=== PATIENT | female | born 1955 | race Caucasian/White ===

== ENCOUNTER 2017-05-24 21:15 | Inpatient (IN) | payer OTHER ==
[~2017-05-24] VITALS: Ht 170.1 cm; Wt 79.6 kg
--- NOTE | ~2017-05-24 | PR ---
[place], [place] PROGRESS NOTE NAME: ALEIDA SUH UNIT #: [id number] ROOM: 507 DOCTOR: MO DUMONT MD,SHIRA BIRTHDATE: [birth year] DOS: 05/27/2017 SUBJECTIVE: The patient underwent bronchoscopy yesterday with endobronchial and transbronchial biopsies was noted in the right upper lobe. The patient has been noted without any symptoms of acute chest pain. Coughing has been noted decreased, but not resolved. Denies symptoms of chest pain or hemoptysis. OBJECTIVE: VITAL SIGNS: Normal temperature, respiratory rate 18, heart rate 87, blood pressure 146/84-166/100. HEENT: No acute change. NECK: Supple. CARDIOVASCULAR: S1, S2 is audible. LUNGS: The patient was noted without any wheezing or crackles at the present time. Breath sounds noted mildly decreased bilaterally. ABDOMEN: Soft, nontender. EXTREMITIES: No significant edema. LABORATORY DATA: Per the bronchial washing Gram stain, moderate white blood cells and moderate epithelial cells, rare gram-positive cocci in pairs and clusters. Urine culture from the 15th showed no bacterial growth. Blood culture from the 14 reported no bacterial growth. CBC this morning was noted as normal. The BMP of the patient was noted with normal BUN and creatinine. Potassium was noted normal. Sodium still remains low with 121 and chloride was also decreased to 85. IMPRESSION: 1. The patient with suspected malignancy at this time with hyponatremia, which is noted multifactorial including possibly to SIADH, paraneoplastic syndrome is a consideration. 2. The patient with acute exacerbation of chronic obstructive pulmonary disease. 3. History of chronic nicotine dependence. PLAN OF TREATMENT: No changes from the pulmonary standpoint. Continue to address the hypernatremia for this patient with the recommendations of the Nephrology services. Monitor results of the biopsy of the left upper lung mass lesion. The patient had an endobronchial biopsy. Usual care. Other supportive plan of treatment, monitor culture results. Continuation of the bronchodilators. Dose of Solu-Medrol will be decreased to 40 mg b.i.d. for this patient as reduction in wheezing and improvement in shortness of breath was noted. [place], [place] PROGRESS NOTE NAME: ALEIDA SUH UNIT #: [id number] ROOM: 507 DOCTOR: SHIRA TOUSSAINT MD BIRTHDATE: [birth year] SHIRA HASSAN MD CM:PNTRANS [id number] SHIRA DUMONT MD 05/27/17 1245 interface
--- NOTE | ~2017-05-24 | PR ---
[place], [place] PROGRESS NOTE NAME: ALEIDA SUH UNIT #: [id number] ROOM: 507 DOCTOR: GENOVEVA MAKI DO BIRTHDATE: [birth year] DOS: 05/26/2017 TIME: 11:54 p.m. At approximately 11:40, a code was called on the patient. Myself and 2 other residents along with security and nursing staff and inpatient assistance arrived to find the patient in the hallway, about 15 feet from her door. The patient was hunched over, hanging on to her IV pole, in respiratory distress, complaining that she wanted to leave the hospital immediately. She was upset with the care she was given. It was attempt at several times to try and get the patient to explain what specifically was causing her to be upset. The patient said she did not want to talk to us, that she did not like us and she hated it here in this hospital and that she was leaving to go [place] the [place]. We made several attempts to ask her for more details on how she plans to get there tonight and what her plans were and she said, "I'm just going to [place]" and she has no specific plans on transportation or who will be picking her up from the hospital. The patient was oriented to place; however, stated that the date was 1917. Additionally, she made several attempts to explain to us that a Dr. Montague and his ones who are meeting her in [place]. We explained to the patient that if she were to leave in her acute respiratory distress that she would likely not have a good outcome including things like passing out, syncopal or even respiratory and cardiac arrest. The patient stated multiple times she do not care if she , she just wanted to leave. It was determined by myself along with agreement of the nursing staff that the patient was not competent at this time to make this decision, this is an acute change in mental status for this patient who earlier in the day was compliant and friendly with staff and has not had any issues since she has been here. Due to the acute change in the patient's mental status and obvious intention to hurt herself and also an unclear plan on what she was wanting to do, we deemed it necessary to pink slip the patient and to bring her back to her room. The patient was irritated but was in a wheelchair, unable get back to her bed. A 5 mg of Haldol was given IM. The patient requested additional medication to help calm her nerves, 50 of Bentyl was ordered IM as well. At this time, the patient is medically stable and is in her bed and the nursing staff are with her and she is in no immediate danger of herself or other. GENOVEVA MAKI DO [place], [place] PROGRESS NOTE NAME: ALEIDA SUH UNIT #: [id number] ROOM: 507 DOCTOR: GENOVEVA MAKI DO BIRTHDATE: [birth year] VILMA JACKSON DO CM:REBECA [id number] GENOVEVA MAKI DO 05/27/172105 interface
--- NOTE | ~2017-05-24 | PR ---
[place], [place] PROGRESS NOTE NAME: ALEIDA SUH UNIT #: [id number] ROOM: 507 DOCTOR: GABBIE HAQUE MD BIRTHDATE: [birth year] DOS: 05/26/2017 REASON FOR FOLLOWUP: Hyponatremia. SUBJECTIVE: The patient was down getting a bronchoscopy today and could not be seen. Labs were reviewed. Continued hyponatremia persists. She is on oral fluid restriction. Lactate Ringer's was started at 30 mL an hour this morning. Based on her urine chloride and urine sodium being 32 and less than 10, I do not see that this is a big problem to start some low rate IV fluids on her. What I will do is also add sodium chloride tablets and continue to replace potassium and follow with a dose of magnesium as well. GABBIE HAQUE MD CM:REBECA [phone] GABBIE HAQUE MD 05/26/17 1736 interface
--- NOTE | ~2017-05-24 | CON ---
[place], [place] REPORT OF CONSULTATION NAME: ALEIDA SUH UNIT #: [id number] ROOM: 507 DOCTOR: SHIRA TOUSSAINT MD BIRTHDATE: [birth year] DOS: 05/25/2017 PULMONARY CONSULTATION REASON FOR CONSULTATION: Abnormal CT scan finding and the ongoing acute respiratory complaints. HISTORY OF PRESENT ILLNESS: This is a 62-year-old white female who has been admitted to the hospital. The patient was noted with severe generalized weakness and fatigue with lower extremity weakness and symptoms of cough and shortness of breath. The patient has been admitted to the hospital and noted severe hyponatremia. The patient has a chest x-ray done and then CT scan of the head and the chest was also done. She has been noted with symptoms of chest pain. Chest x-ray of the patient was reported with finding of left hilar enlargement suspicious with possibility of malignant tumor. The patient denies any symptoms of hemoptysis. Denies symptoms of abnormal weight loss. The patient does have a cough, which has been noted moderate to severe, nonproductive. She denies any symptoms of wheezing. REVIEW OF SYSTEMS: CONSTITUTIONAL: General weakness, fatigue, occurred for the past 10 days or greater. EYES: Denies any burning, redness, or tenderness. EARS, NOSE, THROAT SYMPTOMS: No sore throat, hoarseness, otalgia, postnasal drainage. CARDIOVASCULAR: Denies anginal pain, edema or pain of the lower extremities. GASTROINTESTINAL: Dysphagia, nausea, vomiting, diarrhea, abdominal pain, hematemesis, melena, hematochezia. SKIN: No lesions or rashes. CENTRAL NERVOUS SYSTEM: Generalized weakness and fatigue was noted, especially of the lower extremities. Denies any focal deficit or tingling sensations. Remaining systems were reviewed with the patient, they were noted all negative. PAST MEDICAL HISTORY: 1. History of centrilobular emphysema/COPD. 2. Anxiety disorder and depression. 3. Essential hypertension. 4. History of osteoarthritis. PAST SURGICAL HISTORY: 1. EGD. 2. D and C. 3. Corneal transplants. 4. Polypectomy with colonoscopy. SOCIAL HISTORY: Reported as the patient is , has 2 children. Lives at home. She has been known with history of tobacco use, a pack of cigarettes per day since teenager. Denies history of chronic alcohol or any illicit drug use. FAMILY HISTORY: The patient's father of complication related to acute [place], [place] REPORT OF CONSULTATION NAME: ALEIDA SUH UNIT #: [id number] ROOM: 507 DOCTOR: MO DUMONT MD,SHIRA BIRTHDATE: [birth year] myocardial infarction. Mother of natural causes. HOME MEDICATIONS: Reported use of vibramycin, albuterol sulfate, Advair, Lasix, Neurontin, DuoNeb, lisinopril, and Medrol Dosepak. The Medrol Dosepak and doxycycline was recently started by her primary care physician. DRUG ALLERGIES: No known drug allergies. PHYSICAL EXAMINATION: GENERAL: A 62-year-old female who has been noted currently awake and alert without any distress. Height of 5 feet 7 inches, weight of 175 pounds, BMI 27.5. VITAL SIGNS: Shows normal temperature, respiratory rate 20-22, heart rate 60-84, blood pressure 108/70-124/78. The pulse oxygen saturation noted on room air 95% saturation. HEENT: Examination shows head was atraumatic. Eyes: No icterus. NECK: Supple. CARDIOVASCULAR: S1, S2 is audible. LUNGS: The patient was noted with moderate reduction of breath sounds noted, which is generalized. Expiratory wheezing noted in the lungs. ABDOMEN: Soft, nontender, bowel sounds present. EXTREMITIES: Does not show any edema, clubbing, cyanosis. CENTRAL NERVOUS SYSTEM: No focal deficit origin or muscular weakness was noted. Cranial nerves 2-12 intact. SKIN: Showed no lesions or rashes. MUSCULOSKELETAL: No obvious deformities. LABORATORY DATA: CBC on 05/24/2017 on admission, WBC count 4.4, remaining CBC was normal. ABG of the patient on 05/24/2017, 6 liters, pH of 7.43, pCO2 of 41, pO2 113. CMP of the patient on 05/24/2017, BUN normal, creatinine was normal, sodium 120, potassium 3.2, chloride of 81. Alkaline phosphatase 138. Magnesium was 1.3. BMP of the patient that was done this morning shows BUN normal, creatinine was normal, sodium 121, potassium 3.2, chloride of 87. TSH was noted as normal today. CBC this morning, WBC count 3.5, hemoglobin 12.8, hematocrit of 35.8. The chest x-ray that was done for this patient on this admission was noted with evidence of suspected hilar enlargement and mass-like lesion. CT scan of the chest which was done essentially without contrast yesterday was reviewed, it limits the findings of mediastinum; however, the mass lesion was suspected in the left hilar area 3.8 x 2.6 cm extension to the left hilar area with a lymph node enlargement noted in the AP window as well as in the left hilar area. Subcarinal lymph nodes was also suspected. Area of atelectasis noted partially of the left upper lobe as well. The bronchus of the left main stem bronchus was noted to be narrowed with irregularity. IMPRESSION: 1. The patient with suspected malignancy with current abnormal CT scan of the chest with hyponatremia, possibility of SIADH paraneoplastic syndrome. The differential diagnosis would be considered as a small cell versus squamous cell [place], [place] REPORT OF CONSULTATION NAME: ALEIDA SUH UNIT #: [id number] ROOM: 507 DOCTOR: SHIRA TOUSSAINT MD BIRTHDATE: [birth year] cancer as a most likely cancer if it is proven. 2. The patient with COPD, chronic longstanding tobacco use, emphysematous changes noted centrilobular emphysema on the CT scan of the chest as well with current acute exacerbation. 3. History of chronic longstanding nicotine abuse. 4. Hypokalemia for the patient related to diuretic use of the Lasix as well. 5. Generalized weakness was noted for this patient as well. CT scan of the head for the patient was also done that does not show any acute intracranial abnormalities. RECOMMENDATIONS: Continue IV Solu-Medrol, bronchodilators and antibiotics. Medical management of hyponatremia with 3% saline would be considered and recommended. Supplementation of electrolytes of the hypomagnesemia and hypokalemia would be recommended. Continue current antibiotic administration with acute tracheobronchitis and possibility of postobstructive pneumonia for this patient as well in the left upper lobe in the impression of that and postobstructive pneumonia for this patient, possibly endobronchial partial obstruction in the left upper lobe bronchus. Continue medical management plan. DVT prophylaxis. Bronchoscopy if agreed upon would be done tomorrow morning on another day. Supportive therapy, plan of management care and usual therapy. Supportive treatment and other care, plan of management. Usual care. SHIRA HASSAN MD CM:CONSTR:REPORT OF CONSULTATION 1105 05/26/17 1325 interface
--- NOTE | ~2017-05-24 | CON ---
[place], [place] REPORT OF CONSULTATION NAME: ALEIDA SUH UNIT #: [id number] ROOM: 507 DOCTOR: HAJA BOYER ED.D (JA) BIRTHDATE: [birth year] DOS: 05/27/2017 HISTORY OF PRESENT ILLNESS: The patient is a 62-year-old female referred by the hospitalist for competency evaluation. At the present time, this patient is on the 5th floor at [facility]. She states she is and has 2 children, ages 36 and 40. She is not working and is presently on SSI for her COPD. She now follows with the resident clinic. Her medical history is pertinent for COPD, anxiety, hypertension, depression, osteoarthritis and lung neoplasm. Her medications include Lasix, gabapentin, lisinopril, albuterol, omeprazole, and trazodone. She denies any substance abuse issues, although she does smoke 1 pack of cigarettes per day. She states she has not had anything to smoke since she has been here and plans on quitting. This patient was awake, alert and oriented in all three spheres. She had no hallucinations or delusional thoughts and was very lucid in her conversation. Apparently, apparently her medical problems caused her to have short-term delirium. She did follow with Dr. Lyon in the past for her depression. She adamantly denies any suicidal ideation or plan and has no history of auditory or visual hallucinations or delusional thoughts. In my opinion, this patient is competent to make informed healthcare decisions. DIAGNOSES: 1. Persistent depressive disorder. 2. Delirium, not otherwise specified. RECOMMENDATIONS: In my opinion, this patient can make informed healthcare decisions. Thank you very much for this consult. HAJA BOYER ED.D CM:CONSTR:REPORT OF CONSULTATION 1442 05/28/17 0401 interface
--- NOTE | ~2017-05-24 | CON ---
[place], [place] REPORT OF CONSULTATION NAME: ALEIDA SUH UNIT #: [id number] ROOM: 507 DOCTOR: CHRISTOPHE SWEET MD BIRTHDATE: [birth year] DOS: 05/28/2017 HISTORY OF PRESENT ILLNESS: The patient is a pleasant 62-year-old woman who for the past 2 weeks has been complaining of productive cough, which has got worse subsequently. She also is a smoker, but started complaining of feeling weakness and try to get up and walk and subsequently decided to come to the Emergency Room. She was noted to be hyponatremic and was admitted. Further workup revealed that she has got a small cell lung cancer and consulted for further evaluation and management. MEDICATIONS: She is on albuterol, hydromorphone. She is on Dilaudid, albuterol, tazobactam sodium and Zofran. She is also on furosemide, ipratropium bromide, lisinopril, pantoprazole sodium and trazodone. PAST MEDICAL HISTORY: Anxiety, depression, COPD, essential hypertension, gait disorder, generalized weakness, hyponatremia, osteoarthritis, pneumonia, history of cervical cancer, resting tremors, seizures, history of delirium tremens, essential hypertension and generalized anxiety disorder. PAST SURGICAL HISTORY: Dilatation and curettage, EGD, corneal transplant, colonoscopy and polypectomy. SOCIAL HISTORY: The patient is a present smoker. Denies any alcohol or drug abuse. FAMILY HISTORY: Father of cardiac disease, myocardial infarction. Mother of natural causes. ALLERGIES: No known allergies. RADIOLOGY: CT scan of the chest showed focal irregular opacity in the left suprahilar region suspicious for neoplasm as well as enlarged metastatic nodes. CT of the head showed no acute intracranial pathology. LABORATORY DATA: Labs from 05/28/2017, white count of 5.3, hemoglobin 13.0, hematocrit 36.7, platelet count of 233. Chemistries: Glucose of 123, EGFR more than 60, sodium 124, potassium 4.3, chloride 92, bicarbonate 24, calcium 8.9, mag 1.7, albumin 3.7. Pathology was consistent with small cell lung cancer. ASSESSMENT: 1. Recently diagnosed small cell lung cancer. 2. Chronic obstructive pulmonary disease exacerbation. 3. Status post bronchoscopy. 4. Hyponatremia. PLAN: I had detailed discussion with the patient. We will go ahead and do staging workup including CT of the abdomen and pelvis, bone scan. We will also repeat CT of the chest and CT of the head as well as path reports. Depending upon that, further intervention. She has poor IV access. She will be also getting a MediPort. I had detailed discussion with the patient about it, she [place], [place] REPORT OF CONSULTATION NAME: ALEIDA SUH UNIT #: [id number] ROOM: 507 DOCTOR: CHRISTOPHE SWEET MD BIRTHDATE: [birth year] seemed to understand. Ample time was given to the patient to ask me questions. We will follow. Thanks for consulting and letting me participate in the care of this interesting patient. CHRISTOPHE SWEET MD CM:CONSTR:REPORT OF CONSULTATION 2102 05/29/17 0314 interface
--- NOTE | ~2017-05-24 | CON ---
[place], [place] REPORT OF CONSULTATION NAME: ALEIDA SUH UNIT #: [id number] ROOM: 507 DOCTOR: Evangelina CIFUENTES,ROGERS BIRTHDATE: [birth year] DOS: 05/27/2017 REASON FOR CONSULTATION: Increased agitation. HISTORY OF PRESENT ILLNESS: The patient is a 62-year-old white female who actually got admitted to the medical floor for shortness of breath and also blurry vision. While the patient was in the unit last night, the patient started acting very angry, upset. She was running up and down on the hallway and needed to be pink slipped to be in the unit for further care and stabilization. The patient was on her bed. She was sleeping. She got up when I asked her name, but she seems to be very irritable and angry. She said that she will only answer a few questions. She said that she recognized and recalled that she was upset yesterday. She said that she wanted to leave the hospital and wanted to go to [place] with her friends. When I asked her that if she is going with her boyfriend or not, she did not answer my question. She actually denied being depressed, sad, was very upset and irritable when I started asking her about her mood and further other symptoms of any psychosis, marycruz or hypomania. She said that she is not willing to talk with me anymore. PAST MEDICAL HISTORY: Significant for COPD, elevated liver enzymes, hypertension, history of cervical cancer, urinary tract infection, and seizure disorder. PAST PSYCHIATRIC HISTORY: The patient denied any prior psychiatric hospitalization. Denied prior suicide attempt. No suicide in the family. SUBSTANCE ABUSE HISTORY: The patient mentioned that she has a history of alcohol abuse, but claims to be sober for the last 3 years. SOCIAL HISTORY: She was born and raised in [place], 2 years of college. 3 times, . She has 2 kids. She lives with her boyfriend. MENTAL STATUS EXAMINATION: The patient was alert. She was irritable and angry. She described her mood as "I don't know." Affect was labile, irritable, and angry. Thought process goal directed. No flight of ideas or loosening of association. She did not answer my questions about auditory or visual hallucination. She did not answer my question about suicide or homicide also. Insight and judgment impaired. ASSESSMENT: 1. Alcohol abuse dependence by history. 2. Mood disorder, not otherwise specified. PLAN: 1. Continue current medication care in the medical floor. 2. May start her on Haldol 5 mg p.o./IM for increased agitation. 3. Once medically stable, the patient can be transferred to the psychiatric floor for further care and stabilization. [place], [place] REPORT OF CONSULTATION NAME: ALEIDA SUH UNIT #: [id number] ROOM: 507 DOCTOR: Evangelina CIFUENTES,ROGERS BIRTHDATE: [birth year] 4. Probably it will be a better idea to involve the family, bring the family in, and discuss the treatment options with the family along with the patient. It seems like at this moment, the patient lacks the capacity to make any informed medical decision based on her uncooperativeness, irritability, and anger. ROGERS CIFUENTES MD CM:CONSTR:REPORT OF CONSULTATION 9 05/27/17 0847 interface
--- NOTE | ~2017-05-24 | PR ---
[place], [place] PROGRESS NOTE NAME: ALEIDA SUH UNIT #: [id number] ROOM: 507 DOCTOR: GABBIE HAQUE MD BIRTHDATE: [birth year] DOS: 05/28/2017 Followup of hyponatremia. SUBJECTIVE: The patient was seen and evaluated without acute complaints. From physical standpoint, she is mentally down because she was told of her diagnosis as small cell carcinoma that was detected on bronchoscopy. Her sodium is slowly improving with salt tablets from 119 to 121 to 124 today. Other electrolytes and renal function appears stable. She is continued on a fluid restriction and she is awaiting evaluation by oncology. PHYSICAL EXAMINATION: VITAL SIGNS: 98.2, 70-120, 119-160/72-98, pulse ox 92-99% room air. GENERAL: Awake, alert, sitting upright in bed, anxious appearing, slightly tremulousness woman. HEAD AND NECK: Sclerae anicteric. Oropharynx clear. Mucous membranes are moist. No JVD or lymphadenopathy. LUNGS: Clear, decreased at the left base. CARDIOVASCULAR: Regular rate. No audible rub. ABDOMEN: Soft, nontender, nondistended. No rebound, no guarding. EXTREMITIES: Without cyanosis, clubbing or significant edema. LABORATORY DATA AND DIAGNOSTICS: White blood cell count 5.3, hemoglobin 13, platelets 233. Sodium 124, potassium 4.3, chloride 92, bicarbonate 24, BUN 12, creatinine 0.6, phosphorus 3.8, calcium 8.9, magnesium 1.7. ASSESSMENT AND PLAN: 1. Hyponatremia, is slowly improving. Continue salt tablets and fluid restriction and avoid thiazide diuretics. Renal function is otherwise stable. Other electrolytes are acceptable. 2. Hypertension is acceptably controlled in general with some exacerbations with anxiety. 3. Small cell lung cancer. Continue follow up with pulmonary and await evaluation by hematology and oncology. [place], [place] PROGRESS NOTE NAME: ALEIDA SUH UNIT #: [id number] ROOM: 507 DOCTOR: GABBIE HAQUE MD BIRTHDATE: [birth year] GABBIE HAQUE MD CM:PNTRANS [id number] GABBIE HAQUE MD 05/29/17 0603 interface
--- NOTE | ~2017-05-24 | PR ---
[place], [place] PROGRESS NOTE NAME: ALEIDA SUH UNIT #: [id number] ROOM: 507 DOCTOR: MO DUMONT MD,SHIRA BIRTHDATE: [birth year] DOS: 05/28/2017 SUBJECTIVE: The patient has been noted comfortable at this time without any distress. She has been denying any symptoms of chest pain or any abdominal pain. General weakness and fatigue for the patient has been gradually subsiding. OBJECTIVE: VITAL SIGNS: For the patient which were recorded showed the temperature noted as normal. Respiratory rate 20, heart rate 93, blood pressure 154/92. HEENT: Shows no new change. NECK: Supple. CARDIOVASCULAR: S1, S2 audible. LUNGS: Noted with moderate decreased breath sounds bilaterally. ABDOMEN: Soft, nontender. LABORATORY DATA: The patient's renal function ____ noted normal BUN and creatinine, sodium 124, chloride of 92. CBC this morning was noted as normal. CT scan of the head does not show any acute pathologies. Biopsy results for the patient was noted with evidence of small cell lung cancer. IMPRESSION: 1. 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 2. Improving generalized weakness and fatigue gradually. PLAN OF MANAGEMENT: Continuation of the patient's current therapy, plan of management. Obtain another chest x-ray to reassess the progression of the pulmonary disease. Usual care, other supportive therapy, plan of care. Other additional treatment changes will be done based on the progression of the illness. Medical Oncology consultation was recommended. SHIRA HASSAN MD CM:PNTRANS [id number] SHIRA DUMONT MD 05/28/17 1114 interface
--- NOTE | ~2017-05-24 | PROC NOTE ---
[place], [place] PROCEDURE NOTE NAME: ALEIDA SUH UNIT #: [id number] ROOM: 507 DOCTOR: MO DUMONT MD,SHIRA BIRTHDATE: [birth year] DOS: 05/26/2017 PREOPERATIVE DIAGNOSES: Left upper lung mass, suspected with narrowing of the left main stem bronchus. POSTOPERATIVE DIAGNOSES: Left upper lung mass, suspected with narrowing of the left main stem bronchus. PROCEDURE DESCRIPTION: Informed consent obtained for the patient. The patient brought to the OR and placed in supine position. Conscious sedation was administered by the Anesthesia Department. After achieving appropriate sedation, airway introduced into the mouth. Bronchoscope advanced into the airway into laryngeal area. Epiglottis and vocal cords were seen. Bronchoscope advanced through the vocal cords into the tracheal lumen. The tracheal lumen was identified. The patient noted small amount of secretion in the tracheal lumen, which was suctioned out to the leona level. Secretion was collected. Leona was noted sharp. The left and right mainstem bronchus were also assessed. Right upper, right middle and right lower lobe bronchi were all noted patent except mucus impaction which were cleared out. Left lower lobe and lingular opening were identified with mucus impaction, which was cleared up. ____ of the right upper lung bronchus, subsegmental bronchus was noted. Endobronchial and deeper transbronchial biopsies were obtained. Procedure was tolerated by the patient with minimal bleeding, less than couple of milliliters. The procedure was well tolerated without any complications. Postoperative findings will be discussed with the patient once the patient recovers the effects of acute sedation. SHIRA HASSAN MD CM:PROCNOTE:PROCEDURE NOTE [id number] SHIRA DUMONT MD
--- NOTE | ~2017-05-24 | PR ---
[place], [place] PROGRESS NOTE NAME: ALEIDA SUH UNIT #: [id number] ROOM: 507 DOCTOR: SHIRA TOUSSAINT MD BIRTHDATE: [birth year] DOS: 05/29/2017 PULMONARY FOLLOWUP NOTE SUBJECTIVE: She has been noted to be comfortable at this time without any distress. The patient does not have symptoms of hemoptysis. There were no symptoms of chest pain. She has been continued on her previous treatment as ordered. OBJECTIVE: VITAL SIGNS: Temperature normal, respiratory rate 18, heart rate of 101 and blood pressure 158/88. Pulse oxygen saturation recorded on room air is 95% saturation. HEENT: Shows no new change. NECK: Supple. CARDIOVASCULAR: S1, S2 audible. LUNGS: Noted with mild expiratory wheezing bilaterally. ABDOMEN: Soft, nontender. LABORATORY DATA: The CT scan of the abdomen and pelvis that was done yesterday, was not noted with any abnormalities in the abdomen or pelvis. CMP this morning: Sodium improved to 131, chloride normal. CBC was noted as normal. IMPRESSION: 1. 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 2. Small cell lung cancer. 3. Resolving acute exacerbation of chronic obstructive pulmonary disease. PLAN OF TREATMENT: Diagnoses of the patient has been discussed. The patient has been consulted to be seen by Dr. Knowles. In the meantime, continue the patient's current therapy and plan of management as in progress. No additional change in treatment at this time immediately will be needed. [place], [place] PROGRESS NOTE NAME: ALEIDA SUH UNIT #: [id number] ROOM: 507 DOCTOR: SHIRA TOUSSAINT MD BIRTHDATE: [birth year] SHIRA HASSAN MD CM:PNTRANS [id number] SHIRA DUMONT MD 05/29/17 1358 interface
--- NOTE | ~2017-05-24 | CON ---
[place], [place] REPORT OF CONSULTATION NAME: ALEIDA SUH UNIT #: [id number] ROOM: 507 DOCTOR: MAX YU DO BIRTHDATE: [birth year] DOS: 05/25/2017 RENAL CONSULTATION REASON FOR CONSULTATION: Hyponatremia. HISTORY OF PRESENT ILLNESS: This is a pleasant 62-year-old female with history of hypertension; alcohol abuse, but abstinent now for 3-4 years; anxiety disorder with depression. She has a history of cervical cancer. She has had a previous corneal transplant as well. Has a history of COPD, chronic tobacco abuse. She has had recurrent episodes of hyponatremia, has been evaluated by our service on several occasions while hospitalized as well as previously having been seen in the office. Previous evaluations have shown normal TSH levels, low serum osmolality levels. Her hyponatremia was thought to be related to alcohol use with poor solute intake/depletion in the setting of hydrochlorothiazide use. Hydrochlorothiazide has been discontinued as of her last hospital stay in 04/2015. The patient was exhibiting normal sodiums with correction of sodiums with solute repletion. Last known sodium was from 07/15/2016 was found to be 141. She presents to this institution yesterday due to approximately 1 week history of progressive dyspnea with cough productive of yellow sputum, subjective fevers and chills. It should be noted that the patient did not quantify her temperature at home. Progressive weakness with presyncope and anorexia. She did not have any additional GI complaints, specifically denying nausea, vomiting or diarrhea. She did not have any associated cardiac complaints. She did note edema, chronic in nature, which she states may have been worsened, but then stated it was no different. She denies any changes in her voiding habits leading up to admission. She did not attempt to use any xapy-gny-plktsoa remedies for her presenting symptoms. She continues all of her outpatient medications which included a stable dose of lisinopril 20 mg daily, Lasix 20 mg daily. She also uses fmhr-exk-vlztdzu Advil 2 pills daily on a routine basis for DJD and again, she continue to use this routinely. On presentation to the Emergency Room, she was noted to be afebrile, hemodynamically stable. She underwent a chest x-ray in the Emergency Room that suggested a left perihilar infiltrate with a question of a mass also raised. Subsequent CT scan of the chest did in fact confirm infiltrate, thought to be postobstructive related to a possible neoplasm in the left suprahilar region. The CT scan of the head showed no acute anomalies. She was found to be hyponatremic on admission with a sodium of 120, potassium of 3.2. Chemistries were otherwise unremarkable. Glucose and bicarbonate were satisfactory. She did receive IV fluids in the Emergency Room, 1 liter, with followup labs obtained this morning show her sodium improved to 121, potassium unchanged at 3.2. Chemistries, otherwise remaining unremarkable. She notes since being admitted, she is feeling better and that her appetite is improving. Her dyspnea is somewhat better as well, but she still feels quite weak. She has had urine electrolytes and osmolality ordered but these are yet to be sent. Thyroid functions have been rechecked this admission, again found to be satisfactory. PAST MEDICAL HISTORY: See above. ALLERGIES: No known drug allergies. [place], [place] REPORT OF CONSULTATION NAME: ALEIDA SUH UNIT #: [id number] ROOM: [facility] DOCTOR: MAX YU DO BIRTHDATE: [birth year] CURRENT MEDICATIONS: Nicoderm patch topically every day, Solu-Medrol 60 mg IV q. 6h., Lovenox 40 mg subcutaneously every day, DuoNebs q. 4 hours, Protonix 40 mg p.o. every day, Rocephin 1 gram IV every day, Zithromax 500 mg IV every day. SOCIAL HISTORY: She resides at home. FAMILY HISTORY: Noncontributory. REVIEW OF SYSTEMS: See HPI. Full 10 point review of systems performed obtained and were otherwise unremarkable except as noted in the HPI. PHYSICAL EXAMINATION: VITAL SIGNS: Blood pressure is 108/72, pulse 62, respiration 20, temperature is 98.3 degrees Fahrenheit. GENERAL APPEARANCE: Obese female, alert, awake and oriented x 3. Currently, in no apparent distress. HEENT: Head is normocephalic. Eyes, conjunctivae are pink. Oral mucosa pink and moist. NECK: No carotid bruits, thyromegaly, adenopathy or JVD appreciated. LUNGS: Exhibit bronchial breath sounds in the left upper lung field. There is also mild expiratory wheezing noted, otherwise, clear to auscultation and percussion. HEART: Regular without an S4, S3, gallop, or rub or heave noted. ABDOMEN: Soft, positive bowel sounds x 4, nontender, without CVA tenderness noted. No rebound, guarding or rigidity noted. No abdominal or flank bruits appreciated. NEUROLOGIC: Examination is grossly nonfocal. EXTREMITIES: No clubbing, cyanosis, no edema noted. Pulses are +2 bilateral radial as well as dorsalis pedis. SKIN: Warm and dry without rash, ulcers, lesions, or petechiae appreciated. LABORATORY DATA: From today, CBC is 3.5, hemoglobin 12.8, hematocrit of 35.3, platelets 185,000. Sodium is 121, potassium 3.2, chloride of 87, CO2 27, BUN 6, creatinine 0.48, glucose of 88. Hemoglobin A1c 6.0%. Calcium is 8.0. TSH is 1.85, free T4 is 1.39. ASSESSMENT AND PLAN: 1. Hyponatremia, presumably this is due to volume depletion with increased ADH release. The patient does drink approximately 7-8, 12 ounce glasses of water daily, which equates to less than a gallon. Her intake was not increased, but was not decreased either significantly from her recent illness and she was also using a Prostacyclin antagonist in the form of, Aleve. All of these factors together may have contributed to her hyponatremia. However, given the new finding of a lung neoplasm, SIADH is also a possibility to produce hypokalemia. This is presumably as a consequence of poor oral intake and ongoing use of diuretics in the form of Lasix, exacerbated by her hypomagnesemia history as noted above. Note that both magnesium and potassium have been replaced x 1. RECOMMENDATIONS: Favor gentle IV fluids in the form of normal saline with 20 [place], [place] REPORT OF CONSULTATION NAME: ALEIDA SUH UNIT #: [id number] ROOM: 507 DOCTOR: MAX YU DO BIRTHDATE: [birth year] mEq of KCl at 75 mL an hour with close attention to electrolytes to assure the rate of rise of her sodium is not too rapid and also to assure that it is not decreasing. Instructed urinalysis and urine osmolality and chemistries have been requested already. I have asked the nurses to collect these shortly so they will not be affected by the use of IV fluids. Also, follow magnesium levels closely and replace as needed. Thank you for allowing us to participate in the care of the patient. MAX YU DO CM:CONSTR:REPORT OF CONSULTATION 1102 05/26/17 0946 interface
--- NOTE | ~2017-05-24 | PR ---
[place], [place] PROGRESS NOTE NAME: ALEIDA SUH UNIT #: [id number] ROOM: 507 DOCTOR: MO DUMONT MD,SHIRA BIRTHDATE: [birth year] DOS: 05/26/2017 SUBJECTIVE: The patient has been noted n.p.o. past midnight for bronchoscopy planned for today. The patient continues to be treated for severe hyponatremia by Nephrology services. Denies symptoms of chest pain or any abdominal pain. OBJECTIVE: VITAL SIGNS: Normal temperature, respiratory rate of 19, heart rate 100, blood pressure 120/97. Pulse oxygen saturation on 3 liters nasal cannula was 95% saturation. HEENT: No acute change. CARDIOVASCULAR: S1, S2 audible. LUNGS: Jybk-wq-ghuvarnp decreased breath sounds noted in the lungs bilaterally. The patient was noted to have scattered wheezing. ABDOMEN: Soft and nontender. EXTREMITIES: Show no edema. LABORATORY DATA: The patient's renal function panel today noted normal BUN and creatinine. Sodium remains severely low at 119, chloride of 83. CBC of the patient this morning was noted as normal WBC count, hemoglobin and hematocrit. IMPRESSION: The patient with suspected left upper lung mass noted in the left upper lung bronchus. The patient prepared for bronchoscopy with acute exacerbation of chronic obstructive pulmonary disease, acute tracheobronchitis postobstructive pneumonia and persistent severe hyponatremia. PLAN OF TREATMENT: Proceed with bronchoscopy as planned. Any decision changes in treatment if necessary will be ordered after completion of bronchoscopy. In the meantime, continue other previous therapy, plan of management, usual care and supportive care. SHIRA HASSAN MD CM:PNTRANS 1157 [id number] SHIRA DUMONT MD 05/26/172216 interface
[~2017-05-24 21:15] MED LIST: ****K-Phos500 MG PO; ADVAIR 500/501 E1 INH; ALBUTEROL0.09 MG/A2 INH; ALBUTEROL2.5 MG/0.5; ANTIBIOTIC O500 U/GM TP; ATIVAN1 MG PO; ATROVENT I0.5 MG/2.1 INH; CLARITIN10 MG PO; DECADRON4 MG PO; DUONEB 3ML 3 MG/3 ML NEB; GABAPENTIN600 MG PO; HYDR12.5C PO; IPRATROPIUM BR2.5 ML IH; KEFLEX500 MG PO; LASIX20 MG PO; LIBRIUM25 MG PO; LISINOPRIL HCTZ1 TA1 PO; LISINOPRIL20 MG PO; MEDROL DOSEPAK4 MG PO; MIRTAZAPINE15 M2 PO; MUCINEX600 MG PO; MULTIPLE VITAMI1 CAP PO; NATURE'S BLEND F1 MG PO; NORCO 325 MG-51 TAB PO; ORASONE10 MG PO; PROAIR HFA0.09 MG/AC IH; PROTONIX40 MG PO; VENTOLIN H0.09 MG/AC INH; VIBRAMYCIN100 MG PO; ZESTRIL40 MG PO
[2017-05-24 21:30] VITALS: BP 133/80
[2017-05-24 22:14] LABS: ABG BASE EXCESS 3.6 mmol/L (-2.0-2.0); ABG CO2 CONTENT 28.9 mmol/L (23-27); ABG HCO3 27.6 mmol/l (22-26); ABG TEMPERATURE 98.6 F (98.0-99.0); ARTERIAL BLOOD GAS PH 7.438 (7.35-7.45)
[2017-05-24 22:26] VITALS: BP 112/88
[2017-05-24 22:29] LABS: BASO % 0.7 % (0.0-1.0); EOS # 0.1 10*3/uL (0.0-0.4); EOS % 1.6 % (1.0-4.0); HEMATOCRIT 37.9 % (37.0-47.0); HEMOGLOBIN 13.7 g/dl (12.0-16.0); LYMPH # 1.6 10*3/uL (1.3-4.4); LYMPH % 36.1 % (27.0-41.0); MEAN CELL VOLUME 83.1 fl (81.0-99.0); MEAN CORPUSCULAR HGB CONC 36.1 g/dl (33.0-37.0); MEAN PLATELET VOLUME 9.2 fl (9.6-12.3); MONO # 0.3 10*3/uL (0.1-1.0); MONO % 7.8 % (3.0-9.0); NEUT # 2.3 10*3/uL (2.3-7.9); NEUT % 53.8 % (47.0-73.0); PLATELET COUNT AUTOMATED 189 10*3/uL (130-400); RED BLOOD COUNT 4.56 10*6/uL (4.10-5.10); RED CELL DISTRI WIDTH 11.6 % (0-14.5); WHITE BLOOD COUNT 4.4 10*3/uL (4.8-10.8)
[2017-05-24 22:45] LABS: ALKALINE PHOSPHATASE 138 U/L (45-117); BILIRUBIN, TOTAL 0.3 mg/dl (0.2-1.0); BUN 8 mg/dl (7-24); C-REACTIVE PROTEIN 1.25 MG/DL (0-0.3); CARBON DIOXIDE 27 mmol/L (21-32); CHLORIDE 81 mmol/L (98-107); EST GLOM FILT AFRICAN AMERICAN > 60 ml/min; GLUCOSE 107 mg/dL (65-99); MAGNESIUM 1.3 mg/dL (1.5-2.1); POTASSIUM 3.2 mmol/L (3.5-5.1); SGOT/AST 16 IU/L (3-35); SGPT/ALT 25 U/L (12-78); SODIUM 120 mmol/L (136-145); TOTAL PROTEIN 6.6 gm/dL (6.4-8.2)
[2017-05-24 22:47] LABS: TROPONIN I < 0.015 ng/ml (<0.045)
[2017-05-25 01:00] VITALS: BP 124/78
[2017-05-25 07:12] LABS: BUN 6 mg/dl (7-24); CARBON DIOXIDE 27 mmol/L (21-32); CHLORIDE 87 mmol/L (98-107); CHOLESTEROL 121 mg/dL (<200); EST GLOM FILT AFRICAN AMERICAN > 60 ml/min; FREE T4 1.39 ng/dl (0.76-1.46); GLUCOSE 88 mg/dL (65-99); HDL CHOLESTEROL 40 mg/dl (40-60); LDL CHOLESTEROL 66 mg/dL (9-159); POTASSIUM 3.2 mmol/L (3.5-5.1); SODIUM 121 mmol/L (136-145); TRIGLYCERIDES 73 mg/dl (<150); VLDL CHOLESTEROL 15 mg/dL (6-40)
[2017-05-25 07:25] LABS: BASO % 0.8 % (0.0-1.0); EOS % 1.1 % (1.0-4.0); HEMATOCRIT 35.3 % (37.0-47.0); HEMOGLOBIN 12.8 g/dl (12.0-16.0); LYMPH # 1.2 10*3/uL (1.3-4.4); LYMPH % 32.8 % (27.0-41.0); MEAN CELL VOLUME 85.1 fl (81.0-99.0); MEAN CORPUSCULAR HGB 30.8 pg (27.0-31.0); MEAN CORPUSCULAR HGB CONC 36.3 g/dl (33.0-37.0); MEAN PLATELET VOLUME 9.9 fl (9.6-12.3); MONO # 0.3 10*3/uL (0.1-1.0); MONO % 9.3 % (3.0-9.0); PLATELET COUNT AUTOMATED 185 10*3/uL (130-400); RED BLOOD COUNT 4.15 10*6/uL (4.10-5.10); RED CELL DISTRI WIDTH 11.9 % (0-14.5); WHITE BLOOD COUNT 3.5 10*3/uL (4.8-10.8)
[2017-05-25 08:00] VITALS: BP 108/72
[2017-05-25] MEDS ORDERED: TRAZODONE50 MG PO (10:24)
[2017-05-25] MEDS ORDERED: NEURONTIN400 MG PO (10:25)
[2017-05-25] MEDS ORDERED: PANTOPRAZOLE SO40 MG PO (10:25)
[2017-05-25 11:48] LABS: BILIRUBIN NEGATIVE (NEGATIVE); BLOOD NEGATIVE (NEGATIVE); CLARITY SL CLOUDY (CLEAR); COLOR YELLOW (YELLOW); GLUCOSE NEGATIVE (NEGATIVE); KETONE NEGATIVE (NEGATIVE); LEUKO ESTERASE 2+ (NEGATIVE); NITRITE POSITIVE (NEGATIVE); PH 6.5 (5.0-9.0); PROTEIN NEGATIVE (NEGATIVE)
[2017-05-25 11:54] LABS: BACTERIA 1+; WBC 31-40 wbc/hpf (0-5)
[2017-05-25 12:00] VITALS: BP 154/90
[2017-05-25 12:02] LABS: URINE OSMOLALITY 377 mOsm/kg (500-850)
[2017-05-25 16:00] VITALS: BP 164/64
[2017-05-25 16:19] LABS: BUN 7 mg/dl (7-24); CARBON DIOXIDE 21 mmol/L (21-32); CHLORIDE 85 mmol/L (98-107); EST GLOM FILT AFRICAN AMERICAN > 60 ml/min; GLUCOSE 191 mg/dL (65-99); MAGNESIUM 1.9 mg/dL (1.5-2.1); POTASSIUM 3.7 mmol/L (3.5-5.1)
[2017-05-25 16:23] LABS: SODIUM 119 mmol/L (136-145)
[2017-05-25 17:23] LABS: FOLIC ACID 10.35 ng/mL (>5.38); VITAMIN D, 25-HYDROXY 17.8 ng/mL (30-100)
[2017-05-25 20:00] VITALS: BP 172/100
[2017-05-25 20:13] LABS: BILIRUBIN NEGATIVE (NEGATIVE); BLOOD NEGATIVE (NEGATIVE); CLARITY CLEAR (CLEAR); COLOR YELLOW (YELLOW); GLUCOSE 1+ (NEGATIVE); KETONE NEGATIVE (NEGATIVE); LEUKO ESTERASE TRACE (NEGATIVE); NITRITE NEGATIVE (NEGATIVE); PROTEIN NEGATIVE (NEGATIVE); SPECIFIC GRAVITY <= 1.005 (1.005-1.030); UROBILINOGEN 0.2 E.U./dl (0.2-1.0)
[2017-05-25 20:14] VITALS: BP 172/100
[2017-05-25 20:33] LABS: BACTERIA TRACE; URINE REFLEX COMMENT YES (NO)
[2017-05-26] VITALS (8 sets, daily range): BP systolic 128–166; BP diastolic 76–102
[2017-05-26 07:21] LABS: BUN 5 mg/dl (7-24); CARBON DIOXIDE 25 mmol/L (21-32); CHLORIDE 83 mmol/L (98-107); EST GLOM FILT AFRICAN AMERICAN > 60 ml/min; GLUCOSE 123 mg/dL (65-99); HEMATOCRIT 37.8 % (37.0-47.0); HEMOGLOBIN 13.8 g/dl (12.0-16.0); LYMPH # 0.6 10*3/uL (1.3-4.4); LYMPH % 9.6 % (27.0-41.0); MAGNESIUM 1.7 mg/dL (1.5-2.1); MEAN CELL VOLUME 84.2 fl (81.0-99.0); MEAN CORPUSCULAR HGB 30.7 pg (27.0-31.0); MEAN CORPUSCULAR HGB CONC 36.5 g/dl (33.0-37.0); MEAN PLATELET VOLUME 10.7 fl (9.6-12.3); MONO # 0.1 10*3/uL (0.1-1.0); MONO % 2.3 % (3.0-9.0); NEUT # 5.4 10*3/uL (2.3-7.9); NEUT % 87.6 % (47.0-73.0); PHOSPHOROUS 2.8 mg/dL (2.5-4.9); PLATELET COUNT AUTOMATED 206 10*3/uL (130-400); POTASSIUM 3.6 mmol/L (3.5-5.1); RED BLOOD COUNT 4.49 10*6/uL (4.10-5.10); RED CELL DISTRI WIDTH 11.9 % (0-14.5); WHITE BLOOD COUNT 6.2 10*3/uL (4.8-10.8)
[2017-05-26 07:23] LABS: SODIUM 119 mmol/L (136-145)
[2017-05-27] VITALS: BP 128/50
[2017-05-27 08:00] VITALS: BP 146/84
[2017-05-27 10:06] LABS: BASO % 0.1 % (0.0-1.0); HEMATOCRIT 38.8 % (37.0-47.0); HEMOGLOBIN 13.7 g/dl (12.0-16.0); LYMPH # 0.9 10*3/uL (1.3-4.4); LYMPH % 12.4 % (27.0-41.0); MEAN CELL VOLUME 85.1 fl (81.0-99.0); MEAN CORPUSCULAR HGB CONC 35.3 g/dl (33.0-37.0); MEAN PLATELET VOLUME 9.7 fl (9.6-12.3); MONO # 0.5 10*3/uL (0.1-1.0); MONO % 6.6 % (3.0-9.0); NEUT # 5.8 10*3/uL (2.3-7.9); NEUT % 80.3 % (47.0-73.0); PLATELET COUNT AUTOMATED 230 10*3/uL (130-400); RED BLOOD COUNT 4.56 10*6/uL (4.10-5.10); WHITE BLOOD COUNT 7.3 10*3/uL (4.8-10.8)
[2017-05-27 10:16] LABS: BUN 8 mg/dl (7-24); CARBON DIOXIDE 24 mmol/L (21-32); CHLORIDE 85 mmol/L (98-107); EST GLOM FILT AFRICAN AMERICAN > 60 ml/min; GLUCOSE 94 mg/dL (65-99); MAGNESIUM 1.9 mg/dL (1.5-2.1); PHOSPHOROUS 3.1 mg/dL (2.5-4.9); POTASSIUM 4.1 mmol/L (3.5-5.1); SODIUM 121 mmol/L (136-145)
[2017-05-27 12:00] VITALS: BP 158/85
[2017-05-27 16:00] VITALS: BP 120/72
[2017-05-27 20:00] VITALS: BP 129/80
[2017-05-28] VITALS: BP 119/81; BP 161/89
[2017-05-28 01:55] LABS: BILIRUBIN NEGATIVE (NEGATIVE); BLOOD TRACE-INTACT (NEGATIVE); CLARITY CLEAR (CLEAR); COLOR YELLOW (YELLOW); GLUCOSE NEGATIVE (NEGATIVE); KETONE NEGATIVE (NEGATIVE); LEUKO ESTERASE TRACE (NEGATIVE); NITRITE NEGATIVE (NEGATIVE); PROTEIN NEGATIVE (NEGATIVE); SPECIFIC GRAVITY <= 1.005 (1.005-1.030)
[2017-05-28 02:00] LABS: URINE REFLEX COMMENT YES (NO)
[2017-05-28 06:15] LABS: ALBUMIN 3.7 gm/dl (3.1-4.5); BUN 12 mg/dl (7-24); CARBON DIOXIDE 24 mmol/L (21-32); CHLORIDE 92 mmol/L (98-107); EST GLOM FILT AFRICAN AMERICAN > 60 ml/min; GLUCOSE 123 mg/dL (65-99); MAGNESIUM 1.7 mg/dL (1.5-2.1); PHOSPHOROUS 3.8 mg/dL (2.5-4.9); POTASSIUM 4.3 mmol/L (3.5-5.1); SODIUM 124 mmol/L (136-145)
[2017-05-28 06:23] LABS: HEMATOCRIT 36.7 % (37.0-47.0); LYMPH # 0.6 10*3/uL (1.3-4.4); LYMPH % 11.1 % (27.0-41.0); MEAN CELL VOLUME 84.6 fl (81.0-99.0); MEAN CORPUSCULAR HGB CONC 35.4 g/dl (33.0-37.0); MEAN PLATELET VOLUME 9.6 fl (9.6-12.3); MONO # 0.2 10*3/uL (0.1-1.0); NEUT # 4.5 10*3/uL (2.3-7.9); NEUT % 84.5 % (47.0-73.0); PLATELET COUNT AUTOMATED 233 10*3/uL (130-400); RED BLOOD COUNT 4.34 10*6/uL (4.10-5.10); WHITE BLOOD COUNT 5.3 10*3/uL (4.8-10.8)
[2017-05-28 08:00] VITALS: BP 154/92
[2017-05-28 11:05] LABS: ACID FAST SPEC PROCESSING Concentration (.)
[2017-05-28 12:00] VITALS: BP 150/98
[2017-05-28 15:08] LABS: ORGANISM ID Not indicated. (.); SPECIMEN SOURCE Urine (.); STREPTOCOCCUS PNEUMONIAE AG Negative (Negative)
[2017-05-28 16:00] VITALS: BP 174/95
[2017-05-28 20:00] VITALS: BP 159/80
[2017-05-29] VITALS: BP 168/88; BP 172/94
[2017-05-29 04:00] VITALS: BP 163/93
[2017-05-29 07:00] LABS: ALBUMIN 3.7 gm/dl (3.1-4.5); BUN 11 mg/dl (7-24); CARBON DIOXIDE 24 mmol/L (21-32); CHLORIDE 97 mmol/L (98-107); EST GLOM FILT AFRICAN AMERICAN > 60 ml/min; GLUCOSE 120 mg/dL (65-99); MAGNESIUM 1.8 mg/dL (1.5-2.1); PHOSPHOROUS 4.5 mg/dL (2.5-4.9); POTASSIUM 4.1 mmol/L (3.5-5.1); SODIUM 131 mmol/L (136-145)
[2017-05-29 07:09] LABS: HEMATOCRIT 38.3 % (37.0-47.0); HEMOGLOBIN 13.3 g/dl (12.0-16.0); LYMPH # 0.6 10*3/uL (1.3-4.4); LYMPH % 7.9 % (27.0-41.0); MEAN CELL VOLUME 86.1 fl (81.0-99.0); MEAN CORPUSCULAR HGB 29.9 pg (27.0-31.0); MEAN CORPUSCULAR HGB CONC 34.7 g/dl (33.0-37.0); MONO # 0.4 10*3/uL (0.1-1.0); MONO % 4.5 % (3.0-9.0); NEUT # 6.7 10*3/uL (2.3-7.9); NEUT % 87.1 % (47.0-73.0); PLATELET COUNT AUTOMATED 274 10*3/uL (130-400); RED BLOOD COUNT 4.45 10*6/uL (4.10-5.10); RED CELL DISTRI WIDTH 12.3 % (0-14.5); WHITE BLOOD COUNT 7.7 10*3/uL (4.8-10.8)
[2017-05-29 08:01] VITALS: BP 160/96
[2017-05-29 12:03] VITALS: BP 158/88
[2017-05-29] MEDS ORDERED: DOXYCYCLINE100 M3 PO (12:10)
[2017-05-29] MEDS ORDERED: ATARAX,VISTARIL50 MG PO (12:10)
[2017-05-29] MEDS ORDERED: PREDNISONE10 MG PO (12:10)
[2017-05-29] MEDS ORDERED: ZESTRIL30 M3 PO (12:12)
[2017-05-29] MEDS ORDERED: SODIUM CHLORIDE1 GM PO (14:53)
[2017-05-31] MEDS ORDERED: FUROSEMIDE20 M1 PO (09:50)
[2017-05-31] MEDS ORDERED: NORCO 5-325 TA1 EACH PO (12:05)
== END 2017-05-29 12:58 | disposition home or self-care (01) | DRG 853 ==
LOC: ED 21:15 → EDHOLD 23:50 → 5E 23:50
PROVIDERS: Emergency Medicine Emergency Medical Services; Family Medicine; Internal Medicine; Internal Medicine Critical Care Medicine; Internal Medicine Nephrology; Student in an Organized Health Care Education/Training Program
PROC: 0BBG8ZX Excision of Left Upper Lung Lobe, Via Natural or Artificial Opening Endoscopic, Diagnostic (ICD-10-PCS; principal; 2017-05-26)
PROC: 0BCB8ZZ Extirpation of Matter from Left Lower Lobe Bronchus, Via Natural or Artificial Opening Endoscopic (ICD-10-PCS; 2017-05-26)
PROC: 0BC18ZZ Extirpation of Matter from Trachea, Via Natural or Artificial Opening Endoscopic (ICD-10-PCS; 2017-05-26)
PROC: 0BC48ZZ Extirpation of Matter from Right Upper Lobe Bronchus, Via Natural or Artificial Opening Endoscopic (ICD-10-PCS; 2017-05-26)
PROC: 0BC58ZZ Extirpation of Matter from Right Middle Lobe Bronchus, Via Natural or Artificial Opening Endoscopic (ICD-10-PCS; 2017-05-26)
PROC: 0BC38ZZ Extirpation of Matter from Right Main Bronchus, Via Natural or Artificial Opening Endoscopic (ICD-10-PCS; 2017-05-26)
PROC: 0BC68ZZ Extirpation of Matter from Right Lower Lobe Bronchus, Via Natural or Artificial Opening Endoscopic (ICD-10-PCS; 2017-05-26)
PROC: 0BC88ZZ Extirpation of Matter from Left Upper Lobe Bronchus, Via Natural or Artificial Opening Endoscopic (ICD-10-PCS; 2017-05-26)
PROC: 0BC78ZZ Extirpation of Matter from Left Main Bronchus, Via Natural or Artificial Opening Endoscopic (ICD-10-PCS; 2017-05-26)
DX: A41.9 Sepsis, unspecified organism (principal); G93.41 Metabolic encephalopathy; E22.2 Syndrome of inappropriate secretion of antidiuretic hormone; J18.1 Lobar pneumonia, unspecified organism; C34.92 Malignant neoplasm of unspecified part of left bronchus or lung; J44.0 Chronic obstructive pulmonary disease with (acute) lower respiratory infection; J44.1 Chronic obstructive pulmonary disease with (acute) exacerbation; E87.1 Hypo-osmolality and hyponatremia; E87.6 Hypokalemia; R26.9 Unspecified abnormalities of gait and mobility; F32.9 Major depressive disorder, single episode, unspecified; M19.90 Unspecified osteoarthritis, unspecified site; G40.909 Epilepsy, unspecified, not intractable, without status epilepticus; F10.21 Alcohol dependence, in remission; I10 Essential (primary) hypertension; F41.1 Generalized anxiety disorder; Z72.0 Tobacco use; Z71.6 Tobacco abuse counseling; Z85.41 Personal history of malignant neoplasm of cervix uteri; Z94.7 Corneal transplant status; Z82.49 Family history of ischemic heart disease and other diseases of the circulatory system; Z79.899 Other long term (current) drug therapy

== ENCOUNTER 2017-06-01 17:21 | Inpatient (IN) | payer OTHER ==
[~2017-06-01] VITALS: Ht 170.1 cm; Wt 81.3 kg
--- NOTE | ~2017-06-01 | CON ---
[place], [place] REPORT OF CONSULTATION NAME: ALEIDA SUH UNIT #: [id number] ROOM: 524 DOCTOR: MAX YU DO BIRTHDATE: [birth year] DOS: 06/03/2017 REASON FOR CONSULTATION: Hyponatremia. HISTORY OF PRESENT ILLNESS: A 62-year-old female with prior history of hypertension, anxiety disorder with depression, corneal transplant, COPD, tobacco abuse. She has history of cervical cancer, had recent suspicion just last week when she was diagnosed with small cell lung carcinoma. She had a post-obstructive pneumonia at that time as well. She has a history of alcohol abuse, has told myself and other she has been abstinent for 3-4 years but now states that she has been drinking at least 4 cans of Budweiser nightly for the past few years. She has had recurrent bouts of hyponatremia, has been evaluated by our service on several occasions, hospitalized in the past. Her workups have been unremarkable and her hyponatremia was related to poor solute intake/depletion in the setting of hydrochlorothiazide use and alcohol consumption. She has been off of hydrochlorothiazide since her early hospital stay in April 2015 with past sodiums correcting with the use of normal saline and has exhibited normal sodiums in the outpatient setting as well. When seen last week, she was noted to be hyponatremic again with a sodium of 120, potassium was 3.2. Electrolytes were otherwise unremarkable. She was volume resuscitated. Her sodium did improve very minimally. There was concern that she may have SIADH. Urine osmolality was obtained and found to be elevated, she was felt to be consistent with SIADH. She was placed on fluid restrictions. Her sodium did slowly improve to 131 by discharge on the . She also was placed on sodium chloride tablets 1 p.o. b.i.d. Her outpatient dose of Lasix was discontinued. It should be pointed out that the patient had stated that she does tend to drink approximately seven to eight 12-ounce glasses of water daily as well. She was advised to continue fluid restrictions upon returning home. It appears after returning home, she resumed drinking alcohol 3-4 cans of Budweiser a day, did not limit her fluid intake. It does appear that she did pickle sorter sodium chloride tablets and she implied that she was using this, but also did resume her outpatient dose of Lasix. She was then readmitted to this institution on the evening of the due to altered mentation. Apparently, she has been pouring Coca-Cola on her legs, though she stated it burned and this cooled them off. She was exhibiting other unusual behavior including putting cleaning products in her mouth and also stuck her mountaineer card in her mouth because she states she want to "go jalloh." Apparently, she placed other objects in her mouth as well. Unclear if she was taking all of her medications. Evaluation in the emergency room including CT scan of the head showed no acute anomalies. Chest x-ray did show the previously described post-obstructive infiltrate in her left upper lobe. Labs were notable for recurrent hyponatremia with a sodium of 125, potassium was 3.2. Chemistries were otherwise unremarkable. She had a normal white count of 8.3, hemoglobin 12.6, 81 segs noted on differential. Urine opiate screen was noted to be positive as well as a urine benzodiazepine screen as well as screen for cannabinoids. Admitted to the hospital due to her altered mentation, current hyponatremia, placed on fluid restriction of 1.2 liters per day. Outpatient treatment for pneumonia was continued. Potassium was supplemented as well. Lasix was discontinued. Since being admitted, she has been afebrile, hemodynamically stable. Mentation has improved. Currently, she is still somewhat confused yesterday. Today, she notes that she is still [place], [place] REPORT OF CONSULTATION NAME: ALEIDA SUH UNIT #: [id number] ROOM: 524 DOCTOR: MAX YU DO BIRTHDATE: [birth year] hallucinating, states she is seeing little cartoon figures, but otherwise is oriented to person, place and time. Describes good appetite. No nausea, vomiting. Does report recurrent diarrhea daily in the morning, states it has been longstanding. Denies fevers, chills, rigors, diaphoresis, orthopnea, PND, dyspnea, cough, weakness. Since being admitted, white counts remain satisfactory. The previously described left shift has resolved. Urinalysis from admission showed epithelial cells. Sodium has improved to 129 yesterday and again at 129 today. Despite having been supplemented, potassium currently dropped yesterday 2.8. She was supplemented again yesterday and the potassium is improved to 3.3 today. She is scheduled for an additional 40 mEq of potassium. Magnesium has been satisfactory. She does have a low calcium of 8.4 today, but an albumin of 2.9 for a normal corrected calcium. She again has been ordered 1.2 liters of fluid restrictions, but it does not appear she is following these. While hospitalized, she does have access to water pitcher and claims she has been feeling that something is wrong. PAST MEDICAL HISTORY: As above. ALLERGIES: No known drug allergies. CURRENT MEDICATIONS: Remeron 50 mg p.o. at bedtime, DuoNeb q. 4 hours, zinc sulfate 220 mg p.o. daily, prednisone 40 mg p.o. daily, Protonix 40 mg p.o. daily, lisinopril 30 mg p.o. daily, Lovenox 40 mg subcutaneously daily, doxycycline 100 mg p.o. b.i.d. SOCIAL HISTORY: She resides at home. Drinks 4 beers nightly, smokes cigarettes daily. FAMILY HISTORY: Noncontributory. REVIEW OF SYSTEMS: Per HPI. A full 10-point review of system was performed, and ____ was unremarkable except as noted above. PHYSICAL EXAMINATION: VITAL SIGNS: Blood pressure is 159/95, pulse 86, respirations 20, temperature is 98.2 degrees Fahrenheit. GENERAL APPEARANCE: Obese female, awake, alert, and oriented x 3, no apparent distress. HEENT: Conjunctivae are pink and moist. Oral mucosa is pink and moist. There is no carotid bruit, thyromegaly, adenopathy. NECK: There is no JVD appreciated. HEART: Regular without S4, S3 rub, murmur or heave noted. LUNGS: Exhibit bronchial breath sounds in the left mid to upper lung field as well as mild expiratory wheeze noted. ABDOMEN: Soft, positive bowel sounds x 4, nontender, without CVA tenderness. No rebound, guarding or rigidity noted. No abdominal or flank bruits appreciated. NEUROLOGIC: Examination is grossly nonfocal. EXTREMITIES: No clubbing, cyanosis. There is no edema noted. She has +2 bilateral radial as well as dorsalis pedis pulses. [place], [place] REPORT OF CONSULTATION NAME: ALEIDA SUH UNIT #: [id number] ROOM: 524 DOCTOR: MAX YU DO BIRTHDATE: [birth year] SKIN: Warm, dry without rash, ulcers, lesions, or petechiae appreciated. LABORATORY DATA: From today WBC 7.3, hemoglobin 11.3, hematocrit 32.2, platelets are 276,000. Sodium is 129, potassium 3.3, chloride 91, CO2 of 28, BUN 11, creatinine 0.46, glucose of 78, phosphorus 3.2. Calcium 8.4, albumin of 2.9, corrected calcium is approximately 9.2. ASSESSMENT AND PLAN: 1. Hyponatremia, which appeared to be due to SIADH, most likely from underlying malignancy. Her previous urine osmolality did not suggest that this was related to decreased solute intake despite her use of alcohol and she is eating well. Her sodium levels have improved, but remained suboptimal. She is not following fluid restrictions and it is unclear that she would do so at home. 2. Hypokalemia presumably as a consequence of diuretics and perhaps diarrhea, this is being supplemented. Magnesium levels were noted to be satisfactory on admission. 3. Hypertension. Blood pressure under fair control. Benazepril dose was increased last admission. RECOMMENDATIONS: Advised the nursing staff to remove her water pitcher and I have personally reinforced with the patient the need to maintain fluid restrictions. We will also start her on sodium chloride tabs 1 p.o. b.i.d.. We will follow ____ levels closely along with the remainder of her electrolytes. Lasix as noted has been discontinued on admission, would continue to avoid use of this medication. Follow blood pressure. Thank you for allowing us to participate in the care of the patient. MAX YU DO CM:CONSTR:REPORT OF CONSULTATION 1202 06/04/17 1010 interface
--- NOTE | ~2017-06-01 | PR ---
[place], [place] PROGRESS NOTE NAME: ALEIDA SUH UNIT #: [id number] ROOM: 524 DOCTOR: CHRISTOPHE SWEET MD BIRTHDATE: [birth year] DOS: 06/03/2017 SUBJECTIVE: The patient is doing better, though she is still confused at times. REVIEW OF SYSTEMS HEENT: No trouble swallowing. No double vision. No loss of vision. No pain. ENT AND RESPIRATORY: No wheeze. No change in voice. No cough. No shortness of breath. No coughing up blood. No epistaxis. CARDIOLOGIC: No chest pain. No dizziness. No irregular heartbeat. No leg edema. No palpitations. No shortness of breath. HEMATOLOGIC AND LYMPH: No past transfusion. No fatigue. No loss of appetite. No easy bruising. GASTROENTEROLOGIC: No change in bowel habits. No vomiting blood. No abdominal cramping. No nausea. No vomiting. No diarrhea. No constipation. No blood in stool. FEMALE REPRODUCTIVE: No dyspareunia. No pelvic pain. MUSCULOSKELETAL: No back pain. No muscle pain or weakness. No tingling/numbness. UROLOGIC: No pain with urination. No difficulty urinating. No frequent urination. NEUROLOGIC: No burning pain in feet. No trouble with coordination. No loss of consciousness. No headache. No tingling/numbness. No memory loss. PHYSICAL EXAMINATION: GENERAL: Pleasant woman in no apparent distress. VITAL SIGNS: Blood pressure is stable, pulse 78, respiration 20, temperature 98.2. HEENT: Normocephalic, atraumatic NECK AND THYROID: Supple. No JVD, thyromegaly, or lymphadenopathy. HEART: Normal S1, S2. Regular rate and rhythm. LUNGS: Clear to auscultation and percussion. ABDOMEN: Soft. Nontender, nondistended. Bowel sounds present. EXTREMITIES: Normal ROM. No clubbing. No edema. LABORATORY DATA: Sodium 129, potassium 3.3, chloride 91, carbon dioxide 28, BUN 11, EGFR more than 60. White count 7.3, hemoglobin 11.3, hematocrit 32.2, platelet count of 276. ASSESSMENT: 1. Hyponatremia, probably secondary to syndrome of inappropriate antidiuretic hormone. 2. Small cell lung cancer. 3. Mild anemia. PLAN: I will discuss whether hyponatremia is part of SIADH and probably demeclocycline might help. She still continues to be little bit confused and hyponatremic. She will be getting a PET scan as an outpatient. Discussed this. We will follow. I have also discussed the case with the patient's daughter. [place], [place] PROGRESS NOTE NAME: ALEIDA SUH UNIT #: [id number] ROOM: 524 DOCTOR: CHRISTOPHE SWEET MD BIRTHDATE: [birth year] CHRISTOPHE SWEET MD CM:PNTRANS [id number] 1 CHRISTOPHE SWEET MD 06/04/17811 interface
--- NOTE | ~2017-06-01 | CON ---
[place], [place] REPORT OF CONSULTATION NAME: ALEIDA SUH UNIT #: [id number] ROOM: 524 DOCTOR: JACKIE SERRANO MD BIRTHDATE: [birth year] DOS: 06/02/2017 CHIEF COMPLAINT: "I'm here because I have cancer." HISTORY OF PRESENT ILLNESS: This is a 62-year-old white female who was brought in to the Emergency Room at [facility] by her son due to altered mental status. The patient reports that she was pouring soda on her legs to stop the burning and was talking out of her mind. She was putting cleaning products in her mouth. She was diagnosed with hyponatremia while in the Emergency Room and admitted to the medical floor for further evaluation and treatment. From a psychiatric standpoint, the patient endorses ongoing depressive symptomatology. Some of this is related to her recent diagnosis of cancer and her impending start of chemotherapy next week. She, however, notes that she has had significant sleep disturbance with difficulty falling asleep, sleep continuity disturbance and pitch filler awakening. She also endorses anergia, anhedonia, hopeless, helpless feelings and crying spells. Likewise, she reports significant alteration in her appetite and has been eating very little, just barely enough to sustain herself. She also admits to crying spells and feels hopeless and helpless. She, however, stopped short of saying that there are any suicidal, homicidal or self-injurious thoughts. She does report having been on psychiatric medications in the past, but she is a very poor historian and was not able to remember any of the names of the medicines she had been previously. She is willing to allow me to start her on medications at this point in time. PAST MEDICAL HISTORY: Significant for COPD, hypertension, gait disorder, seizure disorder, small cell lung cancer and metabolic encephalopathy. Questionable history of bipolar versus major depression, recurrent. MENTAL STATUS: She is alert and oriented to person, place, but not necessarily to time. Mood does seem to be depressed and at one point, she was on the verge of tears. There was no symptom suggestive of hypomania or marycruz. There are no auditory or visual hallucinations, delusions or paranoia. Short-term memory has gaps and she does have significant processing difficulties. DIAGNOSIS: Major depression, recurrent. PLAN: I will simplify her regimen and discontinue the Restoril p.r.n. I will instead prescribe Remeron 15 mg at bedtime. This will aid sleep and improve appetite. I will also start her on zinc 220 mg in the morning. She does state that food does not necessarily taste good to her and this should improve her sense of taste. I would suggest follow up post-discharge at [facility] or [facility]. [place], [place] REPORT OF CONSULTATION NAME: ALEIDA SUH UNIT #: [id number] ROOM: 524 DOCTOR: JACKIE SERRANO MD BIRTHDATE: [birth year] JACKIE SERRANO MD CM:CONSTR:REPORT OF CONSULTATION 0939 06/02/17 1030 interface
--- NOTE | ~2017-06-01 | CON ---
[place], [place] REPORT OF CONSULTATION NAME: ALEIDA SUH UNIT #: [id number] ROOM: 524 DOCTOR: CHRISTOPHE SWEET MD BIRTHDATE: [birth year] DOS: 06/02/2017 HISTORY OF PRESENT ILLNESS: The patient is a pleasant 62-year-old Euro-[place] woman recently diagnosed of small cell lung cancer, who was seen in my office yesterday and was feeling very confused. She advised to go to the ER, discontinues, subsequently came to the Emergency Room because of altered mental status. She was recently diagnosed with small cell lung cancer and hyponatremia and subsequently was admitted for further evaluation and consulted. PAST MEDICAL HISTORY: 1. As discussed above, history of limited small cell lung cancer for now and metabolic encephalopathy, history of COPD, hypertension, gait disorder, history of bipolar, major depression, history of bradykinesia, COPD, delirium tremens, essential hypertension, history of cervical cancer, hyponatremia, resting tremor, seizure disorder. PAST SURGICAL HISTORY: Dilatation and curettage, history of EGD, surgical corneal transplant, history of colonoscopy and polypectomy. SOCIAL HISTORY: No drinking or drug abuse. He is a smoker, social. FAMILY HISTORY: Father had cardiac disease, myocardial infarction. Mother of natural causes. ALLERGIES: No allergies. MEDICATIONS: Albuterol, doxycycline, furosemide, hydrocodone, lisinopril, pantoprazole sodium and prednisone. REVIEW OF SYSTEMS: CONSTITUTIONAL: No chills. No fatigue. No fever. No loss of appetite. No night sweats. No weakness. No weight loss. HEENT: No trouble swallowing. No loss of smell. No loss of hearing. No double vision. No pain. No discharge. ENT AND RESPIRATORY: No wheeze. No sore throat. No change in voice. No hearing loss. No nose bleed. No cough. No trouble breathing through nose. No shortness of breath. No coughing up blood. No epistaxis. CARDIOVASCULAR: No chest pain. No dizziness. No irregular heartbeat. No leg edema. No pain in legs while walking. No palpitations. No shortness of breath. DERMATOLOGIC: No acne. No hives. No laceration. No mole. No rash. ENDOCRINE: No cold intolerance. No diabetes. No fatigue. No hot flashes. No polydipsia. No polyuria. No urinating frequently. No weight loss. HEMATOLOGIC AND LYMPH: No fatigue. No easy bruising. GASTROENTEROLOGIC: No change in bowel habits. No indigestion. No frequent bloating. No vomiting blood. No abdominal cramping. No nausea. No heartburn. No vomiting. No abdominal pain. No dysphagia. No diarrhea. No constipation. No blood in stool. FEMALE REPRODUCTIVE: No vaginal itching. No difficulty urinating. No heavy periods. No dyspareunia. No sexually active. No dysmenorrhea. No pelvic pain. [place], [place] REPORT OF CONSULTATION NAME: ALEIDA SUH UNIT #: [id number] ROOM: 524 DOCTOR: CHRISTOPHE SWEET MD BIRTHDATE: [birth year] No breast pain. No nipple discharge. No abnormal vaginal discharge. No hot flashes. MUSCULOSKELETAL: No back pain. No muscle pain or weakness. No neck pain. No tingling/numbness. No swelling/bruising. No osteoporosis treatment. OPTHALMOLOGIC: No double vision. No diminished vision. No loss of vision. UROLOGIC: No dysuria. No frequent nighttime urination. No irregular periods. No pain with urination. No difficulty urinating. No blood in urine. No frequent urination. No urinary incontinence. NEUROLOGIC: No loss of sensation in specific body area. No vertigo. No burning pain in feet. No trouble with balance. No trouble with coordination. No loss of consciousness. No loss of feeling/power. No confusion. No headache. No tingling/numbness. PSYCHOLOGIC: No tinnitus. No headaches. No shortness of breath. No weight decrease. No nausea. No vomiting. No abdominal discomfort. No constipation. No diarrhea. No depression. No anxiety. PHYSICAL EXAMINATION: GENERAL: Pleasant woman in apparent distress. VITAL SIGNS: Stable. She is afebrile. HEENT: Oral mucosa appears intact. The external ears are normal in appearance. Nares are patent without lesions, exudates, erythema, or inflammation. Tongue is symmetrical. Uvula is midline. NECK AND THYROID: Neck supple without palpable masses. Trachea is midline. No thyromegaly. No carotid bruit or JVD. BREASTS: Normal. Nipples unremarkable. No drainage. No lumps felt on either side. HEART: Normal S1, S2, without significant murmur, rub, or gallop. LUNGS: Clear to auscultation and percussion with good air entry bilaterally. The patient is breathing easily without the use of accessory muscles. Diaphragmatic excursions are intact. ABDOMEN: No costovertebral angle tenderness. Soft. No organomegaly or masses. Nontender. No hernias present. Liver and spleen are not palpable. LYMPHATIC: No adenopathy noted in the cervical, supraclavicular, axillary, or inguinal regions. NEUROLGIC: Nonfocal. Oriented to person, place, and time. MENTAL STATUS: Appropriate for mood and affect. PERIPHERAL PULSES: No varicosities. Femoral and pedal pulses are palpable. EXTREMITIES: Without cyanosis, clubbing, or edema. No gross anomalies. LABORATORY DATA: Sodium 125, potassium 3.2, ____ 189, bicarbonate 25, EGFR is more than 60. White count of 8.3, hemoglobin 12.6, hematocrit 34.9, platelet count of 292,000. ASSESSMENT: 1. Limited recently diagnosed small cell lung cancer. 2. Hyponatremia, probably SIADH. 3. Metabolic encephalopathy. 4. Essential hypertension. PLAN: We will wait for her overall mental status to improve. We will be also [place], [place] REPORT OF CONSULTATION NAME: ALEIDA SUH UNIT #: [id number] ROOM: 524 DOCTOR: CHRISTOPHE SWEET MD BIRTHDATE: [birth year] getting an MRI of the brain. She had a CT of the brain done last time, which was negative. I will be getting an MRI for further evaluation since small cells usually go to the brain. In the meantime, she is supposed to get a PET scan, which we will hold until her overall condition improves. I had detailed discussion with the daughter and all the questions were answered, and she was happy with the response. We will follow. Thanks for consulting and letting me participate in the care of this interesting patient. CHRISTOPHE SWEET MD CM:CONSTR:REPORT OF CONSULTATION 1234 06/02/17 3689 interface
[~2017-06-01 17:21] MED LIST changes: +ATARAX,VISTARIL50 MG PO; +DOXYCYCLINE100 M3 PO; +FUROSEMIDE20 M1 PO; +NEURONTIN400 MG PO; +NORCO 5-325 TA1 EACH PO; +PANTOPRAZOLE SO40 MG PO; +PREDNISONE10 MG PO; +SODIUM CHLORIDE1 GM PO; +TRAZODONE50 MG PO; +ZESTRIL30 M3 PO
[2017-06-01 17:28] VITALS: BP 147/74
[2017-06-01 17:48] VITALS: BP 158/82
[2017-06-01 18:29] LABS: BASO % 0.1 % (0.0-1.0); HEMATOCRIT 34.9 % (37.0-47.0); HEMOGLOBIN 12.6 g/dl (12.0-16.0); LYMPH # 0.9 10*3/uL (1.3-4.4); LYMPH % 10.5 % (27.0-41.0); MEAN CELL VOLUME 83.7 fl (81.0-99.0); MEAN CORPUSCULAR HGB 30.2 pg (27.0-31.0); MEAN CORPUSCULAR HGB CONC 36.1 g/dl (33.0-37.0); MEAN PLATELET VOLUME 8.9 fl (9.6-12.3); MONO # 0.7 10*3/uL (0.1-1.0); MONO % 8.1 % (3.0-9.0); NEUT # 6.7 10*3/uL (2.3-7.9); NEUT % 80.9 % (47.0-73.0); PLATELET COUNT AUTOMATED 292 10*3/uL (130-400); RED BLOOD COUNT 4.17 10*6/uL (4.10-5.10); RED CELL DISTRI WIDTH 12.1 % (0-14.5); WHITE BLOOD COUNT 8.3 10*3/uL (4.8-10.8)
[2017-06-01 18:35] LABS: BILIRUBIN NEGATIVE (NEGATIVE); BLOOD NEGATIVE (NEGATIVE); CLARITY CLEAR (CLEAR); COLOR YELLOW (YELLOW); GLUCOSE NEGATIVE (NEGATIVE); KETONE NEGATIVE (NEGATIVE); LEUKO ESTERASE NEGATIVE (NEGATIVE); NITRITE NEGATIVE (NEGATIVE); SPECIFIC GRAVITY 1.015 (1.005-1.030); UROBILINOGEN 0.2 E.U./dl (0.2-1.0)
[2017-06-01 18:53] LABS: ALBUMIN 3.6 gm/dl (3.1-4.5); ALKALINE PHOSPHATASE 105 U/L (45-117); BUN 11 mg/dl (7-24); CHLORIDE 89 mmol/L (98-107); CREATININE 0.71 mg/dL (0.55-1.02); POTASSIUM 3.2 mmol/L (3.5-5.1); SGOT/AST 12 IU/L (3-35); SGPT/ALT 27 U/L (12-78); SODIUM 125 mmol/L (136-145); TOTAL PROTEIN 6.5 gm/dL (6.4-8.2)
[2017-06-01 18:56] LABS: BACTERIA TRACE
[2017-06-01 19:46] VITALS: BP 167/80
[2017-06-01 19:46] LABS: URINE AMPHETAMINES < 1000 (1000ng/ml); URINE BARBITURATES < 200 (200ng/ml); URINE BENZODIAZEPINES > 200 (200ng/ml); URINE CANNABINOIDS (THC) > 50 (50ng/ml); URINE COCAINE < 300 (300ng/ml); URINE METHADONE < 300 (300ng/ml); URINE OPIATES > 300 (300ng/ml)
[2017-06-01 19:48] LABS: URINE PHENCYCLIDINE < 25 (25ng/ml)
[2017-06-01 20:28] VITALS: BP 149/89
[2017-06-01 22:00] VITALS: BP 178/92
[2017-06-02] VITALS: BP 186/110
[2017-06-02 04:00] VITALS: BP 140/110
[2017-06-02 04:03] LABS: EOS # 0.1 10*3/uL (0.0-0.4); EOS % 0.8 % (1.0-4.0); HEMATOCRIT 35.8 % (37.0-47.0); HEMOGLOBIN 12.9 g/dl (12.0-16.0); LYMPH % 25.4 % (27.0-41.0); MEAN CELL VOLUME 84.6 fl (81.0-99.0); MEAN CORPUSCULAR HGB 30.5 pg (27.0-31.0); MEAN PLATELET VOLUME 8.7 fl (9.6-12.3); MONO # 0.9 10*3/uL (0.1-1.0); MONO % 11.1 % (3.0-9.0); NEUT # 4.8 10*3/uL (2.3-7.9); NEUT % 62.2 % (47.0-73.0); PLATELET COUNT AUTOMATED 286 10*3/uL (130-400); RED BLOOD COUNT 4.23 10*6/uL (4.10-5.10); RED CELL DISTRI WIDTH 12.2 % (0-14.5); WHITE BLOOD COUNT 7.7 10*3/uL (4.8-10.8)
[2017-06-02 04:16] LABS: BUN 10 mg/dl (7-24); CREATININE 0.63 mg/dL (0.55-1.02); MAGNESIUM 1.6 mg/dL (1.5-2.1)
[2017-06-02 04:18] LABS: ACT PARTIAL THROMBO TIME 23.1 SECONDS (20.8-31.5); INTERNATIONAL NORM RATIO 1.1 (2.0-3.5)
[2017-06-02 04:21] LABS: PHOSPHOROUS 2.7 mg/dL (2.5-4.9)
[2017-06-02 04:26] LABS: CHLORIDE 89 mmol/L (98-107); POTASSIUM 2.8 mmol/L (3.5-5.1); SODIUM 129 mmol/L (136-145)
[2017-06-02 08:00] VITALS: BP 142/100
[2017-06-02 16:00] VITALS: BP 152/83
[2017-06-02 20:00] VITALS: BP 160/86
[2017-06-03] VITALS: BP 159/95
[2017-06-03 06:20] LABS: EOS # 0.1 10*3/uL (0.0-0.4); EOS % 0.8 % (1.0-4.0); HEMATOCRIT 32.2 % (37.0-47.0); HEMOGLOBIN 11.3 g/dl (12.0-16.0); LYMPH # 1.9 10*3/uL (1.3-4.4); LYMPH % 26.5 % (27.0-41.0); MEAN CELL VOLUME 86.6 fl (81.0-99.0); MEAN CORPUSCULAR HGB 30.4 pg (27.0-31.0); MEAN CORPUSCULAR HGB CONC 35.1 g/dl (33.0-37.0); MEAN PLATELET VOLUME 9.4 fl (9.6-12.3); MONO # 0.8 10*3/uL (0.1-1.0); MONO % 10.6 % (3.0-9.0); NEUT # 4.5 10*3/uL (2.3-7.9); NEUT % 61.5 % (47.0-73.0); PLATELET COUNT AUTOMATED 276 10*3/uL (130-400); RED BLOOD COUNT 3.72 10*6/uL (4.10-5.10); RED CELL DISTRI WIDTH 12.2 % (0-14.5); WHITE BLOOD COUNT 7.3 10*3/uL (4.8-10.8)
[2017-06-03 06:50] LABS: ALBUMIN 2.9 gm/dl (3.1-4.5); BUN 11 mg/dl (7-24); CHLORIDE 91 mmol/L (98-107); CREATININE 0.46 mg/dL (0.55-1.02); PHOSPHOROUS 3.2 mg/dL (2.5-4.9); POTASSIUM 3.3 mmol/L (3.5-5.1); SODIUM 129 mmol/L (136-145)
[2017-06-03] MEDS ORDERED: TRAZODONE50 MG PO (11:54)
[2017-06-03] MEDS ORDERED: SPIRIVA18 MCG PO (11:55)
[2017-06-03 12:00] VITALS: BP 154/94
[2017-06-03] MEDS ORDERED: NEURONTIN600 MG PO (12:02)
[2017-06-03 16:00] VITALS: BP 150/90
[2017-06-03] MEDS ORDERED: DOXYCYCLINE100 M3 PO (17:51)
[2017-06-03] MEDS ORDERED: MIRTAZAPINE15 M2 PO (17:51)
[2017-06-03] MEDS ORDERED: ZINC SULFATE220 MG PO (17:51)
[2017-06-03] MEDS ORDERED: AKWA TEARS 15 M15 ML OPH (17:51)
[2017-06-03] MEDS ORDERED: SODIUM CHLORIDE1 GM PO (17:51)
== END 2017-06-03 19:00 | disposition home health service (06) | DRG 871 ==
LOC: ED 17:21 → EDHOLD 19:39 → 5E 19:39
PROVIDERS: Emergency Medicine; Internal Medicine; Internal Medicine Hospice and Palliative Medicine; ADMIT Emergency Medicine
DX: A41.9 Sepsis, unspecified organism (principal); G93.41 Metabolic encephalopathy; J18.9 Pneumonia, unspecified organism; C34.92 Malignant neoplasm of unspecified part of left bronchus or lung; E87.1 Hypo-osmolality and hyponatremia; F33.9 Major depressive disorder, recurrent, unspecified; J44.9 Chronic obstructive pulmonary disease, unspecified; I10 Essential (primary) hypertension; D64.9 Anemia, unspecified; F23 Brief psychotic disorder; E87.6 Hypokalemia; G40.909 Epilepsy, unspecified, not intractable, without status epilepticus; F41.1 Generalized anxiety disorder; F17.210 Nicotine dependence, cigarettes, uncomplicated; F41.8 Other specified anxiety disorders; E66.9 Obesity, unspecified; Z68.28 Body mass index [BMI] 28.0-28.9, adult; Z85.41 Personal history of malignant neoplasm of cervix uteri; Z87.01 Personal history of pneumonia (recurrent); Z94.7 Corneal transplant status; Z82.49 Family history of ischemic heart disease and other diseases of the circulatory system; Z92.21 Personal history of antineoplastic chemotherapy

== ENCOUNTER 2017-06-03 18:06 | Inpatient (IN) | payer OTHER ==
[~2017-06-03] VITALS: Ht 170.1 cm; Wt 81.3 kg
--- NOTE | ~2017-06-03 | PR ---
[place], [place] PROGRESS NOTE NAME: ALEIDA SUH UNIT #: [id number] ROOM: 309 DOCTOR: ROSALIND OROSCO,HAJA (JA) BIRTHDATE: [birth year] DOS: 06/08/2017 ADDENDUM. At the present time, this patient is alert, oriented in all three spheres. She appears to be competent to make informed healthcare decisions. She readily discussed her situation medically and states that she needs some help because of her low sodium levels. She was quite lucid throughout the interview, and in my opinion, is competent to make informed healthcare decisions. HAJA BOYER ED.D CM:REBECA [id number] HAJA BOYER (BOB) ED.D 06/09/17 0756 interface
--- NOTE | ~2017-06-03 | PR ---
[place], [place] PROGRESS NOTE NAME: ALEIDA SUH UNIT #: [id number] ROOM: 309 DOCTOR: GABBIE HAQUE MD BIRTHDATE: [birth year] DOS: SUBJECTIVE: The patient is comfortably seen in her room in the Behavioral Health Unit. She is without any acute psychosis at this time. She recognized me. Sodium remains on the low side and after a couple of days of not being checked over the weekend, it was 126 on, Wednesday and is down to 124. According to nursing, they are being very cautious about her fluid restriction. She is reportedly taking her salt tablets and other medications as prescribed. There have been questions about her mental status and why she is acting inappropriately at times and at other times appropriately. A gabapentin level is pending, the dose was reduced to 400 t.i.d. from 600. OBJECTIVE: VITAL SIGNS: Temperature 98.2, 97, 18, 159/86, 95%. GENERAL: Awake, alert, is oriented and lying comfortably in bed in no acute distress. LUNGS: Fairly clear, mild scattered rhonchi. No JVD or lymphadenopathy. CARDIOVASCULAR: Rate regular. No audible rub. EXTREMITIES: Periphery without significant cyanosis, clubbing or edema. ABDOMEN: Soft, nontender. No rebound or guarding. LABORATORIES AND DIAGNOSTICS: Sodium 124, potassium 4, chloride 88, bicarbonate 25, BUN 6, creatinine 0.44, glucose 86, calcium 8.4, RPR nonreactive. ASSESSMENT AND PLAN: Hyponatremia, slightly worse, not as bad as it was a week and a half ago when she was in the acute care part of the hospital. I would like to see how she does with a slightly bit of loop diuretic added as well as increase in her sodium chloride to 1 gram t.i.d. and I will also give Lasix 10 mg orally t.i.d. as well. Repeat urine chemistries will also be ordered and we will continue to follow. GABBIE HAQUE MD CM:PNTRANS [phone] [id number] GABBIE HAQUE MD 06/07/171801 interface
--- NOTE | ~2017-06-03 | PR ---
[place], [place] PROGRESS NOTE NAME: ALEIDA SUH UNIT #: [id number] ROOM: 317 DOCTOR: KEE BRO,CHRISTOPHE BIRTHDATE: [birth year] DOS: 06/04/2017 The patient was seen because of small cell lung cancer. She was on the regular floor when she was transferred because of psychotic disorder. I will review the records as well as MRIs. Depending on that, further intervention. PLAN: The patient will be getting a PET scan after she gets discharged. We will wait for overall condition to improve, then chemotherapy and review the plan. Full consult to follow. CHRISTOPHE SWEET MD CM:PNTRANS [phone] CHRISTOPHE SWEET MD 06/05/17 0507 interface
--- NOTE | ~2017-06-03 | WRIGHTHP ---
[place], [place] PATIENT HISTORY AND PHYSICAL EXAM NAME: ALEIDA SUH UNIT #: [id number] ROOM: 317 DOCTOR: JACKIE SERRANO MD BIRTHDATE: [birth year] DOS: 06/04/2017 INITIAL PSYCHIATRIC EVALUATION CHIEF COMPLAINT: "I don't know, I guess they did not like me there, so they sent me here." HISTORY OF PRESENT ILLNESS: This is a 62-year-old white female who was initially admitted to the medical floor due to ongoing medical problems including electrolyte disturbance and recent diagnosis of cancer. The patient while on the medical unit was found to be increasingly confused, especially in the p.m. hours that oftentimes culminated in her becoming increasingly agitated and both verbally and physically aggressive. She lacks safety awareness at times and attempted to elope the facility multiple times, and when redirected she escalated to the point of both verbal and physical aggressiveness. The hospitalists involved fear that she has limited insight and because of her cognitive status is not competent to make decisions for herself. She is admitted now to rule out organic factors, to stabilize on medication and then to determine the appropriate placement option. PAST MEDICAL HISTORY: Remarkable for bradykinesia, COPD, hypertension, gait disturbance, cervical cancer, tremor, seizure disorder, small cell lung cancer and nicotine abuse. MENTAL STATUS EXAMINATION: This morning, she is alert and oriented to person, place and very approximate to time. Mood does seem to be somewhat depressed with anxious overtones. She was rather avoidant of questions. There was no hypomania or marycruz. There were no voiced auditory or visual hallucinations, although she was guarded. She did process slowly and did exhibit some short-term memory issues. DIAGNOSIS: Brief psychotic disorder, rule out major depression, recurrent, with psychotic features. PLAN: I have already started her on Risperdal M-Tab. She did comply with that last evening and did sleep well per nursing report. Nurses report significant sundowning, which we will need to monitor and document. I will consult Dr. Galo Messina, a psychologist, to determine competency, to determine if a guardianship application needs to be obtained. We will attempt to engage her in individual and yap milieu activity with the ultimate plan then to return to least restrictive environment when psychiatrically stable. [place], [place] PATIENT HISTORY AND PHYSICAL EXAM NAME: ALEIDA SUH UNIT #: [id number] ROOM: [facility] DOCTOR: JACKIE SERRANO MD BIRTHDATE: [birth year] JACKIE SERRANO MD CM:HISPHYS:PATIENT HISTORY AND PHYSICAL EXAMINATION 0813 [id number] JACKIE SERRANO MD 06/04/17 1355 interface
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
--- NOTE | ~2017-06-03 | PR ---
[place], [place] PROGRESS NOTE NAME: ALEIDA SUH UNIT #: [id number] ROOM: 309 DOCTOR: CHRISTOPHE SWEET MD BIRTHDATE: [birth year] DOS: 06/07/2017 SUBJECTIVE: The patient is doing better. She is alert, responsive, and awake. REVIEW OF SYSTEMS HEENT: No trouble swallowing. No double vision. No loss of vision. No pain. ENT AND RESPIRATORY: No wheeze. No change in voice. No cough. No shortness of breath. No coughing up blood. No epistaxis. CARDIOLOGIC: No chest pain. No dizziness. No irregular heartbeat. No leg edema. No palpitations. No shortness of breath. HEMATOLOGIC AND LYMPH: No past transfusion. No fatigue. No loss of appetite. No easy bruising. GASTROENEROLOGIC: No change in bowel habits. No vomiting blood. No abdominal cramping. No nausea. No vomiting. No diarrhea. No constipation. No blood in stool. FEMALE REPRODUCTIVE: No dyspareunia. No pelvic pain. MUSCULOSKELETAL: No back pain. No muscle pain or weakness. No tingling/numbness. UROLOGIC: No pain with urination. No difficulty urinating. No frequent urination. NEUROLOGIC: No burning pain in feet. No trouble with coordination. No loss of consciousness. No headache. No tingling/numbness. No memory loss. PHYSICAL EXAMINATION GENERAL: Pleasant woman in no apparent distress. VITAL SIGNS: Blood pressure 159/86, respirations 18, pulse 97, temperature 98.2. HEENT: Normocephalic, atraumatic NECK AND THYROID: Supple. No JVD, thyromegaly, or lymphadenopathy. HEART: Normal S1, S2. Regular rate and rhythm. LUNGS: Clear to auscultation and percussion. ABDOMEN: Soft. Nontender, nondistended. Bowel sounds present. EXTREMITIES: Normal ROM. No clubbing. No edema. LABORATORY DATA: Sodium 124, potassium 4.0, chloride 88, bicarbonate 25, BUN 6. EGFR more than 60. White count of 8.5, hemoglobin 12.6, hematocrit 35.3, platelet count of ____. ASSESSMENT: 1. Recently diagnosed small cell lung cancer. 2. Psychiatric disorder. 3. 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 4. Chronic obstructive pulmonary disease. 5. Anemia of neoplastic disorder. PLAN: Reviewed the records. MRI of the brain was negative. She will be getting a PET scan as an outpatient before chemo started once her overall condition improves. I will keep a close watch at this time. I had a detailed discussion with the patient about it, seemed to understand. Ample time was given to the patient to ask questions. We will follow. [place], [place] PROGRESS NOTE NAME: ALEIDA SUH UNIT #: [id number] ROOM: 309 DOCTOR: CHRISTOPHE SWEET MD BIRTHDATE: [birth year] CHRISTOPHE SWEET MD CM:PNTRANS 1343 0237 CHRISTOPHE SWEET MD 06/08/17 0236 interface
--- NOTE | ~2017-06-03 | PR ---
[place], [place] PROGRESS NOTE NAME: ALEIDA SUH UNIT #: [id number] ROOM: 317 DOCTOR: JACKIE SERRANO MD BIRTHDATE: [birth year] DOS: 06/05/2017 CHIEF COMPLAINT: "I didn't sleep last night, that has been a problem." SUMMARY OF THE VISIT: The patient was interviewed in her room. She reports that she once again had a difficult time sleeping with both difficulty falling asleep and sleep continuity disorder. She does report that the hallucinations and psychotic symptoms that she had experienced earlier seem to be dissipating. She is tolerating the current medication regimen well without any apparent side effects. MENTAL STATUS: She is alert and oriented with some mild time gaps. Mood does seem to be trending towards euthymia and affect is much more appropriate. There are no symptoms of hypomania or marycruz. There are no auditory or visual hallucinations voiced. No paranoia, no delusions. Short-term memory has mild gaps. PLAN: I will go ahead and check a Neurontin level in the morning to make certain it is therapeutic and not overly high. I will increase Risperdal from 1 to 2 mg at bedtime to further dissipate the psychotic symptoms as well as aiding sleep. We will engage her in individual and yap milieu activity with the plan to discharge to the least restrictive environment when psychiatrically stable. JACKIE SERRANO MD CM:PNTRANS [id number] JACKIE SERRANO MD 06/05/17 1308 interface
--- NOTE | ~2017-06-03 | CON ---
[place], [place] REPORT OF CONSULTATION NAME: ALEIDA SUH UNIT #: [id number] ROOM: 309 DOCTOR: HAJA BOYER ED.D (JA) BIRTHDATE: [birth year] DOS: 06/07/2017 HISTORY OF PRESENT ILLNESS: The patient is a 62-year-old female referred by Dr. Landers for competency evaluation. At the present time, she is seen at Behavioral Health Unit here at [facility]. She states that she is , but presently resides with her boyfriend. She has 1 brother and 1 sister. She also has 2 children, ages 36 and 40. 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 Her medical history is pertinent for electrolyte imbalance, COPD, hypertension, cancer of the cervix, seizure disorder, small cell cancer of the lung and brief psychotic disorder. Her medications include Remeron, gabapentin, Risperdal, albuterol, lisinopril, omeprazole, Spiriva,. Geodon and Versed. This patient was awake, alert and oriented in all three spheres. She indicated that she is in [facility] in the Psychiatric Unit and she also was able to say what day and date it is along with the year. She had no trouble whatsoever with her memory. Apparently, she became quite agitated and delusional and she attributes this to the factor that sodium had dropped. She states that at one time she also became very angry at one of the other patient because she was watching a football game and the patient was making too much noise and she got angry at her and yelled at her. At the present time, she is quite lucid; however, apparently she has varying times when she is not lucid and she is quite delusional. I will reevaluate this patient on June 08 and determine at that point in time whether or not she is competent DIAGNOSIS: Brief psychotic disorder. RECOMMENDATIONS: I will reevaluate this patient tomorrow to see if she has any more delusional. Thank you very much for this consult. HAJA BOYER ED.D CM:CONSTR:REPORT OF CONSULTATION 1539 06/07/17 2144 interface JACKIE LANDERS MD
[~2017-06-03 18:06] MED LIST changes: +AKWA TEARS 15 M15 ML OPH; +NEURONTIN600 MG PO; +SPIRIVA18 MCG PO; +ZINC SULFATE220 MG PO
[2017-06-03 19:17] VITALS: BP 158/88
--- NOTE | 2017-06-03 19:20 | NUR ---
SUHALEIDA Oconnell a 62 year old F admitted via wheel chair from the OTHER as a emergency 72 hr. hold admission. Arrived on unit at 1920. ALLERGIES: NKA. Vital signs are: 97.8-68-16 158/88. The client DID NOT sign the following forms with stated understanding: Authorization For The Release of Medical Information, Clothing List, Consent to Voluntary Admission and Hospitalization, Consent and Release Forms/Receipt of Rights, Acknowledgement of Advance Directive Information, Behavioral Health Consent Form, and Informed Consent of Medications. Admitted under the services of Dr. MAGGIE BRO,[facility]. A search was conducted and hazardous articles were removed. Client was oriented to the unit. RASHAUN MCKINNEY
[2017-06-03 19:56] VITALS: BP 158/88
--- NOTE | 2017-06-03 20:10 | NUR ---
DR. MAKI MADE AWARE OF CONSULT FOR MED MANAGMENT MED REQ COMPLETE.
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
--- NOTE | 2017-06-03 22:30 | NUR ---
PT RESTING QUIETLY IN BED AT THIS TIME. CONSUMED HS SNACK. AGITATED BUT COOPERATIVE WITH FLUID RESTRICTION. PRN VISTARIL EFFECTIVE.
--- NOTE | 2017-06-03 22:41 | NUR ---
CALL PLACED TO [facility] FOR FOR CONSULT. RETURNED CALL RECIEVED MADE AWARE OF TRANSFER FROM 5E
--- NOTE | 2017-06-03 22:48 | NUR ---
CALL PLACED TO [facility] FOR CONSULT
--- NOTE | 2017-06-04 05:45 | NUR ---
PT SLEPT THROUGHOUT NIGHT WITH OUT INTURRUPTION 7 HOURS. MED COMPLIANT WITH COAXING. SEE FLOWSHEET FOR SPECIFIC MONITORING.
[2017-06-04 07:15] LABS: BASO % 0.1 % (0.0-1.0); EOS # 0.1 10*3/uL (0.0-0.4); EOS % 0.8 % (1.0-4.0); HEMATOCRIT 35.3 % (37.0-47.0); HEMOGLOBIN 12.6 g/dl (12.0-16.0); LYMPH # 2.3 10*3/uL (1.3-4.4); LYMPH % 26.8 % (27.0-41.0); MEAN CELL VOLUME 86.5 fl (81.0-99.0); MEAN CORPUSCULAR HGB 30.9 pg (27.0-31.0); MEAN CORPUSCULAR HGB CONC 35.7 g/dl (33.0-37.0); MONO # 0.7 10*3/uL (0.1-1.0); MONO % 8.3 % (3.0-9.0); NEUT # 5.4 10*3/uL (2.3-7.9); NEUT % 63.3 % (47.0-73.0); PLATELET COUNT AUTOMATED 301 10*3/uL (130-400); RED BLOOD COUNT 4.08 10*6/uL (4.10-5.10); RED CELL DISTRI WIDTH 12.2 % (0-14.5); WHITE BLOOD COUNT 8.5 10*3/uL (4.8-10.8)
[2017-06-04 07:47] LABS: ALBUMIN 3.3 gm/dl (3.1-4.5); BUN 8 mg/dl (7-24); CHLORIDE 89 mmol/L (98-107); CHOLESTEROL 147 mg/dL (<200); CREATININE 0.46 mg/dL (0.55-1.02); POTASSIUM 3.9 mmol/L (3.5-5.1); SGOT/AST 15 IU/L (3-35); SGPT/ALT 22 U/L (12-78); SODIUM 126 mmol/L (136-145); TOTAL PROTEIN 6.1 gm/dL (6.4-8.2); TRIGLYCERIDES 83 mg/dl (<150); VLDL CHOLESTEROL 17 mg/dL (6-40)
[2017-06-04 07:56] LABS: ALKALINE PHOSPHATASE 88 U/L (45-117); HDL CHOLESTEROL 73 mg/dl (40-60); LDL CHOLESTEROL 57 mg/dL (9-159)
[2017-06-04 08:20] LABS: VITAMIN D, 25-HYDROXY 23.1 ng/mL (30-100)
--- NOTE | 2017-06-04 09:49 | NUR ---
EDITHAMENT TEAM WAS HELD TO DISCUSS CARE WITH THE FOLLOWING: DR. SERRANO, NURSE PRATIONER, MEDICAL STUDENT, RN, SW, AND AT. DR. SERRANO ORDERING CONSULT FOR DR. BOYER FOR EXPERT EVAL FOR GUARDIANSHIP.
--- NOTE | 2017-06-04 10:04 | NUR ---
CALLED PLACE TO [facility] REGUARDING CONSULT FOR , SPOKE TO TAVO WHO STATES IS ON VACATION, TRANSFERRED TO TAVO WHO STATES IS COVERING. PATIENT INFO FOR CONSULT GIVEN TO JEFF. AWAITING RETURN CALL FROM AT THIS TIME.
--- NOTE | 2017-06-04 10:09 | NUR ---
NOTIFIED OF ABNORMAL LABS AND NEED FOR MEDI PORT ORDERS. STATES OK TO ACCESS [facility] PORT AND WILL ENTER ORDERS. MADE AWARE COVERING FOR , AND AWAITING RETURN CALL FROM .
--- NOTE | 2017-06-04 10:19 | NUR ---
MADE AWARE OF CONSULT FOR WEDNESDAY.
--- NOTE | 2017-06-04 10:37 | NUR ---
CALLED IN TO STATE SHE WAS AWARE OF PATIENT CONSULT. STATES WILL BE IN LATER TODAY TO SEE PATIENT. MADE AWARE OF ABNORMAL LABS.
[2017-06-04 10:38] VITALS: BP 157/98
--- NOTE | 2017-06-04 11:16 | NUR ---
PATIENT REQUESTING PRN NEB, PT MILDLY ANXIOUS AND AUDIBLE WHEEZING NOTED WHEN TALKING, SOB WITH MINIMAL EXERTION. MADE AWARE THAT PT REQUESTING PRN NEB AND Q6HRS IS TOO FAR APART PER PT. STATES WILL ENTER NEW ORDERS AND MAKE THEM Q4HRS PRN. REPIRATORY NOTIFIED AND REQUESTED PRN BREATHING TX.
--- NOTE | 2017-06-04 13:31 | NUR ---
PHYSICAL THERAPY PAtient evaluated on 3, full evaluation to follow. Continue with PT as per plan of care with fall, min (A) and acute debility precautions. Significantly decreased activity tolerance noted. Continue with recommend SNF for impaired mobility. PAtient is high complexity via chart review, tests and evaluation: 31754. Thank you for this referral. Carolin Wong,PT
--- NOTE | 2017-06-04 14:01 | NUR ---
IP ADM EMMANUEL 5 DAYS. NEXT REVIEW 06/07.
--- NOTE | 2017-06-04 14:45 | NUR ---
, , AND ALL ON UNIT AT BEDSIDE TO ASSESS PATIENT AT THIS TIME.
--- NOTE | 2017-06-04 15:10 | NUR ---
PT did attend RT Group/Games this afternoon. PT is very friendly and encouraging with other PTs. PT often helping other PTs with adding up or choosing their roll. PT was very social with other PTs as well as appropriate
--- NOTE | 2017-06-04 15:26 | NUR ---
PT refussed to answer any questions on assessment. PT stated i was interupting her time and she wasnt answering anybodys questions
--- NOTE | 2017-06-04 17:31 | NUR ---
MOOD IS STABLE THIS SHIFT. ALERT AND ORIENTED. NO HALLUCINATIONS, DELUSIONS, OR BEHAVIORS NOTED. APPETITE GOOD THIS SHIFT. FLUID RESTRICTION MAINTAINED PER ORDERS. DENIES ANY SI/HI. POSITIVE INTERACTIONS WITH PEERS. APPROPRIATE IN COVERSATIONS WITH STAFF. MEDICATION COMPLIANT WITHOUT DIFFICULTY. NO ELOPEMENT ATTEMPTS MADE THIS SHIFT. LOW ANXIETY LEVELS THIS SHIFT. MEDIPORT DRESSING CLEAN, DRY, INTACT WITH NO S/S INFECTIONS. EDUCATED ON NEW MEDICATION ORDERS WITH GOOD EFFECT. Q15 MIN SAFETY CHECKS MAINTAINED PER ORDERS. WILL CONTINUE WITH Q15 MIN CHECKS, MED EDUCATION NEEDED, FLUID RESTRICTION. NO ACUTE DISTRESS NOTED.
--- NOTE | 2017-06-04 18:08 | NUR ---
VM from [facility] reporting that Pt LCD is June 07.
[2017-06-04 20:25] VITALS: BP 140/92
--- NOTE | 2017-06-04 21:28 | NUR ---
PT VOICING C/O HEADACHE LEVEL 6 ON A SCALE OF 1-10. PRN TYLENOL ADMINISTERD.
--- NOTE | 2017-06-05 04:14 | NUR ---
24 HR chart check completed.
--- NOTE | 2017-06-05 06:07 | NUR ---
PT SLEPT GREATER THAN 8 HOURS THIS SHIFT. NO S/S OF DISTRESS NOTED. NO C/O PAIN. MEDICATION COMPLIANT. SEE [facility] FLOWSHEET FOR SPECIFIC MONITORING. Q15 MINUTE SAFETY CHECKS MAINTAINED. DRESSING AND NEEDLE TO PORT TO RIGHT SIDE OF CHEST INTACT. Q2 HOUR TURNS MAINTAINED. PT ENCOURAGED TO TURN AND CHANGE POSITIONS.
--- NOTE | 2017-06-05 06:10 | NUR ---
PT HAD FLUID INTAKE OF 360ML THIS SHIFT.
[2017-06-05 08:06] VITALS: BP 140/92
--- NOTE | 2017-06-05 09:00 | NUR ---
PT REQUESTED BREATHING TX, CALL PLACED TO RESPIRATORY, SPOKE TO TAVO, STATES THEY WILL BE HERE SHORTLY.
--- NOTE | 2017-06-05 09:05 | NUR ---
RESPIRATORY THERAPISTS WITH PT AT THIS TIME FOR DAYDAY ZARAGOZA.
--- NOTE | 2017-06-05 10:45 | NUR ---
DR. SERRANO HERE TO SEE PT AT THIS TIME.
--- NOTE | 2017-06-05 13:44 | NUR ---
THIS NURSE ENTERED PT'S ROOM TO ADMINISTER 1PM MEDICATIONS, CONFUSION NOTED AT THIS TIME, PT STATES "WELL [place] IS COMING, I'M GOING TO GET YOU A NEW STETHESCOPE FOR [place]." REALITY ORIENTATION PROVIDED, PT STATES "NO. [place] IS COMING, EVERYONE IS IN A GOOD MOOD FOR [place]!" PT THEN TURNED TO ROOMMATE AND STATED "I KNOW WHAT I'M GOING TO GET YOU, YOU LOVE YOUR HAIR SO MUCH, I'M GETTING YOU SOME CLIPS FOR YOUR HAIR." REALITY ORIENTATION INEFFECTIVE AT THIS TIME. NO DISTRESS NOTED. POX 93% ROOM AIR, RESPS EASY ON ROOM AIR, Q15 MIN SAFETY CHECKS MAINTAINED.
--- NOTE | 2017-06-05 18:31 | NUR ---
PT IS ALERT AND ORIENTED TO PERSON AND PLACE WITH PERIODS OF CONFUSION. ST MEMORY DEFICITS NOTED AT TIMES. REALITY ORIENTATION PROVIDED NEEDED THROUGHOUT THE DAY. RESPIRATIONS EASY ON ROOM AIR. MOOD IS DEPRESSED WITH FLAT AFFECT. SPEECH IS WNL AND COHERENT, ABLE TO MAKE NEEDS KNOWN. PT DENIES SI/HI. PT DENIES HALLUCINATIONS, NO RESPONSE TO INTERNAL STIMULI NOTED BY STAFF HOWEVER THIS NURSE RECIEVED PHONE CALL FROM PT'S DAUGHTER ELSI WHO STATES WHEN SHE SPOKE TO HER MOTHER ON THE PHONE HER MOTHER REPORTED THAT SHE HAD VISITED WITH HER EX- TWICE TODAY. PT HAS HAD NO VISITORS AND NO OTHER PHONE CALLS. PT HAS BEEN ISOLATIVE TO ROOM, IRRITABLE AT TIMES WHEN ROOMMATE ENTERS AND EXITS ROOM. ABLE TO CALM SELF. MEDIPORT TO RIGHT CHEST ACCESSED AND INTACT, DRESSING CHANGED DUE TO DISLODGING. PT HAS BEEN MEDICATION COMPLIANT WITHOUT DIFFICULTY. NO DISTRESS NOTED. STRICT 1200ML FLUID RESTRICTION MAINTAINED, PT HAD 600ML FLUID INTAKE THIS 7A-7P SHIFT. Q15 MIN SAFETY CHECKS MAINTAINED, REFER TO [facility] FLOWSHEET FOR SPECIFIC MONITORING.
--- NOTE | 2017-06-05 18:42 | NUR ---
SW COMPLETED PT'S PSYCHOSOCIAL ASSESSMENT. PT WANTS TO RETURN HOME. RECOMMENDING REHAB STAY.
--- NOTE | 2017-06-05 18:51 | NUR ---
SHIFT CHART CHECK COMPLETED.
[2017-06-05 20:26] VITALS: BP 129/77
--- NOTE | 2017-06-05 21:20 | NUR ---
24 HR chart check completed.
--- NOTE | 2017-06-06 05:50 | NUR ---
PT HAS BEEN OBSERVED ON Q 15 MIN CHECKS & HAS SLEPT QUIETLY THROUGHOUT THE SHIFT PAST 2229 WITH 1 BRIEF AWAKENING & REQUESTED A BREATING TREATMENT.
--- NOTE | 2017-06-06 06:46 | NUR ---
PT REFUSING LAB DRAW. ATTEMPTED TO EDUCATE REGARDING THE IMPORTANCE OF PROCEDURE. VERBALIZED NO UNDERSTANDING, STILL REFUSING.
--- NOTE | 2017-06-06 07:09 | NUR ---
PT STATED THAT SHE DOES NOT WANT ANY BLOOD DRAWS FROM HER MEDIPORT & ONLY DR HASSAN CAN DO IT. REFUSED TO HAVE LAB DRAW IN ARM.
[2017-06-06 08:21] VITALS: BP 132/75
--- NOTE | 2017-06-06 11:12 | NUR ---
CALL PLACED TO DR. KEE CUTLER NURSING VOCAL ARTIST TO CLARIFY ORDER REGARDING ACCESS OF MEDIPORT, DR. SWEET STATES OK TO USE MEDIPORT FOR BLOOD DRAWS BY NURSE FOLLOWING PROPER PROCEDURE. WITNESSED BY 2ND RN. BLANC.
--- NOTE | 2017-06-06 13:10 | NUR ---
DR. JACKSON, DR. WILLIAMSON AND DR. WOODS HERE AT THIS TIME, SPOKE WITH FAMILY AT THIS TIME.
--- NOTE | 2017-06-06 14:00 | NUR ---
PT IS ALERT AND ORIENTED TO PERSON AND PLACE WITH PERIODS OF CONFUSION NOTED. ST/LT MEMORY DEFICITS NOTED AT TIMES. RESPIRATIONS EASY ON ROOM AIR. MOOD IS LABILE WITH FLAT AFFECT. SPEECH IS WNL AND COHERENT, ABLE TO MAKE NEEDS KNOWN. PT DENIES HALLUCINATIONS, HOWEVER EVIDENCE OF POSSIBLE AUDITORY AND VISUAL HALLUCINATIONS NOTED BY STAFF PT FREQUENTLY COMES TO STAFF STATING "I JUST TALKED TO MY FAMILY ON THE PHONE" OR "I JUST VISITED WITH MY " HOWEVER PT HAS NOT HAD ANY PHONE CALLS OR VISITORS. REAILTY ORIENTATION PROVIDED AND PT STATES "YEAH, I'M MIXED UP. I'M HAVING HALLUCINATIONS." PT DENIES SI/HI. MEDICATION COMPLIANT WITHOUT DIFFICULTY. SHOWERED THIS AM. CONTINENT OF BOWEL AND BLADDER. RIGHT CHEST MEDIPORT C/D/I. NO DISTRESS NOTED. Q15 MIN SAFETY CHECKS MAINTAINED, REFER TO [facility] FLOWSHEET FOR SPECIFIC MONITORING.
--- NOTE | 2017-06-06 17:05 | NUR ---
PT GIVEN PRN TYLENOL 650MG PO AT THIS TIME FOR C/O HEADACHE AND PRN VISTARIL 50MG PO GIVEN FOR ANXIETY, PT TEARFUL, UPSET STATING "MY JUST CALLED 2 MINUTES AGO AND HE SAID HE'LL BE HERE. HE UPSETS ME SO MUCH." REDIRECTION AND REALITY ORIENTATION PROVIDED WITH LITTLE EFFECT. PT CONTINUES WITH ANXIETY. WILL MONITOR FOR MEDICATION EFFECTIVENESS.
--- NOTE | 2017-06-06 17:37 | NUR ---
173 THIS NURSE ANSWERING PHONE AT DESK, HEARD YELLING FROM DINING ROOM, THIS NURSE IMMEDIATELY RESPONDED TO DINING ROOM, OBSERVED THIS PT LEANING DOWN ON LEFT KNEE WITH ARM ON DINING ROOM TABLE. PT [id number] YELLING "SHE CAME AFTER ME!" PT [id number] IMMEDIATELY EXITED THE DINING ROOM TO HER BEDROOM AT THIS TIME. ALL OTHER PATIENTS IN DINING ROOM STATE THIS PATIENT "WENT AFTER HER." THIS PT STATES "I COULDN'T TAKE HER MOUTH ANYMORE. SHE'S ALWAYS TALKING LIKE SHE KNOWS MORE THAN EVERYONE ELSE." PT ASSISTED TO CHAIR, ASSESSMENT COMPLETED BY THIS NURSE AND 2ND RN, PINPOINT 0.1X0.1 SKIN TEAR NOTED TO RIGHT ELBOW, NO OTHER OBVIOUS INJURIES NOTED. ROM TO BUE AND BLE WNL. PT DENIES PAIN. PRIVATE ROOM PROVIDED FOR THIS PT AT THIS TIME. PT ASSISTED AND ORIENTED TO NEW ROOM, DEBRIEFING OF THE EVENT HELD WITH PT AND STAFF, PT STATES "I KNOW I NEED TO REMOVE MYSELF. I JUST COULDN'T TAKE IT ANYMORE." PT ANXIOUS, PT SITTING ON BED LOOKING OUT WINDOW AT THIS TIME FOR FURTHER CALMING AND DEESCALATION WITH POSITIVE EFFECT. 1744 - HARINDER, TIMBER SELECTOR NOTIFIED OF THE ABOVE. 1745 - JERRI RICHARDS, COVERING FOR DR. SERRANO NOTIFIED OF THE ABOVE. 1746 - DR. WILLIAMSON NOTIFIED OF THE ABOVE. 1747 - WU NURSING EDUCATION REVIEWER NOTIFIED OF THE ABOVE. 1749 - PT SIGNED PHOTOGRAPH CONSENT FOR WOUND PHOTOGRAPH. 1751 - WOUND PHOTOGRAPH TAKEN 1754 - WU NURSING EDUCATION REVIEWER MADE AWARE WOUND PHOTOGRAPH TAKEN. 1800 - PT'S DAUGHTER ELSI MADE AWARE OF THE ABOVE.
--- NOTE | 2017-06-06 18:22 | NUR ---
PT CAME OUT TO [facility], CONFUSION NOTED AT THIS TIME, PT STATES "I'M PULLING MY MONEY OUT OF HERE TOMORROW AND I'M LEAVING. I PAID GOOD MONEY TO COME HERE. I'M TAKING IT ALL BACK, EXCEPT RANDY'S. HE GETS DOUBLE. HE WANTS TO GO TO [place]. I THINK I'M GOING TO GO DOWN TO [facility] FOR A WHILE." CLOSE MONITORING BY STAFF AT THIS TIME.
--- NOTE | 2017-06-06 19:23 | NUR ---
SHIFT CHART CHECK COMPLETED.
[2017-06-06 20:00] VITALS: BP 142/96
--- NOTE | 2017-06-06 22:00 | NUR ---
24 HR chart check completed.
--- NOTE | 2017-06-06 23:55 | NUR ---
PT HAS RESTED IN BED & CONFUSION IS PRESENT. STATED SHE HAD TO GO MAKE COFFEE. C/O ANXIETY & STATED SHE HAD ALOT ON HER MIND. MEDICATED WITH ATIVAN 1 MG PO @ 2350.
--- NOTE | 2017-06-07 00:30 | NUR ---
ATIVAN EFFECTIVE. PT NOTED TO BE SLEEPING QUIETLY AT THIS TIME.
--- NOTE | 2017-06-07 05:43 | NUR ---
PT HAS CONTINUED TO SLEEP QUIETLY PAST 0030.
[2017-06-07 06:52] VITALS: BP 159/86
[2017-06-07 06:59] LABS: BUN 6 mg/dl (7-24); CHLORIDE 88 mmol/L (98-107); CREATININE 0.44 mg/dL (0.55-1.02); SODIUM 124 mmol/L (136-145)
--- NOTE | 2017-06-07 08:30 | NUR ---
DR. BOYER ON UNIT TO SEE PATIENT.
--- NOTE | 2017-06-07 09:26 | NUR ---
CORNELL RASMUSSEN CNP ON UNIT TO SEE PATIENT.
--- NOTE | 2017-06-07 09:44 | NUR ---
CORNELL RASMUSSEN STEREOTYPE MOLDER HERE TO SEE PT AT THIS TIME. UPDATE GIVEN, LABS REVIEWED.
--- NOTE | 2017-06-07 09:48 | NUR ---
DR. BOYER HERE TO SEE PT AT THIS TIME.
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
--- NOTE | 2017-06-07 11:16 | NUR ---
PT did not attend RT Group/Reminiscing today. PT stated she could not attend if the PT that "causes me brain damage is going to be there." AT asked PT to explain and PT stated there were problems with another PT. Nursing is aware of this issue.
--- NOTE | 2017-06-07 13:23 | NUR ---
PHYSICAL THERAPY Laura was seen this AM 1:1 for her therapy session. All transfers were MIN A X 1. Gait total 50' X 2, with one sitting rest. Then working in gait balance with gait backwards, right and left side stepping and 360 turn with MIN to MOD SUPERVISOR SHOW OPERATIONS X 1, X 2. Followed by act Ex to bilateral LE of marching, LAQ's, ankle pumps X 25 reps each with cueing for each Ex, treatment time 26 min. HENRY TURCIOS DOUGHNUT ICER MACHINE.
--- NOTE | 2017-06-07 14:40 | NUR ---
DR. HAQUE ON UNIT TO SEE PATIENT.
--- NOTE | 2017-06-07 15:10 | NUR ---
DR. SWEET ON UNIT TO SEE PATIENT.
--- NOTE | 2017-06-07 15:33 | NUR ---
PT did not attend RT Group/Card game this afternoon. PT was in bed
[2017-06-07 16:58] LABS: BILIRUBIN NEGATIVE (NEGATIVE); BLOOD NEGATIVE (NEGATIVE); CLARITY CLEAR (CLEAR); COLOR YELLOW (YELLOW); GLUCOSE NEGATIVE (NEGATIVE); KETONE NEGATIVE (NEGATIVE); LEUKO ESTERASE NEGATIVE (NEGATIVE); NITRITE NEGATIVE (NEGATIVE); UROBILINOGEN 0.2 E.U./dl (0.2-1.0)
[2017-06-07 17:07] LABS: BACTERIA 4+; RBC 0-2 rbc/hpf (0-2)
--- NOTE | 2017-06-07 17:24 | NUR ---
ALEIDA IS ALERT AND ORIENTED TO PERSON, PLACE AND TIME WITH CONFUSION. MOOD IS STABLE, INTERACTIVE WITH STAFF AND PARTICIPATES IN GROUP. AMBULATORY WITH STEAADY GAIT, CONTINENT OF BOWEL AND BLADDER, MEAL INTAKES ARE GOOD. MONITORING MEDIPORT, NO SIGN OR SYMPTOMS OF INFECTION. DENIES ANY HALLUCINATIONS, DELUSIONS, HI/SI OR PAIN/DISCOMFORT. Q 15 MINUTE CHECKS MAINTAINED, MEDICATION COMPLIANT.
[2017-06-07 20:05] VITALS: BP 180/110
--- NOTE | 2017-06-07 20:09 | NUR ---
Called resident hydro electric station operator and updated dr gonzalez on pt manual bp of 180/110. Updated dr on new medication solumedrol from 1400. pt has no s/s of distress. denies chest pain, nausea, dizziness, and blurred vision out of the ordinary. updated dr gonzalez on lisinopril 30mg at 1000. dr gonzalez stated to recheck bp in 2 hours and call back if it is still 180 or above.
--- NOTE | 2017-06-07 20:58 | NUR ---
PT C/O HEADACHE 02/17 AND REQUESTED TYLENOL 650 MG. TYLENOL GIVEN AT THIS TIME.
--- NOTE | 2017-06-07 21:39 | NUR ---
SW COMPLETED SIGNIFICANT CHANGE TO PASRR AND FAXED TO [facility].
--- NOTE | 2017-06-07 22:00 | NUR ---
TYLENOL EFFECTIVE. PT RESTING QUIETLY IN BED. NO S/S OF DISTRESS NOTED. NO C/O PAIN.
--- NOTE | 2017-06-07 22:49 | NUR ---
RECHECK PT BLOOD PRESSURE WITH RESULTS OF 186/106 HEART RATE 88. NO S/S OF DISTRESS NOTED. PT ALERT AND STATED SHE IS AWAKE WAITING ON HER BREATHING TREATMENT. DR MAKI UPDATED ON BP AND PT DENIED ANY NAUSEA, DIZZINESS, BLURRED VISION, AND CHEST PAIN. VERBAL ORDER RECEIVED FOR METOPROLOL 50 MG NOW AND RECHECK BP IN 2 HOURS.
--- NOTE | 2017-06-08 00:59 | NUR ---
DR MAKI UPDATED ON PT MANUAL BP OF 180/110 AND HEART RATE 86. PT C/O HEADACHE. NEW ORDER FOR APRESOLINE 50 MG PO NOW.
--- NOTE | 2017-06-08 02:42 | NUR ---
B. MOOD LABILITY, FOI. PT AT THIS TIME CALM AND PURPOSEFULL I: REDIRECT, PRESENT REALITY, DISCUSS EFFECTIVE COPING SKILLS R: PT ABLE TO IDENTIFY COPING STRATEGIES, INTERACTING APPROPRIATELY WITH PEERS P: CONTINUE TO MONITOR PATIENT BEHAVIOR, ADMINISTER AND EDUCATE ON MEDICATIONS, PROVIDE 1-1 AND GROUP THERAPY.
--- NOTE | 2017-06-08 04:27 | NUR ---
24 HR chart check completed.
--- NOTE | 2017-06-08 05:40 | NUR ---
BP 158/98 IN RIGHT ARM THIS AM. PT REFUSED BP CHECKS THROUGH THE NIGHT. PT GETTING ANXIOUS ABOUT NOT GETTING ENOUGH SLEEP. PT CONFUSED THIS AM. PT WANTED A SHOWER AND WHEN IT WAS SET UP PT STARTED SAYING "SHES GOING" "SHES DOING IT" AND CONTINUES TO SIT ON HER BED. PT REFUSED TO GET UP AND SHOWER AFTER THIS.
[2017-06-08 05:44] VITALS: BP 158/98
[2017-06-08 06:37] LABS: HEMATOCRIT 33.8 % (37.0-47.0); HEMOGLOBIN 12.1 g/dl (12.0-16.0); LYMPH # 0.7 10*3/uL (1.3-4.4); LYMPH % 9.5 % (27.0-41.0); MEAN CELL VOLUME 83.9 fl (81.0-99.0); MEAN CORPUSCULAR HGB CONC 35.8 g/dl (33.0-37.0); MEAN PLATELET VOLUME 9.4 fl (9.6-12.3); MONO # 0.3 10*3/uL (0.1-1.0); MONO % 3.6 % (3.0-9.0); NEUT # 6.7 10*3/uL (2.3-7.9); PLATELET COUNT AUTOMATED 236 10*3/uL (130-400); RED BLOOD COUNT 4.03 10*6/uL (4.10-5.10); RED CELL DISTRI WIDTH 11.9 % (0-14.5); WHITE BLOOD COUNT 7.8 10*3/uL (4.8-10.8)
--- NOTE | 2017-06-08 06:39 | NUR ---
PT SLEPT APPROXIMATELY 6 HOURS INTERRUPTED. NO S/S OF DISTRESS NOTED. NO C/O PAIN. Q15 MINUTE SAFETY CHECKS MAINTAINED. DRESSING TO MEDIPORT INTACT. SEE U FLOWSHEET FOR SPECIFIC MONITORING.
[2017-06-08 07:01] LABS: ALBUMIN 3.4 gm/dl (3.1-4.5); ALKALINE PHOSPHATASE 110 U/L (45-117); BUN 6 mg/dl (7-24); CHLORIDE 86 mmol/L (98-107); CREATININE 0.46 mg/dL (0.55-1.02); POTASSIUM 4.2 mmol/L (3.5-5.1); SGOT/AST 14 IU/L (3-35); SGPT/ALT 23 U/L (12-78); TOTAL PROTEIN 6.8 gm/dL (6.4-8.2)
[2017-06-08 07:05] LABS: SODIUM 119 mmol/L (136-145)
--- NOTE | 2017-06-08 07:05 | NUR ---
LAB CALLED WITH A SODIUM LEVEL OF 119. WILL PASS ONTO DAY SHIFT TO BE REPORTED TO THE
--- NOTE | 2017-06-08 07:41 | NUR ---
LAB CALL WITH SODIUM 119, VITALS:150/92, 84, 97.1,22, O2 SAT 98% RA LUNGS WHEEZING WITH RHONCHI NOTED. RESPIRATORY IN FOR BREATHING TREATMENT. CORNELL RASMUSSEN CNP NOTIFIED OF THE ABOVE.
[2017-06-08 07:52] VITALS: BP 150/92
--- NOTE | 2017-06-08 07:52 | NUR ---
PHYSICAL THERAPY Laura was seen this AM 1:1 for her therapy session. Pt just finished her breathing treatment. All transfers were supervision X 1. Gait into Pt's bathroom 15' X 1, CG X 1, then back sitting at bedside due to being SOB. After sitting rest gait balance with gait backwards, right and left side stepping MIN A X 1, sit to rest. Then gait 105' X 1, CG X 1, no LOB Pt into the day room for her breakfast and a little SOB with this. HENRY TURCIOS HYDRODYNAMICS TEACHER.
--- NOTE | 2017-06-08 08:58 | NUR ---
CORNELL RASMUSSEN CNP ON UNIT TO SEE PATIENT.
--- NOTE | 2017-06-08 09:31 | NUR ---
PATIENT COMPLAINED OF HAVING A HEAD ACHE, PRN TYLENOL 650MG PO GIVEN AT THIS TIME.
--- NOTE | 2017-06-08 10:07 | NUR ---
DR. GAMA NOTIFIED OF PATIENT BEING DISCHARGE TO [facility] WITH HYPONATREMIA, HYPERTENSION AND SMALL CELL CA.
[2017-06-08] MEDS ORDERED: LISINOPRIL10 M1 PO (10:12)
[2017-06-08] MEDS ORDERED: GABAPENTIN400 MG PO (10:12)
[2017-06-08] MEDS ORDERED: SODIUM CHLORIDE1 GM PO (10:12)
--- NOTE | 2017-06-08 10:30 | NUR ---
PRN TYLENOL EFFECTIVE, PATIENT STATED HEADACHE IS GETTING BETTER.
--- NOTE | 2017-06-08 10:45 | NUR ---
PATIENT READY FOR DISCHARGE. REVEIWED ALL DISCHARGE INSTRUCTION AND ANSWERED ALL QUESTIONS AND PAPERS SIGNED.
--- NOTE | 2017-06-08 11:14 | NUR ---
NURSE TO NURSE PROVIDED TO [address] [place] [address] PATIENT WITH DIAGNOSIS OF HPYONATREMIA, HYPERTENSION AND SMALL CELL CA.
--- NOTE | 2017-06-08 11:15 | NUR ---
PHYSICAL THERAPY CO-SIGN I approve of the Phyical Therapy notes written above. RIGO STRONG PT
--- NOTE | 2017-06-08 11:17 | NUR ---
PATIENT ASSISTED TO WHEELCHAIR WITH ALL BELONGING AND DISCHARGE INSTRUCTION, OFF THE UNIT AT THIS TIME WITH NURSE TO JOHN.
--- NOTE | 2017-06-08 18:42 | NUR ---
sw completed discharge papers and RN was having Pt sign them. Pt was dicharge to medical floor.
== END 2017-06-08 11:17 | disposition short-term general hospital (02) | DRG 885 ==
LOC: 3N 18:06
PROVIDERS: Internal Medicine Nephrology; Registered Nurse; ADMIT Psychiatry & Neurology Psychiatry
DX: F23 Brief psychotic disorder (principal); G93.41 Metabolic encephalopathy; E87.8 Other disorders of electrolyte and fluid balance, not elsewhere classified; E22.2 Syndrome of inappropriate secretion of antidiuretic hormone; C34.90 Malignant neoplasm of unspecified part of unspecified bronchus or lung; I10 Essential (primary) hypertension; J44.9 Chronic obstructive pulmonary disease, unspecified; D63.0 Anemia in neoplastic disease; G40.909 Epilepsy, unspecified, not intractable, without status epilepticus; E87.6 Hypokalemia; F41.1 Generalized anxiety disorder; R41.3 Other amnesia; R73.03 Prediabetes; R00.0 Tachycardia, unspecified; E83.51 Hypocalcemia; F17.210 Nicotine dependence, cigarettes, uncomplicated; Z94.7 Corneal transplant status; Z85.41 Personal history of malignant neoplasm of cervix uteri; Z82.49 Family history of ischemic heart disease and other diseases of the circulatory system

== ENCOUNTER 2017-06-08 11:42 | Inpatient (IN) | payer OTHER ==
[~2017-06-08] VITALS: Ht 170.2 cm; Wt 80.3 kg
--- NOTE | ~2017-06-08 | PR ---
[place], [place] PROGRESS NOTE NAME: ALEIDA SUH UNIT #: [id number] ROOM: 521 DOCTOR: GABBIE HAQUE MD BIRTHDATE: [birth year] DOS: The patient was moved [facility] to the fifth floor. She had worsening hyponatremia. Despite this, she had no other acute symptoms from a neurologic standpoint. She reports being compliant with her sodium chloride tablets as well as fluid restriction. She is concerned and mother is at the bedside and she wants to get started for her treatment for small cell lung cancer. She does not report any chest pains, headaches, nausea or vomiting. She is eating and drinking well and continues to stay potentially even below her fluid restriction per her report. I discussed with her at length as well as her mother the possibilities of obtaining a transfer to a higher level of care institution, perhaps one in which the ability to treat her hyponatremia with Samsca may be possible as well. She does not have any acute neurologic symptoms and I do not think that acute treatment with hypotonic saline is indicated at this point. We certainly can increase her loop diuretic and increase her sodium chloride tablets, but her urine sodium was high as should be expected, but her urine osmolality continues to run high. I discussed the case with the primary team and relayed to them that the patient would consider a transfer. Apparently after I finished talking to them, the patient did decide to discuss this further and then finally decided she wanted to be discharged against medical advice. She did not report where she was going to be going for treatment after that and from my standpoint, I would not recommend we try to treat this as an inpatient here and transfer to her hospital where she would be getting treatment for her lung cancer, as I believe that SIADH is likely a result of this, most likely. GABBIE HAQUE MD CM:REBECA [id number] GABBIE HAQUE MD 06/11/17 1808 interface
[~2017-06-08 11:42] MED LIST changes: +GABAPENTIN400 MG PO; +LISINOPRIL10 M1 PO
[2017-06-08 12:01] VITALS: BP 152/88
--- NOTE | 2017-06-08 12:26 | NUR ---
Time: 1225 A 62 year old female admitted to under services of LALO MCLAIN DO Pt. arrived via wheel chair from [facility]. Chief complaint: hypertension and hyponatremia. DEVON RODRIGUEZ
--- NOTE | 2017-06-08 12:37 | NUR ---
DR. HAQUE AND DR. SWEET NOTIFIED OF CONSULT.
--- NOTE | 2017-06-08 13:17 | NUR ---
Met with Mrs. Liu-she was alert and oriented; pleasant. Discussed recommendation for skilled care placement-she is not agreeable. She stated that she will be returning home. She is agreeable to home health services-list of home health agencies given. She stated that transportation to her chemotherapy appointments at Dr. Knowles's office will be provided by [facility]'s transportation dept. Will continue to follow.
--- NOTE | 2017-06-08 13:28 | NUR ---
PHYSICAL THERAPY PAtient eating lunch at this time. Thank you for this referral. Carolin Wong,PT
--- NOTE | 2017-06-08 13:44 | NUR ---
Faxed referral to [facility] as a second choice for patient.
--- NOTE | 2017-06-08 14:00 | NUR ---
DR. HAQUE AND CORNELL RASMUSSEN IN TO TALK WITH PATIENT ABOUT BEING TRANFERRED TO [facility].
--- NOTE | 2017-06-08 14:15 | NUR ---
PATIENT STATES THAT SHE DOES NOT WISH TO BE TRANSFERRED TO [facility] SHE IS REQUESTING TO BE DISCHARGED. CORNELL RASMUSSEN NOTIFIED.
--- NOTE | 2017-06-08 14:27 | NUR ---
PHYSICAL THERAPY PAtient evaluated on 5, full evaluation to follow. continue with PT as per plan of care with fall, poor activity tolerance and acute debility preacutions. May require SNF if willing for impaired mobility. PAtient is moderate complexity via chart review, tests and evaluation: 26179. Thank you for this referral. Carolin Ley.,PT
--- NOTE | 2017-06-08 15:30 | NUR ---
PATIENT WILL NOT BE DISCHARGED WILL HAVE TO SIGN OUT AMA. CORNELL UP TO TALK WITH PATIENT ABOUT RISKS INCLUDING IF SHE SIGNS OUT AMA. PATIENT VERBALIZED THAT SHE UNDERSTOOD THE RISKS OF SIGNING OUT AMA.
[2017-06-08 16:00] VITALS: BP 160/88
--- NOTE | 2017-06-08 16:13 | NUR ---
MEDIPORT FLUSHED AND UNACCESSED.
--- NOTE | 2017-06-08 16:45 | NUR ---
Patient signed out AMA. Patient encouraged to stay and advised of possible consequences of premature discharge. CORNELL RASMUSSEN and supervisor engraving YASSINE IQBAL notified. Patient instructed what to do regarding care post-departure from the hospital; emergency phone numbers provided. Patent was accompanied by MOTHER. DEVON RODRIGUEZ
== END 2017-06-08 16:45 | disposition left against medical advice (07) | DRG 305 ==
LOC: 5E 11:42
PROVIDERS: ADMIT Internal Medicine
DX: I16.1 Hypertensive emergency (principal); E22.2 Syndrome of inappropriate secretion of antidiuretic hormone; C34.90 Malignant neoplasm of unspecified part of unspecified bronchus or lung; E87.8 Other disorders of electrolyte and fluid balance, not elsewhere classified; J44.9 Chronic obstructive pulmonary disease, unspecified; R41.3 Other amnesia; G40.909 Epilepsy, unspecified, not intractable, without status epilepticus; F41.1 Generalized anxiety disorder; E55.9 Vitamin D deficiency, unspecified; Z94.7 Corneal transplant status; Z85.41 Personal history of malignant neoplasm of cervix uteri; Z82.49 Family history of ischemic heart disease and other diseases of the circulatory system

== ENCOUNTER 2017-06-16 15:45 | Inpatient (IN) | payer OTHER ==
[~2017-06-16] VITALS: Ht 170.1 cm; Wt 88.5 kg
--- NOTE | ~2017-06-16 | PR ---
[place], [place] PROGRESS NOTE NAME: ALEIDA SUH UNIT #: [id number] ROOM: 410 DOCTOR: CIERRA ESCOBAR DO BIRTHDATE: [birth year] DOS: 06/25/2017 SUBJECTIVE: The patient was seen and examined today this morning with Dr. Hassan. The patient is alert, awake and responsive. The patient denies of any nausea, lightheadedness, dizziness or chest pain. The patient states that she has been coughing and bringing phlegm up. The patient denies any other concerns at this time. OBJECTIVE: VITAL SIGNS: Temperature 97.8, pulse 108, respiratory rate 20, blood pressure 162/100. HEENT: Shows no change. NECK: Supple. CARDIOVASCULAR: S1, S2 audible. LUNGS: Mild expiratory wheezes noted. No rales, rhonchi or stridor. ABDOMEN: Soft, nontender, nondistended. LABORATORY DATA: White cell count 5.5, hemoglobin 10.6, platelet 238. Sodium 131, carbon dioxide 30, chloride 94, BUN 12, creatinine 0.43. ASSESSMENT: 1. Resolving acute exacerbation of chronic obstructive pulmonary disease and acute obstructive pneumonia. 2. Hyphemia with SIADH. 3. History of small cell lung cancer, finished 3/[address] Knowles yesterday. PLAN OF THERAPY: 1. The patient can be discharged home with prednisone taper. 2. No antibiotic needed. 3. Decrease Solu-Medrol from 40 b.i.d. to 40 daily for now. 4. Continue fluid restriction per Nephrology. Improvement in sodium noted. 5. Supportive care. CIERRA ESCOBAR DO [place], [place] PROGRESS NOTE NAME: ALEIDA SUH UNIT #: [id number] ROOM: 410 DOCTOR: CIERRA ESCOBAR DO BIRTHDATE: [birth year] SHIRA HASSAN MD CM:PNTRANS [id number] CIERRA ESCOBAR DO 06/25/17 0905 interface
--- NOTE | ~2017-06-16 | CON ---
[place], [place] REPORT OF CONSULTATION NAME: ALEIDA SUH UNIT #: [id number] ROOM: 410 DOCTOR: SHIRA TOUSSAINT MD BIRTHDATE: [birth year] DOS: 06/17/2017 CONSULTATION REQUESTED BY: Dr. Dasha Candelaria. REASON FOR CONSULTATION: To assess the patient for the history of small cell lung cancer, possibly pneumonia and others. The recommendation assessment of the patient was personally done for this patient during today's visit. The note which were done by the medical malpractice paralegal, was approved. HISTORY OF PRESENT ILLNESS: A 62-year-old white female who has been admitted to the hospital ordered month ago and was noted with a large mass lesion in the left lung. The underwent bronchoscopy noted with significant narrowing of the endobronchial tree on the left side, the endobronchial and transbronchial biopsies were done, which were noted consistent with a diagnosis of small cell lung cancer. The patient presented to the hospital Emergency Room and being admitted again for this patient on 06/16/2017. She was complaining of significant pain described in the right lower back in the flank area with some radiation to the thigh. It was described to be severe. The patient denies symptoms of hematuria. Denies symptoms of hemoptysis. The patient denies symptoms of wheezing. She does complain of symptoms of shortness breath, which occurs mainly with exertion. Coughing has been noted with small amount of sputum expectoration at times. He denies any symptoms of acute chest pain at this time. REVIEW OF SYSTEMS: Already completed by the medical malpractice paralegal. PAST MEDICAL HISTORY: The patient was known with history of: 1. COPD/centrilobular emphysema. 2. Small cell lung cancer with a large lung mass. The patient in the left upper lung with area of atelectasis and lingula diagnosed for this patient on 05/26/2017 with the endobronchial biopsy and transbronchial biopsies. 3. Perineoplastic syndrome with SIADH as well. 4. History of chronic nicotine abuse. 5. Anxiety disorder and neurotic depression. 6. Essential hypertension. 7. History of osteoarthritis. PAST SURGICAL HISTORY: Noted D and C, EGD, cornea transplant, polypectomy with colonoscopy and fiberoptic bronchoscopy in 05/2017. SOCIAL HISTORY: The patient is , has 2 children, a noted history of tobacco use since teenager, pack of cigarettes per day. Currently, she stated smoking 2.5 to 3 cigarettes a day. There was no history of chronic alcohol use, illicit drug use. FAMILY HISTORY: The patient's father passed with complication of myocardial infarction. Mother of natural causes. [place], [place] REPORT OF CONSULTATION NAME: ALEIDA SUH UNIT #: [id number] ROOM: 410 DOCTOR: SHIRA TOUSSAINT MD BIRTHDATE: [birth year] CURRENT MEDICATIONS: Administered were noted use of lisinopril, Lovenox for DVT prophylaxis, Neurontin, IV Solu-Medrol, DuoNeb, IV vancomycin, Zosyn, Levaquin, IV morphine and other p.r.n. medications. DRUG ALLERGIES: No known drug allergies. PHYSICAL EXAMINATION: GENERAL: This is a 62-year-old female, currently sitting comfortably on the chair at this time. Height was noted as 5 feet 7 inches, weight of 195 pounds, BMI 30.6 recorded by the nursing staff upon current admission. Noted without any acute distress. VITAL SIGNS: Temperature remains normal since admission, respiratory rate recorded 18-20, heart rate 87-85, blood pressure 147/88-149/89, pulse oxygen saturation of the patient on room air was 94% saturation. NECK: Supple. CARDIOVASCULAR: S1, S2 is audible. LUNGS: The patient was noted with [id number] decreased breath sounds bilaterally. There was no wheezing. ABDOMEN: Soft, nontender. EXTREMITIES: Shows no edema. CENTRAL NERVOUS SYSTEM: Nonfocal. Cranial nerves II-XII intact. SKIN: Showed no lesions or rashes. MUSCULOSKELETAL: No deformities. LABORATORY DATA: CBC of 06/16/2017, WBC count 4.2, hemoglobin 11.5, hematocrit 31.7, platelet count was normal. CBC of patient this morning was noted; WBC count 1.9, hemoglobin 11.3, hematocrit 31.3, platelet count was normal. CMP of the patient that was done yesterday shows BUN and creatinine were normal. Sodium 113, potassium 3.1, chloride of 78. CMP of the patient that was done this morning shows BUN and creatinine were normal. Sodium was still decreased 114 and chloride of 80. The chest x-ray of the patient that was done on 06/16/2017 shows mass lesion noted in the left perihilar area the patient appeared to be unchanged with pulmonary nodules suspected in the right lower lung. CT of the chest for the patient was also done shows marked narrowing of the left main stem and the bronchus with further worsening occurred for this patient at this time only ____ noted with possibly 89% narrowing of the left main stem bronchus. The mass for the patient was noted as 5.4 x 3.9 cm in size. Additional lymphadenopathy was noted, which was severe in the mediastinum as well as the hilar area as well. The patient was also noted with additional multiple masses for this patient as well as lymphadenopathy in different areas with overall worsening of the malignant process was noted Small pleural fluid for the patient was also noted on the left side. Postobstructive pneumonia for this patient would be considered because of the worsening of the area of atelectasis and infiltration in the left lung. IMPRESSION: 1. The patient who has been currently admitted to the hospital with pain, which is described in the right flank area, the etiology is unclear, but noted with finding of worsening of the small cell lung cancer with recurrent severe hyponatremia for this patient with paraneoplastic syndrome. [place], [place] REPORT OF CONSULTATION NAME: ALEIDA SUH UNIT #: [id number] ROOM: 410 DOCTOR: MO DUMONT MD,[facility] BIRTHDATE: [birth year] 2. Postobstructive pneumonia for the patient should be considered. 3. Severe leukopenia for this patient was noted with mild anemia related to underlying malignancy. The patient on marrow suppression and/or because of the acute infection would be considered as a possibility 4. History of chronic nicotine dependence as well. 5. Acute chronic obstructive pulmonary disease for this patient was also noted with possible acute exacerbation. PLAN OF MANAGEMENT: The patient has been getting very broad-spectrum intravenous antibiotic that would be continued with reduction of the spectrum to be done with de-escalation upon availability of the cultures of sputum and blood. Continuation of the DVT prophylaxis. Solu-Medrol dose will be continued at this time at 40 mg q. 8 hours, but will be decreased to 40 mg b.i.d. from tomorrow. Continuation of the bronchodilators. Supportive therapy, plan of management and care, nicotine replacement patches for the patient will be ordered as well. Other supportive therapy, plan and management and care. Usual care. Additional treatment changes for the patient will be done based on the progression of the illness. Management of the hyponatremia with the medication such as Samsca should be considered and for the medical management of severe hyponatremia. The patient does not have any blood cultures were ordered for this patient, which will be ordered. The sputum culture has been already taken and sent to the laboratory. Monitoring the leukopenia for this patient as well. The patient will benefit from possibility to combination of radiation and chemotherapy because of the current obstruction, which has been progressing in the left main stem bronchus. Thank you for allowing me to participate in the care of this patient. SHIRA HASSAN MD CM:CONSTR:REPORT OF CONSULTATION 1215 06/18/17 0709 interface
--- NOTE | ~2017-06-16 | PR ---
[place], [place] PROGRESS NOTE NAME: ALEIDA SUH UNIT #: [id number] ROOM: 410 DOCTOR: CIERRA ESCOBAR DO BIRTHDATE: [birth year] DOS: 06/18/2017 SUBJECTIVE: The patient was seen and evaluated today with Dr. Hassan. The patient denies any fever, chills, nausea, vomiting. Her shortness of breath has improved. The patient denies any current complaints. PHYSICAL EXAMINATION: GENERAL: The patient remains afebrile with stable vital signs. VITAL SIGNS: Temperature 98.5, pulse 100, respiratory rate 20, blood pressure 140/90, pulse ox 97% on 2 liters. NECK: Supple. No changes. CARDIOVASCULAR: S1, S2 is audible. LUNGS: Mild to moderate decrease in breath sounds bilaterally. There was no wheezing appreciated. ABDOMEN: Soft, nontender. EXTREMITIES: Did not show any edema. SKIN: Did not show any lesions. MUSCULOSKELETAL: No deformity. LABORATORY DATA: Hematology: White cell count of 1.9, hemoglobin 11.3, platelet count of 202. Chemistry: Sodium of 116, BUN of 6, creatinine of 0.57, glucose of 136. ASSESSMENT: 1. Right flank pain. 2. Worsening small lung cancer. 3. Severe hyponatremia, likely syndrome of inappropriate antidiuretic hormone secretion. 4. Paraneoplastic syndrome. 5. Possible postobstructive pneumonia. 6. Severe leukopenia secondary to underlying malignancy. 7. Chronic nicotine dependence. 8. Chronic obstructive pulmonary disease. 9. Leukopenia. PLAN: 1. Deescalate broad spectrum antibiotics once the sputum culture and sensitivities are available. 2. Solu-Medrol 40 b.i.d. 3. Continue usage of bronchodilators. 4. Nephro managing hyponatremia with fluid restriction. 5. Monitor leukopenia. 6. Consider chemotherapy and radiation due to obstruction, progressing to left main stem bronchus. 7. Supportive care. CIERRA ESCOBAR DO [place], [place] PROGRESS NOTE NAME: ALEIDA SUH UNIT #: [id number] ROOM: 410 DOCTOR: CIERRA ESCOBAR DO BIRTHDATE: [birth year] SHIRA HASSAN MD CM:REBECA [id number] CIERRA ESCOBAR DO 06/18/17 1635 interface
--- NOTE | ~2017-06-16 | PR ---
[place], [place] PROGRESS NOTE NAME: ALEIDA SUH UNIT #: [id number] ROOM: 410 DOCTOR: MO DUMONT MD,SHIRA BIRTHDATE: [birth year] DOS: 06/20/2017 SUBJECTIVE: She has been noted with intermittent wheezing and cough at this time. Partial reduction in respiratory symptom are noted. She wanted to be discharged tomorrow to getting chemotherapy. Denies symptoms of chest or any abdominal pain. OBJECTIVE: VITAL SIGNS: Normal temperature, respiratory rate 20, heart rate 97, blood pressure 135/91. The pulse oxygen saturation on Venturi mask the patient on high flow nasal cannula was 99% saturation. HEENT: Examination shows no new change. CARDIOVASCULAR: S1, S2 audible. LUNGS: Noted without any crackles. Mild to moderate expiratory wheezing bilaterally. ABDOMEN: Soft, nontender. LABORATORY DATA: CBC: WBC count normal, hemoglobin 11.7, hematocrit 31.7, platelet count was normal. BMP of the patient noted as normal. Sodium has been decreased again to 118, chloride of 80. IMPRESSION: The patient with persistent acute hypoxic respiratory failure. The patient postobstructive pneumonia, small cell lung cancer, paraneoplastic syndrome for the patient with SIADH as well. PLAN OF TREATMENT: No changes from the pulmonary standpoint. Continue current therapy plan and management, antibiotics, bronchodilators as previously in progress. Usual care. Supportive therapy plan and management and treatment. Continue current dose of corticosteroids as well. SHIRA HASSAN MD CM:PNTRANS [phone] SHIRA DUMONT MD 06/21/17 0756 interface
--- NOTE | ~2017-06-16 | PR ---
[place], [place] PROGRESS NOTE NAME: ALEIDA SUH UNIT #: [id number] ROOM: 410 DOCTOR: MO DUMONT MD,SHIRA BIRTHDATE: [birth year] DOS: 06/18/2017 SUBJECTIVE: The patient was seen and examined independently with [id number] encounter. Physical examination was performed, history was confirmed. Any changes in medical management which were done reflects my personal decision made. Patient management note done by the program medical director was approved. The patient reported significant reduction of pain in the back. Denies symptoms of chest pain or any hemoptysis. PHYSICAL EXAMINATION: VITAL SIGNS: Shows a normal temperature, respiratory rate 20, heart rate of 100, blood pressure 190/90. Pulse oxygen saturation of the patient noted on room air 96% saturation. LUNGS: Decreased breath sounds on the left lung. ABDOMEN: Soft, nontender. Bowel sounds present. EXTREMITIES: Show no edema. LABORATORY DATA: Culture of the urine showed no bacterial growth. The culture of the sputum noted normal che at the present time. The Gram stain was noted with moderate white blood cells, few epithelial cells, moderate gram-positive cocci in pairs and clusters, few gram-negative bacilli. The renal function panel was noted as sodium 116, chloride of 81. IMPRESSION: SIADH with small cell lung cancer for this patient, which has been noted at the present time with suspicion of postobstructive pneumonia. The patient treated with antibiotics. The culture of the sputum was pending at this time. Sodium level has been gradually improving. PLAN OF TREATMENT: To continue current antibiotics, reduce the antibiotic spectrum based on the final culture results. Other supportive therapy, plan of management and care. SHIRA HASSAN MD CM:PNTRANS [phone] SHIRA DUMONT MD 06/19/17708 interface
--- NOTE | ~2017-06-16 | CON ---
[place], [place] REPORT OF CONSULTATION NAME: ALEIDA SUH UNIT #: [id number] ROOM: 410 DOCTOR: CIERRA ESCOBAR DO BIRTHDATE: [birth year] DOS: 06/17/2017 CHIEF COMPLAINT: Shortness of breath. HISTORY OF PRESENT ILLNESS: This is a 62-year-old female who presents to [facility] from home with chief complaint of right-sided mid back pain which began on and has been worsening since yesterday. The patient was recently discharged from the hospital for hyponatremia secondary to small cell cancer and pneumonia. She had a bronchoscopy done on 05/26/2017, which showed suspected narrowing of the bronchus and multiple mucous plugs. CT scan shows 80% blockage noted on the left main bronchus due to lung mass. The patient was also recently discharged on salt tabs per Nephro. She has been complaining of worsening of shortness of breath and increased coughing, wheezing, with mild yellowish phlegm. The patient denies any fever, chills, nausea, vomiting, diarrhea, chest pain or urinary complaints. The patient had sodium of 113 in the ED upon admission and questionable pneumonia of the left upper lobe and was admitted to the hospitalist service for further evaluation. Pulmonary Service was consulted for small cell lung cancer, left upper lobe pneumonia and question about degree of narrowing involved with the bronchus. PAST MEDICAL HISTORY: Brief psychotic disorder, COPD, essential hypertension, generalized anxiety, history of cervical cancer, chronic hyponatremia, metabolic encephalopathy, seizure disorder, SIADH, small cell lung cancer, tobacco abuse, vitamin D deficiency. PAST SURGICAL PROBLEMS: History of D and C, history of EGD, history of corneal transplant, history of colonoscopy with polypectomy. SOCIAL HISTORY: Does not drink alcohol, does not use any illicit drugs. The patient smokes 2-1/2 to 3 cigarettes per day. FAMILY HISTORY: Father has history of cardiac disease. Mother of natural cause. ALLERGIES: No known drug allergies. HOME MEDICATIONS: 1. Ventolin 2 puffs inhaled p.r.n. 2. Ellipta mcg 1 puff inhaled daily. 3. Furosemide 20 mg p.o. daily. 4. Gabapentin 600 mg p.o. t.i.d. 5. DuoNebs 3 mL inhaled q.i.d. 6. Lisinopril 30 mg p.o. daily. 7. Protonix 40 mg p.o. daily. 8. Sodium chloride 1 gram p.o. t.i.d. 9. Trazodone 50 mg p.o. at bedtime. REVIEW OF SYSTEMS: GENERAL: Denies fever or chills. No weight loss or weight gain. HEENT: She denies vision changes, blurry vision or nose congestion. [place], [place] REPORT OF CONSULTATION NAME: ALEIDA SUH UNIT #: [id number] ROOM: [facility] DOCTOR: CIERRA ESOCBAR DO BIRTHDATE: [birth year] CARDIOVASCULAR: Denies chest pain, palpitations, lower extremity edema. RESPIRATORY: Reports shortness of breath. Reports cough. Reports dyspnea on exertion. Denies wheezing. Denies nocturnal dyspnea. Reports sputum production. ABDOMINAL: Denies abdominal pain, nausea, diarrhea or constipation. GENITOURINARY: Denies dysuria, hematuria, increase or decrease in frequency. NEUROLOGIC: Denies lightheadedness, dizziness, confusion. PSYCHIATRIC: Denies depression, anxiety, substance abuse. ENDOCRINE: Denies polydipsia hot or cold intolerance. SKIN: Denies new rashes, lesions, or ulcers. PHYSICAL EXAMINATION: VITAL SIGNS: Temperature of 97.5, pulse of 93, respiration of 18, blood pressure of 138/73, pulse ox of 95% on room air. GENERAL: The patient is alert, awake, and oriented, in mild distress. SKIN: No lesion, no ulcers, no scars. HEENT: Normocephalic, atraumatic head. Oral mucosa moist. Thyroid nontender. NECK: Supple. HEART: Regular rate and rhythm. No gallop or murmur. Carotids free of bruit. No lower extremity edema. RESPIRATORY: No respiratory distress. No rhonchi, stridor or pleural rub. There are decreased breath sounds at the bases. Mild expiratory wheeze. ABDOMEN: Soft, positive bowel sounds, nontender, nondistended. No guarding or rigidity. EXTREMITIES: No clubbing, cyanosis, erythema or edema. NEUROLOGIC: Grossly intact. No focal neurological deficit. PSYCHOLOGICAL: Good historian. Good recent memory. LABORATORY: Upon admission on 06/16/2017, white cell count was noted to be 4.2, hemoglobin was 11.5, platelet count was 206. Chemistry on 06/16/2017, sodium of 113 on admission, potassium of 3.1, BUN of 3, creatinine of 0.48. Urinalysis showed 3+ urine bacteria, otherwise normal. CBC on 06/17/2017 showed white cell count of 1.9, hemoglobin of 11.3, platelet count of 202. Chemistry on 06/17/2017 showed improvement in sodium to 114, BUN 4, creatinine 0.45, glucose of 132. Hemoglobin A1c of 5.9. Sputum culture ordered on 06/17/2017 is pending. Blood cultures ordered today are pending. Imaging done on 06/16/2017, chest x-ray showed stable left perihilar mass-like opacity, nodules are suspected in the right lung base. No evidence of acute disease. CTA chest done on 06/16/2017 showed multiple enlarged masses in the mediastinum and maryan bilaterally, worsened since previous exam; narrowing of the left pulmonary artery as well as bronchi; consolidation in the left upper lobe; small patchy areas of ground glass density throughout the right lung; 6 mm right middle pulmonary nodule; trace left pleural effusion. IMPRESSION: 1. Sepsis. 2. Hypokalemia. 3. Lymphopenia. 4. Dyspnea. [place], [place] REPORT OF CONSULTATION NAME: ALEIDA SUH UNIT #: [id number] ROOM: 410 DOCTOR: CIERRA ESCOBAR DO BIRTHDATE: [birth year] 5. Hypochloremia. 6. Healthcare associated pneumonia. 7. Essential hypertension. 8. Small cell cancer. MANAGEMENT: Please see Dr. Hassan dictation note for further management. CIERRA ESCOBAR DO SHIRA HASSAN MD CM:CONSTR:REPORT OF CONSULTATION 1332 06/17/17 1428 interface
--- NOTE | ~2017-06-16 | PR ---
[place], [place] PROGRESS NOTE NAME: ALEIDA SUH UNIT #: [id number] ROOM: 410 DOCTOR: CHRISTOPHE SWEET MD BIRTHDATE: [birth year] DOS: 06/25/2017 SUBJECTIVE: The patient is doing much better. She is eating very good. She finished her day #3, cycle #1 of chemotherapy with MILL RECORDER-16 and cisplatin and has done extremely well. She is alert and oriented. Her sodium intermittently has gone up after starting chemotherapy and the patient getting demeclocycline. PHYSICAL EXAMINATION: GENERAL: she is a pleasant woman, in no apparent distress. VITAL SIGNS: Stable. She is afebrile. HEENT: Normocephalic, atraumatic NECK AND THYROID: Supple. No JVD, thyromegaly, or lymphadenopathy. HEART: Normal S1, S2. Regular rate and rhythm. LUNGS: Clear to auscultation and percussion. ABDOMEN: Soft. Nontender, nondistended. Bowel sounds present. EXTREMITIES: Normal ROM. No clubbing. No edema. LABORATORY DATA: Sodium 131, potassium 3.5, chloride 94, bicarbonate 30, calcium 8.5, creatinine range from 1 to 16. White count of 5.5, hemoglobin 10.6, hematocrit 31.1, platelet count 238. ASSESSMENT: 1. Small cell lung cancer. 2. Hyponatremia, which has got better after the patient started chemotherapy and the patient started on demeclocycline which was secondary to syndrome of inappropriate antidiuretic hormone secretion. 3. Anemia of neoplastic disorder. PLAN: The patient will discuss with Nephrology. The patient does not need any fluid restriction since she is on chemotherapy and need a lot of fluid hydration. She will continue demeclocycline as an outpatient and we will follow her once she is discharged. I had detailed discussion with the patient about it, seemed to understand. Ample time was given to the patient to ask me questions. [place], [place] PROGRESS NOTE NAME: ALEIDA SUH UNIT #: [id number] ROOM: 410 DOCTOR: CHRISTOPHE SWEET MD BIRTHDATE: [birth year] CHRISTOPHE SWEET MD CM:PNTRANS [id number] CHRISTOPHE SWEET MD 06/25/17 1507 interface
--- NOTE | ~2017-06-16 | PR ---
[place], [place] PROGRESS NOTE NAME: ALEIDA SUH UNIT #: [id number] ROOM: 410 DOCTOR: SHIRA TOUSSAINT MD BIRTHDATE: [birth year] DOS: 06/24/2017 SUBJECTIVE: The patient was seen independently today with [id number] encounter. The history was confirmed and physical examination performed. All the labs were reviewed. Any changes in treatment, the patient personally made for today's visit. The note done by the medical esthetician, was approved. The patient has been noted with increased wheezing for the patient with chest congestion. She will be getting another round of chemotherapy today. She denies any symptoms of her chest pain. The pain was described in the back. She has been getting pain medication for that. OBJECTIVE: VITAL SIGNS: Showed normal temperature, respiratory rate 22, heart rate 104, blood pressure 131/92. Pulse oxygen saturation on 4 liters nasal cannula 98% saturation. HEENT: Examination shows no acute change. NECK: Supple. CARDIOVASCULAR. LUNGS: Noted diffuse expiratory wheezing noted worsening from previous examination. ABDOMEN: Soft, nontender. LABORATORY DATA: CBC today 06/24/2017, hemoglobin 10.7, hematocrit 30.8, WBC count normal, platelet count were normal. BMP: BUN 10, creatinine 0.43. Glucose 102, sodium 127, chloride of 88. IMPRESSION: 1. The patient with resolving hyponatremia. 2. Acute exacerbation of chronic obstructive pulmonary disease, worsening respiratory status with reduction of corticosteroids for the last 24 hours. Small cell lung cancer as well. 3. Resolution of the leukopenia. 4. 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 PLAN OF MANAGEMENT: The dose of steroids will be increased, Solu-Medrol b.i.d. at this time. Continue in the meantime other supportive plan and management with bronchodilators, oxygen supplementation. Continue with the chemotherapy. Continue supportive plan of management care and treatment. Usual care. [place], [place] PROGRESS NOTE NAME: ALEIDA SUH UNIT #: [id number] ROOM: 410 DOCTOR: SHIRA TOUSSAINT MD BIRTHDATE: [birth year] SHIRA HASSAN MD CM:PNCARON [phone] [id number] SHIRA DUMONT MD 06/24/171835 interface
--- NOTE | ~2017-06-16 | PR ---
[place], [place] PROGRESS NOTE NAME: ALEIDA SUH UNIT #: [id number] ROOM: 410 DOCTOR: CHRISTOPHE SWEET MD BIRTHDATE: [birth year] DOS: 06/24/2017 SUBJECTIVE: The patient is doing much better. She is getting her chemotherapy. REVIEW OF SYSTEMS HEENT: No trouble swallowing. No double vision. No loss of vision. No pain. ENT AND RESPIRATORY: No wheeze. No change in voice. No cough. No shortness of breath. No coughing up blood. No epistaxis. CARDIOLOGIC: No chest pain. No dizziness. No irregular heartbeat. No leg edema. No palpitations. No shortness of breath. HEMATOLOGIC AND LYMPH: No past transfusion. No fatigue. No loss of appetite. No easy bruising. GASTROENEROLOGIC: No change in bowel habits. No vomiting blood. No abdominal cramping. No nausea. No vomiting. No diarrhea. No constipation. No blood in stool. FEMALE REPRODUCTIVE: No dyspareunia. No pelvic pain. MUSCULOSKELETAL: No back pain. No muscle pain or weakness. No tingling/numbness. UROLOGIC: No pain with urination. No difficulty urinating. No frequent urination. NEUROLOGIC: No burning pain in feet. No trouble with coordination. No loss of consciousness. No headache. No tingling/numbness. No memory loss. PHYSICAL EXAMINATION: GENERAL: She is a pleasant woman in no apparent distress. She is alert and oriented. VITAL SIGNS: Blood pressure 131/92, respirations 22, pulse 104, temperature 98.2. HEENT: Normocephalic, atraumatic NECK AND THYROID: Supple. No JVD, thyromegaly, or lymphadenopathy. HEART: Normal S1, S2. Regular rate and rhythm. LUNGS: Clear to auscultation and percussion. ABDOMEN: Soft. Nontender, nondistended. Bowel sounds present. EXTREMITIES: Normal ROM. No clubbing. No edema. LABORATORY DATA: Sodium 127, potassium 3.7, chloride 88, bicarbonate 32, EGFR is more than 60. White count of 7.1, hemoglobin 10.7, hematocrit 30.8, platelet count 250. ASSESSMENT: 1. Small cell lung cancer. 2. Syndrome of inappropriate antidiuretic hormone secondary to lung cancer. 3. Hypernatremia, which is getting better after starting chemotherapy and patient started on demeclocycline 4. Anemia of neoplastic disorder. PLAN: She will continue IV fluids at 0.9 normal saline. In addition, potassium as added and Lasix was also given every day. She is finishing her day #3, cycle 1 of chemotherapy with SECRETARY [employer]-16 and cisplatin. Side effects were discussed with the patient again and also had also had a discussion with family. We will be [place], [place] PROGRESS NOTE NAME: ALEIDA SUH UNIT #: [id number] ROOM: [facility] DOCTOR: KEE BRO,CHRISTOPHE BIRTHDATE: [birth year] keeping a close watch on her counts and she will be followed with me as an outpatient. Overall, she is doing much better now after starting the chemotherapy. Ample time was given to the patient to ask me questions. CHRISTOPHE SWEET MD CM:PNTRANS [phone] 2 CHRISTOPHE SWEET MD 06/25/17222 interface
--- NOTE | ~2017-06-16 | PR ---
[place], [place] PROGRESS NOTE NAME: ALEIDA SUH UNIT #: [id number] ROOM: 410 DOCTOR: GABBIE HAQUE MD BIRTHDATE: [birth year] DOS: 06/21/2017 REASON FOR FOLLOWUP: Hyponatremia. SUBJECTIVE: The patient is yelling out, asking when she is going to be discharged. She states that she needs to get chemotherapy and was told by Dr. Fowler the chemotherapy needs to start. Nursing is unaware of any specific plans for discharge, though does state that Dr. Fowler did see her and mentioned to them that he would like to start chemotherapy. The patient is not reporting any other acute symptoms or chest pains, shortness of breath at this time. VITAL SIGNS: 97.6, 101, 18, 146/86, 94%. GENERAL: Awake and alert, restless at times. HEENT: Sclerae are anicteric. Oropharynx is clear. Mucous membranes are moist. No JVD or lymphadenopathy. LUNGS: Clear with mild to moderate rhonchi scattered throughout, mostly her right. No appreciable stridor or wheeze. ABDOMEN: Soft, nontender. No rebound, no guarding. EXTREMITIES: Without cyanosis, clubbing or significant edema. NEUROLOGIC: Grossly without focal deficits from a motor or sensation. SKIN: Warm and dry without diffuse rash. ASSESSMENT AND PLAN: 1. Hyponatremia. This is stable, sodium is up slightly, likely due to syndrome of inappropriate antidiuretic hormone from lung cancer. Continue salt tablets and strict fluid restriction. No thiazide should be given. 2. Hypertension . The patient is improved . Again, avoid thiazides and monitor on current medications. GABBIE HAQUE MD CM:PNTRANS [phone] GABBIE HAQUE MD 06/21/172325 interface
--- NOTE | ~2017-06-16 | PR ---
[place], [place] PROGRESS NOTE NAME: ALEIDA SUH UNIT #: [id number] ROOM: 410 DOCTOR: CHRISTOPHE SWEET MD BIRTHDATE: [birth year] DOS: 06/22/2017 SUBJECTIVE: The patient is doing better. She is alert, oriented. I had talked to the daughter as well as the patient and they want the chemotherapy to be started ____. A PET scan was due on Wednesday, but she will not be able to be discharged. Subsequently, it was decided to start the chemotherapy because of overall condition. REVIEW OF SYSTEMS: HEENT: No trouble swallowing. No double vision. No loss of vision. No pain. ENT AND RESPIRATORY: No wheeze. No change in voice. No cough. No shortness of breath. No coughing up blood. No epistaxis. CARDIOLOGIC: No chest pain. No dizziness. No irregular heartbeat. No leg edema. No palpitations. No shortness of breath. HEMATOLOGIC AND LYMPH: No past transfusion. No fatigue. No loss of appetite. No easy bruising. GASTROENTEROLOGIC: No change in bowel habits. No vomiting blood. No abdominal cramping. No nausea. No vomiting. No diarrhea. No constipation. No blood in stool. FEMALE REPRODUCTIVE: No dyspareunia. No pelvic pain. MUSCULOSKELETAL: No back pain. No muscle pain or weakness. No tingling/numbness. UROLOGIC: No pain with urination. No difficulty urinating. No frequent urination. NEUROLOGIC: No burning pain in feet. No trouble with coordination. No loss of consciousness. No headache. No tingling/numbness. No memory loss. PHYSICAL EXAMINATION: GENERAL: Pleasant woman in no apparent distress. VITAL SIGNS: Stable. She is afebrile. HEENT: Normocephalic, atraumatic NECK AND THYROID: Supple. No JVD, thyromegaly, or lymphadenopathy. HEART: Normal S1, S2. Regular rate and rhythm. LUNGS: Clear to auscultation and percussion. ABDOMEN: Soft. Nontender, nondistended. Bowel sounds present. EXTREMITIES: Normal ROM. No clubbing. No edema. LABORATORY DATA: Sodium 120, potassium 3.7, chloride 83, bicarbonate 30, EGFR more than 60. CBC is pending. ASSESSMENT: 1. Hyponatremia due to syndrome of inappropriate antidiuretic hormone from lung cancer, which is not getting better since almost more than a month. 2. Small cell lung cancer with 80% obstruction as per the CAT scan. 3. Chronic obstructive pulmonary disease. PLAN: The patient will be started on chemotherapy today. Side effects including but not limited to nausea, vomiting, pancytopenia, sepsis, ____ insufficiency, were discussed with the patient's daughter who agreed to start the treatment. She will be started on fluids as well as chemotherapy. [place], [place] PROGRESS NOTE NAME: ALEIDA SUH UNIT #: [id number] ROOM: 410 DOCTOR: CHRISTOPHE SWEET MD BIRTHDATE: [birth year] Consent will be taken by the hospitalist. I talked to the patient this morning and she wants the treatment to be started. CHRISTOPHE SWEET MD CM:PNTRANS [id number] CHRISTOPHE SWEET MD 06/22/17 2316 interface
--- NOTE | ~2017-06-16 | PR ---
[place], [place] PROGRESS NOTE NAME: ALEIDA SUH UNIT #: [id number] ROOM: 410 DOCTOR: MO DUMONT MD,SHIRA BIRTHDATE: [birth year] DOS: 06/21/2017 SUBJECTIVE: She has been noted reduction of respiratory symptom, Coughing and shortness of breath. Denies symptoms of chest pain. Denies any abdominal pain. OBJECTIVE: VITAL SIGNS: For the patient, which was recorded showed the temperature noted as normal. The respiratory rate was recorded as 18, heart rate 96, blood pressure 131/98. The pulse oxygen saturation on 2 L nasal cannula 96% saturation recorded. HEENT: Examination shows no acute change. NECK: Supple. CARDIOVASCULAR: S1, S2 audible. LUNGS: Noted without expiratory wheezing, which was noted decreased, but from previous examination not completely resolved. ABDOMEN: Soft, nontender. LABORATORY DATA: BMP noted as sodium 120 today, chloride of 83. IMPRESSION: 1. Resolving acute exacerbation of chronic obstructive pulmonary disease, acute tracheobronchitis, and acute postobstructive pneumonia. 2. Hyponatremia with syndrome of inappropriate antidiuretic hormone secretion. 3. History of small cell lung cancer, untreated. PLAN OF TREATMENT: Continuation of the current therapy as previously in progress. Continuation of antibiotics, bronchodilators, corticosteroids and other treatments. Usual care. SHIRA HASSAN MD CM:PNTRANS 1122 SHIRA DUMONT MD 06/22/17 0304 interface
--- NOTE | ~2017-06-16 | PR ---
[place], [place] PROGRESS NOTE NAME: ALEIDA SUH UNIT #: [id number] ROOM: 410 DOCTOR: CIERRA ESCOBAR DO BIRTHDATE: [birth year] DOS: 06/24/2017 SUBJECTIVE: The patient was seen and examined this morning with Dr. Hassan. The patient is alert, awake and responsive. The patient has mild nausea. No vomiting, lightheadedness, dizziness, or chest pain. The patient complains of some fatigue. The patient states her shortness of breath is improving. OBJECTIVE: VITAL SIGNS: Temperature 98.2, pulse 104, respiratory rate 22, blood pressure 131/92, pulse ox 98% on room air. HEENT: Shows no changes. NECK: Supple. CARDIOVASCULAR: S1, S2 audible. LUNGS: Expiratory wheezes noted. No rales, rhonchi or stridor. ABDOMEN: Soft, nontender, nondistended. LABORATORY DATA: White cell count of 7.1, hemoglobin of 10.7, platelets 250. Chemistry: Sodium 127, BUN 10, creatinine 0.43. ASSESSMENT: 1. Resolving acute exacerbation of chronic obstructive pulmonary disease and acute obstructive pneumonia. 2. Hyponatremia with syndrome of inappropriate antidiuretic hormone. 3. History of small cell lung cancer, undergoing chemotherapy. PLAN OF THERAPY: 1. Continue antibiotic. 2. Increase Solu-Medrol from 40 every day to Solu-Medrol 40 b.i.d. Continue bronchodilators. 3. Today is day 3 out of [address] Knowles. 4. Continue fluid restriction per Nephrology. Improvement in sodium noted. 5. Supportive care. CIERRA ESCOBAR DO [place], [place] PROGRESS NOTE NAME: ALEIDA SUH UNIT #: [id number] ROOM: 410 DOCTOR: CIERRA ESCOBAR DO BIRTHDATE: [birth year] SHIRA HASSAN MD CM:PNTRANS 1023 [id number] CIRERA ESCOBAR DO 06/24/17 1102 interface
--- NOTE | ~2017-06-16 | PR ---
[place], [place] PROGRESS NOTE NAME: ALEIDA SUH UNIT #: [id number] ROOM: 410 DOCTOR: CHRISTOPHE SWEET MD BIRTHDATE: [birth year] DOS: 06/23/2017 SUBJECTIVE: The patient is feeling much better. She is getting day #2 of chemotherapy. She has got day #1 yesterday. She states she is feeling much better than before. Her daughter is at the bedside. REVIEW OF SYSTEMS HEENT: No trouble swallowing. No double vision. No loss of vision. No pain. ENT AND RESPIRATORY: No wheeze. No change in voice. No cough. No shortness of breath. No coughing up blood. No epistaxis. CARDIOLOGIC: No chest pain. No dizziness. No irregular heartbeat. No leg edema. No palpitations. No shortness of breath. HEMATOLOGIC AND LYMPH: No past transfusion. No fatigue. No loss of appetite. No easy bruising. GASTROENEROLOGIC: No change in bowel habits. No vomiting blood. No abdominal cramping. No nausea. No vomiting. No diarrhea. No constipation. No blood in stool. FEMALE REPRODUCTIVE: No dyspareunia. No pelvic pain. MUSCULOSKELETAL: No back pain. No muscle pain or weakness. No tingling/numbness. UROLOGIC: No pain with urination. No difficulty urinating. No frequent urination. NEUROLOGIC: No burning pain in feet. No trouble with coordination. No loss of consciousness. No headache. No tingling/numbness. No memory loss. PHYSICAL EXAMINATION GENERAL: This is a pleasant woman in no apparent distress. VITAL SIGNS: Blood pressure is 130/110, respirations 18, pulse 99, temperature 97.5. HEENT: Normocephalic, atraumatic NECK AND THYROID: Supple. No JVD, thyromegaly, or lymphadenopathy. HEART: Normal S1, S2. Regular rate and rhythm. LUNGS: Show bilateral crackles. ABDOMEN: Soft. Nontender, nondistended. Bowel sounds present. EXTREMITIES: Normal ROM. No clubbing. No edema. LABORATORY DATA: Sodium 123, potassium 3.9, chloride 86, bicarbonate 29, EGFR more than 60. White count of 4.7, hemoglobin 11.1, hematocrit 31.9, platelet count of 264,000. ASSESSMENT: 1. Small cell lung cancer. 2. Hyponatremia. 3. Moderate anemia. 4. Shortness of breath ____ which has got better. 5. Syndrome of inappropriate antidiuretic hormone. PLAN: The patient will get day #2 cycle #1 of chemotherapy with cisplatin and INSTRUCTOR [employer]-16. She is also getting antibiotics as well as hydration and Lasix, had detailed discussion with the family about it and discussed in detail about her [place], [place] PROGRESS NOTE NAME: ALEIDA SUH UNIT #: [id number] ROOM: 410 DOCTOR: CHRISTOPHE SWEET MD BIRTHDATE: [birth year] overall condition. We could not get a PET scan because of her overall condition. Once she gets better, we will be getting a PET scan. Follow her counts closely and we also ____. Ample time was given to the patient and the family to ask me questions. I also discussed the case with her nurses. CHRISTOPHE SWEET MD CM:PNTRANS [id number] CHRISTOPHE SWEET MD 06/24/17 0443 interface
--- NOTE | ~2017-06-16 | PR ---
[place], [place] PROGRESS NOTE NAME: ALEIDA SUH UNIT #: [id number] ROOM: 410 DOCTOR: MO DUMONT MD,SHIRA BIRTHDATE: [birth year] DOS: 06/22/2017 SUBJECTIVE: The patient rather was independently seen and examined today with [id number] encounter. History for this patient was confirmed. Physical examination for the patient personally done. Changes in the medical management personally made for today's visit as well. The note done by the medical office representative, was approved, but the patient has been noted with gradual reduction in symptoms of coughing, wheezing, and chest pain. There was no rather chest pain. The coughing has been improving. The shortness of breath was resolving. She was seen by Dr. Knowles today and was planned for starting the chemotherapy. The sodium level has been noted variable in the labs. OBJECTIVE: VITAL SIGNS: For the patient was essentially noted mild sinus tachycardia otherwise normal. Pulse oxygen saturation was noted as 95% on room air. CHEST: auscultation of the chest was noted with minimal wheezing. Decreased breath sounds are noted in the lungs on the left side. EXTREMITIES: Noted without any edema. LABORATORY DATA: BMP today was noted with sodium of 122, chloride of 86. IMPRESSION: Perineoplastic syndrome with acute exacerbation of chronic obstructive pulmonary disease, acute tracheobronchitis, and postobstructive pneumonia with history of non-small cell lung cancer. PLAN OF TREATMENT: Agree with the plan of chemotherapy, which will be administered by Dr. Knowles today. Other previous treatment, the patient will be continued previously. Usual care, other supportive plan of therapy as well. SHIRA HASSAN MD CM:PNTRANS 1057 2 SHIRA DUMONT MD 06/23/173 interface
--- NOTE | ~2017-06-16 | PR ---
[place], [place] PROGRESS NOTE NAME: ALEIDA SUH UNIT #: [id number] ROOM: 410 DOCTOR: SHIRA TOUSSAINT MD BIRTHDATE: [birth year] DOS: 06/25/2017 The patient was seen today with [id number] encounter. The history was confirmed from the patient. The physical examination for this patient was also personally performed. The labs were reviewed. Any changes in the medical management for the patient and recommendations were personally made for today's visit. The note done by the medical csr was approved. SUBJECTIVE: The patient has received the third and the last inpatient chemotherapy. The patient during the hospitalization noted with a cough with some sputum expectoration to moderate amount at times. The patient's shortness of breath and wheezing has been decreased with the sputum expectoration. OBJECTIVE: VITAL SIGNS: Essentially noted with mild elevation of systolic blood pressure otherwise noted normal. The pulse oxygen saturation of the patient was noted as 95% saturation this morning on 2 L nasal cannula. LUNGS: Noted with marked improvement in the wheezing for patient in the last 24 hours with increase of the steroids. LABORATORY DATA: The labs and the patient's CBC was essentially noted with mild anemia, normal WBC count. BMP of the patient was noted with normal BUN and creatinine. The patient has shown significant progressive resolution of acute exacerbation of chronic obstructive pulmonary disease with reduction of respiratory symptoms, which has been improving progressively; patient with history of known small cell lung cancer. The patient with the improvement in the sodium level. The patient has SIADH with current medical management as well. Sodium level noted today as 131. PLAN OF TREATMENT: The patient could be planned rather for discharge home today if necessary and tapering dose of prednisone and home physical therapy and occupation therapy and home health nursing. Outpatient followup to be established by the patient post-discharge. [place], [place] PROGRESS NOTE NAME: ALEIDA SUH UNIT #: [id number] ROOM: 410 DOCTOR: SHIRA TOUSSAINT MD BIRTHDATE: [birth year] SHIRA HASSAN MD CM:PNTRANS 1020 1606 SHIRA DUMONT MD 06/25/17 1606 interface
--- NOTE | ~2017-06-16 | PR ---
[place], [place] PROGRESS NOTE NAME: ALEIDA SUH UNIT #: [id number] ROOM: 410 DOCTOR: MO DUMONT MD,SHIRA BIRTHDATE: [birth year] DOS: 06/23/2017 SUBJECTIVE: The patient was independently seen and examined with [id number] encounter today. The physical examination was performed. The labs were reviewed. The assessment, management, recommendation, and changes of the treatment was personally made for today's visit with the note done by the medical manager, was approved. She has received the first dose of chemotherapy successfully. The patient was noted with short-term shortness of breath, which later on resolved. She has been noted much more clear minded today. Denies any symptoms of chest pain. The coughing has been improving. Shortness of breath has been improving as well. OBJECTIVE: VITAL SIGNS: Show normal temperature, respiratory rate 20, heart rate 94, blood pressure 154/86 this morning. LUNGS: Auscultation of chest was noted with questionable wheezing, no crackles. ABDOMEN: Soft, nontender. LABORATORY DATA: CBC today, hemoglobin 11.1, hematocrit 31.9, WBC count 4.7, platelet count was normal. BMP this morning was noted as sodium improved to 123 and chloride is noted as 86. IMPRESSION: 1. The patient with small cell lung cancer, perineoplastic syndrome, hyponatremia, acute exacerbation of chronic obstructive pulmonary disease and other problems, all responding to treatment. 2. Mild leukopenia secondary to underlying malignancy. PLAN OF TREATMENT: The patient would be recommended about continuation of the current treatment except Solu-Medrol need to be changed to 40 mg daily at this time. Addition changes in treatment will be done based on progression of the illness. Continuation of bronchodilators and other treatments. SHIRA HASSAN MD CM:PNCARON 0825 9 SHIRA DUMONT MD 06/24/17239 interface
--- NOTE | ~2017-06-16 | PR ---
[place], [place] PROGRESS NOTE NAME: ALEIDA SUH UNIT #: [id number] ROOM: 410 DOCTOR: CIERRA ESCOBAR DO BIRTHDATE: [birth year] DOS: 06/22/2017 SUBJECTIVE: The patient was seen and evaluated today with Dr. Hassan. The patient is alert, awake and responsive. No nausea, vomiting, diarrhea, dizziness, lightheadedness or chest pain. The patient complains of slight fullness in the neck and has some cough. The patient states her shortness of breath has improved since yesterday. OBJECTIVE: VITAL SIGNS: Temperature 98.4, pulse 116, respiratory rate 20, blood pressure 106/98, bedside pulse ox of 95% on 2 liters of nasal cannula. HEENT: Shows no change. NECK: Supple. CARDIOVASCULAR: S1, S2 audible. LUNGS: No expiratory wheezing. No respiratory distress. Diminished at the bases. No rales, rhonchi or stridor noted. ABDOMEN: Soft, nontender, nondistended. LABORATORY DATA: BMP; sodium of 122 today, chloride of 86. ASSESSMENT: 1. Resolving acute exacerbation of chronic obstructive pulmonary disease, acute bronchitis and acute postobstructive pneumonia. 2. Hyponatremia with SIADH. 3. History of small cell lung cancer. PLAN OF TREATMENT: 1. Continuation of current therapy. 2. Continuation of antibiotic, bronchodilator, corticosteroid and other treatments. 3. Chemotherapy has been started by Dr. Knowles. 4. Supportive care. CIERRA ESCOBAR DO [place], [place] PROGRESS NOTE NAME: ALEIDA SUH UNIT #: [id number] ROOM: 410 DOCTOR: CIERRA ESCOBAR DO BIRTHDATE: [birth year] SHIRA HASSAN MD CM:PNTRANS [id number] CIERRA ESCOBAR DO 06/22/17 1111 interface
--- NOTE | ~2017-06-16 | CON ---
[place], [place] REPORT OF CONSULTATION NAME: ALEIDA SUH UNIT #: [id number] ROOM: 410 DOCTOR: CHRISTOPHE SWEET MD BIRTHDATE: [birth year] DOS: 06/21/2017 HISTORY OF PRESENT ILLNESS: The patient is a pleasant 62-year-old Euro-Citizen Of [place] woman with a recently diagnosed small-cell lung cancer and history of hyponatremia. She started complaining of right back pain. She also had a bronchoscopy and multiple mucus plugs were done and was noted to have 80% blockage. Since her admission, her sodium is very low and the Nephrology is working only to increase her sodium, continues to have hyponatremia. She has a history of worsening shortness of breath and cough. I was consulted for further evaluation and management. PAST MEDICAL HISTORY: Recently diagnosed small cell lung cancer, probably limited, though she was supposed to get a PET scan for further staging, but has not been able to do it. Since last 3 weeks, she has been to hospital, either in the psych floor or on the regular floors. Recent history of bradykinesia, brief psychotic disorder, COPD, essential hypertension, history of cervical cancer, hypocalcemia, hyponatremia, history of metabolic encephalopathy, prediabetic, history of seizure disorder, short-term memory loss, history of SIADH. PAST SURGICAL HISTORY: Dilatation and curettage, EGD, status post corneal transplant, history of colonoscopy and polypectomy. SOCIAL HISTORY: No smoking or drinking. He used to consume alcohol in the past. FAMILY HISTORY: Father had cardiac disease, myocardial infarction. Mother of natural causes. ALLERGIES: No known allergies. MEDICATIONS: Ventolin, furosemide, gabapentin, DuoNeb, lisinopril, pantoprazole sodium, sodium chloride, and trazodone. REVIEW OF SYSTEMS: CONSTITUTIONAL: No chills. No fatigue. No fever. No loss of appetite. No night sweats. No weakness. No weight loss. HEENT: No trouble swallowing. No loss of smell. No loss of hearing. No double vision. No pain. No discharge. ENT AND RESPIRATORY: No wheeze. No sore throat. No change in voice. No hearing loss. No nose bleed. No cough. No trouble breathing through nose. No shortness of breath. No coughing up blood. No epistaxis. CARDIOVASCULAR: No chest pain. No dizziness. No irregular heartbeat. No leg edema. No pain in legs while walking. No palpitations. No shortness of breath. DERMATOLOGIC: No acne. No hives. No laceration. No mole. No rash. ENDOCRINE: No cold intolerance. No diabetes. No fatigue. No hot flashes. No polydipsia. No polyuria. No urinating frequently. No weight loss. HEMATOLOGIC AND LYMPH: No fatigue. No easy bruising. GASTROENTEROLOGIC: No change in bowel habits. No indigestion. No frequent bloating. No vomiting blood. No abdominal cramping. No nausea. No heartburn. [place], [place] REPORT OF CONSULTATION NAME: ALEIDA SUH UNIT #: [id number] ROOM: [facility] DOCTOR: CHRISTOPHE SWEET MD BIRTHDATE: [birth year] No vomiting. No abdominal pain. No dysphagia. No diarrhea. No constipation. No blood in stool. FEMALE REPRODUCTIVE: No vaginal itching. No difficulty urinating. No heavy periods. No dyspareunia. No sexually active. No dysmenorrhea. No pelvic pain. No breast pain. No nipple discharge. No abnormal vaginal discharge. No hot flashes. MUSCULOSKELETAL: No back pain. No muscle pain or weakness. No neck pain. No tingling/numbness. No swelling/bruising. No osteoporosis treatment. OPTHALMOLOGIC: No double vision. No diminished vision. No loss of vision. UROLOGIC: No dysuria. No frequent nighttime urination. No irregular periods. No pain with urination. No difficulty urinating. No blood in urine. No frequent urination. No urinary incontinence. NEUROLOGIC: No loss of sensation in specific body area. No vertigo. No burning pain in feet. No trouble with balance. No trouble with coordination. No loss of consciousness. No loss of feeling/power. No confusion. No headache. No tingling/numbness. PSYCHOLOGIC: No tinnitus. No headaches. No shortness of breath. No weight decrease. No nausea. No vomiting. No abdominal discomfort. No constipation. No diarrhea. No depression. No anxiety. PHYSICAL EXAMINATION: GENERAL: She is a pleasant woman in no apparent distress. VITAL SIGNS: Stable. She is afebrile. HEENT: Oral mucosa appears intact. The external ears are normal in appearance. Nares are patent without lesions, exudates, erythema, or inflammation. Tongue is symmetrical. Uvula is midline. NECK AND THYROID: Neck supple without palpable masses. Trachea is midline. No thyromegaly. No carotid bruit or JVD. BREASTS: Normal. Nipples unremarkable. No drainage. No lumps felt on either side. HEART: Normal S1, S2, without significant murmur, rub, or gallop. LUNGS: Clear to auscultation and percussion with good air entry bilaterally. The patient is breathing easily without the use of accessory muscles. Diaphragmatic excursions are intact. ABDOMEN: No costovertebral angle tenderness. Soft. No organomegaly or masses. Nontender. No hernias present. Liver and spleen are not palpable. LYMPHATIC: No adenopathy noted in the cervical, supraclavicular, axillary, or inguinal regions. NEUROLGIC: Nonfocal. Oriented to person, place, and time. MENTAL STATUS: Appropriate for mood and affect. PERIPHERAL PULSES: No varicosities. Femoral and pedal pulses are palpable. EXTREMITIES: Without cyanosis, clubbing, or edema. No gross anomalies. RADIOLOGY: CTA chest done on 06/16/2017 showed multiple large mass in the midsternum and maryan bilaterally. There is a slight worsening since the previous exam, narrowing of the left pulmonary artery as well as the bronchi, consolidation in the left upper lobe, postobstructive pneumonia or atelectasis as well as a 6 mm indeterminate right ____ lobe pulmonary nodule. LABORATORY DATA: White count of 8.2, hemoglobin 11.2, hematocrit 31.7, platelet [place], [place] REPORT OF CONSULTATION NAME: ALEIDA SUH UNIT #: [id number] ROOM: 410 DOCTOR: CHRISTOPHE SWEET MD BIRTHDATE: [birth year] count 283. Chemistries: EGFR is more than 60, sodium 120, potassium 3.7, chloride 183, albumin 3.4. ASSESSMENT: 1. Recently diagnosed small-cell lung cancer with 80% obstruction in the bronchus. 2. Hyponatremia due to syndrome of inappropriate antidiuretic hormone from lung cancer, which has been worsening and has been like that for almost 1 month, since the diagnosis. 3. Hypokalemia. PLAN: I had detailed discussion with the family including the daughter as well as the ____ about the importance of getting chemotherapy because of SIADH and now progressively getting worsening of the patient's condition. Side effects including nausea, vomiting, pancytopenia, sepsis and were also discussed. The patient's daughter wants the treatment to be started as well as the patient. I talked to the RN as well as the pharmacist ____. She will be starting the chemotherapy on 06/22/2017. Ample time was given to the family to ask me questions. Thanks for the consult. CHRISTOPHE SWEET MD CM:CONSTR:REPORT OF CONSULTATION [id number] 06/23/17 0050 interface
--- NOTE | ~2017-06-16 | PR ---
[place], [place] PROGRESS NOTE NAME: ALEIDA SUH UNIT #: [id number] ROOM: 410 DOCTOR: CIERRA ESCOBAR DO BIRTHDATE: [birth year] DOS: 06/23/2017 SUBJECTIVE: The patient was seen and evaluated today with Dr. Hassan. The patient is alert, awake and responsive. No nausea, vomiting, lightheadedness, dizziness, or chest pain. The patient continues to have complaints of fatigue and mild shortness of breath. OBJECTIVE: VITAL SIGNS: Temperature of 97.5, pulse of 99, respiratory rate 18, blood pressure 130/110, pulse ox is 95% on 3 liters of nasal cannula. HEENT: Shows no change. NECK: Supple. CARDIOVASCULAR: S1, S2 audible. LUNGS: No respiratory distress, diminished at the bases. No rales, rhonchi or stridor noted. ABDOMEN: Soft, nontender, nondistended. LABORATORY DATA: White cell count of 4.7, hemoglobin of 11.1, platelet count of 264. Chemistry: Sodium 123, chloride of 86, BUN of 7, creatinine of 0.38 and glucose of 116. ASSESSMENT: 1. Resolving acute exacerbation of chronic obstructive pulmonary disease with acute bronchitis and acute obstructive pneumonia. 2. Hyponatremia with syndrome of inappropriate antidiuretic hormone secretion. 3. History of small cell lung cancer. PLAN OF TREATMENT: 1. Continue antibiotic, bronchodilators and corticosteroids and other treatment. 2. Today is day 2 out of [address] Knowles. 3. Continue fluid restriction, improvement of sodium noted. 4. Supportive care. CIERRA ESCOBAR DO [place], [place] PROGRESS NOTE NAME: ALEIDA SUH UNIT #: [id number] ROOM: 410 DOCTOR: CIERRA ESCOBAR DO BIRTHDATE: [birth year] SHIRA HASSAN MD CM:PNTRANS [id number] CIERRA ESCOBAR DO 06/23/17 1356 interface
--- NOTE | ~2017-06-16 | PR ---
[place], [place] PROGRESS NOTE NAME: ALEIDA SUH UNIT #: [id number] ROOM: 410 DOCTOR: SHIRA TOUSSAINT MD BIRTHDATE: [birth year] DOS: 06/19/2017 SUBJECTIVE: She was complaining of confusional status. The patient was also noted with increased wheezing, which was noted this morning with increased shortness of breath and cough. Denies symptoms of chest pain or any abdominal pain. OBJECTIVE: VITAL SIGNS: For the patient which were recorded showed the temperature noted normal, respiratory rate 20, heart rate 84, blood pressure 138/92. The pulse oxygen saturation on 2 liters nasal cannula 92% saturation. HEENT: Showed no new change. NECK: Supple. CARDIOVASCULAR: S1, S2 audible. LUNGS: Noted with moderate expiratory wheezing which noted significantly decreased from previous examinations. ABDOMEN: Soft, nontender. LABORATORY DATA: BMP today shows sodium has been improving, currently noted 122, chloride of 86. Culture of the sputum for the patient was noted as normal che. CBC this morning, hemoglobin 10.3, hematocrit 29.2, platelet count 222,000. IMPRESSION: 1. The patient with acute exacerbation of chronic obstructive pulmonary disease, acute tracheobronchitis. 2. 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 3. Postobstructive pneumonia. PLAN OF TREATMENT: Based on the current results of the cultures of the blood, sputum and all, antibiotics. The patient at this time will be changed to a single antibiotic ____ postobstructive pneumonia. Discontinuation of the vancomycin as well. Other supportive therapy, plan of management and care. Usual treatment. Addition of treatment changes continue to be made for the patient based on progression of the illness. The patient is getting Solu-Medrol 40 mg b.i.d., which will be kept. [place], [place] PROGRESS NOTE NAME: ALEIDA SUH UNIT #: [id number] ROOM: 410 DOCTOR: SHIRA TOUSSAINT MD BIRTHDATE: [birth year] SHIRA HASSAN MD CM:PNTRANS [phone] SHIRA DUMONT MD 06/20/17 2240 interface
[2017-06-16 15:54] VITALS: BP 140/98
[2017-06-16 16:29] LABS: BASO % 0.7 % (0.0-1.0); EOS # 0.1 10*3/uL (0.0-0.4); EOS % 1.7 % (1.0-4.0); HEMATOCRIT 31.7 % (37.0-47.0); HEMOGLOBIN 11.5 g/dl (12.0-16.0); LYMPH # 0.8 10*3/uL (1.3-4.4); LYMPH % 19.8 % (27.0-41.0); MEAN CELL VOLUME 81.5 fl (81.0-99.0); MEAN CORPUSCULAR HGB 29.6 pg (27.0-31.0); MEAN CORPUSCULAR HGB CONC 36.3 g/dl (33.0-37.0); MEAN PLATELET VOLUME 8.4 fl (9.6-12.3); MONO # 0.5 10*3/uL (0.1-1.0); MONO % 10.6 % (3.0-9.0); NEUT # 2.8 10*3/uL (2.3-7.9); PLATELET COUNT AUTOMATED 206 10*3/uL (130-400); RED BLOOD COUNT 3.89 10*6/uL (4.10-5.10); RED CELL DISTRI WIDTH 11.8 % (0-14.5); WHITE BLOOD COUNT 4.2 10*3/uL (4.8-10.8)
[2017-06-16 16:46] LABS: ALBUMIN 3.5 gm/dl (3.1-4.5); ALKALINE PHOSPHATASE 114 U/L (45-117); BUN 3 mg/dl (7-24); CHLORIDE 78 mmol/L (98-107); CREATININE 0.48 mg/dL (0.55-1.02); LIPASE 157 U/L (73-393); POTASSIUM 3.1 mmol/L (3.5-5.1); SGOT/AST 21 IU/L (3-35); SGPT/ALT 19 U/L (12-78); TOTAL PROTEIN 6.6 gm/dL (6.4-8.2)
[2017-06-16 16:51] LABS: SODIUM 113 mmol/L (136-145); TROPONIN I < 0.015 ng/ml (<0.045)
--- NOTE | 2017-06-16 16:52 | NUR ---
MADE NORA CONDE AWARE OF THE PATIENT'S SODIUM OF 113. MARY ANNE BROWN
--- NOTE | 2017-06-16 17:25 | NUR ---
PT ASSISTED BACK FROM BATHROOM. PT IS AUDIBLY WHEEZING. RESPS ARE LABORED. POX 88% ON ROOM AIR. PLACED ON 2L NC. Hunter MELENDEZ HAS BEEN MADE AWARE OF THIS. AEROSOL TX ORDERED. ROSALBA RAMIREZ RN
[2017-06-16 17:30] LABS: BILIRUBIN NEGATIVE (NEGATIVE); BLOOD NEGATIVE (NEGATIVE); CLARITY SL CLOUDY (CLEAR); COLOR YELLOW (YELLOW); GLUCOSE NEGATIVE (NEGATIVE); KETONE NEGATIVE (NEGATIVE); LEUKO ESTERASE NEGATIVE (NEGATIVE); NITRITE NEGATIVE (NEGATIVE); UROBILINOGEN 0.2 E.U./dl (0.2-1.0)
[2017-06-16 17:40] LABS: BACTERIA 3+; RBC 0-2 rbc/hpf (0-2)
[2017-06-16 18:38] VITALS: BP 113/81
--- NOTE | 2017-06-16 18:40 | NUR ---
Time: 1839 A 62 year old FEMALE admitted to under services of LALO MCLAIN DO, Pt. arrived via ambulatory from ER. Chief complaint: RIGHT BACK PAIN. MOSHE PASTOR
[2017-06-16] MEDS ORDERED: DUONEB 3 MG/3 ML3 M1 INH (18:41)
[2017-06-16] MEDS ORDERED: TRAZODONE50 MG PO (18:42)
[2017-06-16] MEDS ORDERED: NEURONTIN600 MG PO (18:42)
[2017-06-16] MEDS ORDERED: BREO ELLIPTA 21 EACH INH (18:43)
[2017-06-16] MEDS ORDERED: FUROSEMIDE20 M1 PO (18:43)
[2017-06-16 18:44] VITALS: BP 153/99
--- NOTE | 2017-06-16 18:52 | NUR ---
MED REC UPDATED BY CALLING [facility]. DR COVARRUBIAS NOTIFIED THAT THE MED LIST THAT THEY HAVE MAY NOT BE ACCURATE BECAUSE OF HER RECENT ADMISSIONS AND AMAs. HE STATED HE WILL TAKE A LOOK AT IT.
--- NOTE | 2017-06-16 19:57 | NUR ---
DR HAQUE ANSWERING SERVICE AWARE OF CONSULT. STATES DR FRIAS IS [facility] AND THEY WILL SEND THE MESSAGE OVER TO HIM
[2017-06-16 20:00] VITALS: BP 153/86
--- NOTE | 2017-06-16 20:16 | NUR ---
ATTEMPTED TO CALL RESIDENT. NO ANSWER
--- NOTE | 2017-06-16 21:52 | NUR ---
ORDERS FROM DR HAQUE AT THIS TIME
[2017-06-17] VITALS: BP 149/89
--- NOTE | 2017-06-17 01:47 | NUR ---
PATIENT AMBULATED TO RESTROOM AND BACK TO BED AT THIS TIME. SHORTNESS OF BREATH NOTED. PATIENT ENCOURAGED TO BREATH THROUGH HER NOSE. NASAL CANNULA INTACT. BED IN LOWEST POSITOIN, CALL LIGHT IN REACH
--- NOTE | 2017-06-17 04:58 | NUR ---
PATIENT MEDICATED WITH PRN MORPHINE FOR C/O BACK PAIN RATED 9/10 ON A 0/10 PAIN SCALE
[2017-06-17 06:13] LABS: HEMATOCRIT 31.2 % (37.0-47.0); HEMOGLOBIN 11.3 g/dl (12.0-16.0); MEAN CELL VOLUME 82.3 fl (81.0-99.0); MEAN CORPUSCULAR HGB 29.8 pg (27.0-31.0); MEAN CORPUSCULAR HGB CONC 36.2 g/dl (33.0-37.0); MEAN PLATELET VOLUME 8.7 fl (9.6-12.3); PLATELET COUNT AUTOMATED 202 10*3/uL (130-400); RED BLOOD COUNT 3.79 10*6/uL (4.10-5.10); RED CELL DISTRI WIDTH 11.8 % (0-14.5)
--- NOTE | 2017-06-17 06:24 | NUR ---
MEDICATION EFFECTIVE PER PATIENT
[2017-06-17 06:43] LABS: PLATELET SUFFICIENCY NORMAL (NORMAL); TOTAL CELLS COUNTED 100 #CELLS
[2017-06-17 06:45] LABS: ALBUMIN 3.3 gm/dl (3.1-4.5); BUN 4 mg/dl (7-24); CHLORIDE 80 mmol/L (98-107); MAGNESIUM 1.9 mg/dL (1.5-2.1); WHITE BLOOD COUNT 1.9 10*3/uL (4.8-10.8)
--- NOTE | 2017-06-17 06:47 | NUR ---
DR MAKI AWARE OF CRITICAL WBC COUNT OF 1.9. NO ORDERS
[2017-06-17 06:52] LABS: ALKALINE PHOSPHATASE 111 U/L (45-117); CHOLESTEROL 173 mg/dL (<200); CREATININE 0.45 mg/dL (0.55-1.02); HDL CHOLESTEROL 69 mg/dl (40-60); LDL CHOLESTEROL 95 mg/dL (9-159); PHOSPHOROUS 2.7 mg/dL (2.5-4.9); SGOT/AST 15 IU/L (3-35); SGPT/ALT 20 U/L (12-78); THYROID STIM HORMONE (HS) 0.614 uIU/ml (0.358-4.75); TOTAL PROTEIN 6.5 gm/dL (6.4-8.2); TRIGLYCERIDES 46 mg/dl (<150); VLDL CHOLESTEROL 9 mg/dL (6-40)
[2017-06-17 07:01] LABS: POTASSIUM 4.3 mmol/L (3.5-5.1)
[2017-06-17 07:02] LABS: SODIUM 114 mmol/L (136-145)
--- NOTE | 2017-06-17 07:05 | NUR ---
DR COVARRUBIAS AWARE OF CRITICAL SODIUM OF 114
[2017-06-17 08:00] VITALS: BP 147/88
--- NOTE | 2017-06-17 08:00 | NUR ---
SITTING UP IN BED EATING BREAKFAST, NO DISTRESS NOTED. SOB WITH MINIMAL EXERTION. WILL CONTINUE TO MONITOR. SEE SHIFT ASSESSMENT.
--- NOTE | 2017-06-17 09:30 | NUR ---
DR HASSAN HERE AND NOTIFIED OF CONSULT.
--- NOTE | 2017-06-17 10:03 | NUR ---
MEDICATED PO NORCO FOR C/O HEADACHE AND BACK PAIN.
--- NOTE | 2017-06-17 10:22 | NUR ---
DR TOUSSAINT OFFICE NOTIFIED OF CONSULT.
--- NOTE | 2017-06-17 11:10 | NUR ---
NO FURTHER C/O AT THIS TIME.
--- NOTE | 2017-06-17 11:12 | NUR ---
Called patients daughter, maryjane, asked her which home health company her mother had coming into the home. She stated she wasn't sure and she was at work, but she would let me know prior to her mother being discharged.
--- NOTE | 2017-06-17 11:51 | NUR ---
Patient has [facility] home health services out of the [facility]. Contact is Arline @ [phone]. Will need order to resume prior to discharge.
[2017-06-17 12:00] VITALS: BP 138/73
--- NOTE | 2017-06-17 12:25 | NUR ---
insurance demos submitted on line, emailed corporate fax number to fax clinicals, reference number is [id number]
--- NOTE | 2017-06-17 13:14 | NUR ---
Medicated for c/o headache 07/20.
--- NOTE | 2017-06-17 15:00 | NUR ---
VISITING WITH MOTHER. NO C/O AT THIS TIME.
--- NOTE | 2017-06-17 15:42 | NUR ---
MEDICATED PO NORCO FOR C/O HEADACHE. RATES 07/20.
[2017-06-17 16:00] VITALS: BP 148/95
[2017-06-17 20:00] VITALS: BP 151/85
--- NOTE | 2017-06-17 20:00 | NUR ---
SITTING UP IN ROOM TALKING ON THE PHONE. VOICES NO C/O AT THIS TIME. CALL LIGHT WITHIN REACH.
--- NOTE | 2017-06-17 21:07 | NUR ---
MEDICATED WITH NORCO FOR C/O BACK PAIN RATED AN 8/10.
--- NOTE | 2017-06-17 23:30 | NUR ---
PT. STATED TOM HELPED HER SOMEWHAT.
[2017-06-18] VITALS: BP 135/93
--- NOTE | 2017-06-18 00:09 | NUR ---
MEDICATED WITH MS FOR C/O BACK PAIN RATED A 10/10.
--- NOTE | 2017-06-18 05:30 | NUR ---
PT. STATES PAIN MEDICATION GIVEN EARLIER IN SHIFT HELPED HER BACK PAIN.
[2017-06-18 06:28] LABS: ALBUMIN 3.5 gm/dl (3.1-4.5); BUN 6 mg/dl (7-24); CHLORIDE 81 mmol/L (98-107); CREATININE 0.57 mg/dL (0.55-1.02); MAGNESIUM 1.9 mg/dL (1.5-2.1); PHOSPHOROUS 2.5 mg/dL (2.5-4.9); POTASSIUM 4.1 mmol/L (3.5-5.1)
[2017-06-18 06:29] LABS: SODIUM 116 mmol/L (136-145)
--- NOTE | 2017-06-18 06:32 | NUR ---
DR. RAMIRES NOTIFIED OF SODUM LEVEL 116 UP FROM 114
[2017-06-18 08:00] VITALS: BP 140/90
--- NOTE | 2017-06-18 09:00 | NUR ---
case management visits with patient, patient states she will be going back home when able and wants to continue her home health, marketing planner will notify [facility] when patient is discharge
[2017-06-18 12:00] VITALS: BP 155/98
[2017-06-18 16:00] VITALS: BP 150/88
[2017-06-18 20:00] VITALS: BP 146/82
[2017-06-19] VITALS: BP 152/98
--- NOTE | 2017-06-19 00:45 | NUR ---
PT C/O OF LOWER BACK PAIN RATING 5/10, DULL ACHES AND DIFFICULTY FALLING ALSEEP. PRN NORCO AND RESTORIL GIVEN PER ORDER
[2017-06-19 06:17] LABS: HEMATOCRIT 29.2 % (37.0-47.0); HEMOGLOBIN 10.3 g/dl (12.0-16.0); LYMPH # 0.8 10*3/uL (1.3-4.4); LYMPH % 12.6 % (27.0-41.0); MEAN CELL VOLUME 84.6 fl (81.0-99.0); MEAN CORPUSCULAR HGB 29.9 pg (27.0-31.0); MEAN CORPUSCULAR HGB CONC 35.3 g/dl (33.0-37.0); MEAN PLATELET VOLUME 9.2 fl (9.6-12.3); MONO # 0.3 10*3/uL (0.1-1.0); NEUT # 5.1 10*3/uL (2.3-7.9); NEUT % 82.1 % (47.0-73.0); PLATELET COUNT AUTOMATED 222 10*3/uL (130-400); RED BLOOD COUNT 3.45 10*6/uL (4.10-5.10); RED CELL DISTRI WIDTH 12.2 % (0-14.5); WHITE BLOOD COUNT 6.2 10*3/uL (4.8-10.8)
[2017-06-19 06:29] LABS: ALBUMIN 3.1 gm/dl (3.1-4.5); BUN 7 mg/dl (7-24); CHLORIDE 86 mmol/L (98-107); CREATININE 0.49 mg/dL (0.55-1.02); MAGNESIUM 1.8 mg/dL (1.5-2.1); POTASSIUM 4.3 mmol/L (3.5-5.1); SODIUM 122 mmol/L (136-145)
[2017-06-19 06:30] LABS: PHOSPHOROUS 2.9 mg/dL (2.5-4.9)
[2017-06-19 08:00] VITALS: BP 106/65
[2017-06-19 12:00] VITALS: BP 138/92
--- NOTE | 2017-06-19 12:00 | NUR ---
EARLIER PAIN MEDICATION HELPED.
--- NOTE | 2017-06-19 15:24 | NUR ---
MEDICATED WITH MORPHINE IV FOR PAIN OF 10/10 IN BACK.
--- NOTE | 2017-06-19 15:56 | NUR ---
STATES THAT PAIN MEDICATION HAS HELPED, BUT IS SEEING THINGS. SAYS THAT PEOPLE ARE ALL AROUND HER.
[2017-06-19 16:00] VITALS: BP 162/93
[2017-06-19 20:00] VITALS: BP 180/100
[2017-06-20] VITALS: BP 164/98
--- NOTE | 2017-06-20 05:24 | NUR ---
24 HR chart check completed.
[2017-06-20 06:16] LABS: BASO % 0.1 % (0.0-1.0); HEMATOCRIT 31.7 % (37.0-47.0); HEMOGLOBIN 11.2 g/dl (12.0-16.0); LYMPH # 1.4 10*3/uL (1.3-4.4); LYMPH % 16.8 % (27.0-41.0); MEAN CELL VOLUME 84.5 fl (81.0-99.0); MEAN CORPUSCULAR HGB 29.9 pg (27.0-31.0); MEAN CORPUSCULAR HGB CONC 35.3 g/dl (33.0-37.0); MEAN PLATELET VOLUME 9.2 fl (9.6-12.3); MONO # 0.7 10*3/uL (0.1-1.0); MONO % 9.1 % (3.0-9.0); NEUT % 73.6 % (47.0-73.0); PLATELET COUNT AUTOMATED 283 10*3/uL (130-400); RED BLOOD COUNT 3.75 10*6/uL (4.10-5.10); RED CELL DISTRI WIDTH 12.4 % (0-14.5); WHITE BLOOD COUNT 8.2 10*3/uL (4.8-10.8)
[2017-06-20 06:32] LABS: ALBUMIN 3.5 gm/dl (3.1-4.5); BUN 8 mg/dl (7-24); CHLORIDE 80 mmol/L (98-107); CREATININE 0.47 mg/dL (0.55-1.02); MAGNESIUM 1.9 mg/dL (1.5-2.1); POTASSIUM 3.9 mmol/L (3.5-5.1)
[2017-06-20 06:33] LABS: PHOSPHOROUS 3.5 mg/dL (2.5-4.9)
[2017-06-20 06:36] LABS: SODIUM 118 mmol/L (136-145)
--- NOTE | 2017-06-20 06:38 | NUR ---
NOTIFIED OF SODIUM LEVEL
[2017-06-20 08:00] VITALS: BP 146/98
--- NOTE | 2017-06-20 08:57 | NUR ---
MEDICATED FOR PAIN OF 10 OUT OF 10. FOR BACK PAIN.
--- NOTE | 2017-06-20 09:27 | NUR ---
MEDICATED FOR NAUSEA WITH ZOFRAN AND STATES THAT EARLIER PAIN MEDICATION HAS HELPED.
--- NOTE | 2017-06-20 10:07 | NUR ---
STATES THAT NAUSEA MED HELPED A LITTLE.
[2017-06-20 12:00] VITALS: BP 135/91
--- NOTE | 2017-06-20 13:18 | NUR ---
MEDICATED WITH PO PAIN PILL FOR C/O BACK PAIN OF 10 OUT OF TEN.
--- NOTE | 2017-06-20 13:40 | NUR ---
EARLIER MEDICATION HELPED HER NAUSEA.
--- NOTE | 2017-06-20 14:06 | NUR ---
STATES THAT EARLIER PAIN MEDICATION WAS EFFECTIVE.
[2017-06-20 16:00] VITALS: BP 156/91
--- NOTE | 2017-06-20 18:16 | NUR ---
MEDICATED FOR PAIN IN HER BACK OF 10 OUT OF TEN ON THE PAIN SCALE.
--- NOTE | 2017-06-20 18:52 | NUR ---
STATES THAT EARLIER PAIN MEDICATION HAS HELPED.
[2017-06-20 20:00] VITALS: BP 137/90
--- NOTE | 2017-06-20 21:10 | NUR ---
Medicated with MS contin per prn order for complaints of back pain and c/o liver pain. States pain is an 11, states she surpassed level 10.
--- NOTE | 2017-06-20 22:00 | NUR ---
Pt states that ms contin helped somewhat to relieve pain.
--- NOTE | 2017-06-20 23:14 | NUR ---
ASSUMED CARE OF PT AT THIS TIME, CALL LIGHT WITH IN REACH
[2017-06-21] VITALS: BP 148/87
--- NOTE | 2017-06-21 04:31 | NUR ---
PT HAS BEEN UP THROUGH OUT NIGHT.
--- NOTE | 2017-06-21 05:44 | NUR ---
PT C/O GENERALIZED PAIN, REQUESTED AND ADMINSITED PRN PAIN MEDICATION, WILL MONITOR EFFECTS
[2017-06-21 06:44] LABS: ALBUMIN 3.4 gm/dl (3.1-4.5); BUN 13 mg/dl (7-24); CHLORIDE 83 mmol/L (98-107); CREATININE 0.49 mg/dL (0.55-1.02); MAGNESIUM 1.9 mg/dL (1.5-2.1); POTASSIUM 3.7 mmol/L (3.5-5.1); SODIUM 120 mmol/L (136-145)
[2017-06-21 06:45] LABS: PHOSPHOROUS 3.5 mg/dL (2.5-4.9)
[2017-06-21 08:00] VITALS: BP 135/98
--- NOTE | 2017-06-21 09:39 | NUR ---
case management visits with patient, patient states she is hoping to go home today, funeral planner will notify patient's current home health when she is stable for discharge
--- NOTE | 2017-06-21 10:00 | NUR ---
PRN PAIN MED GIVEN FOR REPORTED 10/10 GENERALIZED PAIN.
--- NOTE | 2017-06-21 11:00 | NUR ---
PRN PAIN MED MINIMALLY EFFECTIVE PT REPORTS 7/10 BACK PAIN. WILL CONTINUE TO MONITOR, CONTINUE COMFORT MEASURES IE ICE AND REMEDICATE APPROPRIATE.
[2017-06-21 12:00] VITALS: BP 146/86
[2017-06-21 16:00] VITALS: BP 174/80
--- NOTE | 2017-06-21 16:00 | NUR ---
DR RO FAXED AN ORDER TO ME TO ENTER CHEMOTHERAPY MEDICATIONS. AFTER CALLING PHARMACY TO VERIFY IF WE HAD THESE MEDS, MARTIN TOOK OVER. MARTIN FROM PHARMACY WANTED TO CALL DR RO HIMSELF TO DISCUSS WHAT MEDS HE WOULD NEED TO HAVE ORDERED. FAXED ORDER PLACED IN CHART.
--- NOTE | 2017-06-21 17:40 | NUR ---
PRN ANIETY MED GIVEN PER PATIENT REQUEST.
--- NOTE | 2017-06-21 18:40 | NUR ---
PRN ANXIETY MED APPEARS EFFECTIVE, PT IS RESTING COMFORTABLY.
--- NOTE | 2017-06-21 19:03 | NUR ---
PHONE CALL FROM MARTIN IN PHARMACY, HE IS STILL WORKING ON HAVING THE ORDERED MEDS HER. PT IS TO START IV FLUIDS TONIGHT AND HAVE CHEMO TOMARROW.
[2017-06-21 20:00] VITALS: BP 132/86
--- NOTE | 2017-06-21 21:45 | NUR ---
PT REQUESTED PRN MEDICATION TO ASSIST WITH SLEEPING, STATES THAT SHE HASNT BEEN SLEEPING, RESTORIL GIVEN WILL MONITOR EFFECTS
--- NOTE | 2017-06-21 23:21 | NUR ---
RESTORIL NOT EFFECTIVE PT AWAKE, AND YELLING OUT FOR STAFF, PT SITTING UP IN CHAIR WATCHING TV
[2017-06-22] VITALS (7 sets, daily range): BP systolic 106–196; BP diastolic 61–112
--- NOTE | 2017-06-22 00:50 | NUR ---
PT HAVING INCREASED ANXIETY AT THIS TIME, PT IS YELLING OUT, PT STATES THAT SHE IS ANXIOUS REGARDING STARTING CHEMOTHERAPY ON 06/22/17 ADMINSISTERED PRN ATIVAN PO PER ORDERS
--- NOTE | 2017-06-22 01:43 | NUR ---
PT IN ROOM, SITTING IN BED PT DOZING OFF AT TIMES, BUT HAS BEEN AWAKE MOST OF THE NIGHT
[2017-06-22 06:03] LABS: ALBUMIN 3.4 gm/dl (3.1-4.5); BUN 10 mg/dl (7-24); CHLORIDE 86 mmol/L (98-107); CREATININE 0.46 mg/dL (0.55-1.02); MAGNESIUM 1.8 mg/dL (1.5-2.1); PHOSPHOROUS 3.6 mg/dL (2.5-4.9); SODIUM 122 mmol/L (136-145)
--- NOTE | 2017-06-22 10:22 | NUR ---
ATIVAN GIVEN FOR C/O ANXIETY, MS CONTIN GIVEN FOR C/O BACK PAIN. WILL MONITOR.
--- NOTE | 2017-06-22 19:30 | NUR ---
ASSUMED CARE OF PT AT THIS TIME, RESPS EASY AND NONLABORED WITH NO S/S OF DISTRESS CALL LIGHT WITH IN REACH
--- NOTE | 2017-06-22 21:27 | NUR ---
PT C/O IONCREASED ANXIETY STATES THAT SHE NEEDS SOMETHING FOR HER NERVES R/T WORRYING ABOUT CHEMO TREATMENTS, ADMINSISTERED ATIVAN PO PRN PER ORDERS, WILL MONITOR EFFECTS. PT ALSO RESQUESTING SLEEPING PILL AT THIS TIME, ADMINSITERED PRN RESTORIL PER ORDERS WILL MONITOR EFFECTS
--- NOTE | 2017-06-22 22:27 | NUR ---
PRN MEDICATIONS EFFECTIVE PT RESTING IN BED WITH EYES CLOSED RESPS EASY AND NONLABORED
--- NOTE | 2017-06-23 00:50 | NUR ---
PT RESTING IN BED WITH EYES CLOSED RESPS EASY AND NONLABORED WITH NO S/S OF DISERESS CALL LIGHT WITH IN REACH
--- NOTE | 2017-06-23 02:32 | NUR ---
Patient sleeping. Respirations relaxed and easy. GABY WISEMAN
[2017-06-23 04:00] VITALS: BP 164/86
--- NOTE | 2017-06-23 05:27 | NUR ---
PT C/O H/A, REQUESTED AND ADMINSITERED TYLENOL 625MG PO PRN PER ORDERS WILL MONITOR EFFECTS
[2017-06-23 06:06] LABS: HEMATOCRIT 31.9 % (37.0-47.0); HEMOGLOBIN 11.1 g/dl (12.0-16.0); LYMPH # 0.3 10*3/uL (1.3-4.4); LYMPH % 6.4 % (27.0-41.0); MEAN CELL VOLUME 86.2 fl (81.0-99.0); MEAN CORPUSCULAR HGB CONC 34.8 g/dl (33.0-37.0); MONO # 0.3 10*3/uL (0.1-1.0); MONO % 7.1 % (3.0-9.0); NEUT % 85.9 % (47.0-73.0); PLATELET COUNT AUTOMATED 264 10*3/uL (130-400); RED CELL DISTRI WIDTH 12.3 % (0-14.5); WHITE BLOOD COUNT 4.7 10*3/uL (4.8-10.8)
--- NOTE | 2017-06-23 06:14 | NUR ---
TYLENOL EFFECTIVE AT THIS TIME NO FURTHER C/O H/A
[2017-06-23 06:39] LABS: ALBUMIN 3.5 gm/dl (3.1-4.5); BUN 7 mg/dl (7-24); CHLORIDE 86 mmol/L (98-107); CREATININE 0.38 mg/dL (0.55-1.02); PHOSPHOROUS 3.4 mg/dL (2.5-4.9); POTASSIUM 3.9 mmol/L (3.5-5.1); SODIUM 123 mmol/L (136-145)
[2017-06-23 08:00] VITALS: BP 130/110
--- NOTE | 2017-06-23 09:31 | NUR ---
Awake and alert. 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 Medicated for c/o pain to lower abdomen and left flank. 02/17. Breakfast taken well re-- check of BP 160/100. AM meds given early. Awaiting OP for chemo.
--- NOTE | 2017-06-23 09:42 | NUR ---
case management visits with patient, patient will be going home when medically stable, service planner will notify patient's home health company when medically stable
--- NOTE | 2017-06-23 10:09 | NUR ---
Pt. has ocean nasal spray at bedside and uses when needed.
[2017-06-23 10:12] VITALS: BP 155/96
--- NOTE | 2017-06-23 13:03 | NUR ---
Remains in OP for chemo
[2017-06-23 13:09] VITALS: BP 136/93
--- NOTE | 2017-06-23 15:42 | NUR ---
[facility] called and asked for clinicals to be faxed so they can review them. They had accepted this patient, but were not able to perform intial assessment prior to her coming in to hospital. Will need [facility] order for nurse and PT prior to discharge. [facility] faxed for review. [phone]
--- NOTE | 2017-06-23 15:58 | NUR ---
Suppository given for constipation.
[2017-06-23 16:00] VITALS: BP 153/95
--- NOTE | 2017-06-23 19:54 | NUR ---
1944 PT UPSET. 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 ON FURTHER QUESTIONING PT STATES THAT HER [place] TOLD HER TO TAKE HER BREATHING RX OFTEN SHE NEEDS. UPSET THAT SHE IS NOT RECEIVING HER BREATHING RX Q1H. EXPLAINED THAT THIS COULD BE HARMFFUL, RATHER THAN HELPFUL.
[2017-06-23 20:00] VITALS: BP 152/91
--- NOTE | 2017-06-23 20:14 | NUR ---
IV FLUIDS CONT. RESTING IN BED WATCHING TV.
--- NOTE | 2017-06-23 21:28 | NUR ---
2110 MS CONTIN PO PER REQUEST FOR BACK PAIN AND ATIVAN PO FOR SLEEP. WILL MONITOR.
--- NOTE | 2017-06-23 22:01 | NUR ---
EARLIER MEDS EFFECTIVE. RESTING IN BED WATCHING TV. IV FLUIDS CONT. 02 INTACT. GABRIEL.
--- NOTE | 2017-06-24 00:41 | NUR ---
24 HR chart check completed.
--- NOTE | 2017-06-24 05:10 | NUR ---
C/O 02/17 HEADACHE. MEDICATED WITH PRN TYLENOL ORDERED AND PER PATIENT REQUEST.
--- NOTE | 2017-06-24 06:10 | NUR ---
DENIES PAIN. TYLENOL EFFECTIVE.
[2017-06-24 06:50] LABS: HEMATOCRIT 30.8 % (37.0-47.0); HEMOGLOBIN 10.7 g/dl (12.0-16.0); LYMPH # 0.4 10*3/uL (1.3-4.4); LYMPH % 6.1 % (27.0-41.0); MEAN CELL VOLUME 86.8 fl (81.0-99.0); MEAN CORPUSCULAR HGB 30.1 pg (27.0-31.0); MEAN CORPUSCULAR HGB CONC 34.7 g/dl (33.0-37.0); MEAN PLATELET VOLUME 9.1 fl (9.6-12.3); MONO # 0.5 10*3/uL (0.1-1.0); MONO % 6.5 % (3.0-9.0); NEUT # 6.1 10*3/uL (2.3-7.9); PLATELET COUNT AUTOMATED 250 10*3/uL (130-400); RED BLOOD COUNT 3.55 10*6/uL (4.10-5.10); RED CELL DISTRI WIDTH 12.2 % (0-14.5); WHITE BLOOD COUNT 7.1 10*3/uL (4.8-10.8)
[2017-06-24 07:26] LABS: BUN 10 mg/dl (7-24); CHLORIDE 88 mmol/L (98-107); CREATININE 0.43 mg/dL (0.55-1.02); POTASSIUM 3.7 mmol/L (3.5-5.1); SODIUM 127 mmol/L (136-145)
[2017-06-24 08:00] VITALS: BP 155/90
--- NOTE | 2017-06-24 09:00 | NUR ---
case management visits with patient, patient will be going home when able, shutdown planner will notify patient's home health company
[2017-06-24 09:15] VITALS: BP 131/92
--- NOTE | 2017-06-24 11:00 | NUR ---
pt off floor at this time for tx..RN states she will be off floor for about 2 hrs
[2017-06-24 11:10] VITALS: BP 155/92
[2017-06-24 12:09] VITALS: BP 153/91
[2017-06-24 16:00] VITALS: BP 151/78
--- NOTE | 2017-06-24 17:20 | NUR ---
PT GIVEN PO ATIVAN AND MORPHINE PER PRN ORDER FOR C/O ANXIETY AND PAIN. WILL MONITOR EFFECTIVENESS.
--- NOTE | 2017-06-24 18:53 | NUR ---
EARLIER MEDICATIONS EFFECTIVE PER PT.
[2017-06-24 20:00] VITALS: BP 164/86
--- NOTE | 2017-06-24 23:40 | NUR ---
DR. RAMIRES CALLED AT THIS TIME PERTAINING TO PATIENT COMPLAINING OF HEARTBURN AND PATIENT REQUESTING TUMS. DR. RAMIRES STATED HE WOULD PUT THIS IN
[2017-06-25] VITALS: BP 162/100
--- NOTE | 2017-06-25 04:55 | NUR ---
PATIENT MEDICATED WITH TUMS AT 2353 FOR COMPLAINTS OF HEARTBURN WITH EFFECTIVE RESULTS NOTED. BLOOD PRESSURE AT 12A WAS 162/100. ONE TIME ORDER OF HYDRALAZINE 10 MG IV GIVEN. BLOOD PRESSURE DOWN TO 142/68. RESTIING QUIETLY AT THIS TIME WITH EYES CLOSED. NO SIGNS OR SYMPTOMS OF DISTRESS NOTED. WILL CONTINUE TO MONITOR. CALL LIGHT IN REACH.
[2017-06-25 06:02] LABS: EOS % 0.2 % (1.0-4.0); HEMATOCRIT 31.1 % (37.0-47.0); HEMOGLOBIN 10.6 g/dl (12.0-16.0); LYMPH # 0.5 10*3/uL (1.3-4.4); MEAN CELL VOLUME 87.1 fl (81.0-99.0); MEAN CORPUSCULAR HGB 29.7 pg (27.0-31.0); MEAN CORPUSCULAR HGB CONC 34.1 g/dl (33.0-37.0); MEAN PLATELET VOLUME 8.8 fl (9.6-12.3); MONO # 0.1 10*3/uL (0.1-1.0); MONO % 2.2 % (3.0-9.0); NEUT # 4.8 10*3/uL (2.3-7.9); NEUT % 88.4 % (47.0-73.0); PLATELET COUNT AUTOMATED 238 10*3/uL (130-400); RED BLOOD COUNT 3.57 10*6/uL (4.10-5.10); RED CELL DISTRI WIDTH 12.6 % (0-14.5); WHITE BLOOD COUNT 5.5 10*3/uL (4.8-10.8)
[2017-06-25 06:15] LABS: BUN 12 mg/dl (7-24); CHLORIDE 94 mmol/L (98-107); CREATININE 0.43 mg/dL (0.55-1.02); POTASSIUM 3.5 mmol/L (3.5-5.1); SODIUM 131 mmol/L (136-145)
[2017-06-25 08:00] VITALS: BP 150/80; BP 151/89
--- NOTE | 2017-06-25 10:15 | NUR ---
PATIENT DISCHARGED TO HOME PER MD ORDERS. NO S/S OF DISTRESS. PATIENT RECEIVED WALLET FROM LOCK BOX, SIGNED. MONITOR AND IV HEPLOCK REMOVED. MEDICATION ORDERS GIVEN,AND EXPLAINED. PATIENT WITH OWN CAR IN PARKING LOT. DISCHARGED TO SELF AT 1000.
[2017-06-25] MEDS ORDERED: DEMECLOCYCLINE150 MG PO (10:49)
[2017-06-25] MEDS ORDERED: PREDNISONE10 MG PO (10:49)
--- NOTE | 2017-06-25 11:25 | NUR ---
Patient discharged to home with home health via [facility]. Contacted [facility] and faxed updated [facility]. also notified patient would like to have a nurse wednesday morning.
--- NOTE | 2017-06-25 11:50 | NUR ---
PT. ASSESSED FOR HOME OXYGEN. PULSE OX AT REST WAS 89%, HR 116, RR 24, BP 130/82. WITH AMBULATION OF 25 FT PUSLE OX DROPPED TO 84% WITH INCREASED WOB. O2 APPLIED AT 2L PULSE OX 87%, O2 INCREASED TO 3L PULSE OX 94%. AT REST WITH 3L NC SPO2 94%, HR 126, RR 24, BP 145/92. INFORMATION FAXED TO [facility].
[2017-06-25 12:00] VITALS: BP 150/82
[2017-06-25 16:00] VITALS: BP 131/64
--- NOTE | 2017-06-25 19:28 | NUR ---
PATIENT LEFT FLOOR VIA WHEELCHAIR FOR DISCHARGE. PAPER WORK SIGNED AND ACKNOWLEDGED.
== END 2017-06-25 19:28 | disposition home or self-care (01) | DRG 871 ==
LOC: ED 15:45 → 4E 18:09 → EDHOLD 18:09 → 4E 18:35
PROVIDERS: Family Medicine; Internal Medicine; Internal Medicine Nephrology; Physician Assistant; Student in an Organized Health Care Education/Training Program; ADMIT Internal Medicine
DX: A41.9 Sepsis, unspecified organism (principal); J18.9 Pneumonia, unspecified organism; J96.01 Acute respiratory failure with hypoxia; G93.40 Encephalopathy, unspecified; G13.0 Paraneoplastic neuromyopathy and neuropathy; E22.2 Syndrome of inappropriate secretion of antidiuretic hormone; D70.9 Neutropenia, unspecified; E87.8 Other disorders of electrolyte and fluid balance, not elsewhere classified; C34.92 Malignant neoplasm of unspecified part of left bronchus or lung; J44.1 Chronic obstructive pulmonary disease with (acute) exacerbation; J44.0 Chronic obstructive pulmonary disease with (acute) lower respiratory infection; E87.6 Hypokalemia; R44.1 Visual hallucinations; F17.210 Nicotine dependence, cigarettes, uncomplicated; F41.1 Generalized anxiety disorder; G40.909 Epilepsy, unspecified, not intractable, without status epilepticus; I10 Essential (primary) hypertension; D63.0 Anemia in neoplastic disease; J20.9 Acute bronchitis, unspecified; Y95 Nosocomial condition; M19.90 Unspecified osteoarthritis, unspecified site; Z79.51 Long term (current) use of inhaled steroids; Z85.41 Personal history of malignant neoplasm of cervix uteri; Z79.899 Other long term (current) drug therapy; Z94.7 Corneal transplant status; Z82.49 Family history of ischemic heart disease and other diseases of the circulatory system

== ENCOUNTER → 2017-07-06 | Outpatient (CLI) | payer OTHER ==
[~2017-07-06] MED LIST changes: +BREO ELLIPTA 21 EACH INH; +DEMECLOCYCLINE150 MG PO; +DUONEB 3 MG/3 ML3 M1 INH
== END | disposition home or self-care (01) ==
LOC: RAD 12:47
DX: M43.8X4 Other specified deforming dorsopathies, thoracic region (principal); Z85.118 Personal history of other malignant neoplasm of bronchus and lung; Z85.830 Personal history of malignant neoplasm of bone

== ENCOUNTER → 2017-07-18 | Outpatient (CLI) | payer OTHER ==
[2017-07-18 12:58] LABS: BASO % 0.3 % (0.0-1.0); HEMATOCRIT 26.8 % (37.0-47.0); HEMOGLOBIN 9.6 g/dl (12.0-16.0); LYMPH # 1.3 10*3/uL (1.3-4.4); LYMPH % 21.6 % (27.0-41.0); MEAN CELL VOLUME 83.5 fl (81.0-99.0); MEAN CORPUSCULAR HGB 29.9 pg (27.0-31.0); MEAN CORPUSCULAR HGB CONC 35.8 g/dl (33.0-37.0); MEAN PLATELET VOLUME 8.4 fl (9.6-12.3); MONO # 0.5 10*3/uL (0.1-1.0); MONO % 8.1 % (3.0-9.0); NEUT % 69.3 % (47.0-73.0); PLATELET COUNT AUTOMATED 361 10*3/uL (130-400); RED BLOOD COUNT 3.21 10*6/uL (4.10-5.10); RED CELL DISTRI WIDTH 12.8 % (0-14.5); WHITE BLOOD COUNT 5.8 10*3/uL (4.8-10.8)
[2017-07-18 13:16] LABS: ALBUMIN 2.6 gm/dl (3.1-4.5); BUN 3 mg/dl (7-24); CHLORIDE 81 mmol/L (98-107); CREATININE 0.65 mg/dL (0.55-1.02); POTASSIUM 3.9 mmol/L (3.5-5.1); SGOT/AST 16 IU/L (3-35); SGPT/ALT 12 U/L (12-78)
[2017-07-18 13:18] LABS: ALKALINE PHOSPHATASE 218 U/L (45-117); TOTAL PROTEIN 6.3 gm/dL (6.4-8.2)
[2017-07-18 13:21] LABS: SODIUM 115 mmol/L (136-145)
== END | disposition home or self-care (01) ==
LOC: LAB 12:30
PROVIDERS: Internal Medicine Hematology & Oncology
DX: C34.92 Malignant neoplasm of unspecified part of left bronchus or lung (principal)

== ENCOUNTER 2017-08-03 12:11 | Emergency (ER) | payer OTHER ==
[~2017-08-03] VITALS: Wt 76.7 kg
--- NOTE | ~2017-08-03 | EKG ---
[place], [place] ELECTROCARDIOGRAM REPORT NAME: ALEIDA SUH UNIT #: [id number] ROOM: DOCTOR: MO DUMONT MD,SHIRA BIRTHDATE: [birth year] DOS: Study was done on 08/03/2017. Normal sinus rhythm was noted. Heart rate of 94 beats per minute. Left atrial enlargement was noted, otherwise normal electrocardiogram. SHIRA HASSAN MD CM:EKGRPT:ELECTROCARDIOGRAM REPORT [id number] SHIRA DUMONT MD
[2017-08-03 13:20] LABS: HEMATOCRIT 29.2 % (37.0-47.0); HEMOGLOBIN 10.1 g/dl (12.0-16.0); MEAN CELL VOLUME 85.6 fl (81.0-99.0); MEAN CORPUSCULAR HGB 29.6 pg (27.0-31.0); MEAN CORPUSCULAR HGB CONC 34.6 g/dl (33.0-37.0); MEAN PLATELET VOLUME 11.3 fl (9.6-12.3); NUCLEATED RED BLOOD CELL 0.1 10*3/uL (0.0-0.0); NUCLEATED RED BLOOD CELL 1.3 % (0.0-0.0); PLATELET COUNT AUTOMATED 67 10*3/uL (130-400); RED BLOOD COUNT 3.41 10*6/uL (4.10-5.10); RED CELL DISTRI WIDTH 14.8 % (0-14.5); WHITE BLOOD COUNT 5.6 10*3/uL (4.8-10.8)
[2017-08-03 13:36] LABS: ALBUMIN 2.9 gm/dl (3.1-4.5); ALKALINE PHOSPHATASE 188 U/L (45-117); BUN 13 mg/dl (7-24); CHLORIDE 99 mmol/L (98-107); CREATININE 0.57 mg/dL (0.55-1.02); MAGNESIUM 1.2 mg/dL (1.5-2.1); POTASSIUM 3.6 mmol/L (3.5-5.1); SGOT/AST 13 IU/L (3-35); SGPT/ALT 23 U/L (12-78); SODIUM 134 mmol/L (136-145); TOTAL PROTEIN 5.9 gm/dL (6.4-8.2); TROPONIN I < 0.015 ng/ml (<0.045)
[2017-08-03 13:54] LABS: TOTAL CELLS COUNTED 100 #CELLS
[2017-08-03 13:55] LABS: PLATELET SUFFICIENCY LOW (NORMAL)
== END 2017-08-03 15:33 | disposition home or self-care (01) ==
LOC: ED 12:11
PROVIDERS: Nurse Practitioner Family
DX: Z00.8 Encounter for other general examination (principal); R05 Cough; R07.81 Pleurodynia; F17.200 Nicotine dependence, unspecified, uncomplicated; Z98.890 Other specified postprocedural states; Z79.899 Other long term (current) drug therapy; Z85.118 Personal history of other malignant neoplasm of bronchus and lung

== ENCOUNTER → 2017-08-15 | Outpatient (CLI) | payer OTHER ==
[2017-08-15 11:07] LABS: BASO # 0.1 10*3/uL (0.0-0.1); BASO % 1.2 % (0.0-1.0); HEMATOCRIT 30.5 % (37.0-47.0); HEMOGLOBIN 10.1 g/dl (12.0-16.0); LYMPH # 1.8 10*3/uL (1.3-4.4); LYMPH % 36.6 % (27.0-41.0); MEAN CORPUSCULAR HGB 29.8 pg (27.0-31.0); MEAN CORPUSCULAR HGB CONC 33.1 g/dl (33.0-37.0); MEAN PLATELET VOLUME 9.4 fl (9.6-12.3); MONO # 0.7 10*3/uL (0.1-1.0); MONO % 14.7 % (3.0-9.0); NEUT # 2.3 10*3/uL (2.3-7.9); NEUT % 47.1 % (47.0-73.0); PLATELET COUNT AUTOMATED 298 10*3/uL (130-400); RED BLOOD COUNT 3.39 10*6/uL (4.10-5.10); RED CELL DISTRI WIDTH 17.9 % (0-14.5); WHITE BLOOD COUNT 4.8 10*3/uL (4.8-10.8)
[2017-08-15 11:35] LABS: ALBUMIN 3.1 gm/dl (3.1-4.5); ALKALINE PHOSPHATASE 202 U/L (45-117); BUN 9 mg/dl (7-24); CHLORIDE 99 mmol/L (98-107); CREATININE 0.63 mg/dL (0.55-1.02); POTASSIUM 3.7 mmol/L (3.5-5.1); SGOT/AST 8 IU/L (3-35); SGPT/ALT 16 U/L (12-78); SODIUM 136 mmol/L (136-145); TOTAL PROTEIN 6.4 gm/dL (6.4-8.2)
== END ==
LOC: LAB 10:37
PROVIDERS: Internal Medicine Hematology & Oncology
DX: C34.92 Malignant neoplasm of unspecified part of left bronchus or lung (principal)

== ENCOUNTER → 2017-08-19 | Outpatient (CLI) | payer OTHER ==
[~2017-08-19] MED LIST changes: +PERCOCET 5-3251 EACH PO; +PROAIR HFA8.5 GM INH; +SODIUM CHLORI1000 MG PO
--- NOTE | 2017-08-19 14:40 | NUR ---
PT SENT FROM DR SWEET OFFICE FOR CATHFLO OF MEDIPORT. ACCESSED WITH NONCORING NEEDLE PER POLICY. UNABLE TO GET BLOOD RETURN BUT FLUSHES EASILY. CATHFLO INSTILLED IN MEDIPORT WITHOUT DIFFUCULTY. PT TOLERATED WELL. CARMEN VERMA RN
--- NOTE | 2017-08-19 15:42 | NUR ---
RECIEVED FROM OR. PT HERE FOR MEDIPORT NOT WORKING. CATH FLOW GIVEN X 1 IN OR, STILL NO BLOOD RETURN. CATH FLOW TO BE REPEATED AT 1740. CONDITION STABLE.
--- NOTE | 2017-08-19 16:57 | NUR ---
SECOND DOSE OF CATH AIDE GIVEN VIA MEDIPORT. WILL RECHECK BLOOD RETURN IN 30 MINUTES.
--- NOTE | 2017-08-19 17:48 | NUR ---
SERAPORT PATENT AND GOOD BLOOD RETURN AFTER 2ND DOSE OF CATH AIDE. LABS DRAWN. LAB NOTIFIED AND WILL COME UP WITH LABELS.
[2017-08-19 19:00] LABS: HEMATOCRIT 31.4 % (37.0-47.0); HEMOGLOBIN 10.2 g/dl (12.0-16.0); MEAN CELL VOLUME 90.5 fl (81.0-99.0); MEAN CORPUSCULAR HGB 29.4 pg (27.0-31.0); MEAN CORPUSCULAR HGB CONC 32.5 g/dl (33.0-37.0); MEAN PLATELET VOLUME 10.4 fl (9.6-12.3); PLATELET COUNT AUTOMATED 223 10*3/uL (130-400); RED BLOOD COUNT 3.47 10*6/uL (4.10-5.10); RED CELL DISTRI WIDTH 17.5 % (0-14.5)
[2017-08-19 19:12] LABS: BUN 12 mg/dl (7-24); CREATININE 0.72 mg/dL (0.55-1.02); SODIUM 131 mmol/L (136-145)
[2017-08-19 19:26] LABS: TOTAL CELLS COUNTED 100 #CELLS
[2017-08-19 19:27] LABS: PLATELET SUFFICIENCY NORMAL (NORMAL)
== END | disposition home or self-care (01) ==
LOC: MEDIPORT 14:00
PROVIDERS: Internal Medicine Hematology & Oncology
DX: C34.92 Malignant neoplasm of unspecified part of left bronchus or lung (principal)

== ENCOUNTER 2017-08-23 10:37 | Inpatient (IN) | payer OTHER ==
[~2017-08-23] VITALS: Ht 170.1 cm; Wt 69.1 kg
--- NOTE | ~2017-08-23 | PR ---
[place], [place] PROGRESS NOTE NAME: ALEIDA SUH UNIT #: [id number] ROOM: 525 DOCTOR: CHRISTOPHE SWEET MD BIRTHDATE: [birth year] DOS: 08/25/2017 SUBJECTIVE: The patient is doing better. Her breathing has gotten much better, though she continues to have diarrhea. She was given Imodium. PHYSICAL EXAMINATION: GENERAL: Pleasant woman in no apparent distress. VITAL SIGNS: Stable. She is afebrile. HEENT: Normocephalic, atraumatic NECK AND THYROID: Supple. No JVD, thyromegaly, or lymphadenopathy. HEART: Normal S1, S2. Regular rate and rhythm. LUNGS: Clear to auscultation and percussion. ABDOMEN: Soft. Nontender, nondistended. Bowel sounds present. EXTREMITIES: Normal ROM. No clubbing. No edema. LABORATORY DATA: White count of 2.9, hemoglobin of 7.3, hematocrit 21.6, [place] [address] with ANC of 2100. ASSESSMENT: 1. Pancytopenia secondary to chemotherapy. 2. Neutropenia, which is resolving. 3. Bilateral pulmonary embolism 4. History of lung cancer. PLAN: She will continue the Lovenox. I will be keeping a close watch on her platelet count and I expect the counts will improve once her effect of chemo goes away. In the meantime, if it starts dropping, we may have to cut down the Lovenox. I had detailed discussion with the patient about it and she seemed to understand it. Ample time was given for the patient to ask me questions. We will followup. CHRISTOPHE SWEET MD CM:PNTRANS [id number] CHRISTOPHE SWEET MD 09/01/17 0733 interface
--- NOTE | ~2017-08-23 | CON ---
[place], [place] REPORT OF CONSULTATION NAME: ALEIDA SUH UNIT #: [id number] ROOM: 525 DOCTOR: CHRISTOPHE SWEET MD BIRTHDATE: [birth year] DOS: 08/23/2017 HISTORY OF PRESENT ILLNESS: The patient is a pleasant 62-year-old woman with a history of small cell lung cancer, severe COPD, finished her chemotherapy about a week ago. Started having increasing shortness of breath. She had been feeling sick and not been drinking enough fluids. She was supposed to come to the office for fluids. She was advised to go to the ER and subsequently admitted with possibility of pneumonia. She was also noted to have pancytopenia and consulted for further evaluation and management. PAST MEDICAL HISTORY: Small cell lung cancer, undergoing chemotherapy with recent CT scan showing response to treatment and she saw radiation oncologist and was told she is not a candidate for radiation in view of her severe COPD. History of hyponatremia in the past, hyperchloremia, leukopenia, sepsis, SIADH, history of brief psychotic disorder, history of severe COPD, delirium tremens, seizure disorder, history of cervical cancer, and history of metabolic encephalopathy. PAST SURGICAL HISTORY: Dilatation and curettage, history of upper EGD, status post corneal transplant, history of colonoscopy and polypectomy. SOCIAL HISTORY: No smoking. No drinking or drug abuse. She was a previous smoker. She started smoking at age 15, one cigarette per day. FAMILY HISTORY: Father had cardiac disease, myocardial infarction. Mother of natural causes. ALLERGIES: No known allergies. MEDICATIONS: Albuterol, demeclocycline, furosemide, gabapentin, DuoNeb, lisinopril, pantoprazole sodium, sodium chloride and trazodone. REVIEW OF SYSTEMS: CONSTITUTIONAL: No chills. No fatigue. No fever. No loss of appetite. No night sweats. No weakness. No weight loss. HEENT: No trouble swallowing. No loss of smell. No loss of hearing. No double vision. No pain. No discharge. ENT AND RESPIRATORY: No wheeze. No sore throat. No change in voice. No hearing loss. No nose bleed. No cough. No epistaxis. Lungs show decreased shortness of breath and no hemoptysis. CARDIOVASCULAR: No chest pain. No dizziness. No irregular heartbeat. No leg edema. No pain in legs while walking. No palpitations. No shortness of breath. DERMATOLOGIC: No acne. No hives. No laceration. No mole. No rash. ENDOCRINE: No cold intolerance. No diabetes. No fatigue. No hot flashes. No polydipsia. No polyuria. No urinating frequently. No weight loss. HEMATOLOGIC AND LYMPH: No fatigue. No easy bruising. GASTROENTEROLOGIC: No change in bowel habits. No indigestion. No frequent bloating. No vomiting blood. No abdominal cramping. No nausea. No heartburn. No vomiting. No abdominal pain. No dysphagia. No diarrhea. No constipation. [place], [place] REPORT OF CONSULTATION NAME: ALEIDA SUH UNIT #: [id number] ROOM: [facility] DOCTOR: CHRISTOPHE SWEET MD BIRTHDATE: [birth year] No blood in stool. FEMALE REPRODUCTIVE: No vaginal itching. No difficulty urinating. No heavy periods. No dyspareunia. No sexually active. No dysmenorrhea. No pelvic pain. No breast pain. No nipple discharge. No abnormal vaginal discharge. No hot flashes. MUSCULOSKELETAL: No back pain. No muscle pain or weakness. No neck pain. No tingling/numbness. No swelling/bruising. No osteoporosis treatment. OPTHALMOLOGIC: No double vision. No diminished vision. No loss of vision. UROLOGIC: No dysuria. No frequent nighttime urination. No irregular periods. No pain with urination. No difficulty urinating. No blood in urine. No frequent urination. No urinary incontinence. NEUROLOGIC: No loss of sensation in specific body area. No vertigo. No burning pain in feet. No trouble with balance. No trouble with coordination. No loss of consciousness. No loss of feeling/power. No confusion. No headache. No tingling/numbness. PSYCHOLOGIC: No tinnitus. No headaches. No shortness of breath. No weight decrease. No nausea. No vomiting. No abdominal discomfort. No constipation. No diarrhea. No depression. No anxiety. PHYSICAL EXAMINATION: GENERAL: She is a pleasant woman in no apparent distress. VITAL SIGNS: Stable. She is afebrile. Blood pressure is 117/79, respirations 20, pulse 107, temperature 97.7. HEENT: Oral mucosa appears intact. The external ears are normal in appearance. Nares are patent without lesions, exudates, erythema, or inflammation. Tongue is symmetrical. Uvula is midline. NECK AND THYROID: Neck supple without palpable masses. Trachea is midline. No thyromegaly. No carotid bruit or JVD. BREASTS: Normal. Nipples unremarkable. No drainage. No lumps felt on either side. HEART: Normal S1, S2, without significant murmur, rub, or gallop. LUNGS: Clear to auscultation and percussion with good air entry bilaterally. The patient is breathing easily without the use of accessory muscles. Diaphragmatic excursions are intact. ABDOMEN: No costovertebral angle tenderness. Soft. No organomegaly or masses. Nontender. No hernias present. Liver and spleen are not palpable. LYMPHATIC: No adenopathy noted in the cervical, supraclavicular, axillary, or inguinal regions. NEUROLGIC: Nonfocal. Oriented to person, place, and time. MENTAL STATUS: Appropriate for mood and affect. PERIPHERAL PULSES: No varicosities. Femoral and pedal pulses are palpable. EXTREMITIES: Without cyanosis, clubbing, or edema. No gross anomalies. LABORATORY DATA: Sodium 132, potassium 3.0, chloride 94, bicarbonate 28, EGFR more than 60. White count of 2.7, hemoglobin 10.3, hematocrit 29.1, platelet count 126 with ANC of 1500. ASSESSMENT: 1. Pancytopenia secondary to chemotherapy. 2. Possible pneumonia. [place], [place] REPORT OF CONSULTATION NAME: ALEIDA SUH UNIT #: [id number] ROOM: [facility] DOCTOR: CHRISTOPHE SWEET MD BIRTHDATE: [birth year] 3. Small cell lung cancer, undergoing chemotherapy. 4. Hyponatremia, which is resolved. PLAN: We will keep a close watch on the white count, if it start dropping, then starting growth factors. In the meantime, continue broad spectrum antibiotics and get records from Dr. Segura office where patient was seen as a consult for radiation. I had a detailed discussion with the patient about it and she seemed to understand it. Ample time was given to the patient to ask me questions. We will keep a close watch on her counts. We will follow. Thanks for consulting and letting me participate in the care of this patient. CHRISTOPHE SWEET MD CM:CONSTR:REPORT OF CONSULTATION 1436 09/01/17 0732 interface
--- NOTE | ~2017-08-23 | PR ---
[place], [place] PROGRESS NOTE NAME: ALEIDA SUH UNIT #: [id number] ROOM: 525 DOCTOR: CHRISTOPHE SWEET MD BIRTHDATE: [birth year] DOS: 08/24/2017 SUBJECTIVE: The patient is doing better. She is feeling better. She had had a CTA done, which showed bilateral pulmonary emboli and was started on Lovenox. REVIEW OF SYSTEMS HEENT: No trouble swallowing. No double vision. No loss of vision. No pain. ENT AND RESPIRATORY: No wheeze. No change in voice. No cough. No shortness of breath. No coughing up blood. No epistaxis. CARDIOLOGIC: No chest pain. No dizziness. No irregular heartbeat. No leg edema. No palpitations. No shortness of breath. HEMATOLOGIC AND LYMPH: No past transfusion. No fatigue. No loss of appetite. No easy bruising. GASTROENEROLOGIC: No change in bowel habits. No vomiting blood. No abdominal cramping. No nausea. No vomiting. No diarrhea. No constipation. No blood in stool. FEMALE REPRODUCTIVE: No dyspareunia. No pelvic pain. MUSCULOSKELETAL: No back pain. No muscle pain or weakness. No tingling/numbness. UROLOGIC: No pain with urination. No difficulty urinating. No frequent urination. NEUROLOGIC: No burning pain in feet. No trouble with coordination. No loss of consciousness. No headache. No tingling/numbness. No memory loss. PHYSICAL EXAMINATION: GENERAL: She is a pleasant woman in no apparent distress. VITAL SIGNS: Stable. She is febrile. HEENT: Normocephalic, atraumatic NECK AND THYROID: Supple. No JVD, thyromegaly, or lymphadenopathy. HEART: Normal S1, S2. Regular rate and rhythm. LUNGS: Clear to auscultation and percussion. ABDOMEN: Soft. Nontender, nondistended. Bowel sounds present. EXTREMITIES: Normal ROM. No clubbing. No edema. RADIOLOGY: CT of the chest done on 08/2013 showed bilateral lower lobe pulmonary emboli and findings consistent with metastatic disease at T9 and T10. LABORATORY DATA: White count of 1.7, hemoglobin of 8.9, hematocrit 25.9, platelet count of 88,000 and ANC of 900. ASSESSMENT: 1. Small cell lung cancer, undergoing chemotherapy. 2. Bilateral pulmonary emboli which is a new finding. 3. Pancytopenia secondary to chemotherapy. 4. History of hyponatremia. 5. Possible right middle lobe pneumonia. PLAN: The plan will be starting on growth factors, neutropenic precautions, isolation, blood cultures if not done as well as Lovenox for her bilateral pulmonary embolism. We will keep a close watch at this time. At this time, if [place], [place] PROGRESS NOTE NAME: ALEIDA SUH UNIT #: [id number] ROOM: [facility] DOCTOR: KEE BRO,CHRISTOPHE BIRTHDATE: [birth year] her platelet starts dropping less than 25 then, her Lovenox has to be decreased to half. She was sent to radiation and was told that she is not a candidate for radiation too, I do not have the records this is as per the patient. Had had detailed discussion with the patient about it, seemed to understand it. Ample time was given to the patient to ask me questions. CHRISTOPHE SWEET MD CM:PNTRANS 1347 CHRISTOPHE SWEET MD 08/25/17 0203 interface
--- NOTE | ~2017-08-23 | PROC NOTE ---
[place], [place] PROCEDURE NOTE NAME: ALEIDA SUH UNIT #: [id number] ROOM: 525 DOCTOR: CRISTIAN JONES BIRTHDATE: [birth year] DOS: 08/25/2017 MODIFIED BARIUM SWALLOW LOCATION: [facility], room 525, bed 1. ORDERING PHYSICIAN: Dr. Candelaria. RADIOLOGIST: Dr. Monzon. BACKGROUND INFORMATION: The patient is a 62-year-old female, was seen for modified barium swallow. This test was ordered to rule out aspiration. The patient presents with pneumonia. She has been undergoing chemotherapy since April due to lung cancer. She has been experiencing weakness, abdominal pain and poor intake. History is also significant for COPD and anxiety. The patient currently receives a regular diet and thin liquids. For today's assessment, she was alert and able to follow commands. Congested respirations were displayed. The patient denied any difficulty breathing at current time. Oral peripheral examination revealed edentulous status. Lingual and labial skills were within normal limits in terms of strength, range of motion, and coordination. The patient was able to volitionally cough and swallow. METHODS AND MATERIALS USED FOR THE EXAM: The patient was positioned in the lateral plane and examination was viewed under fluoroscopy. The patient was presented with a variety of consistencies to assess swallowing skills including applesauce mixed with barium presented in half teaspoon amounts. Barium coated banana and cookie presented in bite size pieces and thin liquid barium taken by cup. ORAL PHASE: Unremarkable. PHARYNGEAL PHASE: Unremarkable. ESOPHAGEAL PHASE: This phase of the swallow was not formally assessed during this examination. IMPRESSIONS AND RECOMMENDATIONS: Based upon assessment results, this 62-year-old patient presents with swallowing skills that are within normal limits. Recommend she remain on present diet. No followup treatment is warranted at this time. Results and recommendations were shared with the patient and nurse and they verbalized understanding. Thank you very much for this referral. Should you have any questions regarding this patient, please contact the speech pathologist at [phone]. [place], [place] PROCEDURE NOTE NAME: ALEIDA SUH UNIT #: [id number] ROOM: 525 DOCTOR: CRISTIAN JONES BIRTHDATE: [birth year] CRISTIAN JONES CM:PROCNOTE:PROCEDURE NOTE [id number] LALO CHRISTIAN
--- NOTE | ~2017-08-23 | PR ---
[place], [place] PROGRESS NOTE NAME: ALEIDA SUH UNIT #: [id number] ROOM: 525 DOCTOR: CHRISTOPHE SWEET MD BIRTHDATE: [birth year] DOS: 08/26/2017 SUBJECTIVE: The patient is awake, alert, and responsive and breathing is much better. REVIEW OF SYSTEMS: HEENT: No trouble swallowing. No double vision. No loss of vision. No pain. ENT AND RESPIRATORY: No wheeze. No change in voice. No cough. No shortness of breath. No coughing up blood. No epistaxis. CARDIOLOGIC: No chest pain. No dizziness. No irregular heartbeat. No leg edema. No palpitations. No shortness of breath. HEMATOLOGIC AND LYMPH: No past transfusion. No fatigue. No loss of appetite. No easy bruising. GASTROENEROLOGIC: No change in bowel habits. No vomiting blood. No abdominal cramping. No nausea. No vomiting. No diarrhea. No constipation. No blood in stool. FEMALE REPRODUCTIVE: No dyspareunia. No pelvic pain. MUSCULOSKELETAL: No back pain. No muscle pain or weakness. No tingling/numbness. UROLOGIC: No pain with urination. No difficulty urinating. No frequent urination. NEUROLOGIC: No burning pain in feet. No trouble with coordination. No loss of consciousness. No headache. No tingling/numbness. No memory loss. PHYSICAL EXAMINATION: GENERAL: Pleasant woman in no apparent distress. VITAL SIGNS: Stable. She is afebrile. HEENT: Normocephalic, atraumatic. NECK AND THYROID: Supple. No JVD, thyromegaly, or lymphadenopathy. HEART: Normal S1, S2. Regular rate and rhythm. LUNGS: Clear to auscultation and percussion. ABDOMEN: Soft. Nontender, nondistended. Bowel sounds present. EXTREMITIES: Normal ROM. No clubbing. No edema. ASSESSMENT: 1. Pancytopenia secondary to chemotherapy with decreasing platelet count as well as hemoglobin. 2. Small cell lung cancer. 3. Right middle lobe pneumonia. 4. History of SIADH. PLAN: The patient was started on Eliquis. I talked to the nurse to talk to Dr. Candelaria to probably start her on Lovenox half dose, and stop the Lovenox since patient probably will be going to [facility] for further evaluation. In the meantime, she should be getting a couple of units of packed RBC. We will follow her once she comes out of [facility]. I also discussed the case with physician. RADIOLOGY: CT of the chest showed bilateral lower lobe pulmonary emboli as well as finding consistent with metastatic disease at T9 and T10. [place], [place] PROGRESS NOTE NAME: ALEIDA SUH UNIT #: [id number] ROOM: [facility] DOCTOR: CHRISTOPHE SWEET MD BIRTHDATE: [birth year] LABORATORY DATA: Chemistries: Glucose of 91, BUN of 2, EGFR more than 60, sodium 138, chloride 105, bicarb 24, calcium 7.5, SGOT 8, SGPT 14, alkaline phosphatase 120. White count of 1.4, hemoglobin of 6.8, hematocrit 20.3, platelet count of 35,000. CHRISTOPHE SWEET MD CM:PNTRANS [id number] CHRISTOPHE SWEET MD 09/01/17 0734 interface
--- NOTE | ~2017-08-23 | EKG ---
[place], [place] ELECTROCARDIOGRAM REPORT NAME: ALEIDA SUH UNIT #: [id number] ROOM: 525 DOCTOR: MO DUMONT MD,SHIRA BIRTHDATE: [birth year] DOS: 08/23/2017 Electrocardiogram done for patient on 08/23/2017 at 11:05 a.m. Normal sinus rhythms were noted. Heart rate 96 beats per minute. There were no changes or acute ischemia. Left atrial enlargement was noted. SHIRA HASSAN MD CM:EKGRPT:ELECTROCARDIOGRAM REPORT [id number] SHIRA DUMONT MD
[~2017-08-23 10:37] MED LIST changes: -PERCOCET 5-3251 EACH PO; -PROAIR HFA8.5 GM INH; -SODIUM CHLORI1000 MG PO
[2017-08-23 10:45] VITALS: BP 117/79
[2017-08-23 11:35] LABS: HEMATOCRIT 29.1 % (37.0-47.0); HEMOGLOBIN 10.3 g/dl (12.0-16.0); MEAN CELL VOLUME 87.1 fl (81.0-99.0); MEAN CORPUSCULAR HGB 30.8 pg (27.0-31.0); MEAN CORPUSCULAR HGB CONC 35.4 g/dl (33.0-37.0); PLATELET COUNT AUTOMATED 126 10*3/uL (130-400); RED BLOOD COUNT 3.34 10*6/uL (4.10-5.10); RED CELL DISTRI WIDTH 15.8 % (0-14.5); WHITE BLOOD COUNT 2.7 10*3/uL (4.8-10.8)
[2017-08-23 11:38] LABS: ACT PARTIAL THROMBO TIME 19.1 SECONDS (20.8-31.5); INTERNATIONAL NORM RATIO 0.9 (2.0-3.5)
[2017-08-23 11:43] LABS: ALBUMIN 3.5 gm/dl (3.1-4.5); ALKALINE PHOSPHATASE 175 U/L (45-117); BUN 15 mg/dl (7-24); CHLORIDE 94 mmol/L (98-107); CREATININE 0.67 mg/dL (0.55-1.02); LIPASE 92 U/L (73-393); SGOT/AST 19 IU/L (3-35); SGPT/ALT 23 U/L (12-78); SODIUM 132 mmol/L (136-145); TROPONIN I 0.015 ng/ml (<0.045)
[2017-08-23 12:17] LABS: BASOPHILS 1 % (0-1); TOTAL CELLS COUNTED 100 #CELLS
[2017-08-23 12:19] LABS: OVALOCYTES FEW
[2017-08-23 12:21] LABS: PLATELET SUFFICIENCY LOW (NORMAL)
[2017-08-23] MEDS ORDERED: PROAIR HFA8.5 GM INH (13:45)
[2017-08-23] MEDS ORDERED: SODIUM CHLORI1000 MG PO (13:46)
--- NOTE | 2017-08-23 13:48 | NUR ---
HOME MEDS VERIFIED WITH CHRISTINE AT [facility]
[2017-08-23 14:00] VITALS: BP 112/86
--- NOTE | 2017-08-23 14:10 | NUR ---
A 62, admitted to 5E, under the services of VILMA Flores DO with a diagnosis of RML PNEUMONIA. Chief complaint is WEAKNESS. Patient arrived via stretcher from ER. Monitor applied. Initial assessment completed. Vital signs taken and recorded. VILMA FLORES DO notified of admission to the unit. Orders received. See assessment for past medical history, medications and allergies. Patient and/or family oriented to unit. [address] visitation policy reviewed. Clothing/patient valuable form completed. MOSHE TIDWELL
--- NOTE | 2017-08-23 14:40 | NUR ---
DR SWEET ON FLOOR AND MADE AWARE OF CONSULT. HE SEEN PT.
[2017-08-23 16:00] VITALS: BP 133/95
[2017-08-23] MEDS ORDERED: PERCOCET 5-3251 EACH PO (18:14)
--- NOTE | 2017-08-23 18:24 | NUR ---
PT MEDICATED WITH IV DILAUDID FOR C/O GENERALIZED "ALL OVER" PAIN PT RATES PAIN /10. WILL MONITOR . CALL LIGHT WITHIN REACH
--- NOTE | 2017-08-23 19:53 | NUR ---
CTA SHOWED BILATERAL PE. CALLED AND QUESTIONED IF PT SHOULD BE PUT ON A HEPARIN GTT. DR KEATING STATES PT DOSE OF LOVENOX IS THERAPEUTIC. NO NEW ORDERS RECEIVED
[2017-08-23 20:00] VITALS: BP 122/87
--- NOTE | 2017-08-23 20:00 | NUR ---
ASSUMED CARE OF PATIENT. ASSESSMENT COMPLETE. RESTING IN BED. NO VOICED COMPLAINTS. CALL LIGHT IN REACH. WILL CONTINUE TO MONITOR.
--- NOTE | 2017-08-23 23:57 | NUR ---
MEDICATED WITH PRN RESTORIL FOR HELP TO SLEEP.
[2017-08-24] VITALS: BP 111/85
--- NOTE | 2017-08-24 02:00 | NUR ---
EARLIER RESTORIL EFFECTIVE, PT SLEEPING. RESP NONLABORED ON 2L NC. NO DISTRESS NOTED. CALL LIGHT IN REACH. WILL CONTINUE TO MONITOR.
--- NOTE | 2017-08-24 04:05 | NUR ---
MEDICATED WITH PRN ZOFRAN FOR C/O NAUSEA. WILL MONITOR FOR EFFECTIVENESS
--- NOTE | 2017-08-24 06:22 | NUR ---
PT RECEIVED PERCOCET FOR PAIN RATED 7/10.
[2017-08-24 06:29] LABS: HEMATOCRIT 25.9 % (37.0-47.0); HEMOGLOBIN 8.9 g/dl (12.0-16.0); MEAN CELL VOLUME 87.2 fl (81.0-99.0); MEAN CORPUSCULAR HGB CONC 34.4 g/dl (33.0-37.0); MEAN PLATELET VOLUME 10.9 fl (9.6-12.3); RED BLOOD COUNT 2.97 10*6/uL (4.10-5.10); RED CELL DISTRI WIDTH 15.8 % (0-14.5)
[2017-08-24 06:30] LABS: ALBUMIN 3.1 gm/dl (3.1-4.5); ALKALINE PHOSPHATASE 157 U/L (45-117); BUN 11 mg/dl (7-24); CHLORIDE 96 mmol/L (98-107); CREATININE 0.73 mg/dL (0.55-1.02); PHOSPHOROUS 3.2 mg/dL (2.5-4.9); POTASSIUM 2.8 mmol/L (3.5-5.1); SGOT/AST 21 IU/L (3-35); SGPT/ALT 20 U/L (12-78); SODIUM 131 mmol/L (136-145); TOTAL PROTEIN 6.4 gm/dL (6.4-8.2)
[2017-08-24 06:36] LABS: PLATELET COUNT AUTOMATED 88 10*3/uL (130-400)
[2017-08-24 06:52] LABS: WHITE BLOOD COUNT 1.7 10*3/uL (4.8-10.8)
[2017-08-24 06:54] LABS: TOTAL CELLS COUNTED 100 #CELLS
[2017-08-24 06:55] LABS: PLATELET SUFFICIENCY LOW (NORMAL); POLYCHROMASIA SLIGHT
--- NOTE | 2017-08-24 06:58 | NUR ---
LAB CALLED CRITICAL WBC 1.[address] SWEET AWARE. ORDER RECEIVED FOR NEUPGEN 480 MCG DAILT SQ, HOLD IF WBC >[id number] ASKED IF HE WANTED PT PLACED IN REVERSE ISOLATION AND HE STATED NO AT THIS TIME
[2017-08-24 08:00] VITALS: BP 129/88
--- NOTE | 2017-08-24 08:30 | NUR ---
Patient resting quietly with no c/o discomfort. Respirations easy and regular. Vital signs stable. No overt distress. MOSHE TIDWELL R
--- NOTE | 2017-08-24 09:00 | NUR ---
[facility] in to talk to patient. Patient states lives at home with boyfriend. There are few steps in the home. Physician: shree [facility]acy[facility] Patient's level of ADLs: MINIMAL ASSIST Patient has working utilities: all working DME: [employer] Follow-up physician's appointment after d/c: will be made by hospitalist nurse director upon discharge Does patient want to access PORTAL?: no Discharge plan discussed with patient, patient states she will be going back home and wants to continue home health, case management will follow. OSWALD MICHEL
--- NOTE | 2017-08-24 09:49 | NUR ---
pt states she is having diarrhea this morning. she requested medication for it. Dr Wood notified.
--- NOTE | 2017-08-24 11:16 | NUR ---
DR DELACRUZ ASKED THIS NURSE TO CALL DR SWEET ABOUT PLT COUNT AND LOVENOX. DR NANCE CALLED RE: LOW PLT COUNT OF 88 AND USE OF LOVENOX FOR CTA RESULTS OF PULMONARY EMBOLI. DR CHRISTIANSON STATES LOVENOX USE IS OK UNTIL PLT COUNT OF 30 THEN DOSE WOULD NEED ADJUSTED.
[2017-08-24 12:00] VITALS: BP 118/61
--- NOTE | 2017-08-24 14:33 | NUR ---
[facility] stated they are unable to accept this patient under their services at this time due to staffing. Will discuss with patient regarding other agencies.
[2017-08-24 16:00] VITALS: BP 132/88
--- NOTE | 2017-08-24 19:07 | NUR ---
STOOL FOR CDIFF SENT. PT VOIDED IN URINE COLLECTION HAT WITH STOOL NOTED. NO URINE SENT AT THIS TIME. WILL MONITOR.
[2017-08-24 20:00] VITALS: BP 96/70
--- NOTE | 2017-08-24 21:29 | NUR ---
PRN TRAZADONE GIVEN TO PT. AT THIS TIME FOR C/O INSOMINA. WILL MONITOR EFFECT.
--- NOTE | 2017-08-24 21:45 | NUR ---
PRN DILAUDID GIVEN PER PT. REQUEST FOR C/O GENERALIZED PAIN RATING A 05/20. WILL MONITOR EFFECT.
--- NOTE | 2017-08-24 23:12 | NUR ---
ASSUMED CARE OF PATIENT. PERFORMED PATIENT ASSESSMENT.
--- NOTE | 2017-08-24 23:44 | NUR ---
PT RECEIVED ZOFRAN FOR UPSET STOMACH, INDIGESTION/NAUSEA.
[2017-08-25] VITALS: BP 121/91
--- NOTE | 2017-08-25 00:30 | NUR ---
PT STATES STILL NAUSEATED, BUT NOT MUCH.
--- NOTE | 2017-08-25 02:35 | NUR ---
STOOL COLLECTED AND SENT TO LAB. LAB STATES IT WILL NOT BE RAN UNTIL AM.
--- NOTE | 2017-08-25 02:37 | NUR ---
PT REQUESTING IMMODIUM FOR C/O DIARRHEA. CALLED AND SPOKE TO DR RUIZ, SHE STATES SHE CAN ORDER THE IMMODIUM SOON WE GET A STOOL SAMPLE FOR CDIFF.
[2017-08-25 04:00] VITALS: BP 125/105
--- NOTE | 2017-08-25 04:12 | NUR ---
SPUTUM SPECIMEN NOT COLLECTED D/T PATIENT CONTINUES TO SPIT SPUTUM INTO TISSUE INSTEAD OF SPUTUM SPECIMEN CONTAINER AFTER MULTIPLE COACHINGS.
--- NOTE | 2017-08-25 06:00 | NUR ---
ORDER RECEIVED FROM DR RUIZ TO USE MEDIPORT FOR LAB DRAWS
--- NOTE | 2017-08-25 06:07 | NUR ---
PT RECEIVED TUMS FOR INDIGESTION.
[2017-08-25 06:19] LABS: HEMATOCRIT 21.6 % (37.0-47.0); HEMOGLOBIN 7.3 g/dl (12.0-16.0); MEAN CELL VOLUME 89.6 fl (81.0-99.0); MEAN CORPUSCULAR HGB 30.3 pg (27.0-31.0); MEAN CORPUSCULAR HGB CONC 33.8 g/dl (33.0-37.0); MEAN PLATELET VOLUME 11.2 fl (9.6-12.3); RED BLOOD COUNT 2.41 10*6/uL (4.10-5.10); RED CELL DISTRI WIDTH 15.9 % (0-14.5); WHITE BLOOD COUNT 2.9 10*3/uL (4.8-10.8)
[2017-08-25 06:20] LABS: PLATELET COUNT AUTOMATED 55 10*3/uL (130-400)
[2017-08-25 06:50] LABS: ALBUMIN 2.7 gm/dl (3.1-4.5); ALKALINE PHOSPHATASE 127 U/L (45-117); BUN 4 mg/dl (7-24); CHLORIDE 102 mmol/L (98-107); PHOSPHOROUS 2.4 mg/dL (2.5-4.9); POTASSIUM 2.7 mmol/L (3.5-5.1); SGOT/AST 13 IU/L (3-35); SGPT/ALT 17 U/L (12-78); SODIUM 135 mmol/L (136-145); TOTAL PROTEIN 5.5 gm/dL (6.4-8.2); VANCOMYCIN TROUGH 12.1 ug/mL (10-20)
[2017-08-25 06:55] LABS: TOTAL CELLS COUNTED 100 #CELLS
[2017-08-25 06:56] LABS: OVALOCYTES FEW; PLATELET SUFFICIENCY LOW (NORMAL); POLYCHROMASIA SLIGHT
[2017-08-25 08:00] VITALS: BP 136/98
[2017-08-25 12:00] VITALS: BP 154/87
--- NOTE | 2017-08-25 12:32 | NUR ---
SPEECH PATHOLOGY MBS completed as per orders. Patient was administered puree, solid (pieces of banana and bread) and thin liquid. Oral and pharyngeal swallowing skills were WNL with all consistencies. Recommend patient remain on present diet. No follow up treatment is warranted at this time. Results and alvino. were shared with patient and nurse and they verbalized understanding. Dictated report to follow. Thank you for this referral. CRISTIAN JONES MSCCC-PAN OPERATOR
[2017-08-25 16:00] VITALS: BP 120/79
[2017-08-25 20:00] VITALS: BP 136/85
--- NOTE | 2017-08-25 23:15 | NUR ---
Medicated with Trazodone po prn for help with sleep. Will monitor effectiveness. Call light within reach.
[2017-08-26] VITALS (15 sets, daily range): BP systolic 106–140; BP diastolic 65–105
--- NOTE | 2017-08-26 00:20 | NUR ---
Patient resting quietly in bed with eyes closed. Trazodone effective. Will continue to monitor. Call light within reach.
--- NOTE | 2017-08-26 01:12 | NUR ---
24 HR chart check completed.
[2017-08-26 07:03] LABS: HEMATOCRIT 20.3 % (37.0-47.0); HEMOGLOBIN 6.8 g/dl (12.0-16.0); MEAN CORPUSCULAR HGB 29.8 pg (27.0-31.0); MEAN CORPUSCULAR HGB CONC 33.5 g/dl (33.0-37.0); MEAN PLATELET VOLUME 11.9 fl (9.6-12.3); RED BLOOD COUNT 2.28 10*6/uL (4.10-5.10); RED CELL DISTRI WIDTH 15.9 % (0-14.5)
[2017-08-26 07:05] LABS: PLATELET COUNT AUTOMATED 35 10*3/uL (130-400)
[2017-08-26 07:30] LABS: BASOPHILS 4 % (0-1); PLATELET SUFFICIENCY LOW (NORMAL); SPHEROCYTES FEW; TOTAL CELLS COUNTED 100 #CELLS
[2017-08-26 07:32] LABS: WHITE BLOOD COUNT 1.4 10*3/uL (4.8-10.8)
[2017-08-26 07:35] LABS: ALBUMIN 2.6 gm/dl (3.1-4.5); BUN 2 mg/dl (7-24); CHLORIDE 105 mmol/L (98-107); CREATININE 0.47 mg/dL (0.55-1.02); PHOSPHOROUS 3.1 mg/dL (2.5-4.9); POTASSIUM 2.5 mmol/L (3.5-5.1); SGOT/AST 8 IU/L (3-35); SGPT/ALT 14 U/L (12-78); SODIUM 138 mmol/L (136-145)
[2017-08-26 07:37] LABS: ALKALINE PHOSPHATASE 120 U/L (45-117); TOTAL PROTEIN 5.3 gm/dL (6.4-8.2)
--- NOTE | 2017-08-26 09:02 | NUR ---
case management received a message that patient would need xeralto upon discharge, called [facility], spoke to pharmacist, medication is covered at 100%, will inform hospitalist nurse director
--- NOTE | 2017-08-26 11:32 | NUR ---
DR SWEET NOTIFIED OF HGB 6.8, WBC 1.4, PLATELETS 35. [address]LOOD [address]. [address] GAMA IN TO SEE PATIENT. DR. GAMA STATES PATIENT WILL BE TRANSFERRED TO HIGHER LEVEL OF CARE.
--- NOTE | 2017-08-26 12:21 | NUR ---
PT IN BED, EYES CLOSED. RESTING.
--- NOTE | 2017-08-26 13:50 | NUR ---
Informed consent obtained from patient for Blood transfussion by Dr. SWEET. Patient identified by arm band. Vital signs recorded. Blood unit number verified by 2 R.N.'s. I.V. site satisfactory. Unit 1 started at a KVO rate with Normal Saline. MAYURI COOLEY
--- NOTE | 2017-08-26 13:58 | NUR ---
PT REQUESTED MEDICATION FOR NAUSEA AND PAIN. PAIN RATED AT 8 OUT OF 10. LOCATED IN THE ABDOMINAL/PELVIS AREA AND LOWER BACK. PAIN IS CONSTANT AND ACHING. DILAUDID AND ZOFRAN GIVEN.
--- NOTE | 2017-08-26 15:31 | NUR ---
PT REQUESTED MEDICATION FOR INDIGESTION. TUMS GIVEN.
--- NOTE | 2017-08-26 15:35 | NUR ---
PT REQUESTED PAIN MEDICATION FOR HIP, BACK, ABD PAIN RATED AT 7 OUT OF 10. PAIN IS CONSTANT AND ACHING, DULL. PERCOCET GIVEN.
[2017-08-26] MEDS ORDERED: NEUPOGEN480 MCG/1. SC (15:45)
[2017-08-26] MEDS ORDERED: ELIQUIS5 M1 PO (15:45)
--- NOTE | 2017-08-26 17:43 | NUR ---
PT REQUESTED PAIN MEDICATION FOR ABDOMINAL PAIN. RATES PAIN AT 7 OUT OF 10 AND DESCRIBES IT CONSTANT AND ACHING. TYLENOL GIVEN.
--- NOTE | 2017-08-26 17:50 | NUR ---
Informed consent obtained from patient for Blood transfussion by Dr. SWEET. Patient identified by arm band. Vital signs recorded. Blood unit number verified by 2 R.N.'s. I.V. site satisfactory. Unit 2 started at a KVO rate with Normal Saline. MAYURI COOLEY
--- NOTE | 2017-08-26 18:04 | NUR ---
DR. SILVERIO NOTIFIED OF CRITICAL HIGH VANC.
--- NOTE | 2017-08-26 19:44 | NUR ---
Discharge instructions reviewed with patient/family. Patient receptive and verbalizes understanding. Follow-up care arranged. Written instructions given to patient/family. LUIS JENKINS
--- NOTE | 2017-08-26 19:49 | NUR ---
TRANSFER REPORT GIVEN TO ULISES AT [facility].
[2017-08-27 19:08] LABS: HLA CLASS 1 ANTIBODY Negative (Negative); IIb/IIIa ANTIBODY Negative (Negative); Ia/IIa ANTIBODY Negative (Negative); Ib/IX ANTIBODY Negative (Negative)
[2017-08-28 19:06] LABS: PLT ASSOCIATED ANTI-la/lla Negative (Negative); PLT ASSOCIATED ANTI-llb/llla Negative (Negative)
== END 2017-08-26 19:30 | disposition short-term general hospital (02) | DRG 871 ==
LOC: ED 10:37 → 5E 12:58 → EDHOLD 12:58 → 5E 13:29
PROVIDERS: Internal Medicine; Nurse Practitioner Family; ADMIT Internal Medicine
PROC: 3E0234Z Introduction of Serum, Toxoid and Vaccine into Muscle, Percutaneous Approach (ICD-10-PCS; 2017-08-23)
PROC: BD11YZZ Fluoroscopy of Esophagus using Other Contrast (ICD-10-PCS; principal; 2017-08-25)
PROC: BD1BYZZ Fluoroscopy of Mouth/Oropharynx using Other Contrast (ICD-10-PCS; 2017-08-25)
PROC: 30233N1 Transfusion of Nonautologous Red Blood Cells into Peripheral Vein, Percutaneous Approach (ICD-10-PCS; 2017-08-26)
DX: A41.9 Sepsis, unspecified organism (principal); I26.99 Other pulmonary embolism without acute cor pulmonale; J69.0 Pneumonitis due to inhalation of food and vomit; G93.40 Encephalopathy, unspecified; D61.810 Antineoplastic chemotherapy induced pancytopenia; C34.90 Malignant neoplasm of unspecified part of unspecified bronchus or lung; E87.8 Other disorders of electrolyte and fluid balance, not elsewhere classified; J44.9 Chronic obstructive pulmonary disease, unspecified; E44.1 Mild protein-calorie malnutrition; E87.1 Hypo-osmolality and hyponatremia; R41.3 Other amnesia; E87.6 Hypokalemia; I10 Essential (primary) hypertension; G40.909 Epilepsy, unspecified, not intractable, without status epilepticus; R44.1 Visual hallucinations; F17.210 Nicotine dependence, cigarettes, uncomplicated; Z71.6 Tobacco abuse counseling; Z79.899 Other long term (current) drug therapy; Z85.41 Personal history of malignant neoplasm of cervix uteri; Z94.7 Corneal transplant status; Z72.89 Other problems related to lifestyle; Z82.49 Family history of ischemic heart disease and other diseases of the circulatory system; Z23 Encounter for immunization; Z68.23 Body mass index [BMI] 23.0-23.9, adult

== ENCOUNTER 2017-09-06 17:32 | Emergency (ER) | payer OTHER ==
[~2017-09-06] VITALS: Ht 170.1 cm; Wt 72.6 kg
[~2017-09-06 17:32] MED LIST changes: +ELIQUIS5 M1 PO; +NEUPOGEN480 MCG/1. SC; +PERCOCET 5-3251 EACH PO; +PROAIR HFA8.5 GM INH; +SODIUM CHLORI1000 MG PO
[2017-09-06 18:46] LABS: BASO % 0.5 % (0.0-1.0); EOS % 0.2 % (1.0-4.0); HEMATOCRIT 23.2 % (37.0-47.0); HEMOGLOBIN 7.9 g/dl (12.0-16.0); LYMPH # 1.4 10*3/uL (1.3-4.4); LYMPH % 34.7 % (27.0-41.0); MEAN CELL VOLUME 87.5 fl (81.0-99.0); MEAN CORPUSCULAR HGB 29.8 pg (27.0-31.0); MEAN CORPUSCULAR HGB CONC 34.1 g/dl (33.0-37.0); MEAN PLATELET VOLUME 9.7 fl (9.6-12.3); MONO # 0.5 10*3/uL (0.1-1.0); MONO % 12.2 % (3.0-9.0); NEUT # 2.1 10*3/uL (2.3-7.9); NEUT % 51.4 % (47.0-73.0); PLATELET COUNT AUTOMATED 171 10*3/uL (130-400); RED BLOOD COUNT 2.65 10*6/uL (4.10-5.10); RED CELL DISTRI WIDTH 16.8 % (0-14.5)
[2017-09-06 19:01] LABS: ALBUMIN 2.7 gm/dl (3.1-4.5)
[2017-09-06 19:02] LABS: TOTAL PROTEIN 6.1 gm/dL (6.4-8.2)
[2017-09-06 19:12] LABS: CREATININE 1.29 mg/dL (0.55-1.02)
[2017-09-06 19:20] LABS: POTASSIUM 2.4 mmol/L (3.5-5.1)
[2017-09-07] MEDS ORDERED: CLINDAMYCIN HC300 MG PO (01:53)
== END 2017-09-07 02:06 | disposition home or self-care (01) ==
LOC: ED 17:32
PROVIDERS: Physician Assistant
DX: L03.116 Cellulitis of left lower limb (principal); E87.6 Hypokalemia; F17.210 Nicotine dependence, cigarettes, uncomplicated; Z79.899 Other long term (current) drug therapy

== ENCOUNTER 2017-09-12 10:00 | Emergency (ER) | payer OTHER ==
[2017-09-12] VITALS (13 sets, daily range): BP systolic 123–179; BP diastolic 73–115
[~2017-09-12] VITALS: Ht 170.1 cm; Wt 72.6 kg
[~2017-09-12 10:00] MED LIST changes: +CLINDAMYCIN HC300 MG PO
[2017-09-12 10:30] LABS: BASO % 0.5 % (0.0-1.0); EOS % 0.2 % (1.0-4.0); HEMATOCRIT 27.2 % (37.0-47.0); HEMOGLOBIN 9.3 g/dl (12.0-16.0); LYMPH # 1.7 10*3/uL (1.3-4.4); LYMPH % 42.7 % (27.0-41.0); MEAN CELL VOLUME 87.7 fl (81.0-99.0); MEAN CORPUSCULAR HGB CONC 34.2 g/dl (33.0-37.0); MEAN PLATELET VOLUME 9.2 fl (9.6-12.3); MONO # 0.5 10*3/uL (0.1-1.0); MONO % 12.4 % (3.0-9.0); NEUT # 1.8 10*3/uL (2.3-7.9); NEUT % 43.7 % (47.0-73.0); PLATELET COUNT AUTOMATED 231 10*3/uL (130-400); RED CELL DISTRI WIDTH 17.1 % (0-14.5)
[2017-09-12 10:38] LABS: ACT PARTIAL THROMBO TIME 25.9 SECONDS (20.8-31.5)
[2017-09-12 10:48] LABS: ALBUMIN 3.4 gm/dl (3.1-4.5); ALKALINE PHOSPHATASE 155 U/L (45-117); BUN 4 mg/dl (7-24); CHLORIDE 99 mmol/L (98-107); CREATININE 0.73 mg/dL (0.55-1.02); POTASSIUM 2.7 mmol/L (3.5-5.1); SGOT/AST 12 IU/L (3-35); SGPT/ALT 11 U/L (12-78); SODIUM 138 mmol/L (136-145); TOTAL PROTEIN 6.9 gm/dL (6.4-8.2); TROPONIN I < 0.015 ng/ml (<0.045)
[2017-09-12 10:55] LABS: ABG BASE EXCESS 4.9 mmol/L (-2.0-2.0); ABG HCO3 26.2 mmol/l (22-26); ARTERIAL BLOOD GAS PCO2 26.6 mmHg (35-45); ARTERIAL BLOOD GAS PH 7.598 (7.35-7.45)
[2017-09-12 10:56] LABS: ABG O2 SATURATION 99.9 % (95-97)
== END 2017-09-12 17:02 | disposition short-term general hospital (02) ==
LOC: ED 10:00 → EDHOLD 13:48 → ED 13:48 → ICCU 14:03 → EDHOLD 14:03 → ICCU 14:03 → ED 17:02
PROVIDERS: Student in an Organized Health Care Education/Training Program
DX: E87.6 Hypokalemia (principal); F17.210 Nicotine dependence, cigarettes, uncomplicated; J44.9 Chronic obstructive pulmonary disease, unspecified; G40.909 Epilepsy, unspecified, not intractable, without status epilepticus; I10 Essential (primary) hypertension; E78.00 Pure hypercholesterolemia, unspecified; Z87.01 Personal history of pneumonia (recurrent); Z98.890 Other specified postprocedural states; Z94.7 Corneal transplant status; Z79.899 Other long term (current) drug therapy; Z85.118 Personal history of other malignant neoplasm of bronchus and lung; Z99.81 Dependence on supplemental oxygen

== ENCOUNTER → 2017-09-19 | Outpatient (CLI) | payer OTHER ==
[2017-09-19 11:09] LABS: HEMATOCRIT 27.6 % (37.0-47.0); HEMOGLOBIN 9.4 g/dl (12.0-16.0); MEAN CELL VOLUME 92.6 fl (81.0-99.0); MEAN CORPUSCULAR HGB 31.5 pg (27.0-31.0); MEAN CORPUSCULAR HGB CONC 34.1 g/dl (33.0-37.0); MEAN PLATELET VOLUME 10.3 fl (9.6-12.3); PLATELET COUNT AUTOMATED 180 10*3/uL (130-400); RED BLOOD COUNT 2.98 10*6/uL (4.10-5.10); RED CELL DISTRI WIDTH 17.7 % (0-14.5); WHITE BLOOD COUNT 5.7 10*3/uL (4.8-10.8)
[2017-09-19 11:21] LABS: BASOPHILS 2 % (0-1); PLATELET SUFFICIENCY NORMAL (NORMAL); POLYCHROMASIA SLIGHT; TOTAL CELLS COUNTED 100 #CELLS
[2017-09-19 11:28] LABS: ALBUMIN 3.8 gm/dl (3.1-4.5); ALKALINE PHOSPHATASE 152 U/L (45-117); BUN 14 mg/dl (7-24); CHLORIDE 100 mmol/L (98-107); CREATININE 0.88 mg/dL (0.55-1.02); POTASSIUM 3.6 mmol/L (3.5-5.1); SGOT/AST 12 IU/L (3-35); SGPT/ALT 15 U/L (12-78); SODIUM 134 mmol/L (136-145)
== END | disposition home or self-care (01) ==
LOC: LAB 10:06
PROVIDERS: Internal Medicine Hematology & Oncology
DX: L03.116 Cellulitis of left lower limb (principal); C34.92 Malignant neoplasm of unspecified part of left bronchus or lung; D69.6 Thrombocytopenia, unspecified

== ENCOUNTER → 2017-09-26 | Outpatient (CLI) | payer OTHER ==
[2017-09-26 12:42] LABS: BASO % 0.3 % (0.0-1.0); EOS % 1.3 % (1.0-4.0); HEMATOCRIT 24.7 % (37.0-47.0); HEMOGLOBIN 8.4 g/dl (12.0-16.0); LYMPH # 0.9 10*3/uL (1.3-4.4); LYMPH % 29.4 % (27.0-41.0); MEAN CELL VOLUME 92.5 fl (81.0-99.0); MEAN CORPUSCULAR HGB 31.5 pg (27.0-31.0); MEAN PLATELET VOLUME 8.8 fl (9.6-12.3); MONO # 0.1 10*3/uL (0.1-1.0); MONO % 1.6 % (3.0-9.0); NEUT # 2.1 10*3/uL (2.3-7.9); NEUT % 67.1 % (47.0-73.0); PLATELET COUNT AUTOMATED 145 10*3/uL (130-400); RED BLOOD COUNT 2.67 10*6/uL (4.10-5.10); RED CELL DISTRI WIDTH 16.4 % (0-14.5); WHITE BLOOD COUNT 3.1 10*3/uL (4.8-10.8)
[2017-09-26 13:09] LABS: ALBUMIN 3.5 gm/dl (3.1-4.5); ALKALINE PHOSPHATASE 101 U/L (45-117); BUN 10 mg/dl (7-24); CHLORIDE 97 mmol/L (98-107); CHOLESTEROL 167 mg/dL (<200); CREATININE 0.74 mg/dL (0.55-1.02); FREE T4 1.08 ng/dl (0.76-1.46); HDL CHOLESTEROL 79 mg/dl (40-60); LDL CHOLESTEROL 56 mg/dL (9-159); POTASSIUM 3.2 mmol/L (3.5-5.1); SGOT/AST 13 IU/L (3-35); SGPT/ALT 18 U/L (12-78); SODIUM 135 mmol/L (136-145); TOTAL PROTEIN 6.5 gm/dL (6.4-8.2); TRIGLYCERIDES 160 mg/dl (<150); VLDL CHOLESTEROL 32 mg/dL (6-40)
== END | disposition home or self-care (01) ==
LOC: LAB 12:15
PROVIDERS: Internal Medicine
DX: C80.1 Malignant (primary) neoplasm, unspecified (principal); I10 Essential (primary) hypertension

== ENCOUNTER 2017-10-10 23:05 | Inpatient (IN) | payer OTHER ==
[~2017-10-10] VITALS: Ht 170.1 cm; Wt 69.5 kg
--- NOTE | ~2017-10-10 | CON ---
[place], [place] REPORT OF CONSULTATION NAME: ALEIDA SUH UNIT #: [id number] ROOM: 419 DOCTOR: CHRISTOPHE SWEET MD BIRTHDATE: [birth year] DOS: 10/14/2017 HISTORY OF PRESENT ILLNESS: The patient is doing better, though she still continues to be short of breath. She had a PET scan done, which showed response to chemotherapy as well as decrease in the metastatic disease in the bones. REVIEW OF SYSTEMS: LUNGS: Show bilateral expiratory wheeze. HEENT: No trouble swallowing. No double vision. No loss of vision. No pain. ENT AND RESPIRATORY: No change in voice. No cough. No shortness of breath. No coughing up blood. No epistaxis. CARDIOLOGIC: No chest pain. No dizziness. No irregular heartbeat. No leg edema. No palpitations. No shortness of breath. HEMATOLOGIC AND LYMPH: No past transfusion. No fatigue. No loss of appetite. No easy bruising. GASTROENEROLOGIC: No change in bowel habits. No vomiting blood. No abdominal cramping. No nausea. No vomiting. No diarrhea. No constipation. No blood in stool. FEMALE REPRODUCTIVE: No dyspareunia. No pelvic pain. MUSCULOSKELETAL: No back pain. No muscle pain or weakness. No tingling/numbness. UROLOGIC: No pain with urination. No difficulty urinating. No frequent urination. NEUROLOGIC: No burning pain in feet. No trouble with coordination. No loss of consciousness. No headache. No tingling/numbness. No memory loss. PHYSICAL EXAMINATION: GENERAL: She is a pleasant woman in no apparent distress. VITAL SIGNS: Stable. She is afebrile. LUNGS: Show bilateral expiratory wheeze. HEENT: Normocephalic, atraumatic NECK AND THYROID: Supple. No JVD, thyromegaly, or lymphadenopathy. HEART: Normal S1, S2. Regular rate and rhythm. ABDOMEN: Soft. Nontender, nondistended. Bowel sounds present. EXTREMITIES: Normal ROM. No clubbing. No edema. LABORATORY DATA: White count of 17.7, hemoglobin of 11.4, hematocrit 34.0, and platelet count 137,000. Chemistries: Glucose 103, BUN 5, EGFR more than 60, sodium 136, potassium 3.9, chloride 99, bicarbonate 30. SGOT is 15 and SGPT 13. ASSESSMENT: 1. Extensive small cell lung cancer with response to chemotherapy as evidenced by PET scan done recently with improvement in metastatic disease in the bones in the spine. 2. Exacerbation of chronic obstructive pulmonary disease. 3. Anemia of neoplastic disorder, status post 2 units of packed RBC. 4. Leukocytosis reactive/____ growth factor. 5. Leukopenia, which has resolved. PLAN: Neutropenic precautions have been stopped as well as the growth factors [place], [place] REPORT OF CONSULTATION NAME: ALEIDA SUH UNIT #: [id number] ROOM: 419 DOCTOR: CHRISTOPHE SWEET MD BIRTHDATE: [birth year] have been stopped. She got 2 units of packed RBC with improvement in hemoglobin. She will continue broad spectrum antibiotics. We will keep a close watch on her counts. From hematologic point of view, she is okay to go. I had a detailed discussion with the patient about it, seemed to understand it. Ample time was given to the patient to ask me questions. We will follow. CHRISTOPHE SWEET MD CM:CONSTR:REPORT OF CONSULTATION 0941 10/14/17 1357 interface
--- NOTE | ~2017-10-10 | PR ---
[place], [place] PROGRESS NOTE NAME: ALEIDA SUH UNIT #: [id number] ROOM: 419 DOCTOR: SHIRA TOUSSAINT MD BIRTHDATE: [birth year] DOS: 10/16/2017 SUBJECTIVE: The patient has been noted comfortable at this time without any distress. The coughing and other symptoms have been improving. The sputum culture was still noted pending with a normal che preliminary. Final culture results were pending. She was planned for home discharge by the primary care attending. OBJECTIVE: VITAL SIGNS: Normal temperature, respiratory rate 20, heart rate 84, blood pressure 158/90. Pulse oxygen saturation recorded on 2 liters nasal cannula was 93% saturation. HEENT: Showed no acute change. NECK: Supple. CARDIOVASCULAR: S1, S2 audible. LUNGS: The patient was noted without any crackles, rhonchi, or wheezing. ABDOMEN: Soft, nontender. EXTREMITIES: Without any edema. LABORATORY DATA: WBC count normal, platelet count of 120,000. Mild reduction of the hemoglobin and hematocrit. The culture of sputum has a normal che. Final results pending. BMP: BUN and creatinine was normal. The blood culture, which has been done on the 10/11/2017 was reported abnormal bacterial growth isolation. IMPRESSION: 1. The patient who has been currently noted with gradual reduction and improvement of respiratory symptom has been continued with acute bronchitis. 2. History of small cell lung cancer, which has been treated with chemotherapy with improving pancytopenia progressively. 3. Acute exacerbation of chronic obstructive pulmonary disease, improving progressively. PLAN OF TREATMENT: Discharge planning as per primary care attending for this patient. The patient will be receiving tapering dose ____ antibiotics. Other supportive therapy, plan of management. The assessment for the home occupation as well. [place], [place] PROGRESS NOTE NAME: ALEIDA SUH UNIT #: [id number] ROOM: 419 DOCTOR: SHIRA TOUSSAINT MD BIRTHDATE: [birth year] SHIRA HASSAN MD CM:PNTRANS [id number] SHIRA DUMONT MD 10/17/17 0309 interface
--- NOTE | ~2017-10-10 | CON ---
[place], [place] REPORT OF CONSULTATION NAME: ALEIDA SUH UNIT #: [id number] ROOM: 419 DOCTOR: MO DUMONT MDSHIRA BIRTHDATE: [birth year] DOS: 10/14/2017 PULMONARY CONSULTATION, EVALUATION, MANAGEMENT NOTE REASON FOR CONSULTATION: To assess the patient for current ongoing respiratory symptoms of coughing, chest congestion, shortness of breath, and exacerbation of COPD. HISTORY OF PRESENT ILLNESS: This is a 62-year-old white female, known to me with past history of small cell lung cancer, which was diagnosed in June 2017. The patient's diagnosis was established as a small cell cancer with paraneoplastic syndrome as a small cell lung cancer. The patient has been getting chemotherapy under the care of Dr. Knowles since 2016. She has been admitted to the hospital under the care of the hospitalist service, as she developed increased symptoms of body ache and pain in different parts of the body, also getting increased symptoms of shortness of breath noted with some chest congestion with intermittent cough. The patient denies any symptoms of hemoptysis. The patient denies symptoms of wheezing. She has been currently treated with different pain medications for the management of the chronic pain. The patient denies any symptoms of chest pain. At this time, she has been using oxygen supplementation with nasal cannula. This morning of assessment reported no improvement in the respiratory symptom which has been reported on admission. REVIEW OF SYSTEMS: CONSTITUTIONAL: She does complain of fatigue and tiredness without any symptoms of fever or chills. EYES: Denies any burning, redness or tenderness. EARS, NOSE, THROAT: No sore throat, hoarseness, otalgia, postnasal drainage or epistaxis. CARDIOVASCULAR: Denies any pain at the lower extremity. Intermittent edema of the lower extremities was reported. GASTROINTESTINAL: Denies dysphagia, nausea, vomiting, diarrhea, abdominal pain or history of weight loss as well. MUSCULOSKELETAL: The patient has been reported pain in different parts of the body related to the metastatic lung cancer. CENTRAL NERVOUS SYSTEM: The patient is complaining of generalized weakness and fatigue reported, but there were no focal neurologic deficits reported. There were no symptoms of tingling sensation or diplopia. Remaining systems were reviewed with the patient, they were noted all negative. PAST MEDICAL HISTORY: The patient is known with history of: 1. Small cell lung cancer diagnosed in May 2017 as extensive stage. 2. Paraneoplastic syndrome with SIADH. 3. Chronic nicotine dependence. 4. Chronic obstructive pulmonary disease/centrilobular emphysema. 5. Chronic hypoxic respiratory failure. 6. Essential hypertension. 7. Generalized anxiety disorder and depression. 8. History of osteoarthritis. [place], [place] REPORT OF CONSULTATION NAME: ALEIDA SUH UNIT #: [id number] ROOM: 419 DOCTOR: MO DUMONT MD,SHIRA BIRTHDATE: [birth year] PAST SURGICAL HISTORY: 1. Dilatation and curettage. 2. EGD. 3. Corneal transplant. 4. Polypectomy. 5. Fiberoptic bronchoscopy done on 05/26/2017, which was diagnostic to establish diagnosis of small cell cancer. SOCIAL HISTORY: The patient is , has 2 children. Denies history of alcohol use or illicit drug use. Tobacco use for the patient noted from teenager, 2-1/2 to 3 packs of cigarettes per day, intermittent tobacco use still reported. There is no history of alcohol use or illicit drug use. There is no occupation-related pulmonary exposure history. FAMILY HISTORY: The patient's father of complication related to myocardial infarction. Mother of natural cause. MEDICATIONS: Current administered medications were recorded as use of: 1. Norvasc. 2. DuoNeb q.4h.. 3. Nicotine replacement patches. 4. Vitamin D. 5. Mucinex p.r.n. for cough. 6. Citalopram. 7. Lovenox therapeutic dose mg b.i.d. 8. Protonix. 9. Mucinex 1200 mg p.o. b.i.d. 10. Dulera 2 puffs b.i.d. 11. Neurontin 400 mg p.o. b.i.d. p.r.n. for pain. 12. Trazodone 50 mg at bedtime p.r.n. for insomnia. 13. Solu-Medrol 60 mg every 8 hours. 14. Different pain medications including OxyContin, use of morphine sulfate. 15. Zithromax 500 mg IV daily. 16. Ativan p.r.n. use for anxiety. DRUG ALLERGIES: NOTED NO KNOWN DRUG ALLERGIES. PHYSICAL EXAMINATION: GENERAL: This is a 62-year-old female, who has been noted currently awake, complaining of pain, generalized, at the present time with the assessment using oxygen supplementation nasal cannula. Height of 5 feet 7 inches, weight of 69 kg, BMI of 24. VITAL SIGNS: The patient shows a normal temperature, respiratory rate of 18-20, heart rate of 104-98 with mild sinus tachycardia, blood pressure of 152/88-144/88. Intake 2250 mL/1250 mL. Pulse oxygen saturation on 2 liters nasal cannula was 98% saturation. HEENT: Head was atraumatic. Eyes nonicterus. Oral mucosa mildly dry. Alopecia related to chemotherapy was also noted. NECK: Supple. [place], [place] REPORT OF CONSULTATION NAME: ALEIDA SUH UNIT #: [id number] ROOM: [facility] DOCTOR: MO DUMONT MD,[facility] BIRTHDATE: [birth year] CARDIOVASCULAR: S1, S2 is audible. LUNGS: The patient was noted with general reduction in the breath sounds. Diffuse expiratory wheezing. No crackles. The breaths are noted decreased in the lower portion of the lungs bilaterally. ABDOMEN: Soft, nontender. EXTREMITIES: Minimal edema. LABORATORY DATA: Influenza A and B, nasal washing antigens, first was noted negative on admission. The admission CBC of the patient on 10/11/2017, WBC count 0.8, hemoglobin 6.7, hematocrit 20.3, platelets 64,000. PT/PTT for the patient on 10/11/2017 was negative. The CMP of patient, BUN 4, creatinine 0.43, glucose 124, magnesium 1.1, sodium 135, potassium 3.4 on admission. The albumin was noted at 2.9, total protein of 5.7. CBC of the patient on 10/14/2017, WBC count 17.7, hemoglobin 11.4, hematocrit 34.0, platelet count 137,000. BMP of the patient this morning, BUN normal, creatinine was normal, potassium 3.2. Review of the radiology data for the patient that was personally done, chest x-ray that was done on 10/11/2017 for the patient was reviewed, does not show any acute pulmonary infiltration. The patient had a previous CTA of the chest done on 09/12/2017 on previous admission, the patient was noted with bilateral pulmonary embolism at that time. IMPRESSION: 1. The patient has been currently admitted to the hospital, noted with history diagnosis of small cell lung cancer, treated with chemotherapy, admitted to the hospital with symptoms and findings consistent with acute exacerbation of chronic obstructive pulmonary disease and also noted pancytopenia secondary to chemotherapy. 2. Pulmonary embolism, recently diagnosed in September 2017, currently treated with therapeutic Lovenox as outpatient injection twice a day. The patient remains on the current dose. 3. Metastatic malignancy with pain in different parts of the body, requires aggressive multiple pain medical management. 4. History of chronic continued nicotine dependence as well. PLAN OF MANAGEMENT: Continue dose of Solu-Medrol, bronchodilators and the antibiotics for this patient. Acute bronchitis noted, there was no evidence of pneumonia. Pancytopenia seems to be resolving. Current supplementation of the medication to improve the leukopenia. The patient has also given blood transfusion to improve the severe anemia noted on admission. There was no evidence of acute GI bleeding reported. Monitor the respiratory symptoms closely, optimizing pain management. There has not been any finding of SIADH noted, which was previous noted on admission presentation in May 2017, seems to be resolved at this time. Supportive plan of management with palliative care for the patient to be continued. Additional treatment changes need to be made based on progression of the illness. Continue the Lovenox, the patient's drug of choice, for medical management of pulmonary embolism related to the active malignancy. Thanks for allowing me to participate in the care of this patient. [place], [place] REPORT OF CONSULTATION NAME: ALEIDA SUH UNIT #: [id number] ROOM: 419 DOCTOR: SHIRA TOUSSAINT MD BIRTHDATE: [birth year] SHIRA HASSAN MD CM:CONSTR:REPORT OF CONSULTATION 1618 10/15/17 0050 interface
--- NOTE | ~2017-10-10 | CON ---
[place], [place] REPORT OF CONSULTATION NAME: ALEIDA SUH UNIT #: [id number] ROOM: 419 DOCTOR: MO DUMONT MD,SHIRA BIRTHDATE: [birth year] DOS: 10/14/2017 ADDENDUM: PHYSICAL EXAMINATION: SKIN: The visible skin was not noted with any area of bruising, rashes or lesions. CENTRAL NERVOUS SYSTEM: Decreased mental status. The patient noted with somewhat drowsiness. However, there were no gross focal neurologic deficit. The patient is moving upper and lower extremities. MUSCULOSKELETAL: Does not show any acute deformities. SHIRA HASSAN MD CM:CONSTR:REPORT OF CONSULTATION 1551 10/15/17 1605 interface
--- NOTE | ~2017-10-10 | PR ---
[place], [place] PROGRESS NOTE NAME: ALEIDA SUH UNIT #: [id number] ROOM: 419 DOCTOR: CHRISTOPHE SWEET MD BIRTHDATE: [birth year] DOS: 10/15/2017 SUBJECTIVE: The patient is doing better. Her pain is much better. Her breathing is much better. REVIEW OF SYSTEMS HEENT: No trouble swallowing. No double vision. No loss of vision. No pain. ENT AND RESPIRATORY: No wheeze. No change in voice. No cough. No shortness of breath. No coughing up blood. No epistaxis. CARDIOLOGIC: No chest pain. No dizziness. No irregular heartbeat. No leg edema. No palpitations. No shortness of breath. HEMATOLOGIC AND LYMPH: No past transfusion. No fatigue. No loss of appetite. No easy bruising. GASTROENEROLOGIC: No change in bowel habits. No vomiting blood. No abdominal cramping. No nausea. No vomiting. No diarrhea. No constipation. No blood in stool. FEMALE REPRODUCTIVE: No dyspareunia. No pelvic pain. MUSCULOSKELETAL: No back pain. No muscle pain or weakness. No tingling/numbness. UROLOGIC: No pain with urination. No difficulty urinating. No frequent urination. NEUROLOGIC: No burning pain in feet. No trouble with coordination. No loss of consciousness. No headache. No tingling/numbness. No memory loss. PHYSICAL EXAMINATION GENERAL: She is a pleasant woman in no apparent distress. VITAL SIGNS: Stable. She is afebrile. HEENT: Normocephalic, atraumatic NECK AND THYROID: Supple. No JVD, thyromegaly, or lymphadenopathy. HEART: Normal S1, S2. Regular rate and rhythm. LUNGS: Clear to auscultation and percussion. ABDOMEN: Soft. Nontender, nondistended. Bowel sounds present. EXTREMITIES: Normal ROM. No clubbing. No edema. LABORATORY DATA: White count of 13.2, hemoglobin 12.8, hematocrit 38.8, platelet count 143,000. ASSESSMENT: 1. Extensive small cell lung cancer. 2. Sepsis. 3. Leukopenia, which is resolved. 4. Chronic obstructive pulmonary disease exacerbation. 5. Back pain. PLAN: Overall, she is doing much better. We will just keep a close watch at this time, although her pain has got better. She will be going to the pain clinic when she goes home. Depending on the further intervention discussed. [place], [place] PROGRESS NOTE NAME: ALEIDA SUH UNIT #: [id number] ROOM: 419 DOCTOR: CHRISTOPHE SWEET MD BIRTHDATE: [birth year] CHRISTOPHE SWEET MD CM:PNTRANS [id number] CHRISTOPHE SWEET MD 10/16/17 0136 interface
--- NOTE | ~2017-10-10 | PR ---
[place], [place] PROGRESS NOTE NAME: ALEIDA SUH UNIT #: [id number] ROOM: 419 DOCTOR: CHRISTOPHE SWEET MD BIRTHDATE: [birth year] DOS: 10/13/2017 SUBJECTIVE: The patient is feeling much better today. She got 2 units of packed RBC. She is alert, awake and oriented. REVIEW OF SYSTEMS HEENT: No trouble swallowing. No double vision. No loss of vision. No pain. ENT AND RESPIRATORY: No wheeze. No change in voice. No cough. No shortness of breath. No coughing up blood. No epistaxis. CARDIOLOGIC: No chest pain. No dizziness. No irregular heartbeat. No leg edema. No palpitations. No shortness of breath. HEMATOLOGIC AND LYMPH: No past transfusion. No fatigue. No loss of appetite. No easy bruising. GASTROENEROLOGIC: No change in bowel habits. No vomiting blood. No abdominal cramping. No nausea. No vomiting. No diarrhea. No constipation. No blood in stool. FEMALE REPRODUCTIVE: No dyspareunia. No pelvic pain. MUSCULOSKELETAL: No back pain. No muscle pain or weakness. No tingling/numbness. UROLOGIC: No pain with urination. No difficulty urinating. No frequent urination. NEUROLOGIC: No burning pain in feet. No trouble with coordination. No loss of consciousness. No headache. No tingling/numbness. No memory loss. PHYSICAL EXAMINATION GENERAL: She is a pleasant woman in no apparent distress. VITAL SIGNS: Stable. She is afebrile. HEENT: Normocephalic, atraumatic NECK AND THYROID: Supple. No JVD, thyromegaly, or lymphadenopathy. HEART: Normal S1, S2. Regular rate and rhythm. LUNGS: Show bilateral expiratory wheeze. ABDOMEN: Soft. Nontender, nondistended. Bowel sounds present. EXTREMITIES: Normal ROM. No clubbing. No edema. LABORATORY DATA: White count of 16.4, hemoglobin 10.6, hematocrit 31.4, platelet count 107. ANC of 13.6. Glucose 103, creatinine of more than 60, sodium 136, potassium 3.9, chloride 99, bicarbonate 30. SGOT 15, SGPT 13, alkaline phosphatase 124. ASSESSMENT: 1. Extensive small cell lung cancer. 2. Exacerbation of chronic obstructive pulmonary disease. 3. Possible sepsis. 4. Neutropenia, which is resolved. 5. Anemia of neoplastic disorder, status post 2 units of packed RBC. 6. Bilateral pulmonary embolism. PLAN: Overall, she is doing better. ____ neutropenic percussion. Stop the growth factors. Follow the counts closely, have had detailed discussion with the patient about it, seemed to understand it. Follow for now. Ample time was [place], [place] PROGRESS NOTE NAME: ALEIDA SUH UNIT #: [id number] ROOM: 419 DOCTOR: CHRISTOPHE SWEET MD BIRTHDATE: [birth year] given to the patient to ask me questions. CHRISTOPHE SWEET MD CM:PNTRANS [id number] CHRISTOPHE SWEET MD 10/13/17 1608 interface
--- NOTE | ~2017-10-10 | PR ---
[place], [place] PROGRESS NOTE NAME: ALEIDA SUH UNIT #: [id number] ROOM: 419 DOCTOR: MO DUMONT MD,SHIRA BIRTHDATE: [birth year] DOS: 10/15/2017 SUBJECTIVE: She has been noted much stable this morning. Pain appeared to be quite well controlled. She has been noted comfortable lying in the bed, using the oxygen supplementation nasal cannula. The cough has been reported intermittently. Denies symptoms of chest pain. There were no symptoms of hemoptysis. The patient denies any edema or pain of the lower extremity ____. OBJECTIVE: VITAL SIGNS: Shows temperature remains normal, respiratory rate 18, sinus tachycardia noted heart rate 107-101 beats per minute, blood pressure 150/96-151/91. HEENT: Showed no new change. NECK: Supple. CARDIOVASCULAR: S1, S2 is audible. LUNGS: The patient was noted with moderate decreased breath sounds noted in the lungs bilaterally on auscultation. Scattered crackles of the lungs were still present. ABDOMEN: Soft with moderate obesity. Bowel sounds present. EXTREMITIES: The patient without any acute edema at the present time. SKIN: Visible skin: No lesions or rashes. MUSCULOSKELETAL: No deformities. CENTRAL NERVOUS SYSTEM: Noted without any focal deficit. Cranial nerves were noted intact. LABORATORY DATA: Sputum Gram stain from yesterday reviewed and shows many white blood cells, many gram-positive cocci in pairs, chains and clusters, few gram-negative diplococci and gram-positive bacilli. CBC: WBC count 13.2, hemoglobin and hematocrit normal, platelet count was normal. BMP was noted with a normal BUN and creatinine this morning. Other electrolytes were normal as well closely. IMPRESSION: 1. The patient change in mental status secondary to the current acute infection and pain medication combination of others. 2. The patient with small cell lung cancer with pancytopenia that has been improving as well. 3. Pain related to the lung malignancy metastasis as well. 4. Acute exacerbation of chronic obstructive pulmonary disease as well. PLAN OF MANAGEMENT: Continuation of the current bronchodilators and antibiotic, reduction in spectrum antibiotic based on the improvement with the final culture results of the sputum and others. Bronchodilators administration. The patient was previously receiving Zithromax that has been discontinued and will be replaced with doxycycline orally. Dose of Solu-Medrol will be gradually decreased based on progression of the illness. Usual care, other than supportive therapy, plan of management as well. Continuation of the bronchodilators and oxygen supplementation. [place], [place] PROGRESS NOTE NAME: ALEIDA SUH UNIT #: [id number] ROOM: [facility] DOCTOR: SHIRA TOUSSAINT MD BIRTHDATE: [birth year] SHIRA HASSAN MD CM:PNTRANS [id number] SHIRA DUMONT MD 10/16/17 0235 interface
--- NOTE | ~2017-10-10 | CON ---
[place], [place] REPORT OF CONSULTATION NAME: ALEIDA SUH UNIT #: [id number] ROOM: 419 DOCTOR: CHRISTOPHE SWEET MD BIRTHDATE: [birth year] DOS: 10/12/2017 HISTORY OF PRESENT ILLNESS: The patient is a pleasant 62-year-old woman with a history of metastatic extensive small cell lung cancer with metastatic disease to the back, was advised to see the pain clinic and she missed a couple of appointments with them. Now she is due to see them on of this month, presented to the Emergency Department because of the increased back pain, migraines as well as increased shortness of breath, several episodes of diarrhea and subsequently admitted and consulted for further evaluation and management. PAST MEDICAL HISTORY: Extensive small cell lung cancer with mets into the back, status post chemotherapy, history of bilateral pulmonary embolism, COPD, essential hypertension, generalized anxiety disorder, history of cervical cancer and seizure disorder, SADH. PAST SURGICAL HISTORY: Dilatation and curettage, history of EGD, post-corneal transplant, history of colonoscopy. SOCIAL HISTORY: Marijuana use. No drinking. Used to smoke 1 packet since age 14. FAMILY HISTORY: Father at age 52 of myocardial infarction. Mother age at 91. ALLERGIES: No known allergies. MEDICATIONS: Albuterol, Norvasc, citalopram, enoxaparin sodium, gabapentin, DuoNeb, oxycodone, pantoprazole sodium and trazodone. REVIEW OF SYSTEMS: CONSTITUTIONAL: No chills. No fatigue. No fever. No loss of appetite. No night sweats. No weakness. No weight loss. HEENT: No trouble swallowing. No loss of smell. No loss of hearing. No double vision. No pain. No discharge. ENT AND RESPIRATORY: No wheeze. No sore throat. No change in voice. No hearing loss. No nose bleed. No cough. No trouble breathing through nose. No shortness of breath. No coughing up blood. No epistaxis. CARDIOVASCULAR: No chest pain. No dizziness. No irregular heartbeat. No leg edema. No pain in legs while walking. No palpitations. No shortness of breath. DERMATOLOGIC: No acne. No hives. No laceration. No mole. No rash. ENDOCRINE: No cold intolerance. No diabetes. No fatigue. No hot flashes. No polydipsia. No polyuria. No urinating frequently. No weight loss. HEMATOLOGIC AND LYMPH: No fatigue. No easy bruising. GASTROENTEROLOGIC: No change in bowel habits. No indigestion. No frequent bloating. No vomiting blood. No abdominal cramping. No nausea. No heartburn. No vomiting. No abdominal pain. No dysphagia. No diarrhea. No constipation. No blood in stool. FEMALE REPRODUCTIVE: No vaginal itching. No difficulty urinating. No heavy periods. No dyspareunia. No sexually active. No dysmenorrhea. No pelvic pain. [place], [place] REPORT OF CONSULTATION NAME: ALEIDA SUH UNIT #: [id number] ROOM: [facility] DOCTOR: CHRISTOPHE SWEET MD BIRTHDATE: [birth year] No breast pain. No nipple discharge. No abnormal vaginal discharge. No hot flashes. MUSCULOSKELETAL: No back pain. No muscle pain or weakness. No neck pain. No tingling/numbness. No swelling/bruising. No osteoporosis treatment. OPTHALMOLOGIC: No double vision. No diminished vision. No loss of vision. UROLOGIC: No dysuria. No frequent nighttime urination. No irregular periods. No pain with urination. No difficulty urinating. No blood in urine. No frequent urination. No urinary incontinence. NEUROLOGIC: No loss of sensation in specific body area. No vertigo. No burning pain in feet. No trouble with balance. No trouble with coordination. No loss of consciousness. No loss of feeling/power. No confusion. No headache. No tingling/numbness. PSYCHOLOGIC: No tinnitus. No headaches. No shortness of breath. No weight decrease. No nausea. No vomiting. No abdominal discomfort. No constipation. No diarrhea. No depression. No anxiety. PHYSICAL EXAMINATION: GENERAL: Pleasant woman, complaints of back pain. VITAL SIGNS: Blood pressure 110/75, respirations 22, pulse 83, temperature 97.5. HEENT: Oral mucosa appears intact. The external ears are normal in appearance. Nares are patent without lesions, exudates, erythema, or inflammation. Tongue is symmetrical. Uvula is midline. NECK AND THYROID: Neck supple without palpable masses. Trachea is midline. No thyromegaly. No carotid bruit or JVD. BREASTS: Normal. Nipples unremarkable. No drainage. No lumps felt on either side. HEART: Normal S1, S2, without significant murmur, rub, or gallop. LUNGS: Bilateral rhonchi. ABDOMEN: No costovertebral angle tenderness. Soft. No organomegaly or masses. Nontender. No hernias present. Liver and spleen are not palpable. LYMPHATIC: No adenopathy noted in the cervical, supraclavicular, axillary, or inguinal regions. NEUROLGIC: Nonfocal. Oriented to person, place, and time. MENTAL STATUS: Appropriate for mood and affect. PERIPHERAL PULSES: No varicosities. Femoral and pedal pulses are palpable. EXTREMITIES: Without cyanosis, clubbing, or edema. No gross anomalies. LABORATORY DATA: Sodium 135, potassium 3.4, chloride 101, bicarbonate 25, EGFR more than 60. White count of 4.8, hemoglobin 6.7, hematocrit 20.3, platelet count of 64,000 with ANC of 400. ASSESSMENT: 1. Exacerbation of chronic obstructive pulmonary disease. 2. Extensive small cell lung cancer. 3. Pancytopenia secondary to chemotherapy. Plan to start on growth factors and couple of units of packed RBC. Follow counts closely. In the meantime, continue to monitor, continue to treat her COPD. She had a PET scan done recently where PET scan depending on further intervention. I had a detailed discussion with the patient today about it, seemed to understand. Ample time [place], [place] REPORT OF CONSULTATION NAME: ALEIDA SUH UNIT #: [id number] ROOM: 419 DOCTOR: CHRISTOPHE SWEET MD BIRTHDATE: [birth year] was given to the patient to ask me questions. We will follow. Thanks for consulting Neurology. Report in the care of this interesting patient. CHRISTOPHE SWEET MD CM:CONSTR:REPORT OF CONSULTATION 1422 10/13/17 0845 interface
[2017-10-10 23:12] VITALS: BP 97/70
[2017-10-10] MEDS ORDERED: CITALOPRAM10 MG PO (23:16)
[2017-10-11] VITALS (7 sets, daily range): BP systolic 110–135; BP diastolic 75–84
[2017-10-11] LABS: HEMATOCRIT 23.9 % (37.0-47.0); HEMOGLOBIN 8.3 g/dl (12.0-16.0); MEAN CELL VOLUME 93.7 fl (81.0-99.0); MEAN CORPUSCULAR HGB 32.5 pg (27.0-31.0); MEAN CORPUSCULAR HGB CONC 34.7 g/dl (33.0-37.0); PLATELET COUNT AUTOMATED 77 10*3/uL (130-400); RED BLOOD COUNT 2.55 10*6/uL (4.10-5.10); RED CELL DISTRI WIDTH 17.2 % (0-14.5)
[2017-10-11 00:02] LABS: ACT PARTIAL THROMBO TIME 34.7 SECONDS (20.8-31.5); INTERNATIONAL NORM RATIO 1.1 (2.0-3.5)
[2017-10-11 00:07] LABS: ALBUMIN 3.4 gm/dl (3.1-4.5); ALKALINE PHOSPHATASE 115 U/L (45-117); BUN 4 mg/dl (7-24); CHLORIDE 97 mmol/L (98-107); CREATININE 0.59 mg/dL (0.55-1.02); LIPASE 64 U/L (73-393); POTASSIUM 2.9 mmol/L (3.5-5.1); SGOT/AST 9 IU/L (3-35); SGPT/ALT 12 U/L (12-78); SODIUM 134 mmol/L (136-145); TOTAL PROTEIN 6.7 gm/dL (6.4-8.2)
[2017-10-11 00:08] LABS: TROPONIN I < 0.015 ng/ml (<0.045)
[2017-10-11 00:10] LABS: WHITE BLOOD COUNT 1.8 10*3/uL (4.8-10.8)
[2017-10-11 00:20] LABS: PLATELET SUFFICIENCY LOW (NORMAL); TOTAL CELLS COUNTED 100 #CELLS
[2017-10-11 00:21] LABS: POLYCHROMASIA SLIGHT
[2017-10-11] MEDS ORDERED: NORVASC10 MG PO (02:03)
[2017-10-11] MEDS ORDERED: NEURONTIN400 MG PO (02:05)
[2017-10-11] MEDS ORDERED: ENOXAPARIN80 MG/0.2 SQ (02:41)
[2017-10-11 06:34] LABS: ALBUMIN 2.9 gm/dl (3.1-4.5); ALKALINE PHOSPHATASE 96 U/L (45-117); BUN 4 mg/dl (7-24); CHLORIDE 101 mmol/L (98-107); CHOLESTEROL 105 mg/dL (<200); CREATININE 0.43 mg/dL (0.55-1.02); FREE T4 1.56 ng/dl (0.76-1.46); HDL CHOLESTEROL 66 mg/dl (40-60); LDL CHOLESTEROL 28 mg/dL (9-159); PHOSPHOROUS 1.6 mg/dL (2.5-4.9); POTASSIUM 3.4 mmol/L (3.5-5.1); SGOT/AST 8 IU/L (3-35); SGPT/ALT 12 U/L (12-78); SODIUM 135 mmol/L (136-145); TOTAL PROTEIN 5.7 gm/dL (6.4-8.2); TRIGLYCERIDES 53 mg/dl (<150); VLDL CHOLESTEROL 11 mg/dL (6-40)
[2017-10-11 06:36] LABS: HEMATOCRIT 20.3 % (37.0-47.0); HEMOGLOBIN 6.7 g/dl (12.0-16.0); MEAN CELL VOLUME 95.8 fl (81.0-99.0); MEAN CORPUSCULAR HGB 31.6 pg (27.0-31.0); MEAN PLATELET VOLUME 11.6 fl (9.6-12.3); NUCLEATED RED BLOOD CELL 2.5 % (0.0-0.0); PLATELET COUNT AUTOMATED 64 10*3/uL (130-400); RED BLOOD COUNT 2.12 10*6/uL (4.10-5.10); RED CELL DISTRI WIDTH 17.4 % (0-14.5)
[2017-10-11 06:40] LABS: THYROID STIM HORMONE (HS) 0.365 uIU/ml (0.358-4.75)
[2017-10-11 07:00] LABS: ACT PARTIAL THROMBO TIME 29.9 SECONDS (20.8-31.5); INTERNATIONAL NORM RATIO 1.1 (2.0-3.5)
[2017-10-11 07:28] LABS: BILIRUBIN NEGATIVE (NEGATIVE); BLOOD NEGATIVE (NEGATIVE); CLARITY CLEAR (CLEAR); COLOR YELLOW (YELLOW); GLUCOSE NEGATIVE (NEGATIVE); KETONE NEGATIVE (NEGATIVE); LEUKO ESTERASE NEGATIVE (NEGATIVE); NITRITE NEGATIVE (NEGATIVE); PH 5.5 (5.0-9.0); SPECIFIC GRAVITY <= 1.005 (1.005-1.030); UROBILINOGEN 0.2 E.U./dl (0.2-1.0)
[2017-10-11 07:35] LABS: OVALOCYTES FEW; PLATELET SUFFICIENCY LOW (NORMAL); POLYCHROMASIA SLIGHT; TOTAL CELLS COUNTED 50 #CELLS; TOXIC GRANULATION SLIGHT
[2017-10-11 07:38] LABS: WHITE BLOOD COUNT 0.8 10*3/uL (4.8-10.8)
[2017-10-11 07:46] LABS: BACTERIA TRACE; WBC 0-2 wbc/hpf (0-5); YEAST TRACE
[2017-10-11 07:46] LABS: VITAMIN D, 25-HYDROXY 12.2 ng/mL (30-100)
[2017-10-11 07:47] LABS: RBC 0-2 rbc/hpf (0-2)
[2017-10-12] VITALS (14 sets, daily range): BP systolic 119–166; BP diastolic 75–96
[2017-10-12 06:40] LABS: HEMATOCRIT 20.9 % (37.0-47.0); HEMOGLOBIN 6.8 g/dl (12.0-16.0); MEAN CELL VOLUME 96.3 fl (81.0-99.0); MEAN CORPUSCULAR HGB 31.3 pg (27.0-31.0); MEAN CORPUSCULAR HGB CONC 32.5 g/dl (33.0-37.0); MEAN PLATELET VOLUME 11.3 fl (9.6-12.3); NUCLEATED RED BLOOD CELL 0.1 10*3/uL (0.0-0.0); NUCLEATED RED BLOOD CELL 1.8 % (0.0-0.0); RED BLOOD COUNT 2.17 10*6/uL (4.10-5.10); RED CELL DISTRI WIDTH 18.2 % (0-14.5); WHITE BLOOD COUNT 4.4 10*3/uL (4.8-10.8)
[2017-10-12 06:50] LABS: PLATELET COUNT AUTOMATED 86 10*3/uL (130-400)
[2017-10-12 07:03] LABS: BUN 4 mg/dl (7-24); CHLORIDE 104 mmol/L (98-107); CREATININE 0.44 mg/dL (0.55-1.02); PHOSPHOROUS 1.7 mg/dL (2.5-4.9); POTASSIUM 3.9 mmol/L (3.5-5.1); SODIUM 136 mmol/L (136-145)
[2017-10-12 07:38] LABS: PLATELET SUFFICIENCY LOW (NORMAL); POLYCHROMASIA SLIGHT; TOTAL CELLS COUNTED 100 #CELLS
[2017-10-13] VITALS: BP 145/78
[2017-10-13 07:07] LABS: MEAN CORPUSCULAR HGB 31.2 pg (27.0-31.0); MEAN CORPUSCULAR HGB CONC 33.8 g/dl (33.0-37.0); MEAN PLATELET VOLUME 10.8 fl (9.6-12.3); NUCLEATED RED BLOOD CELL 0.3 10*3/uL (0.0-0.0); NUCLEATED RED BLOOD CELL 1.8 % (0.0-0.0); PLATELET COUNT AUTOMATED 107 10*3/uL (130-400); RED CELL DISTRI WIDTH 19.3 % (0-14.5); WHITE BLOOD COUNT 16.4 10*3/uL (4.8-10.8)
[2017-10-13 07:13] LABS: HEMATOCRIT 31.4 % (37.0-47.0); HEMOGLOBIN 10.6 g/dl (12.0-16.0)
[2017-10-13 07:14] LABS: MEAN CELL VOLUME 92.4 fl (81.0-99.0)
[2017-10-13 07:42] LABS: PLATELET SUFFICIENCY LOW (NORMAL); POLYCHROMASIA SLIGHT; TOTAL CELLS COUNTED 100 #CELLS; TOXIC GRANULATION MODERATE
[2017-10-13 07:45] LABS: ALBUMIN 3.5 gm/dl (3.1-4.5); ALKALINE PHOSPHATASE 124 U/L (45-117); BUN 5 mg/dl (7-24); CHLORIDE 99 mmol/L (98-107); CREATININE 0.46 mg/dL (0.55-1.02); POTASSIUM 3.9 mmol/L (3.5-5.1); SGOT/AST 15 IU/L (3-35); SGPT/ALT 13 U/L (12-78); SODIUM 136 mmol/L (136-145); TOTAL PROTEIN 6.5 gm/dL (6.4-8.2)
[2017-10-13 08:00] VITALS: BP 132/89
[2017-10-13] MEDS ORDERED: ATIVAN0.5 MG PO (09:00)
[2017-10-13 12:00] VITALS: BP 128/86
[2017-10-13 16:00] VITALS: BP 160/99
[2017-10-13 20:00] VITALS: BP 160/88
[2017-10-14] VITALS: BP 140/88
[2017-10-14 07:33] LABS: HEMOGLOBIN 11.4 g/dl (12.0-16.0); MEAN CELL VOLUME 90.9 fl (81.0-99.0); MEAN CORPUSCULAR HGB 30.5 pg (27.0-31.0); MEAN CORPUSCULAR HGB CONC 33.5 g/dl (33.0-37.0); NUCLEATED RED BLOOD CELL 0.2 10*3/uL (0.0-0.0); NUCLEATED RED BLOOD CELL 1.2 % (0.0-0.0); PLATELET COUNT AUTOMATED 137 10*3/uL (130-400); RED BLOOD COUNT 3.74 10*6/uL (4.10-5.10); RED CELL DISTRI WIDTH 18.5 % (0-14.5); WHITE BLOOD COUNT 17.7 10*3/uL (4.8-10.8)
[2017-10-14 07:54] LABS: BUN 5 mg/dl (7-24); CHLORIDE 99 mmol/L (98-107); CREATININE 0.39 mg/dL (0.55-1.02); POTASSIUM 3.2 mmol/L (3.5-5.1); SODIUM 139 mmol/L (136-145)
[2017-10-14 08:00] VITALS: BP 152/88
[2017-10-14 08:02] LABS: TOTAL CELLS COUNTED 100 #CELLS
[2017-10-14 08:03] LABS: PLATELET SUFFICIENCY NORMAL (NORMAL); POLYCHROMASIA SLIGHT; SCHISTOCYTES FEW; TOXIC GRANULATION MARKED
[2017-10-14 12:00] VITALS: BP 125/88
[2017-10-14 16:00] VITALS: BP 102/68
[2017-10-14 20:01] VITALS: BP 150/93
[2017-10-15] VITALS: BP 142/97
[2017-10-15 07:26] LABS: BUN 5 mg/dl (7-24); CHLORIDE 96 mmol/L (98-107); CREATININE 0.65 mg/dL (0.55-1.02); POTASSIUM 4.1 mmol/L (3.5-5.1); SODIUM 136 mmol/L (136-145)
[2017-10-15 07:30] LABS: HEMATOCRIT 38.8 % (37.0-47.0); HEMOGLOBIN 12.8 g/dl (12.0-16.0); MEAN CELL VOLUME 93.9 fl (81.0-99.0); MEAN PLATELET VOLUME 10.2 fl (9.6-12.3); NUCLEATED RED BLOOD CELL 0.1 10*3/uL (0.0-0.0); NUCLEATED RED BLOOD CELL 1.1 % (0.0-0.0); PLATELET COUNT AUTOMATED 143 10*3/uL (130-400); RED BLOOD COUNT 4.13 10*6/uL (4.10-5.10); WHITE BLOOD COUNT 13.2 10*3/uL (4.8-10.8)
[2017-10-15 07:44] VITALS: BP 151/91
[2017-10-15 08:11] LABS: ATYPICAL LYMPHS 4 % (0-0); PLATELET SUFFICIENCY NORMAL (NORMAL); POLYCHROMASIA SLIGHT; TOTAL CELLS COUNTED 100 #CELLS; TOXIC GRANULATION MODERATE
[2017-10-15 16:00] VITALS: BP 132/84
[2017-10-15 20:00] VITALS: BP 132/92
[2017-10-16] VITALS: BP 152/91
[2017-10-16 07:59] LABS: HEMATOCRIT 33.6 % (37.0-47.0); HEMOGLOBIN 11.4 g/dl (12.0-16.0); MEAN CELL VOLUME 92.1 fl (81.0-99.0); MEAN CORPUSCULAR HGB 31.2 pg (27.0-31.0); MEAN CORPUSCULAR HGB CONC 33.9 g/dl (33.0-37.0); MEAN PLATELET VOLUME 10.5 fl (9.6-12.3); NUCLEATED RED BLOOD CELL 0.3 % (0.0-0.0); PLATELET COUNT AUTOMATED 120 10*3/uL (130-400); RED BLOOD COUNT 3.65 10*6/uL (4.10-5.10); RED CELL DISTRI WIDTH 16.7 % (0-14.5); WHITE BLOOD COUNT 6.4 10*3/uL (4.8-10.8)
[2017-10-16 08:00] VITALS: BP 158/90
[2017-10-16 08:27] LABS: BUN 4 mg/dl (7-24); CHLORIDE 97 mmol/L (98-107); POTASSIUM 3.7 mmol/L (3.5-5.1); SODIUM 134 mmol/L (136-145)
[2017-10-16 08:28] LABS: CREATININE 0.52 mg/dL (0.55-1.02)
[2017-10-16 08:43] LABS: ATYPICAL LYMPHS 6 % (0-0); TOTAL CELLS COUNTED 100 #CELLS
[2017-10-16 09:08] LABS: BLASTS 2 % (0-0)
[2017-10-16 09:09] LABS: PLATELET SUFFICIENCY NORMAL (NORMAL)
[2017-10-16 09:10] LABS: TOXIC GRANULATION MODERATE
[2017-10-16] MEDS ORDERED: DOXYCYCLINE MO100 M1 PO (10:29)
[2017-10-16] MEDS ORDERED: OXYCONTIN10 M1 PO (10:29)
[2017-10-16] MEDS ORDERED: OXYCODONE HCL5 MG PO (10:29)
[2017-10-16] MEDS ORDERED: VITAMIN D5000 UNI1 PO (10:29)
== END 2017-10-16 11:29 | disposition home or self-care (01) | DRG 871 ==
LOC: ED 23:05 → EDHOLD 10-11 01:13 → 4E 10-11 01:13
PROVIDERS: Emergency Medicine; Emergency Medicine Emergency Medical Services; Family Medicine; Hospitalist; Internal Medicine; Internal Medicine Hematology & Oncology
PROC: 30233N1 Transfusion of Nonautologous Red Blood Cells into Peripheral Vein, Percutaneous Approach (ICD-10-PCS; principal; 2017-10-12)
DX: A41.9 Sepsis, unspecified organism (principal); I26.99 Other pulmonary embolism without acute cor pulmonale; E43 Unspecified severe protein-calorie malnutrition; D61.810 Antineoplastic chemotherapy induced pancytopenia; J96.11 Chronic respiratory failure with hypoxia; E22.2 Syndrome of inappropriate secretion of antidiuretic hormone; J18.9 Pneumonia, unspecified organism; C34.92 Malignant neoplasm of unspecified part of left bronchus or lung; J44.0 Chronic obstructive pulmonary disease with (acute) lower respiratory infection; J44.1 Chronic obstructive pulmonary disease with (acute) exacerbation; C79.51 Secondary malignant neoplasm of bone; T45.1X5A Adverse effect of antineoplastic and immunosuppressive drugs, initial encounter; I10 Essential (primary) hypertension; F41.1 Generalized anxiety disorder; G40.909 Epilepsy, unspecified, not intractable, without status epilepticus; E83.51 Hypocalcemia; E83.42 Hypomagnesemia; F17.200 Nicotine dependence, unspecified, uncomplicated; J20.9 Acute bronchitis, unspecified; G89.3 Neoplasm related pain (acute) (chronic); M54.9 Dorsalgia, unspecified; G43.909 Migraine, unspecified, not intractable, without status migrainosus; M19.90 Unspecified osteoarthritis, unspecified site; D63.0 Anemia in neoplastic disease; E83.39 Other disorders of phosphorus metabolism; E87.6 Hypokalemia; R41.3 Other amnesia; R73.9 Hyperglycemia, unspecified; Y92.89 Other specified places as the place of occurrence of the external cause; Z71.6 Tobacco abuse counseling; Z79.01 Long term (current) use of anticoagulants; Z79.899 Other long term (current) drug therapy; Z82.49 Family history of ischemic heart disease and other diseases of the circulatory system; Z88.8 Allergy status to other drugs, medicaments and biological substances; Z68.23 Body mass index [BMI] 23.0-23.9, adult; Z99.81 Dependence on supplemental oxygen

== ENCOUNTER 2017-11-02 12:31 | Inpatient (IN) | payer OTHER ==
[~2017-11-02] VITALS: Ht 170.2 cm; Wt 69.6 kg
--- NOTE | ~2017-11-02 | PR ---
[place], [place] PROGRESS NOTE NAME: ALEIDA SUH UNIT #: [id number] ROOM: 517 DOCTOR: CHENG CROFT MD BIRTHDATE: [birth year] DOS: SUBJECTIVE: The patient has been admitted to the hospital with chest pain ____ small cell cancer with metastasis, thrombocytopenia, normocytic anemia, hypomagnesemia, hypertension, seizure disorder, generalized anxiety disorder and leukopenia, hypokalemia. The patient is gradually getting better. She is not in any distress. She is not complaining of any chest pain and no difficulty in breathing, no nausea or vomiting. Her basic metabolic profile today shows glucose 129, calcium 8.3, other values are normal. CBC shows hypochromic anemia with hemoglobin 10, hematocrit 28.9. OBJECTIVE: VITAL SIGNS: Blood pressure is 139/86, pulse is 16, temperature 98.1. CHENG CROFT MD CM:PNTRANS 1403 19 CHENG CROFT MD 11/06/17 2019 interface
--- NOTE | ~2017-11-02 | PR ---
[place], [place] PROGRESS NOTE NAME: ALEIDA SUH UNIT #: [id number] ROOM: 517 DOCTOR: CHRISTOPHE SWEET MD BIRTHDATE: [birth year] DOS: 11/04/2017 SUBJECTIVE: The patient is doing better. Her pain is also better. She is alert and oriented. No diarrhea or lightheadedness. REVIEW OF SYSTEMS HEENT: No trouble swallowing. No double vision. No loss of vision. No pain. ENT AND RESPIRATORY: No wheeze. No change in voice. No cough. No shortness of breath. No coughing up blood. No epistaxis. CARDIOLOGIC: No chest pain. No dizziness. No irregular heartbeat. No leg edema. No palpitations. No shortness of breath. HEMATOLOGIC AND LYMPH: No past transfusion. No fatigue. No loss of appetite. No easy bruising. GASTROENTEROLOGIC: No change in bowel habits. No vomiting blood. No abdominal cramping. No nausea. No vomiting. No diarrhea. No constipation. No blood in stool. FEMALE REPRODUCTIVE: No dyspareunia. No pelvic pain. MUSCULOSKELETAL: No back pain. No muscle pain or weakness. No tingling/numbness. UROLOGIC: No pain with urination. No difficulty urinating. No frequent urination. NEUROLOGIC: No burning pain in feet. No trouble with coordination. No loss of consciousness. No headache. No tingling/numbness. No memory loss. PHYSICAL EXAMINATION GENERAL: She is a pleasant woman, in no apparent distress. VITAL SIGNS: Stable. She is afebrile. HEENT: Normocephalic, atraumatic NECK AND THYROID: Supple. No JVD, thyromegaly, or lymphadenopathy. HEART: Normal S1, S2. Regular rate and rhythm. LUNGS: Clear to auscultation and percussion. ABDOMEN: Soft. Nontender, nondistended. Bowel sounds present. EXTREMITIES: Normal ROM. No clubbing. No edema. LABORATORY DATA: White count of 1.8, hemoglobin of 8.4, hematocrit 24.9, platelet count 34,000 with ANC of 900. BUN 5. EGFR more than 60, sodium 139, potassium 3.3, chloride 103, bicarb 22, calcium 7.9, total protein 5.9, SGOT 4, SGPT 13. ASSESSMENT: 1. Pancytopenia secondary to chemotherapy. 2. Extensive small cell lung cancer with a response to chemotherapy. 3. Chronic obstructive pulmonary disease exacerbation. 4. Syndrome of inappropriate antidiuretic hormone. PLAN: Overall, she is doing better. She will continue growth factors, neutropenic precautions. I expect the counts have improved pretty soon. In the meantime, continue broad spectrum antibiotics, etc. She will transfusion on p.r.n. basis. If her hemoglobin and hematocrit drops, then transfusion, otherwise close followup. Ample time was given to the patient to ask me [place], [place] PROGRESS NOTE NAME: ALEIDA SUH UNIT #: [id number] ROOM: [facility] DOCTOR: CHRISTOPHE SWEET MD BIRTHDATE: [birth year] questions. CHRISTOPHE SWEET MD CM:PNTRANS [id number] CHRISTOPHE SWEET MD 11/04/17 1628 interface
--- NOTE | ~2017-11-02 | CON ---
[place], [place] REPORT OF CONSULTATION NAME: ALEIDA SUH UNIT #: [id number] ROOM: 517 DOCTOR: CHRISTOPHE SWEET MD BIRTHDATE: [birth year] DOS: 11/03/2017 HISTORY OF PRESENT ILLNESS: The patient is a pleasant 62-year-old [place] woman with a history of extensive small cell lung cancer, has been having some chest pressure across her chest as well as coughing up green-yellow sputum. Subsequently, she has been on home oxygen for p.r.n. use. Subsequently, she came to the hospital and admitted. On routine CBC exam, he was found to be pancytopenic and consulted for further evaluation and management. RADIOLOGY: Chest x-ray showed no acute active pulmonary disease. PAST MEDICAL HISTORY: Significant for extensive small cell lung cancer, undergoing chemotherapy, bilateral pulmonary embolism, COPD, essential hypertension, general anxiety disorder, gait disorder, heparin-induced thrombocytopenia, history of cervical cancer, seizure disorder, short term memory loss, and history of SIADH. PAST SURGICAL HISTORY: Dilatation and curettage, history of EGD, status post corneal transplant as well as a colonoscopy and polypectomy. SOCIAL HISTORY: Does not drink, smoke 1 packet per day since age 15, also uses marijuana. FAMILY HISTORY: Father at 52 because of myocardial infarction. Mother age 91. ALLERGIES: METHYLPREDNISONE. CURRENT MEDICATIONS: Albuterol, sulfate, Norvasc, vitamin D, citalopram, Neurontin, DuoNeb, lorazepam, pantoprazole sodium, and trazodone. REVIEW OF SYSTEMS: CONSTITUTIONAL: No chills. No fatigue. No fever. No loss of appetite. No night sweats. No weakness. No weight loss. HEENT: No trouble swallowing. No loss of smell. No loss of hearing. No double vision. No pain. No discharge. ENT AND RESPIRATORY: No wheeze. No sore throat. No change in voice. No hearing loss. No nose bleed. No cough. No trouble breathing through nose. No shortness of breath. No coughing up blood. No epistaxis. CARDIOVASCULAR: No chest pain. No dizziness. No irregular heartbeat. No leg edema. No pain in legs while walking. No palpitations. No shortness of breath. DERMATOLOGIC: No acne. No hives. No laceration. No mole. No rash. ENDOCRINE: No cold intolerance. No diabetes. No fatigue. No hot flashes. No polydipsia. No polyuria. No urinating frequently. No weight loss. HEMATOLOGIC AND LYMPH: No fatigue. No easy bruising. GASTROENTEROLOGIC: No change in bowel habits. No indigestion. No frequent bloating. No vomiting blood. No abdominal cramping. No nausea. No heartburn. No vomiting. No abdominal pain. No dysphagia. No diarrhea. No constipation. No blood in stool. [place], [place] REPORT OF CONSULTATION NAME: ALEIDA SUH UNIT #: [id number] ROOM: [facility] DOCTOR: CHRISTOPHE SWEET MD BIRTHDATE: [birth year] FEMALE REPRODUCTIVE: No vaginal itching. No difficulty urinating. No heavy periods. No dyspareunia. No sexually active. No dysmenorrhea. No pelvic pain. No breast pain. No nipple discharge. No abnormal vaginal discharge. No hot flashes. MUSCULOSKELETAL: No back pain. No muscle pain or weakness. No neck pain. No tingling/numbness. No swelling/bruising. No osteoporosis treatment. OPTHALMOLOGIC: No double vision. No diminished vision. No loss of vision. UROLOGIC: No dysuria. No frequent nighttime urination. No irregular periods. No pain with urination. No difficulty urinating. No blood in urine. No frequent urination. No urinary incontinence. NEUROLOGIC: No loss of sensation in specific body area. No vertigo. No burning pain in feet. No trouble with balance. No trouble with coordination. No loss of consciousness. No loss of feeling/power. No confusion. No headache. No tingling/numbness. PSYCHOLOGIC: No tinnitus. No headaches. No shortness of breath. No weight decrease. No nausea. No vomiting. No abdominal discomfort. No constipation. No diarrhea. No depression. No anxiety. PHYSICAL EXAMINATION: GENERAL: Pleasant woman in no apparent distress, feeling better today. VITAL SIGNS: Stable. She is afebrile. HEENT: Oral mucosa appears intact. The external ears are normal in appearance. Nares are patent without lesions, exudates, erythema, or inflammation. Tongue is symmetrical. Uvula is midline. NECK AND THYROID: Neck supple without palpable masses. Trachea is midline. No thyromegaly. No carotid bruit or JVD. BREASTS: Normal. Nipples unremarkable. No drainage. No lumps felt on either side. HEART: Normal S1, S2, without significant murmur, rub, or gallop. LUNGS: Bilateral rhonchi with expiratory wheeze. ABDOMEN: No costovertebral angle tenderness. Soft. No organomegaly or masses. Nontender. No hernias present. Liver and spleen are not palpable. LYMPHATIC: No adenopathy noted in the cervical, supraclavicular, axillary, or inguinal regions. NEUROLGIC: Nonfocal. Oriented to person, place, and time. MENTAL STATUS: Appropriate for mood and affect. PERIPHERAL PULSES: No varicosities. Femoral and pedal pulses are palpable. EXTREMITIES: Without cyanosis, clubbing, or edema. No gross anomalies. LABORATORY DATA: White count of 1.1, hemoglobin 8.5, hematocrit 24.8, platelet count 33,000 with ANC of 400. Sodium 140, potassium 3.8, chloride 105, bicarb 28. SGOT is 5 and SGPT 12. EGFR is more than 60. ASSESSMENT: 1. Pancytopenia secondary to chemotherapy. 2. Chronic obstructive pulmonary disease exacerbation. 3. Chest pain. 4. Extensive small cell lung cancer. PLAN: Growth factors, neutropenic precautions, broad spectrum antibiotics, [place], [place] REPORT OF CONSULTATION NAME: ALEIDA SUH UNIT #: [id number] ROOM: [facility] DOCTOR: CHRISTOPHE SWEET MD BIRTHDATE: [birth year] transfusion on p.r.n. basis. Follow counts for now. Depending on further intervention ____ Thanks for consulting and letting participate in the care of this interesting patient. CHRISTOPHE SWEET MD CM:CONSTR:REPORT OF CONSULTATION 1124 11/03/17 1616 interface
--- NOTE | ~2017-11-02 | PR ---
[place], [place] PROGRESS NOTE NAME: ALEIDA USH UNIT #: [id number] ROOM: 517 DOCTOR: CHRISTOPHE SWEET MD BIRTHDATE: [birth year] DOS: 11/07/2017 SUBJECTIVE: The patient is doing much better. Her pain has also got better. She is alert, awake, and responsive. PHYSICAL EXAMINATION: GENERAL: She is a pleasant woman in no apparent distress. VITAL SIGNS: Stable. She is afebrile. HEENT: Normocephalic, atraumatic NECK AND THYROID: Supple. No JVD, thyromegaly, or lymphadenopathy. HEART: Normal S1, S2. Regular rate and rhythm. LUNGS: Clear to auscultation and percussion. ABDOMEN: Soft. Nontender, nondistended. Bowel sounds present. EXTREMITIES: Normal ROM. No clubbing. No edema. LABORATORY DATA: White count of 11.6, hemoglobin 10.0, hematocrit 28.9, platelet count of 67,000. ASSESSMENT: 1. Neutropenia, has resolved. 2. Chronic obstructive pulmonary disease exacerbation. 3. Extensive small cell lung cancer, undergoing chemotherapy. 4. Thrombocytopenia, which is getting better. 5. Back pain. PLAN: Pain is better. She is getting Percocet q.4-6h. Her ANC has improved. Neutropenic precautions as well as growth factor had been stopped. She will continue Rocephin and Zithromax. Overall, she is doing better. I expect the platelets to improve also. Depending on the workup, further intervention. I discussed with the patient in detail. CHRISTOPHE SWEET MD CM:PNTRANS [id number] CHRISTOPHE SWEET MD 11/07/17 1151 interface
--- NOTE | ~2017-11-02 | DS ---
[place], [place] DISCHARGE SUMMARY NAME: ALEIDA SUH UNIT #: [id number] ROOM: 517 DOCTOR: CHENG CROFT MD BIRTHDATE: [birth year] DOS: 11/07/2017 HOSPITAL COURSE: The patient has been admitted to the hospital with chest pain and also having multiple medical problems including metastatic cancer, COPD with emphysema, small cell lung cancer with metastasis, thrombocytopenia, ____ anemia, neutropenia and hypertension, seizure disorder, generalized anxiety disorder. The patient is feeling better. She is comfortable and she denies any chest pain. No difficulty in breathing. No nausea. No vomiting. She is able to ambulate well and her basic metabolic profile showed glucose 129. Other values are fairly normal. CBC showed hemoglobin 10, hematocrit 28.9, WBC 11.6. Other values are fairly stable. PHYSICAL EXAMINATION: VITAL SIGNS: The patient's blood pressure is 132/82, pulse 89, respirations 18, temperature 98.2. HEART: Regular. CHEST: Having occasional rhonchi with increased ____. No crepitation. ABDOMEN: Soft. The patient will continue taking her home medication as she had been taking before and she will be followed up in the office next week and will be seen with Dr. Fox and the patient was seen by Dr. Knowles today and he thinks the patient is doing good and she can go home. CHENG CROFT MD CM:SANJUANA 1152 1430 CHENG CROFT MD 11/07/17 2133 interface
[2017-11-02 12:31] VITALS: BP 131/89
[~2017-11-02 12:31] MED LIST changes: +ATIVAN0.5 MG PO; +CITALOPRAM10 MG PO; +DOXYCYCLINE MO100 M1 PO; +ENOXAPARIN80 MG/0.2 SQ; +NORVASC10 MG PO; +OXYCODONE HCL5 MG PO; +OXYCONTIN10 M1 PO; +VITAMIN D5000 UNI1 PO
[2017-11-02 13:31] LABS: HEMATOCRIT 28.1 % (37.0-47.0); HEMOGLOBIN 9.5 g/dl (12.0-16.0); MEAN CELL VOLUME 91.2 fl (81.0-99.0); MEAN CORPUSCULAR HGB 30.8 pg (27.0-31.0); MEAN CORPUSCULAR HGB CONC 33.8 g/dl (33.0-37.0); MEAN PLATELET VOLUME 11.6 fl (9.6-12.3); PLATELET COUNT AUTOMATED 34 10*3/uL (130-400); RED BLOOD COUNT 3.08 10*6/uL (4.10-5.10); RED CELL DISTRI WIDTH 14.5 % (0-14.5)
[2017-11-02 13:40] LABS: INTERNATIONAL NORM RATIO 0.9 (2.0-3.5)
[2017-11-02 13:51] LABS: ALBUMIN 3.4 gm/dl (3.1-4.5); ALKALINE PHOSPHATASE 83 U/L (45-117); BUN 4 mg/dl (7-24); CHLORIDE 102 mmol/L (98-107); CREATININE 0.52 mg/dL (0.55-1.02); POTASSIUM 3.6 mmol/L (3.5-5.1); SGOT/AST 10 IU/L (3-35); SGPT/ALT 14 U/L (12-78); SODIUM 139 mmol/L (136-145); TOTAL PROTEIN 6.5 gm/dL (6.4-8.2)
[2017-11-02 13:52] LABS: ATYPICAL LYMPHS 2 % (0-0); BASOPHILS 1 % (0-1); PLATELET SUFFICIENCY LOW (NORMAL); TOTAL CELLS COUNTED 100 #CELLS
[2017-11-02 13:54] LABS: TROPONIN I < 0.015 ng/ml (<0.045)
[2017-11-02] MEDS ORDERED: PERCOCET 5-3251 EACH PO (15:44)
[2017-11-02 16:00] VITALS: BP 153/58
[2017-11-02 16:43] VITALS: BP 132/84
[2017-11-02 16:58] VITALS: BP 129/92
[2017-11-02 20:00] VITALS: BP 119/84
[2017-11-03] VITALS: BP 142/75
[2017-11-03 07:27] LABS: HEMATOCRIT 24.8 % (37.0-47.0); HEMOGLOBIN 8.5 g/dl (12.0-16.0); MEAN CELL VOLUME 91.9 fl (81.0-99.0); MEAN CORPUSCULAR HGB 31.5 pg (27.0-31.0); MEAN CORPUSCULAR HGB CONC 34.3 g/dl (33.0-37.0); MEAN PLATELET VOLUME 9.7 fl (9.6-12.3); PLATELET COUNT AUTOMATED 33 10*3/uL (130-400); RED CELL DISTRI WIDTH 14.6 % (0-14.5)
[2017-11-03 07:47] LABS: PLATELET SUFFICIENCY LOW (NORMAL); POLYCHROMASIA SLIGHT; TOTAL CELLS COUNTED 100 #CELLS
[2017-11-03 07:48] LABS: WHITE BLOOD COUNT 1.1 10*3/uL (4.8-10.8)
[2017-11-03 08:00] VITALS: BP 148/86
[2017-11-03 08:02] LABS: BUN 5 mg/dl (7-24); CHLORIDE 105 mmol/L (98-107); POTASSIUM 3.8 mmol/L (3.5-5.1); SODIUM 140 mmol/L (136-145)
[2017-11-03 08:05] LABS: ALKALINE PHOSPHATASE 69 U/L (45-117); CREATININE 0.41 mg/dL (0.55-1.02); SGOT/AST 5 IU/L (3-35); SGPT/ALT 12 U/L (12-78); TOTAL PROTEIN 5.7 gm/dL (6.4-8.2)
[2017-11-03 12:00] VITALS: BP 167/88
[2017-11-03 16:00] VITALS: BP 144/81
[2017-11-03 20:00] VITALS: BP 126/80
[2017-11-04 01:01] VITALS: BP 162/89
[2017-11-04 06:30] LABS: HEMATOCRIT 24.9 % (37.0-47.0); HEMOGLOBIN 8.4 g/dl (12.0-16.0); MEAN CELL VOLUME 93.6 fl (81.0-99.0); MEAN CORPUSCULAR HGB 31.6 pg (27.0-31.0); MEAN CORPUSCULAR HGB CONC 33.7 g/dl (33.0-37.0); MEAN PLATELET VOLUME 11.3 fl (9.6-12.3); NUCLEATED RED BLOOD CELL 1.1 % (0.0-0.0); PLATELET COUNT AUTOMATED 34 10*3/uL (130-400); RED BLOOD COUNT 2.66 10*6/uL (4.10-5.10); RED CELL DISTRI WIDTH 15.6 % (0-14.5)
[2017-11-04 06:59] LABS: ALBUMIN 3.2 gm/dl (3.1-4.5); ALKALINE PHOSPHATASE 65 U/L (45-117); BUN 5 mg/dl (7-24); CHLORIDE 103 mmol/L (98-107); CREATININE 0.58 mg/dL (0.55-1.02); POTASSIUM 3.3 mmol/L (3.5-5.1); SGOT/AST 4 IU/L (3-35); SGPT/ALT 13 U/L (12-78); SODIUM 139 mmol/L (136-145); TOTAL PROTEIN 5.9 gm/dL (6.4-8.2)
[2017-11-04 07:10] LABS: TOTAL CELLS COUNTED 100 #CELLS
[2017-11-04 07:11] LABS: PLATELET SUFFICIENCY LOW (NORMAL)
[2017-11-04 07:18] LABS: WHITE BLOOD COUNT 1.8 10*3/uL (4.8-10.8)
[2017-11-04 08:00] VITALS: BP 128/94
[2017-11-04 12:00] VITALS: BP 146/82
[2017-11-04 16:00] VITALS: BP 144/80
[2017-11-04 20:00] VITALS: BP 140/94
[2017-11-05] VITALS: BP 134/78
[2017-11-05 07:02] LABS: HEMATOCRIT 26.5 % (37.0-47.0); MEAN CORPUSCULAR HGB 31.6 pg (27.0-31.0); NUCLEATED RED BLOOD CELL 0.1 10*3/uL (0.0-0.0); NUCLEATED RED BLOOD CELL 1.7 % (0.0-0.0); RED BLOOD COUNT 2.85 10*6/uL (4.10-5.10); RED CELL DISTRI WIDTH 16.2 % (0-14.5); WHITE BLOOD COUNT 4.7 10*3/uL (4.8-10.8)
[2017-11-05 07:03] LABS: PLATELET COUNT AUTOMATED 46 10*3/uL (130-400)
[2017-11-05 07:12] VITALS: BP 164/97
[2017-11-05 07:33] LABS: ALBUMIN 3.4 gm/dl (3.1-4.5); ALKALINE PHOSPHATASE 69 U/L (45-117); BUN 6 mg/dl (7-24); CHLORIDE 101 mmol/L (98-107); POTASSIUM 3.1 mmol/L (3.5-5.1); SGOT/AST 5 IU/L (3-35); SGPT/ALT 13 U/L (12-78); SODIUM 138 mmol/L (136-145); TOTAL PROTEIN 6.1 gm/dL (6.4-8.2)
[2017-11-05 07:40] LABS: TOTAL CELLS COUNTED 100 #CELLS
[2017-11-05 07:41] LABS: PLATELET SUFFICIENCY LOW (NORMAL); POLYCHROMASIA SLIGHT
[2017-11-05 12:03] VITALS: BP 156/95
[2017-11-05 16:07] VITALS: BP 141/88
[2017-11-05 20:00] VITALS: BP 151/98
[2017-11-06] VITALS: BP 116/94; BP 143/63
[2017-11-06 06:29] LABS: HEMATOCRIT 28.9 % (37.0-47.0); MEAN CELL VOLUME 91.2 fl (81.0-99.0); MEAN CORPUSCULAR HGB 31.5 pg (27.0-31.0); MEAN CORPUSCULAR HGB CONC 34.6 g/dl (33.0-37.0); MEAN PLATELET VOLUME 10.9 fl (9.6-12.3); NUCLEATED RED BLOOD CELL 0.3 10*3/uL (0.0-0.0); NUCLEATED RED BLOOD CELL 2.2 % (0.0-0.0); RED BLOOD COUNT 3.17 10*6/uL (4.10-5.10); RED CELL DISTRI WIDTH 16.6 % (0-14.5); WHITE BLOOD COUNT 11.6 10*3/uL (4.8-10.8)
[2017-11-06 06:30] LABS: PLATELET COUNT AUTOMATED 67 10*3/uL (130-400)
[2017-11-06 06:45] LABS: BUN 7 mg/dl (7-24); CHLORIDE 100 mmol/L (98-107); CREATININE 0.59 mg/dL (0.55-1.02); POTASSIUM 3.5 mmol/L (3.5-5.1); SODIUM 138 mmol/L (136-145)
[2017-11-06 07:00] LABS: ATYPICAL LYMPHS 3 % (0-0); TOTAL CELLS COUNTED 100 #CELLS
[2017-11-06 07:01] LABS: PLATELET SUFFICIENCY LOW (NORMAL); POLYCHROMASIA SLIGHT; TOXIC GRANULATION SLIGHT
[2017-11-06 07:52] VITALS: BP 149/89
[2017-11-06 11:54] VITALS: BP 139/86
[2017-11-06 16:01] VITALS: BP 134/97
[2017-11-06 20:00] VITALS: BP 128/81
[2017-11-07] VITALS: BP 144/82; BP 148/90
[2017-11-07 08:00] VITALS: BP 132/90
[2017-11-07 12:00] VITALS: BP 146/89
== END 2017-11-07 13:08 | disposition home health service (06) | DRG 190 ==
LOC: ED 12:31 → 5E 15:26 → EDHOLD 15:26 → 5E 15:48
PROVIDERS: Emergency Medicine; Internal Medicine
DX: J44.1 Chronic obstructive pulmonary disease with (acute) exacerbation (principal); D61.810 Antineoplastic chemotherapy induced pancytopenia; C79.9 Secondary malignant neoplasm of unspecified site; Z99.81 Dependence on supplemental oxygen; E22.2 Syndrome of inappropriate secretion of antidiuretic hormone; E83.42 Hypomagnesemia; C34.90 Malignant neoplasm of unspecified part of unspecified bronchus or lung; F41.1 Generalized anxiety disorder; G40.909 Epilepsy, unspecified, not intractable, without status epilepticus; I10 Essential (primary) hypertension; M54.9 Dorsalgia, unspecified; E87.6 Hypokalemia; T45.1X5A Adverse effect of antineoplastic and immunosuppressive drugs, initial encounter; Y92.89 Other specified places as the place of occurrence of the external cause; Z88.8 Allergy status to other drugs, medicaments and biological substances; Z79.899 Other long term (current) drug therapy

== ENCOUNTER → 2017-11-19 | Outpatient (CLI) | payer OTHER ==
[2017-11-19 10:45] VITALS: BP 128/87
== END | disposition home or self-care (01) ==
LOC: INJECTION 10:32
DX: C34.92 Malignant neoplasm of unspecified part of left bronchus or lung (principal)

== ENCOUNTER 2017-11-27 08:57 | Inpatient (IN) | payer OTHER ==
[2017-11-27] VITALS (11 sets, daily range): BP systolic 129–146; BP diastolic 85–92
[~2017-11-27] VITALS: Ht 170.2 cm; Wt 77.7 kg
--- NOTE | ~2017-11-27 | CON ---
[place], [place] REPORT OF CONSULTATION NAME: ALEIDA SUH UNIT #: [id number] ROOM: 421 DOCTOR: SHIRA TOUSSAINT MD BIRTHDATE: [birth year] DOS: 11/30/2017 PULMONARY CONSULTATION, EVALUATION AND MANAGEMENT CONSULTATION REQUESTED BY: The hospitalist services. REASON FOR CONSULTATION: Assess the patient with current acute pneumonia. HISTORY OF PRESENT ILLNESS: A 62-year-old white female patient who has been admitted under the hospitalist service on 11/27/2017. The patient has been known to me with history of known cancer which was noted metastatic, receiving chemotherapy. She has been assessed in the Emergency Room on 11/27/2017 as the patient reported having symptoms of increased shortness of breath occurring at home with intermittent cough. The patient's symptoms have been noted to worsen. She was also noted with jitteriness and tremors of the hand. She reported no symptoms of wheezing. Denies symptoms of hemoptysis. The patient has been admitted to the hospital for further medical management and assessment of current problem and also being treated for the acute pneumonia in the right lung. This morning, as the patient was seen, she has not been noted with symptoms of coughing and shortness of breath has been improved. There was no hemoptysis or chest pain reported by the patient. REVIEW OF SYSTEMS: CONSTITUTIONAL: Fatigue and tiredness reported. No symptoms of fever or chills. EYES: Denies any burning, redness, or tenderness. EARS, NOSE, THROAT SYMPTOMS: Denies sore throat, hoarseness, otalgia, or postnasal drainage. CARDIOVASCULAR: No anginal pain, edema or pain in the lower extremity. GASTROINTESTINAL SYMPTOMS: Dysphagia, nausea, vomiting, diarrhea, abdominal pain, hematemesis and melena. SKIN: Denies any lesions or rashes. GENITOURINARY SYMPTOMS: Denies dysuria, suprapubic pain or hematuria. CENTRAL NERVOUS SYSTEM: Denies dizziness, headache, diplopia, syncopal episodes. NEUROPSYCHIATRIC: The patient has been noted with symptoms of anxiety. Remaining systems were reviewed. They were noted all negative. PAST MEDICAL HISTORY: 1. Noted with a history of small cell lung cancer, diagnosed in 05/2017 as extensive stage, treated with chemotherapy. 2. The patient with paraneoplastic syndrome and SIADH. 3. History of chronic nicotine use. 4. COPD and centrilobular emphysema. 5. Chronic hypoxic respiratory failure. 6. Essential hypertension. 7. Generalized anxiety disorder and depression. 8. History of osteoarthritis. [place], [place] REPORT OF CONSULTATION NAME: ALEIDA SUH UNIT #: [id number] ROOM: 421 DOCTOR: SHIRA TOUSSAINT MD BIRTHDATE: [birth year] PAST SURGICAL HISTORY: 1. D and C. 2. EGD. 3. Cornea transplant. 4. Polypectomy. 5. Therapeutic bronchoscopy on 05/26/2017 that did diagnose the evidence of a small cell lung cancer. SOCIAL HISTORY: The patient is , has two children. Denies any history of alcohol use, illicit drug use. Tobacco use noted up to 3 packs of cigarettes in the past from teenager, still smoking few cigarettes a day intermittently. FAMILY HISTORY: The patient's father of complication of myocardial infarction. Mother of complication of natural causes. MEDICATIONS: Current medications administered noted as use of Mucinex, Solu-Medrol 60 mg b.i.d., DuoNeb q.4 hours, Levaquin, vancomycin, lorazepam, Zosyn, temazepam, Lasix and other p.r.n. medications. ALLERGIES: THE DRUG ALLERGY REPORTED SOLU-MEDROL CAUSING HIVES AND ITCHING, BUT THE PATIENT HAS BEEN RECEIVING THE CURRENT SOLU-MEDROL INTRAVENOUSLY. PHYSICAL EXAMINATION: GENERAL: The patient was noted as 62-year-old white female patient, currently noted with alopecia without any acute distress, comfortably lying in the bed. The patient's height recorded on current admission by the nursing staff is 5 feet 7 inches, weight 271 pounds and BMI of 24. VITAL SIGNS: Vital signs for the patient which have been recorded showed normal temperature; respiratory rate 20-24; heart rate of 115-111, sinus tachycardia; and blood pressure 155/104 to 128/72. Intake for the patient is 1800 mL and the output is 4050 mL. Pulse oxygen saturation of the patient on room air is 99% on 2 L nasal cannula, was previously noted 98% saturation on admission. HEENT: ____ alopecia. Head was atraumatic. Eyes nonicterus. Oral mucosa was moist. There were no ulcers. NECK: Supple. CARDIOVASCULAR: S1, S2 are audible. LUNGS: The patient was noted with moderate decreased breath sounds and scattered wheezing in the lungs bilaterally. ABDOMEN: Soft, flat and nontender. Bowel sounds present. EXTREMITIES: The patient has no edema, clubbing, or cyanosis. VISIBLE SKIN: No lesions or rashes. MUSCULOSKELETAL: Without any acute deformities. CENTRAL NERVOUS SYSTEM: Cranial nerves 2-12 intact. No focal deficit. LABORATORY DATA: The patient's CBC on admission, 11/27/2017, was noted with WBC count 4.4, hemoglobin 8.6, hematocrit 25.7 and platelet count 18,000. CMP on admission, 11/27/2017; BUN and creatinine were normal. Potassium 3.1. Remaining LFTs were normal. CBC on 11/28/2017 for the patient; hemoglobin 7.8, hematocrit 22.9, WBC count 4.2 and platelet count 48,000. CBC of this morning; the patient's WBC count normal, hemoglobin 7.6, hematocrit 22.9, and platelet [place], [place] REPORT OF CONSULTATION NAME: ALEIDA SUH UNIT #: [id number] ROOM: [facility] DOCTOR: MO DUMONT [facility] BIRTHDATE: [birth year] count 53,000. CMP of the patient today; normal BUN and creatinine, glucose of 146. LFTs essentially normal except low albumin. Culture of the sputum of 11/29/2017 for the patient showed moderate gram-positive cocci in pairs and clusters with pending culture results. The Gram stain was also noted with many white blood cells and moderate epithelial cells. The blood cultures for the patient which were taken on 11/27/2017 were noted without any bacterial growth. IMAGING DATA: The chest x-ray that was done on 11/27/2017; small opacity was noted in the right lower lobe with changes of COPD noted on the chest x-ray. The patient had a CTA of the chest which was done on 11/19/2017 which was personally reviewed. There was no evidence of pulmonary embolism. Previous pulmonary embolism, which has been noted in the past CT of the chest of 09/2017 has been resolved. There was no evidence of any acute pulmonary infiltration either. IMPRESSION: 1. The patient who has been currently admitted to the hospital. The patient appears to have acute exacerbation of chronic obstructive pulmonary disease and acute bronchitis. There was no evidence of acute pneumonia, pancytopenia related to chemotherapy as well, history of small cell cancer currently treated effective with the chemotherapy without any progression of the malignancy noted, the malignancy seem to remain in control. 2. The patient with resolution of the leukopenia at this time and thrombocytopenia persisted with partial improvement. 3. Anemia of the patient remains stable as well. 4. Resolving acute exacerbation of chronic obstructive pulmonary disease as well. PLAN OF TREATMENT: Discontinue the broad-spectrum intravenous antibiotics. The tapering dose of prednisone or reduction of Solu-Medrol will be considered. Continue other previous therapy and plan of management. Supportive care, other plan of therapy, and care. Usual treatment, other supportive plan of therapy, and management. SHIRA HASSAN MD CM:CONSTR:REPORT OF CONSULTATION 1433 12/01/17 0617 interface
--- NOTE | ~2017-11-27 | WRIGHTHP ---
[place], [place] PATIENT HISTORY AND PHYSICAL EXAM [id number] #: [id number] ROOM: 421 DOCTOR: CHENG CROFT MD BIRTHDATE: [birth year] DOS: 11/27/2017 HISTORY OF PRESENT ILLNESS: The patient had been admitted to hospital yesterday. She came to the hospital with difficulty in breathing and the patient was feeling fairly weak and was sweating and was feeling very miserable and on investigation in the Emergency Department, was found to be having right lobe pneumonia, so needed to be admitted to the hospital. The patient was only recently discharged from the hospital. PAST MEDICAL HISTORY: She has past history of bilateral pulmonary embolism, COPD with emphysema, essential hypertension, generalized anxiety, hypokalemia, hypo-magnesium, metastatic tumor of the lung and the patient is having small cell cancer of the lungs. She also has history of seizure disorder and tobacco abuse. MEDICATIONS: The patient is taking following medication at present: Enoxaparin sodium 80 mg twice daily, amlodipine 10 mg daily, aerosol treatment with DuoNeb every 6 hours, sodium chloride 1 gram twice daily, citalopram 10 mg daily, trazodone 50 mg at bedtime, Breo 1 puff daily, gabapentin 100 mg 3 times daily and oxycodone 1 tablet q. 4-6 hours p.r.n. ALLERGIES: The patient is allergic to SOLU-Medrol. PAST SURGICAL HISTORY: D and C, EGD, cornea transplant, colonoscopy and polypectomy. SOCIAL HISTORY: The patient does not drink any alcohol. She uses marijuana and patient smoke 1 pack of cigarettes daily. PHYSICAL EXAMINATION: GENERAL: The patient at present is conscious, alert and oriented. She is complaining of some pain in the right chest and with some difficulty in breathing. ENT: Unremarkable. No glandular enlargement. NECK: Trachea is central. Neck veins are not distended. HEART: Regular. No murmur. LUNGS: Having increased expiration with few crepitations on the right side. ABDOMEN: Soft. Liver and spleen not palpable. No area of tenderness. No mass palpated. NEUROLOGIC: No neurological deficit observed. EXTREMITIES: The patient can move all the 4 limbs without any problem. VITAL SIGNS: Her blood pressure is 136/90, pulse is 105, respirations 18, temperature 99. LABORATORY DATA: Her CBC shows hypochromic anemia. Chest x-ray shows COPD with emphysema with bronchopneumonia on the right middle lobe. Lactic acid is 0.8. Comprehensive metabolic profile showed glucose 134, BUN 6, creatinine 0.54, calcium 7.3, total protein 6.1. Other values are fairly normal. CBC done today showed hemoglobin 7.8, hematocrit 22.9, WBC 4.2. [place], [place] PATIENT HISTORY AND PHYSICAL EXAM NAME: ALEIDA SUH UNIT #: [id number] ROOM: 421 DOCTOR: CHENG CROFT MD BIRTHDATE: [birth year] ASSESSMENT: The patient is having right middle lobe pneumonia with chronic obstructive pulmonary disease, with history of small cell cancer, on chemotherapy, with hypochromic anemia and multiple other problems as dictated in her history. PLAN OF TREATMENT: The patient will be receiving methylprednisolone 60 mg every 12 hours, aerosol treatment and cefuroxime 1 gram IV daily and she will be started on her home medications. CHENG CROFT MD CM:HISPHYS:PATIENT HISTORY AND PHYSICAL EXAMINATION 1606 1730 CHENG CROFT MD 12/06/17 0902 interface
--- NOTE | ~2017-11-27 | CON ---
[place], [place] REPORT OF CONSULTATION NAME: ALEIDA SUH UNIT #: [id number] ROOM: 421 DOCTOR: CHRISTOPHE SWEET MD BIRTHDATE: [birth year] DOS: 11/29/2017 HISTORY OF PRESENT ILLNESS: The patient is a very pleasant woman with a history of extensive small cell lung cancer, came to the hospital because of increasing shortness of breath and feeling weak and tired and fatigue. She was found to have right lower lobe pneumonia and admitted in consult for further evaluation of her cancer. PAST MEDICAL HISTORY: Extensive small cell lung cancer, history of bilateral pulmonary embolism, COPD with emphysema, essential hypertension, generalized anxiety, history of seizure disorder. MEDICATIONS: On enoxaparin, amlodipine, DuoNeb, sodium chloride, citalopram, trazodone, gabapentin, oxycodone. ALLERGIES: SOLU-MEDROL. PAST SURGICAL HISTORY: D and C, EGD, corneal transplant, colonoscopy and polypectomy. SOCIAL HISTORY: Use of marijuana and smokes 1 packet per day. The patient does not drink any alcohol. PHYSICAL EXAMINATION: GENERAL: Pleasant woman, in no apparent distress. VITAL SIGNS: Stable. She is febrile. HEENT: Oral mucosa appears intact. The external ears are normal in appearance. Nares are patent without lesions, exudates, erythema, or inflammation. Tongue is symmetrical. Uvula is midline. NECK AND THYROID: Neck supple without palpable masses. Trachea is midline. No thyromegaly. No carotid bruit or JVD. BREASTS: Normal. Nipples unremarkable. No drainage. No lumps felt on either side. HEART: Normal S1, S2, without significant murmur, rub, or gallop. LUNGS: Clear to auscultation and percussion with good air entry bilaterally. The patient is breathing easily without the use of accessory muscles. Diaphragmatic excursions are intact. ABDOMEN: No costovertebral angle tenderness. Soft. No organomegaly or masses. Nontender. No hernias present. Liver and spleen are not palpable. LYMPHATIC: No adenopathy noted in the cervical, supraclavicular, axillary, or inguinal regions. NEUROLGIC: Nonfocal. Oriented to person, place, and time. MENTAL STATUS: Appropriate for mood and affect. PERIPHERAL PULSES: No varicosities. Femoral and pedal pulses are palpable. EXTREMITIES: Without cyanosis, clubbing, or edema. No gross anomalies. LABORATORY DATA: White count of 6.9, hemoglobin of 7.8, hematocrit 23.1, platelet count 69,000. ASSESSMENT: [place], [place] REPORT OF CONSULTATION NAME: ALEIDA SUH UNIT #: [id number] ROOM: 421 DOCTOR: CHRISTOPHE SWEET MD BIRTHDATE: [birth year] 1. Extensive small cell lung cancer. 2. Exacerbation of chronic obstructive pulmonary disease. 3. Pneumonia. 4. Anemia of neoplastic disorder. 5. Thrombocytopenia. PLAN: The patient is due for a PET scan on Wednesday. If her hemoglobin and hematocrit drops further, then transfusion. In the meantime, if the patient bleeds or bruises, then the platelets and the count drops less than 20. We will keep a close watch at this time. I had detailed discussion with the patient about it, she seemed to understand it. Ample time was given to the patient to ask me questions. We will follow. Thanks for consulting and letting participate in the care of this interesting patient. CHRISTOPHE SWEET MD CM:CONSTR:REPORT OF CONSULTATION 1412 11/30/17 0628 interface
--- NOTE | ~2017-11-27 | PR ---
[place], [place] PROGRESS NOTE NAME: ALEIDA SUH UNIT #: [id number] ROOM: 421 DOCTOR: CHRISTOPHE SWEET MD BIRTHDATE: [birth year] DOS: 11/30/2017 SUBJECTIVE: The patient is doing much better. Her breathing is also better. She is alert and responsive. REVIEW OF SYSTEMS HEENT: No trouble swallowing. No double vision. No loss of vision. No pain. ENT AND RESPIRATORY: No wheeze. No change in voice. No cough. No shortness of breath. No coughing up blood. No epistaxis. CARDIOLOGIC: No chest pain. No dizziness. No irregular heartbeat. No leg edema. No palpitations. No shortness of breath. HEMATOLOGIC AND LYMPH: No past transfusion. No fatigue. No loss of appetite. No easy bruising. GASTROENEROLOGIC: No change in bowel habits. No vomiting blood. No abdominal cramping. No nausea. No vomiting. No diarrhea. No constipation. No blood in stool. FEMALE REPRODUCTIVE: No dyspareunia. No pelvic pain. MUSCULOSKELETAL: No back pain. No muscle pain or weakness. No tingling/numbness. UROLOGIC: No pain with urination. No difficulty urinating. No frequent urination. NEUROLOGIC: No burning pain in feet. No trouble with coordination. No loss of consciousness. No headache. No tingling/numbness. No memory loss. PHYSICAL EXAMINATION: GENERAL: She is pleasant woman, in no apparent distress. VITAL SIGNS: Stable. She is afebrile. HEENT: Normocephalic, atraumatic NECK AND THYROID: Supple. No JVD, thyromegaly, or lymphadenopathy. HEART: Normal S1, S2. Regular rate and rhythm. LUNGS: Clear to auscultation and percussion. ABDOMEN: Soft. Nontender, nondistended. Bowel sounds present. EXTREMITIES: Normal ROM. No clubbing. No edema. LABORATORY DATA: White count of 7.4, hemoglobin 7.6, hematocrit 22.9, platelet count of 53,000. ASSESSMENT: 1. Exacerbation of chronic obstructive pulmonary disease. 2. Extensive small cell lung cancer. 3. Anemia of neoplastic disorder. 4. Thrombocytopenia. PLAN: To give her 1 unit of packed RBC. Platelets are stable, if it drops further, then intervention discussed. [place], [place] PROGRESS NOTE NAME: ALEIDA SUH UNIT #: [id number] ROOM: 421 DOCTOR: CHRISTOPHE SWEET MD BIRTHDATE: [birth year] CHRISTOPHE SWEET MD CM:PNTRANS [id number] CHRISTOPHE SWEET MD 11/30/17 1354 interface
[2017-11-27 10:09] LABS: HEMATOCRIT 25.7 % (37.0-47.0); HEMOGLOBIN 8.6 g/dl (12.0-16.0); MEAN CELL VOLUME 95.9 fl (81.0-99.0); MEAN CORPUSCULAR HGB 32.1 pg (27.0-31.0); MEAN CORPUSCULAR HGB CONC 33.5 g/dl (33.0-37.0); RED BLOOD COUNT 2.68 10*6/uL (4.10-5.10); RED CELL DISTRI WIDTH 16.7 % (0-14.5); WHITE BLOOD COUNT 4.4 10*3/uL (4.8-10.8)
[2017-11-27 10:11] LABS: PLATELET COUNT AUTOMATED 18 10*3/uL (130-400)
[2017-11-27 10:21] LABS: ALBUMIN 3.7 gm/dl (3.1-4.5); ALKALINE PHOSPHATASE 88 U/L (45-117); BUN 4 mg/dl (7-24); CHLORIDE 101 mmol/L (98-107); CREATININE 0.46 mg/dL (0.55-1.02); POTASSIUM 3.1 mmol/L (3.5-5.1); SGOT/AST 8 IU/L (3-35); SGPT/ALT 17 U/L (12-78); SODIUM 138 mmol/L (136-145); TOTAL PROTEIN 6.4 gm/dL (6.4-8.2)
[2017-11-27 10:29] LABS: ATYPICAL LYMPHS 9 % (0-0); BASOPHILS 1 % (0-1); PLATELET SUFFICIENCY LOW (NORMAL); TOTAL CELLS COUNTED 100 #CELLS
[2017-11-27 10:31] LABS: DOHLE BODIES FEW; TOXIC GRANULATION SLIGHT
[2017-11-27] MEDS ORDERED: OXYCODONE HCL5 MG PO (17:15)
[2017-11-27] MEDS ORDERED: NEURONTIN100 MG PO (17:15)
[2017-11-27] MEDS ORDERED: NICODERM CQ1 EAC2 T (17:16)
[2017-11-27] MEDS ORDERED: K-TAB20 MEQ PO (17:16)
[2017-11-28 00:06] VITALS: BP 138/93
[2017-11-28 06:04] LABS: HEMATOCRIT 22.9 % (37.0-47.0); HEMOGLOBIN 7.8 g/dl (12.0-16.0); MEAN CELL VOLUME 96.6 fl (81.0-99.0); MEAN CORPUSCULAR HGB 32.9 pg (27.0-31.0); MEAN CORPUSCULAR HGB CONC 34.1 g/dl (33.0-37.0); MEAN PLATELET VOLUME 10.3 fl (9.6-12.3); RED BLOOD COUNT 2.37 10*6/uL (4.10-5.10); RED CELL DISTRI WIDTH 16.6 % (0-14.5); WHITE BLOOD COUNT 4.2 10*3/uL (4.8-10.8)
[2017-11-28 06:07] LABS: PLATELET COUNT AUTOMATED 58 10*3/uL (130-400)
[2017-11-28 06:21] LABS: ALBUMIN 3.2 gm/dl (3.1-4.5); ALKALINE PHOSPHATASE 84 U/L (45-117); BUN 6 mg/dl (7-24); CHLORIDE 101 mmol/L (98-107); CREATININE 0.54 mg/dL (0.55-1.02); POTASSIUM 3.9 mmol/L (3.5-5.1); SGOT/AST 9 IU/L (3-35); SGPT/ALT 17 U/L (12-78); SODIUM 137 mmol/L (136-145); TOTAL PROTEIN 6.1 gm/dL (6.4-8.2)
[2017-11-28 06:44] LABS: ATYPICAL LYMPHS 1 % (0-0); PLATELET SUFFICIENCY LOW (NORMAL); TOTAL CELLS COUNTED 100 #CELLS
[2017-11-28 08:00] VITALS: BP 116/74
[2017-11-28 12:00] VITALS: BP 136/90
[2017-11-28 16:00] VITALS: BP 150/73
[2017-11-28 20:00] VITALS: BP 150/81
[2017-11-29] VITALS (8 sets, daily range): BP systolic 125–158; BP diastolic 72–94
[2017-11-29 07:01] LABS: BASO % 0.1 % (0.0-1.0); HEMATOCRIT 23.1 % (37.0-47.0); HEMOGLOBIN 7.8 g/dl (12.0-16.0); LYMPH # 1.1 10*3/uL (1.3-4.4); LYMPH % 16.3 % (27.0-41.0); MEAN CELL VOLUME 98.3 fl (81.0-99.0); MEAN CORPUSCULAR HGB 33.2 pg (27.0-31.0); MEAN CORPUSCULAR HGB CONC 33.8 g/dl (33.0-37.0); MONO # 0.7 10*3/uL (0.1-1.0); MONO % 9.6 % (3.0-9.0); NEUT % 72.4 % (47.0-73.0); PLATELET COUNT AUTOMATED 69 10*3/uL (130-400); RED BLOOD COUNT 2.35 10*6/uL (4.10-5.10); RED CELL DISTRI WIDTH 17.5 % (0-14.5); WHITE BLOOD COUNT 6.9 10*3/uL (4.8-10.8)
[2017-11-30] VITALS: BP 154/81
[2017-11-30 06:45] LABS: BASO % 0.1 % (0.0-1.0); HEMATOCRIT 22.9 % (37.0-47.0); HEMOGLOBIN 7.6 g/dl (12.0-16.0); LYMPH # 1.3 10*3/uL (1.3-4.4); LYMPH % 17.8 % (27.0-41.0); MEAN CELL VOLUME 98.7 fl (81.0-99.0); MEAN CORPUSCULAR HGB 32.8 pg (27.0-31.0); MEAN CORPUSCULAR HGB CONC 33.2 g/dl (33.0-37.0); MEAN PLATELET VOLUME 9.8 fl (9.6-12.3); MONO # 0.6 10*3/uL (0.1-1.0); MONO % 7.6 % (3.0-9.0); NEUT # 5.4 10*3/uL (2.3-7.9); NEUT % 72.2 % (47.0-73.0); NUCLEATED RED BLOOD CELL 0.4 % (0.0-0.0); PLATELET COUNT AUTOMATED 53 10*3/uL (130-400); RED BLOOD COUNT 2.32 10*6/uL (4.10-5.10); RED CELL DISTRI WIDTH 17.4 % (0-14.5); WHITE BLOOD COUNT 7.4 10*3/uL (4.8-10.8)
[2017-11-30 07:05] LABS: ALBUMIN 3.4 gm/dl (3.1-4.5); BUN 9 mg/dl (7-24); CHLORIDE 101 mmol/L (98-107); CREATININE 0.48 mg/dL (0.55-1.02); POTASSIUM 3.9 mmol/L (3.5-5.1); SGOT/AST 6 IU/L (3-35); SGPT/ALT 17 U/L (12-78); SODIUM 136 mmol/L (136-145)
[2017-11-30 07:06] LABS: ALKALINE PHOSPHATASE 79 U/L (45-117)
[2017-11-30 08:00] VITALS: BP 140/90
[2017-11-30 12:00] VITALS: BP 160/90
[2017-11-30 13:15] VITALS: BP 149/94; BP 167/92
[2017-11-30] MEDS ORDERED: NICODERM CQ1 EAC2 T (13:28)
[2017-11-30] MEDS ORDERED: MUCINEX ER600 MG PO (13:28)
[2017-11-30] MEDS ORDERED: PROAIR HFA8.5 GM INH (13:28)
[2017-11-30] MEDS ORDERED: PREDNISONE10 MG PO (13:28)
[2017-11-30] MEDS ORDERED: DOXYCYCLINE100 M3 PO (13:28)
[2017-11-30] MEDS ORDERED: CALCIUM CARBON200 MG PO (13:28)
[2017-11-30] MEDS ORDERED: NEURONTIN100 MG PO (13:29)
[2017-11-30] MEDS ORDERED: ATIVAN1 MG PO (13:29)
[2017-11-30] MEDS ORDERED: SODIUM CHLORI1000 MG PO (13:29)
[2017-11-30] MEDS ORDERED: NORVASC10 MG PO (13:29)
[2017-11-30] MEDS ORDERED: CITALOPRAM10 MG PO (13:29)
[2017-11-30] MEDS ORDERED: VITAMIN D5000 UNI1 PO (13:29)
[2017-11-30] MEDS ORDERED: NEURONTIN400 MG PO ×2 (13:29→14:29)
[2017-11-30 13:30] VITALS: BP 167/92
[2017-11-30 13:45] VITALS: BP 155/104
[2017-11-30 18:07] LABS: HLA CLASS 1 ANTIBODY Negative (Negative); IIb/IIIa ANTIBODY Negative (Negative); Ia/IIa ANTIBODY Negative (Negative); Ib/IX ANTIBODY Negative (Negative)
[2017-12-01 16:09] LABS: PLT ASSOCIATED ANTI-la/lla Positive (Negative); PLT ASSOCIATED ANTI-llb/llla Positive (Negative)
== END 2017-11-30 17:06 | disposition home health service (06) | DRG 871 ==
LOC: ED 08:57 → EDHOLD 12:38 → 4E 12:38
PROVIDERS: Family Medicine; Hospitalist; Internal Medicine; Internal Medicine Hematology & Oncology
PROC: 30233N1 Transfusion of Nonautologous Red Blood Cells into Peripheral Vein, Percutaneous Approach (ICD-10-PCS; principal; 2017-11-27)
PROC: 30233R1 Transfusion of Nonautologous Platelets into Peripheral Vein, Percutaneous Approach (ICD-10-PCS; 2017-11-30)
DX: A41.9 Sepsis, unspecified organism (principal); D61.810 Antineoplastic chemotherapy induced pancytopenia; J96.11 Chronic respiratory failure with hypoxia; J18.1 Lobar pneumonia, unspecified organism; D69.6 Thrombocytopenia, unspecified; E83.51 Hypocalcemia; D75.82 Heparin induced thrombocytopenia (HIT); C34.90 Malignant neoplasm of unspecified part of unspecified bronchus or lung; J44.0 Chronic obstructive pulmonary disease with (acute) lower respiratory infection; J44.1 Chronic obstructive pulmonary disease with (acute) exacerbation; T45.1X5A Adverse effect of antineoplastic and immunosuppressive drugs, initial encounter; D50.9 Iron deficiency anemia, unspecified; E87.6 Hypokalemia; F32.9 Major depressive disorder, single episode, unspecified; M19.90 Unspecified osteoarthritis, unspecified site; F17.210 Nicotine dependence, cigarettes, uncomplicated; I10 Essential (primary) hypertension; F41.1 Generalized anxiety disorder; I71.2 Thoracic aortic aneurysm, without rupture; D63.0 Anemia in neoplastic disease; G40.909 Epilepsy, unspecified, not intractable, without status epilepticus; R41.3 Other amnesia; F12.90 Cannabis use, unspecified, uncomplicated; Y92.89 Other specified places as the place of occurrence of the external cause; Z86.711 Personal history of pulmonary embolism; Z88.8 Allergy status to other drugs, medicaments and biological substances; Z94.7 Corneal transplant status; Z82.49 Family history of ischemic heart disease and other diseases of the circulatory system

== ENCOUNTER 2017-12-10 08:56 | Emergency (ER) | payer OTHER ==
[~2017-12-10] VITALS: Ht 170.1 cm; Wt 68.5 kg
[~2017-12-10 08:56] MED LIST changes: +CALCIUM CARBON200 MG PO; +K-TAB20 MEQ PO; +MUCINEX ER600 MG PO; +NEURONTIN100 MG PO; +NICODERM CQ1 EAC2 T
[2017-12-10] MEDS ORDERED: OXYCODONE5 M1 PO (09:54)
== END 2017-12-10 10:01 | disposition home or self-care (01) ==
LOC: ED 08:56
DX: M54.89 Other dorsalgia (principal); G89.29 Other chronic pain; J44.1 Chronic obstructive pulmonary disease with (acute) exacerbation; F41.1 Generalized anxiety disorder; I10 Essential (primary) hypertension; E83.51 Hypocalcemia; E87.6 Hypokalemia; E83.42 Hypomagnesemia; G40.909 Epilepsy, unspecified, not intractable, without status epilepticus; F17.200 Nicotine dependence, unspecified, uncomplicated; Z88.8 Allergy status to other drugs, medicaments and biological substances; Z79.899 Other long term (current) drug therapy

== ENCOUNTER → 2017-12-17 | Outpatient (CLI) | payer OTHER ==
[~2017-12-17] MED LIST changes: +OXYCODONE5 M1 PO; +PREDNISONE50 MG PO
== END | disposition home or self-care (01) ==
LOC: US 13:45
DX: R22.1 Localized swelling, mass and lump, neck (principal)

== ENCOUNTER 2017-12-20 17:05 | Emergency (ER) | payer OTHER ==
[~2017-12-20] VITALS: Ht 170.1 cm; Wt 69.9 kg
--- NOTE | ~2017-12-20 | EKG ---
[place], [place] ELECTROCARDIOGRAM REPORT NAME: ALEIDA SUH UNIT #: [id number] ROOM: DOCTOR: MO DUMONT MD,SHIRA BIRTHDATE: [birth year] DOS: 12/20/2017 Electrocardiogram done on 12/20/2017 at 05:27 p.m. Normal sinus rhythm noted with heart rate of 94 beats per minute. SHIRA HASSAN MD CM:EKGRPT:ELECTROCARDIOGRAM REPORT [id number] [id number] SHIRA DUMONT MD
[~2017-12-20 17:05] MED LIST changes: -PREDNISONE50 MG PO
[2017-12-20 17:38] LABS: BASO % 0.6 % (0.0-1.0); EOS % 0.2 % (1.0-4.0); HEMATOCRIT 36.9 % (37.0-47.0); HEMOGLOBIN 12.1 g/dl (12.0-16.0); LYMPH # 1.7 10*3/uL (1.3-4.4); LYMPH % 26.6 % (27.0-41.0); MEAN CELL VOLUME 103.7 fl (81.0-99.0); MEAN CORPUSCULAR HGB CONC 32.8 g/dl (33.0-37.0); MEAN PLATELET VOLUME 9.7 fl (9.6-12.3); MONO # 0.8 10*3/uL (0.1-1.0); MONO % 12.5 % (3.0-9.0); NEUT # 3.8 10*3/uL (2.3-7.9); NEUT % 59.8 % (47.0-73.0); PLATELET COUNT AUTOMATED 159 10*3/uL (130-400); RED BLOOD COUNT 3.56 10*6/uL (4.10-5.10); RED CELL DISTRI WIDTH 18.2 % (0-14.5); WHITE BLOOD COUNT 6.4 10*3/uL (4.8-10.8)
[2017-12-20 17:53] LABS: BUN 8 mg/dl (7-24); CHLORIDE 104 mmol/L (98-107); CREATININE 0.52 mg/dL (0.55-1.02); POTASSIUM 4.4 mmol/L (3.5-5.1); SODIUM 138 mmol/L (136-145); TROPONIN I < 0.015 ng/ml (<0.045)
[2017-12-20 18:01] LABS: BILIRUBIN NEGATIVE (NEGATIVE); BLOOD NEGATIVE (NEGATIVE); CLARITY SL CLOUDY (CLEAR); COLOR YELLOW (YELLOW); GLUCOSE NEGATIVE (NEGATIVE); KETONE NEGATIVE (NEGATIVE); LEUKO ESTERASE 1+ (NEGATIVE); NITRITE NEGATIVE (NEGATIVE); PH 6.5 (5.0-9.0); UROBILINOGEN 0.2 E.U./dl (0.2-1.0)
[2017-12-20 18:13] LABS: BACTERIA 4+; WBC 31-40 wbc/hpf (0-5)
[2017-12-20] MEDS ORDERED: PREDNISONE50 MG PO (18:21)
== END 2017-12-20 18:23 | disposition home or self-care (01) ==
LOC: ED 17:05
PROVIDERS: Emergency Medicine
DX: J44.9 Chronic obstructive pulmonary disease, unspecified (principal); G89.29 Other chronic pain; M54.5 Low back pain; F17.200 Nicotine dependence, unspecified, uncomplicated; F12.10 Cannabis abuse, uncomplicated; Z94.7 Corneal transplant status; Z79.899 Other long term (current) drug therapy; Z88.6 Allergy status to analgesic agent; Z99.81 Dependence on supplemental oxygen

== ENCOUNTER 2017-12-30 15:36 | Inpatient (IN) | payer OTHER ==
[~2017-12-30] VITALS: Ht 170.1 cm; Wt 77.1 kg
--- NOTE | ~2017-12-30 | PR ---
[place], [place] PROGRESS NOTE NAME: ALEIDA SUH UNIT #: [id number] ROOM: 408 DOCTOR: MO DUMONT MD,SHIRA BIRTHDATE: [birth year] DOS: 01/04/2018 SUBJECTIVE: The patient noted comfortable at this time after the bronchoscopy. The respiratory symptom has been improving gradually. There were no symptoms of chest pain or any abdominal pain. The wheezing was decreasing. OBJECTIVE: VITAL SIGNS: Shows normal temperature, respiratory 20, heart rate of 107, blood pressure 157/82. The pulse oxygen saturation on 2 liters nasal cannula 95% saturation recorded. HEENT: Examination shows no new change. NECK: Supple. CARDIOVASCULAR: S1, S2 audible. LUNGS: Mild decreased breath sounds with scattered expiratory wheezing without any crackles. ABDOMEN: Soft and nontender. EXTREMITIES: Without any acute edema. LABORATORY DATA: Gram stain of the bronchial washing of the patient, moderate white blood cells with few epithelial cells and few gram-positive bacilli. The culture for the patient preliminary showed normal che. Final culture results were pending. IMPRESSION: Status post bronchoscopy with reduction and improvement in the respiratory symptoms are noted as well. Plan of therapy. PLAN OF TREATMENT: No changes in the plan of management. The patient could be considered for discharge. Oral antibiotic and tapering dose of the corticosteroids was recommended. In the meantime, continue the plan of management and care. Usual therapy, other supportive treatment. SHIRA HASSAN MD CM:PNTRANS [id number] SHIRA DUMONT MD 01/04/181919 interface
--- NOTE | ~2017-12-30 | PR ---
[place], [place] PROGRESS NOTE NAME: ALEIDA SUH UNIT #: [id number] ROOM: 408 DOCTOR: MO DUMONT MD,SHIRA BIRTHDATE: [birth year] DOS: 01/02/2018 SUBJECTIVE: The patient noted comfortable at this time without any acute distress. The cough has been still noted, which remained nonproductive with wheezing and shortness of breath. Denies symptoms of chest pain, hemoptysis, and abdominal pain. Continue corticosteroids, bronchodilators, and antibiotics. OBJECTIVE: VITAL SIGNS: Normal temperature. The respiratory rate 18, heart rate of 56-105, blood pressure 144/81. Pulse oxygen saturation was recorded on 2 liters nasal cannula 98% saturation. HEENT: Examination shows head was atraumatic. Eyes nonicterus. NECK: Supple. CARDIOVASCULAR: S1, S2 is audible. LUNGS: The patient was noted with expiratory wheezing with moderate decreased breath sounds bilaterally. ABDOMEN: Soft, nontender. Bowel sounds present. EXTREMITIES: The patient was noted without any acute edema. LABORATORY DATA: CBC of the patient that was done this morning shows WBC count 12.5, hemoglobin 11.2, hematocrit 35.1, platelet count 133,000. CMP this morning, BUN and creatinine was normal. Culture of the sputum preliminary showed normal che. IMPRESSION: Ongoing acute tracheobronchitis with persistent cough, which remains mostly nonproductive with wheezing and shortness of breath. History of small cell lung cancer treated currently appear to be in remission. PLAN OF MANAGEMENT: Proceed with bronchoscopy tomorrow morning. Continue in the meantime other therapy, plan of management and care plan. Other supportive therapy, plan of care and treatment. Usual medical management, other therapies as previously in progress. SHIRA HASSAN MD CM:PNTRANS 55 SHIRA DUMONT MD 01/02/181855 interface
--- NOTE | ~2017-12-30 | PROC NOTE ---
[place], [place] PROCEDURE NOTE NAME: ALEIDA SUH UNIT #: [id number] ROOM: 408 DOCTOR: MO DUMONT MD,SHIRA BIRTHDATE: [birth year] DOS: 01/03/2018 PROCEDURE: Bronchoscopy. PREOPERATIVE DIAGNOSES: The patient with persistent severe cough and wheezing with gram-negative tracheobronchitis and exacerbation of chronic obstructive pulmonary disease ongoing. POSTOPERATIVE DIAGNOSES: Large amount of mucus impaction. The patient removed endobronchial tree bilaterally. FINDINGS: Acute tracheobronchitis. There was no evidence of endobronchial lesions at the present time. PROCEDURE DESCRIPTION: Informed consent obtained from the patient. The patient brought to the OR and placed in supine position. Conscious sedation was administered by the Anesthesia Department. After that, the bronchoscope advanced to the vocal cord into tracheal lumen, which noted moderate amount of very thick mucus secretion suctioned out to the don level. Right upper, right middle, right lower, left upper, lingular ____ bronchi were noted with evidence of moderate to large amount of thick plugs of the mucus. There were no endobronchial obstructive lesions noted. Procedure was well tolerated by the patient without difficulty. Postoperative findings will be discussed with the patient once the patient recovers the effects of acute sedation. No major treatment changes at this time will be necessary. SHIRA HASSAN MD CM:PROCNOTE:PROCEDURE NOTE 1011 1615 SHIRA DUMONT MD
--- NOTE | ~2017-12-30 | CON ---
[place], [place] REPORT OF CONSULTATION NAME: ALEIDA SUH UNIT #: [id number] ROOM: 408 DOCTOR: SHIRA TOUSSAINT MD BIRTHDATE: [birth year] DOS: 12/31/2017 PULMONARY CONSULTATION, EVALUATION AND MANAGEMENT CONSULTATION REQUESTED BY: Hospitalist service. REASON FOR CONSULTATION: For assessment of COPD. HISTORY OF PRESENT ILLNESS: This is a 62-year-old white female who has been noted with past history of lung cancer treated with chemotherapy, has been admitted to the hospital previously for exacerbation of COPD and other reasons. The patient has been known with history of small cell lung cancer of the patient and is receiving chemotherapy and completed chemotherapy recently. The patient denies any symptoms of chest pain or hemoptysis. The patient was brought to the hospital and was reported symptoms having progressive increased shortness of breath ongoing for the past few days. The symptoms were associated with wheezing as well as a tightness in the chest. Cough has been noted intermittent, sputum expectoration sometimes yellowish thick otherwise, clear or nonproductive. The patient denies symptoms of hemoptysis. Denies symptoms of chest pain. She has been admitted to the hospital for further medical management of acute exacerbation of COPD. REVIEW OF SYSTEMS: CONSTITUTIONAL: Fatigue and tiredness reported without any symptoms of fever or chills. EYES: Denies any burning, redness, tenderness. EARS, NOSE AND THROAT SYMPTOMS. No sore throat, hoarseness, otalgia, postnasal drainage or epistaxis. CARDIOVASCULAR: Denies anginal pain, edema, or pain in lower extremity. GASTROINTESTINAL: Denies dysphagia, nausea, vomiting, diarrhea, abdominal pain, hematemesis, melena, or hematochezia. SKIN: Denies lesions or rashes. MUSCULOSKELETAL: Acute joint pain, redness, or tenderness. CENTRAL NERVOUS SYSTEM: There were no symptoms of dizziness, headache, diplopia noted, tingling sensation for this patient tips of the fingers as well as the toes. ____ consultation for this patient for further details. Remaining systems were reviewed. They were noted all negative. PAST MEDICAL HISTORY: 1. Small cell lung cancer diagnosed in 05/2017 for the patient, extensive stage, recently completed chemotherapy. 2. 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 3. History of nicotine abuse. 4. Central lobular emphysema/COPD. 5. Chronic hypoxic respiratory failure, use of oxygen supplementation 2 liters. 6. Essential hypertension. 7. Generalized anxiety disorder. 8. Osteoarthritis. [place], [place] REPORT OF CONSULTATION NAME: ALEIDA SUH UNIT #: [id number] ROOM: [facility] DOCTOR: SHIRA TOUSSAINT MD BIRTHDATE: [birth year] PAST SURGICAL HISTORY: 1. D and C. 2. EGD. 3. Corneal transplant. 4. Polypectomy from the colon. 5. Fiberoptic bronchoscopy of the patient done on 05/16/2017, a diagnosis of small cell lung cancer was established for this patient involving the right upper lobe. SOCIAL HISTORY: The patient is , has 2 children. Denies history of alcohol use or illicit drug use. Smoking was noted with the patient since early teens, 3 packs of cigarettes per day a few cigarettes intermittently still smokes by the patient. FAMILY HISTORY: The patient's father with complication of myocardial infarction. Mother rather from natural causes. MEDICATIONS: The current administered medication noted use of nicotine patch, potassium phosphate, Flonase, amlodipine, cytarabine, vitamin D, IV Solu-Medrol, Protonix, trazodone, gabapentin, DuoNeb q.4h., IV azithromycin, Rocephin and other p.r.n. medications. DRUG ALLERGIES: No known drug allergies. PHYSICAL EXAMINATION: GENERAL: A 62-year-old female who has been noted currently awake and alert without distress. Height of 5 feet 7 inches, weight of 170 pounds, BMI 26. Alopecia secondary to chemotherapy was visible. VITAL SIGNS: Showed normal temperature, respiratory rate 18-20, heart rate 91-100, blood pressure is 129/70 to 150/80. Pulse oxygen saturation on 2 liters nasal cannula 94% saturation. HEENT: Alopecia. Head was atraumatic. Eyes nonicterus. NECK: Supple. CARDIOVASCULAR: S1, S2 audible. LUNGS: The patient was noted with general reduction in breath sounds. Diffuse expiratory wheezing without any crackles. ABDOMEN: Noted soft, bowel sounds present without any tenderness. EXTREMITIES: With no edema, clubbing, cyanosis. CENTRAL NERVOUS SYSTEM: Cranial nerves 2-12 intact. MUSCULOSKELETAL: Without any acute deformities. LABORATORY DATA: CBC of the patient that was done yesterday admission, WBC count 4.6, hemoglobin 11.9, hematocrit 35.9, platelet count of 116,000. The PT/INR were noted as 0.9 yesterday as normal. The CMP of the patient 322. Normal BUN and creatinine. Calcium was 8.0. Remaining LFTs were normal. The troponin in addition to assess the patient noted normal in the last 24 hours. CMP this morning, glucose 223, normal BUN and creatinine. CBC of this morning, WBC count 4.2, hemoglobin normal, platelet count 129,000. Review of the radiology data: The chest x-ray of the patient that was done on 12/28/2017 for [place], [place] REPORT OF CONSULTATION NAME: ALEIDA SUH UNIT #: [id number] ROOM: [facility] DOCTOR[facility] BIR[facility] [birth year] the patient was noted without any gross visible pulmonary nodules or lung masses. The patient had a CTA of the chest that was completed for the patient on 12/29/2007 was personally reviewed for this patient shows there was no evidence of pulmonary embolism. A 5 mm pleural nodule noted in the right middle lobe for the patient without any visible previous lung mass of the patient at this time in the right upper lobe. IMPRESSION: 1. The patient will be currently to the hospital noted with ongoing intermittent tobacco use with acute exacerbation of chronic obstructive pulmonary disease and acute bronchitis. 2. The patient with history of small cell lung cancer, extensive stage recently treated and reported resolution of the malignant with a followup PET scan for the patient reported by the medical oncologist. 3. Pancytopenia related to recent chemotherapy. 4. History of general anxiety disorder and other issues. PLAN OF MANAGEMENT: Agree with the use of the Solu-Medrol for the patient current dose. The dose will be gradually decreased based on improvement in symptoms. Sputum for Gram stain culture will be ordered. Bronchodilator will be continued every 4 hours. Any addition of treatment change if necessary will be done after any new available data based on progression of the illness. The patient might be requiring therapeutic bronchoscopy, frequent hospitalization required for the patient that will be decided in the next 24-48 hours if the procedure need to be done. Other supportive therapy, plan of management and care plan. The patient has not been seen in my office since original diagnosis of lung cancer was established for the COPD management. Long-term medication for COPD need to be adjusted for the patient with outpatient assessment post-discharge. The assessment, management discussed with Dr. Almazan who is the medical attending for the patient for this visit today. SHIRA HASSAN MD CM:CONSTR:REPORT OF CONSULTATION 1326 12/31/17 2227 interface
--- NOTE | ~2017-12-30 | PR ---
[place], [place] PROGRESS NOTE NAME: ALEIDA SUH UNIT #: [id number] ROOM: 408 DOCTOR: MO DUMONT MD,SHIRA BIRTHDATE: [birth year] DOS: 01/01/2018 SUBJECTIVE: The patient was noted without any acute distress at the present time. She was still noted the coughing, which has been noted moderate to severe, nonproductive with some wheezing and shortness of breath. Denies symptoms of hemoptysis or chest pain. Denies symptoms, abdominal pain, nausea, vomiting, headache or dizziness. OBJECTIVE: VITAL SIGNS: The patient showed normal temperature, respiratory 20, heart rate of 105, blood pressure 138/88. The pulse oxygen saturation on 2 liters cannula 91% saturation. HEENT: No acute change. NECK: Supple. CARDIOVASCULAR: S1, S2 audible. LUNGS: Decreased breath sounds, expiratory wheezing bilaterally. There were no crackles. ABDOMEN: Soft, nontender. Bowel sounds present. EXTREMITIES: Without any acute edema. IMPRESSION: Stable respiratory status was noted. At the present time with ongoing acute exacerbation of chronic obstructive pulmonary disease with persistent coughing, wheezing, and other symptom maximal medical therapy. PLAN OF TREATMENT: The patient was assessed for the bronchoscopy that would be done on Wednesday morning. The risk and benefits have been discussed with the patient planned to be done on Wednesday. N.p.o. past midnight and status will be achieved from Wednesday midnight. SHIRA HASSAN MD CM:PNTRANS [id number] SHIRA DUMONT MD 01/01/182021 interface
--- NOTE | ~2017-12-30 | PR ---
[place], [place] PROGRESS NOTE NAME: ALEIDA SUH [facility] #: [id number] UNIT #: [id number] ROOM: 408 DOCTOR: MO DUMONT MD,SHIRA BIRTHDATE: [birth year] DOS: 01/03/2018 PULMONARY FOLLOWUP SUBJECTIVE: The patient was noted with the same respiratory symptoms of cough, which remained nonproductive. Denies symptoms of chest pain or any hemoptysis. The cultures of the sputum was noted as moderate gram-negative bacilli were still pending identification sensitivities. She denies symptoms of hemoptysis. General weakness and fatigue was noted. Denies any hoarseness. Denies symptoms of nausea, vomiting, diarrhea, or abdominal pain. Denies any dysuria, suprapubic pain or hematuria. No musculoskeletal pain. Remaining systems were reviewed. They were noted all negative. She is already noted n.p.o. past midnight for bronchoscopy to be done today. OBJECTIVE: VITAL SIGNS: Normal temperature, respiratory rate 20, heart rate of 103, blood pressure 147/98-131/90. Pulse oxygen saturation on 2 liters is 98% saturation. HEENT: Alopecia of the head later past chemotherapy. NECK: Supple. CARDIOVASCULAR: S1, S2 is audible. LUNGS: The patient was noted with moderate decreased breath sounds, expiratory wheezing. No crackles. ABDOMEN: Soft, nontender. EXTREMITIES: Without any acute edema. CENTRAL NERVOUS SYSTEM: Cranial nerves 2-12 intact. No focal deficit. MUSCULOSKELETAL: Without any acute deformities. SKIN: No lesions or rashes. LABORATORY DATA: The CBC of 01/03/2018 shows hemoglobin 11.4, hematocrit 36.0, WBC count normal, and platelet count was normal. The CMP of 326, BUN 13, and creatinine was normal. Culture of the sputum showed moderate growth of gram-negative bacilli. The final results were not released as yet. IMPRESSION: Ongoing acute exacerbation of chronic obstructive pulmonary disease with acute tracheobronchitis, gram-negative infection, persistent respiratory symptoms unchanged. Clear for bronchoscopy. History of small cell lung cancer seem to be in remission at this time radiologically and clinically. PLAN OF TREATMENT: Continuation of corticosteroids, bronchodilators, antibiotic adjustment post results of the cultures of the bronchial washing and her sputum culture will be done. In the meantime, no other change in treatment will be necessary. Supportive therapy and plan of management. [place], [place] PROGRESS NOTE NAME: ALEIDA SUH UNIT #: [id number] ROOM: 408 DOCTOR: SHIRA TOUSSAINT MD BIRTHDATE: [birth year] SHIRA HASSAN MD CM:PNTRANS [id number] SHIRA DUMONT MD 01/03/18 1456 interface
--- NOTE | ~2017-12-30 | EKG ---
[place], [place] ELECTROCARDIOGRAM REPORT NAME: ALEIDA SUH UNIT #: [id number] ROOM: 408 DOCTOR: MO DUMONT MD,SHIRA BIRTHDATE: [birth year] DOS: 12/30/2017 TIME: 4:07 p.m. CONCLUSION: Normal sinus rhythm with heart rate 94 beats per minute. Left atrial enlargement for the patient was noted. There were no cardiac arrhythmias. SHIRA HASSAN MD CM:EKGRPT:ELECTROCARDIOGRAM REPORT [id number] SHIRA DUMONT MD
[~2017-12-30 15:36] MED LIST changes: +PREDNISONE50 MG PO
[2017-12-30 15:44] VITALS: BP 139/90
[2017-12-30] MEDS ORDERED: ACETAMINOPHEN650 M5 PO (15:47)
[2017-12-30] MEDS ORDERED: BREO ELLIPTA 21 EACH INH (15:47)
[2017-12-30] MEDS ORDERED: CITALOPRAM HYDR20 MG PO (15:48)
[2017-12-30] MEDS ORDERED: AMLODIPINE BESY10 MG PO (15:48)
[2017-12-30] MEDS ORDERED: SPIRIVA -- 3018 MCG INH (15:48)
[2017-12-30] MEDS ORDERED: POTASSIUM CHLO20 ME4 PO (15:48)
[2017-12-30] MEDS ORDERED: GABAPENTIN800 MG PO (15:49)
[2017-12-30 16:16] LABS: BASO % 0.6 % (0.0-1.0); EOS # 0.1 10*3/uL (0.0-0.4); EOS % 1.5 % (1.0-4.0); HEMATOCRIT 35.9 % (37.0-47.0); HEMOGLOBIN 11.9 g/dl (12.0-16.0); LYMPH # 1.6 10*3/uL (1.3-4.4); LYMPH % 34.1 % (27.0-41.0); MEAN CELL VOLUME 102.6 fl (81.0-99.0); MEAN CORPUSCULAR HGB CONC 33.1 g/dl (33.0-37.0); MEAN PLATELET VOLUME 9.1 fl (9.6-12.3); MONO # 0.5 10*3/uL (0.1-1.0); MONO % 10.1 % (3.0-9.0); NEUT # 2.5 10*3/uL (2.3-7.9); NEUT % 52.8 % (47.0-73.0); PLATELET COUNT AUTOMATED 116 10*3/uL (130-400); RED CELL DISTRI WIDTH 16.3 % (0-14.5); WHITE BLOOD COUNT 4.6 10*3/uL (4.8-10.8)
[2017-12-30 16:23] LABS: INTERNATIONAL NORM RATIO 0.9 (2.0-3.5)
[2017-12-30 16:32] LABS: ALBUMIN 3.4 gm/dl (3.1-4.5); ALKALINE PHOSPHATASE 72 U/L (45-117); BUN 8 mg/dl (7-24); CHLORIDE 102 mmol/L (98-107); CREATININE 0.52 mg/dL (0.55-1.02); LIPASE 98 U/L (73-393); POTASSIUM 3.7 mmol/L (3.5-5.1); SGOT/AST 13 IU/L (3-35); SGPT/ALT 19 U/L (12-78); SODIUM 137 mmol/L (136-145); TOTAL PROTEIN 6.6 gm/dL (6.4-8.2)
[2017-12-30 16:34] LABS: TROPONIN I < 0.015 ng/ml (<0.045)
[2017-12-30 16:48] VITALS: BP 135/80
[2017-12-30 17:05] LABS: BILIRUBIN NEGATIVE (NEGATIVE); BLOOD NEGATIVE (NEGATIVE); CLARITY SL CLOUDY (CLEAR); COLOR YELLOW (YELLOW); GLUCOSE NEGATIVE (NEGATIVE); KETONE NEGATIVE (NEGATIVE); LEUKO ESTERASE 2+ (NEGATIVE); NITRITE NEGATIVE (NEGATIVE); SPECIFIC GRAVITY <= 1.005 (1.005-1.030); UROBILINOGEN 0.2 E.U./dl (0.2-1.0)
[2017-12-30 17:14] LABS: BACTERIA 4+; RBC 0-2 rbc/hpf (0-2); WBC 16-20 wbc/hpf (0-5)
[2017-12-30 17:29] VITALS: BP 144/88
[2017-12-30 18:07] VITALS: BP 150/92
[2017-12-30 18:20] VITALS: BP 150/92
[2017-12-30] MEDS ORDERED: FLONASE ALLERG9.9 ML NAS (19:33)
[2017-12-30] MEDS ORDERED: Lovenox80 MG/0.8 SC (19:34)
[2017-12-30] MEDS ORDERED: TRAZODONE50 MG PO (19:34)
[2017-12-30] MEDS ORDERED: PROTONIX40 MG PO (19:35)
[2017-12-30] MEDS ORDERED: ATIVAN1 MG PO (19:35)
[2017-12-30] MEDS ORDERED: PERCOCET 5-3251 EACH PO (19:36)
[2017-12-30] MEDS ORDERED: NICODERM CQ1 EAC2 TD (19:36)
[2017-12-30 20:00] VITALS: BP 150/80; BP 151/93
[2017-12-31] VITALS: BP 129/73
[2017-12-31 06:58] LABS: HEMATOCRIT 36.8 % (37.0-47.0); MEAN CELL VOLUME 103.1 fl (81.0-99.0); MEAN CORPUSCULAR HGB 33.6 pg (27.0-31.0); MEAN CORPUSCULAR HGB CONC 32.6 g/dl (33.0-37.0); PLATELET COUNT AUTOMATED 129 10*3/uL (130-400); RED BLOOD COUNT 3.57 10*6/uL (4.10-5.10); WHITE BLOOD COUNT 4.2 10*3/uL (4.8-10.8)
[2017-12-31 07:15] LABS: ALBUMIN 3.2 gm/dl (3.1-4.5); BUN 6 mg/dl (7-24); CHLORIDE 104 mmol/L (98-107); SGOT/AST 10 IU/L (3-35); SGPT/ALT 18 U/L (12-78); SODIUM 138 mmol/L (136-145)
[2017-12-31 07:31] LABS: ALKALINE PHOSPHATASE 66 U/L (45-117); CREATININE 0.61 mg/dL (0.55-1.02); FREE T4 0.92 ng/dl (0.76-1.46); PHOSPHOROUS 2.3 mg/dL (2.5-4.9); THYROID STIM HORMONE (HS) 0.346 uIU/ml (0.358-4.75); TOTAL PROTEIN 6.4 gm/dL (6.4-8.2)
[2017-12-31 07:41] LABS: ATYPICAL LYMPHS 2 % (0-0); PLATELET SUFFICIENCY LOW (NORMAL); TOTAL CELLS COUNTED 100 #CELLS
[2017-12-31 08:00] VITALS: BP 126/82
[2017-12-31 12:00] VITALS: BP 137/84
[2017-12-31 16:00] VITALS: BP 136/88
[2017-12-31 20:00] VITALS: BP 133/86
[2018-01-01] VITALS: BP 131/78
[2018-01-01 06:27] LABS: BASO % 0.1 % (0.0-1.0); HEMATOCRIT 34.9 % (37.0-47.0); HEMOGLOBIN 11.6 g/dl (12.0-16.0); LYMPH # 0.7 10*3/uL (1.3-4.4); LYMPH % 7.1 % (27.0-41.0); MEAN CELL VOLUME 103.9 fl (81.0-99.0); MEAN CORPUSCULAR HGB 34.5 pg (27.0-31.0); MEAN CORPUSCULAR HGB CONC 33.2 g/dl (33.0-37.0); MONO # 0.3 10*3/uL (0.1-1.0); MONO % 3.1 % (3.0-9.0); NEUT # 8.8 10*3/uL (2.3-7.9); NEUT % 88.1 % (47.0-73.0); PLATELET COUNT AUTOMATED 127 10*3/uL (130-400); RED BLOOD COUNT 3.36 10*6/uL (4.10-5.10)
[2018-01-01 06:44] LABS: ALBUMIN 3.5 gm/dl (3.1-4.5); ALKALINE PHOSPHATASE 70 U/L (45-117); BUN 10 mg/dl (7-24); CHLORIDE 102 mmol/L (98-107); CREATININE 0.62 mg/dL (0.55-1.02); PHOSPHOROUS 1.9 mg/dL (2.5-4.9); POTASSIUM 3.6 mmol/L (3.5-5.1); SGOT/AST 11 IU/L (3-35); SGPT/ALT 18 U/L (12-78); SODIUM 138 mmol/L (136-145); TOTAL PROTEIN 6.7 gm/dL (6.4-8.2)
[2018-01-01 08:00] VITALS: BP 138/90
[2018-01-01 12:00] VITALS: BP 138/88
[2018-01-01 16:00] VITALS: BP 140/84
[2018-01-01 20:00] VITALS: BP 139/74
[2018-01-02] VITALS: BP 125/85
[2018-01-02 06:43] LABS: BASO % 0.1 % (0.0-1.0); HEMATOCRIT 35.1 % (37.0-47.0); HEMOGLOBIN 11.2 g/dl (12.0-16.0); LYMPH # 1.5 10*3/uL (1.3-4.4); LYMPH % 11.7 % (27.0-41.0); MEAN CELL VOLUME 104.8 fl (81.0-99.0); MEAN CORPUSCULAR HGB 33.4 pg (27.0-31.0); MEAN CORPUSCULAR HGB CONC 31.9 g/dl (33.0-37.0); MEAN PLATELET VOLUME 9.9 fl (9.6-12.3); MONO # 0.5 10*3/uL (0.1-1.0); MONO % 4.3 % (3.0-9.0); NEUT # 10.2 10*3/uL (2.3-7.9); NEUT % 81.9 % (47.0-73.0); PLATELET COUNT AUTOMATED 133 10*3/uL (130-400); RED BLOOD COUNT 3.35 10*6/uL (4.10-5.10); RED CELL DISTRI WIDTH 16.3 % (0-14.5); WHITE BLOOD COUNT 12.5 10*3/uL (4.8-10.8)
[2018-01-02 07:11] LABS: ALBUMIN 3.3 gm/dl (3.1-4.5); BUN 13 mg/dl (7-24); CHLORIDE 101 mmol/L (98-107); CREATININE 0.46 mg/dL (0.55-1.02); PHOSPHOROUS 2.3 mg/dL (2.5-4.9); POTASSIUM 4.4 mmol/L (3.5-5.1); SGOT/AST 8 IU/L (3-35); SGPT/ALT 21 U/L (12-78); SODIUM 138 mmol/L (136-145); TOTAL PROTEIN 6.2 gm/dL (6.4-8.2)
[2018-01-02 07:12] LABS: ALKALINE PHOSPHATASE 57 U/L (45-117)
[2018-01-02 08:00] VITALS: BP 134/80
[2018-01-02 12:00] VITALS: BP 144/81
[2018-01-02 16:00] VITALS: BP 116/62; BP 134/85
[2018-01-02 20:00] VITALS: BP 150/90
[2018-01-03] VITALS (9 sets, daily range): BP systolic 131–170; BP diastolic 88–104
[2018-01-03 06:21] LABS: HEMOGLOBIN 11.4 g/dl (12.0-16.0); MEAN CELL VOLUME 104.3 fl (81.0-99.0); MEAN CORPUSCULAR HGB CONC 31.7 g/dl (33.0-37.0); MEAN PLATELET VOLUME 9.7 fl (9.6-12.3); PLATELET COUNT AUTOMATED 136 10*3/uL (130-400); RED BLOOD COUNT 3.45 10*6/uL (4.10-5.10); WHITE BLOOD COUNT 10.1 10*3/uL (4.8-10.8)
[2018-01-03 06:23] LABS: ALBUMIN 3.4 gm/dl (3.1-4.5); ALKALINE PHOSPHATASE 61 U/L (45-117); BUN 13 mg/dl (7-24); CHLORIDE 103 mmol/L (98-107); CREATININE 0.49 mg/dL (0.55-1.02); PHOSPHOROUS 3.5 mg/dL (2.5-4.9); POTASSIUM 4.5 mmol/L (3.5-5.1); SGOT/AST 9 IU/L (3-35); SGPT/ALT 24 U/L (12-78); SODIUM 140 mmol/L (136-145); TOTAL PROTEIN 6.2 gm/dL (6.4-8.2)
[2018-01-03 06:57] LABS: PLATELET SUFFICIENCY NORMAL (NORMAL); TOTAL CELLS COUNTED 100 #CELLS
[2018-01-04] VITALS: BP 158/90
[2018-01-04 08:00] VITALS: BP 140/82
[2018-01-04 11:54] VITALS: BP 157/82
[2018-01-04 13:04] LABS: ACID FAST SPEC PROCESSING Concentration (.)
[2018-01-04] MEDS ORDERED: AZITHROMYCIN500 M2 PO (13:38)
[2018-01-04] MEDS ORDERED: PREDNISONE10 MG PO (13:43)
== END 2018-01-04 15:21 | disposition home health service (06) | DRG 871 ==
LOC: ED 15:36 → EDHOLD 16:50 → 4E 16:50
PROVIDERS: Internal Medicine Critical Care Medicine; Internal Medicine Hospice and Palliative Medicine; Physician Assistant
PROC: 0BC18ZZ Extirpation of Matter from Trachea, Via Natural or Artificial Opening Endoscopic (ICD-10-PCS; principal; 2018-01-03)
PROC: 0BC98ZZ Extirpation of Matter from Lingula Bronchus, Via Natural or Artificial Opening Endoscopic (ICD-10-PCS; 2018-01-03)
PROC: 0BC48ZZ Extirpation of Matter from Right Upper Lobe Bronchus, Via Natural or Artificial Opening Endoscopic (ICD-10-PCS; 2018-01-03)
PROC: 0BC88ZZ Extirpation of Matter from Left Upper Lobe Bronchus, Via Natural or Artificial Opening Endoscopic (ICD-10-PCS; 2018-01-03)
PROC: 0BC58ZZ Extirpation of Matter from Right Middle Lobe Bronchus, Via Natural or Artificial Opening Endoscopic (ICD-10-PCS; 2018-01-03)
PROC: 0BC38ZZ Extirpation of Matter from Right Main Bronchus, Via Natural or Artificial Opening Endoscopic (ICD-10-PCS; 2018-01-03)
PROC: 0BC78ZZ Extirpation of Matter from Left Main Bronchus, Via Natural or Artificial Opening Endoscopic (ICD-10-PCS; 2018-01-03)
PROC: 0BC68ZZ Extirpation of Matter from Right Lower Lobe Bronchus, Via Natural or Artificial Opening Endoscopic (ICD-10-PCS; 2018-01-03)
PROC: 0BCB8ZZ Extirpation of Matter from Left Lower Lobe Bronchus, Via Natural or Artificial Opening Endoscopic (ICD-10-PCS; 2018-01-03)
DX: A41.9 Sepsis, unspecified organism (principal); D61.810 Antineoplastic chemotherapy induced pancytopenia; I26.99 Other pulmonary embolism without acute cor pulmonale; J96.11 Chronic respiratory failure with hypoxia; T17.490A Other foreign object in trachea causing asphyxiation, initial encounter; T17.590A Other foreign object in bronchus causing asphyxiation, initial encounter; J18.9 Pneumonia, unspecified organism; J44.0 Chronic obstructive pulmonary disease with (acute) lower respiratory infection; J44.1 Chronic obstructive pulmonary disease with (acute) exacerbation; N39.0 Urinary tract infection, site not specified; D69.6 Thrombocytopenia, unspecified; E83.39 Other disorders of phosphorus metabolism; E83.51 Hypocalcemia; M41.9 Scoliosis, unspecified; F41.0 Panic disorder [episodic paroxysmal anxiety]; M43.17 Spondylolisthesis, lumbosacral region; R91.1 Solitary pulmonary nodule; F12.10 Cannabis abuse, uncomplicated; F17.210 Nicotine dependence, cigarettes, uncomplicated; G89.29 Other chronic pain; F32.9 Major depressive disorder, single episode, unspecified; I10 Essential (primary) hypertension; R26.9 Unspecified abnormalities of gait and mobility; K21.9 Gastro-esophageal reflux disease without esophagitis; G40.909 Epilepsy, unspecified, not intractable, without status epilepticus; D53.9 Nutritional anemia, unspecified; R73.9 Hyperglycemia, unspecified; T45.1X5A Adverse effect of antineoplastic and immunosuppressive drugs, initial encounter; M79.2 Neuralgia and neuritis, unspecified; X58.XXXA Exposure to other specified factors, initial encounter; M15.9 Polyosteoarthritis, unspecified; X58.XXXD Exposure to other specified factors, subsequent encounter; J20.9 Acute bronchitis, unspecified; D72.810 Lymphocytopenia; Y92.89 Other specified places as the place of occurrence of the external cause; Z71.6 Tobacco abuse counseling; Z79.899 Other long term (current) drug therapy; S22.000D Wedge compression fracture of unspecified thoracic vertebra, subsequent encounter for fracture with routine healing; Y93.89 Activity, other specified; Y99.8 Other external cause status; Z82.49 Family history of ischemic heart disease and other diseases of the circulatory system; Z85.41 Personal history of malignant neoplasm of cervix uteri

== ENCOUNTER → 2018-01-21 | Outpatient (CLI) | payer OTHER ==
[~2018-01-21] MED LIST changes: +ACETAMINOPHEN650 M5 PO; +AMLODIPINE BESY10 MG PO; +AZITHROMYCIN500 M2 PO; +CITALOPRAM HYDR20 MG PO; +FLONASE ALLERG9.9 ML NAS; +GABAPENTIN800 MG PO; +Lovenox80 MG/0.8 SC; +NICODERM CQ1 EAC2 TD; +POTASSIUM CHLO20 ME4 PO; +SPIRIVA -- 3018 MCG INH
== END | disposition home or self-care (01) ==
LOC: CT 10:57
DX: G90.09 Other idiopathic peripheral autonomic neuropathy (principal); M54.2 Cervicalgia

== ENCOUNTER 2018-04-01 18:16 | Inpatient (IN) | payer OTHER ==
[~2018-04-01] VITALS: Ht 170.1 cm; Wt 75.5 kg
--- NOTE | ~2018-04-01 | CON ---
[place], [place] REPORT OF CONSULTATION NAME: ALEIDA SUH UNIT #: [id number] ROOM: 422 DOCTOR: MO DUMONT MDSHIRA BIRTHDATE: [birth year] DOS: 04/05/2018 PULMONARY CONSULTATION, EVALUATION, AND MANAGEMENT REASON FOR CONSULTATION: Assess the patient's current metastatic lung cancer and also to assess the patient for respiratory status with acute exacerbation. HISTORY OF PRESENT ILLNESS: The patient is a 63-year-old white female patient, very well known to me from the past hospitalizations. The patient has been treated in this hospital and discharged in December 2017. She has been readmitted to the hospital on 04/01/2018 as the patient has been reported with symptoms of increased shortness of breath, which have been noted to be progressively worsening. She was also noted with pain described in the bilateral chest. The patient does have symptoms of coughing and chest congestion. Wheezing was also described. Denies symptoms of hemoptysis. The patient has been currently admitted to the hospital. Workup done for the patient noted with metastatic recurrent malignancy in the lungs and in the spine and the skeleton as per the patient. The patient stated that she is feeling quite depressed because of that. The respiratory status of the patient noted reduction in symptoms of shortness of breath. Coughing has been noted mild without any sputum expectoration or symptoms of hemoptysis reported. REVIEW OF SYSTEMS: CONSTITUTIONAL: Fatigue and tiredness noted without any symptoms of fever or chills. EYES: Denies any burning, redness, or tenderness. THROAT: Denies sore throat, hoarseness, otalgia, postnasal drainage or epistaxis. CARDIOVASCULAR: Denies angina pain, edema, or pain in lower extremities. GASTROINTESTINAL: Denies dysphagia, nausea, vomiting, diarrhea, abdominal pain, hematemesis, melena, or hematochezia. GENITOURINARY: No dysuria, suprapubic pain, or hematuria. MUSCULOSKELETAL: Joint pain has been reported to different parts of body, which has been treated with pain medications adequately. Denied deformities of any major joints. SKIN: Denies lesions or rashes. CENTRAL NERVOUS SYSTEM: Denies symptoms of seizures, headache, diplopia or syncopal episodes. Remaining systems were noted all negative. PAST MEDICAL HISTORY: Noted: 1. Extensive stage small cell lung cancer, which has been diagnosed in May 2017 noted in remission until recently. 2. Syndrome of inappropriate antidiuretic hormone. 3. Nicotine abuse. 4. COPD and centrilobular emphysema. 5. Chronic hypoxic respiratory failure, on use of oxygen. 6. Severe general anxiety disorder. 7. Essential hypertension. 8. Osteoarthritis. [place], [place] REPORT OF CONSULTATION NAME: ALEIDA SUH UNIT #: [id number] ROOM: 422 DOCTOR: MO DUMONT MD,SHIRA BIRTHDATE: [birth year] PAST SURGICAL HISTORY: 1. D and C. 2. EGD. 3. Cornea transplant. 4. Polypectomy. 5. Fiberoptic bronchoscopy, initially done in March 2017 that did diagnose evidence of lung cancer in the right upper lobe. Another therapeutic bronchoscopy done in December 2017. There was no evidence of endobronchial lesion noted at that time. 6. MediPort insertion. SOCIAL HISTORY: The patient is , has 2 children, lives at home. Denies history of alcohol use or any illicit drug use. Tobacco use reported since teenager, maximum smoking cigarettes 3 packs of cigarettes per day, currently smoking few cigarettes per day intermittently. FAMILY HISTORY: Her father of complication of myocardial infarction. Mother with complications of natural causes. MEDICATIONS: Current medications administered noted as use of Solu-Medrol 80 mg t.i.d., starting from yesterday, DuoNeb hours, trazodone, sodium chloride, nicotine replacement patches, Protonix, gabapentin, Norvasc, citalopram, vitamin D, Mucinex, Dulera, demeclocycline, Rocephin and Zithromax. DRUG ALLERGIES: Noted as no known drug allergies. PHYSICAL EXAMINATION: GENERAL: This is a 63-year-old female who has been currently sitting on the bed, without any acute distress. Height of 5 feet 7 inches, weight 106 pounds, BMI 26. VITAL SIGNS: Normal temperature, respiratory rate 18-20, heart rate of 113-95, blood pressure 142/96-139/84, pulse oxygen saturation on 2 liters nasal cannula 98% saturation. HEENT: Head was atraumatic. Eyes nonicterus. NECK: Supple. CARDIOVASCULAR: S1, S2 are audible. LUNGS: The patient was noted without any crackles. Moderate decreased breath sounds, mild to moderate expiratory wheezing. ABDOMEN: Soft, flat, nontender. Bowel sounds present. EXTREMITIES: Without any acute edema. CENTRAL NERVOUS SYSTEM: Cranial nerves 2-12 intact. MUSCULOSKELETAL: Without any acute deformities. SKIN: No lesions or rashes. LABORATORY DATA: Arterial blood gas of the patient that was done this morning shows pH of 7.38, pCO2 of 45, 2 liters nasal cannula at rest. The BMP of the patient this morning, glucose 120, BUN normal, creatinine normal, sodium normal, potassium and other electrolytes normal. CBC this morning was noted essentially normal. [place], [place] REPORT OF CONSULTATION NAME: ALEIDA SUH UNIT #: [id number] ROOM: 422 DOCTOR: MO DUMONT MD,SHIRA BIRTHDATE: [birth year] RADIOLOGY DATA: The review of the radiology data for this patient: Chest x-ray of the patient that was done on 04/01/2018 was reviewed and shows MediPort in place in the right upper chest wall. There was no other acute pulmonary abnormalities. Visible changes of COPD, which is chronic. There was evidence of 3.2 cm mass, which has been noted new, arising in the aortic pulmonic window area with associated lymphadenopathy as well. Mild mediastinal lymphadenopathy noted. Small focus of the bronchus specifically noted in the right upper lobe as well in the anterior subsegment. The findings were compared to the CT scan of the chest from 12/28/2017 were noted all new at this time. The patient had nuclear medicine scan of 04/04/2018, which was noted without any evidence of bony metastatic disease. Ultrasound of the liver was also done on 04/04/2018 and was noted with possibility of metastatic lesion could be considered. IMPRESSION: 1. The patient who has been currently noted with recurrence of the lung cancer with a mass, which was noted in aortic pulmonary area and bronchus specifically, and in the right upper lobe as well. Possible consideration of the recurrent small cell lung cancer versus a new cancer of the patient as a non-small cell cancer could be considered for the patient since May 2017. The finding was noted completely new for this patient since comparison CT scan from December 2017. 2. The patient with continued chronic nicotine dependence as well with current acute exacerbation of chronic obstructive pulmonary disease noted as well. 3. Acute bronchitis. There was no evidence of acute pneumonia. PLAN OF MANAGEMENT: The patient has already being assessed by Dr. Knowles who has been managing the lung malignancy. Further treatment of the patient as planned by Dr. Knowles after discharge of the patient from the hospital for the medical management of the current lung cancer. The patient's other past history of small cell lung cancer has been noted in remission in December 2017 assessment. There was no evidence of malignancy noted at that time in the CT scan thorax. The patient would be continued on corticosteroids; however, the dose will be decreased to 40 mg every 8 hours because of the reduction in the wheezing. Bronchodilator will be continued every 8 hours. Continuation of the oxygen supplementation as necessary to maintain pulse ox 92% or greater. Continue medical management of SIADH with the use of demeclocycline as the sodium remains normal. Collect the sputum for Gram stain and culture if the patient does expectorate any sputum as well. Antibiotic does not require to be changed for the acute bronchitis management. Change in treatment will be done for the patient in case of the worsening of the respiratory symptoms or after the review of the culture results of the sputum. Other additional therapy, plan of management to be continued as in progress. Usual care. Other additional treatment changes will be made based on progression of the illness. Continue nicotine replacement patch for the patient to overcome any nicotine withdrawal as well because of history of long-term tobacco use. Current treatment maximized for this patient for the management of the pulmonary conditions. Thank you for allowing me to participate in the care of this patient. [place], [place] REPORT OF CONSULTATION NAME: ALEIDA SUH UNIT #: [id number] ROOM: 422 DOCTOR: SHIRA TOUSSAINT MD BIRTHDATE: [birth year] SHIRA HASSAN MD CM:CONSTR:REPORT OF CONSULTATION 1253 06/07/18 0804 interface
--- NOTE | ~2018-04-01 | CON ---
[place], [place] REPORT OF CONSULTATION NAME: ALEIDA SUH UNIT #: [id number] ROOM: 422 DOCTOR: CHRISTOPHE SWEET MD BIRTHDATE: [birth year] DOS: 04/03/2018 HISTORY OF PRESENT ILLNESS: The patient is a pleasant 63-year-old Euro-Turk[place] woman with a history of extensive small cell lung cancer, off chemotherapy quite some time, presenting with increasing shortness of breath. She says that around 0130 hours, day before admission, she awoke from sleep due to increasing shortness of breath. She used a nebulizer with improvement in her short of breath, but eventually walked on feet and she returned and she had to use a nebulizer again and subsequently came to the Emergency Room. She also had some bilateral rib pain and achy upper abdominal pain as well as some nausea. Subsequently admitted for further evaluation and consulted. She had a CT scan done, which showed metastasis to the liver. PAST MEDICAL HISTORY: Extensive small cell lung cancer status post chemotherapy, which was held for quite some time and she had a better response and was followed closely. Has a history of chronic obstructive pulmonary disease exacerbation, bilateral pulmonary embolism, ascending aortic aneurysm, hyponatremia, chronic back pain, compression fracture of thoracic vertebra at T10 and T11, depression, essential hypertension, general anxiety disorder, gait disorder, GERD, history of cervical cancer, multilevel scoliosis, neuropathic pain, resting tremor, seizure disorder, short-term memory loss, SIADH, spondylolysis L5 and S1, and vitamin D deficiency. PAST SURGICAL HISTORY: Dilatation and curettage, status post EGD, history of inferior vena cava filter placement, history of corneal transplant and status post colonoscopy, polypectomy. SOCIAL HISTORY: Marijuana use, tobacco use 1 packet per day since age 15. FAMILY HISTORY: Father age 52, myocardial infarction. Mother at age 91. ALLERGIES: No allergies. MEDICATIONS: Acetaminophen, albuterol, amlodipine besylate, calcium carbonate, cholecalciferol, citalopram, Lovenox, gabapentin, DuoNeb, lorazepam, nicotine patch, oxycodone, Protonix, Spiriva, trazodone. REVIEW OF SYSTEMS: CONSTITUTIONAL: No chills. No fatigue. No fever. No loss of appetite. No night sweats. No weakness. No weight loss. HEENT: No trouble swallowing. No loss of smell. No loss of hearing. No double vision. No pain. No discharge. ENT AND RESPIRATORY: Increasing shortness of breath, but no hemoptysis. CARDIOVASCULAR: No chest pain. No dizziness. No irregular heartbeat. No leg edema. No pain in legs while walking. No palpitations. No shortness of breath. DERMATOLOGIC: No acne. No hives. No laceration. No mole. No rash. ENDOCRINE: No cold intolerance. No diabetes. No fatigue. No hot flashes. No polydipsia. No polyuria. No urinating frequently. No weight loss. [place], [place] REPORT OF CONSULTATION NAME: ALEIDA SUH UNIT #: [id number] ROOM: [facility] DOCTOR: CHRISTOPHE SWEET MD BIRTHDATE: [birth year] HEMATOLOGIC AND LYMPH: No fatigue. No easy bruising. GASTROENTEROLOGIC: No change in bowel habits. No indigestion. No frequent bloating. No vomiting blood. No abdominal cramping. No nausea. No heartburn. No vomiting. No abdominal pain. No dysphagia. No diarrhea. No constipation. No blood in stool. FEMALE REPRODUCTIVE: No vaginal itching. No difficulty urinating. No heavy periods. No dyspareunia. No sexually active. No dysmenorrhea. No pelvic pain. No breast pain. No nipple discharge. No abnormal vaginal discharge. No hot flashes. MUSCULOSKELETAL: No back pain. No muscle pain or weakness. No neck pain. No tingling/numbness. No swelling/bruising. No osteoporosis treatment. OPTHALMOLOGIC: No double vision. No diminished vision. No loss of vision. UROLOGIC: No dysuria. No frequent nighttime urination. No irregular periods. No pain with urination. No difficulty urinating. No blood in urine. No frequent urination. No urinary incontinence. NEUROLOGIC: No loss of sensation in specific body area. No vertigo. No burning pain in feet. No trouble with balance. No trouble with coordination. No loss of consciousness. No loss of feeling/power. No confusion. No headache. No tingling/numbness. PSYCHOLOGIC: No tinnitus. No headaches. No shortness of breath. No weight decrease. No nausea. No vomiting. No abdominal discomfort. No constipation. No diarrhea. No depression. No anxiety. PHYSICAL EXAMINATION: GENERAL: Pleasant woman in no acute distress, short of breath. VITAL SIGNS: Stable. She is febrile. HEENT: Oral mucosa appears intact. The external ears are normal in appearance. Nares are patent without lesions, exudates, erythema, or inflammation. Tongue is symmetrical. Uvula is midline. NECK AND THYROID: Neck supple without palpable masses. Trachea is midline. No thyromegaly. No carotid bruit or JVD. BREASTS: Normal. Nipples unremarkable. No drainage. No lumps felt on either side. HEART: Normal S1, S2, without significant murmur, rub, or gallop. LUNGS: Clear to auscultation and percussion with good air entry bilaterally. The patient is breathing easily without the use of accessory muscles. Diaphragmatic excursions are intact. ABDOMEN: No costovertebral angle tenderness. Soft. No organomegaly or masses. Nontender. No hernias present. Liver and spleen are not palpable. LYMPHATIC: No adenopathy noted in the cervical, supraclavicular, axillary, or inguinal regions. NEUROLGIC: Nonfocal. Oriented to person, place, and time. MENTAL STATUS: Appropriate for mood and affect. PERIPHERAL PULSES: No varicosities. Femoral and pedal pulses are palpable. EXTREMITIES: Without cyanosis, clubbing, or edema. No gross anomalies. LABORATORY DATA: White count of 3.8, hemoglobin 12.3, hematocrit 35.5, platelet count of 87,000. Sodium 123, potassium 3.9, chloride 89, uric acid 4.1. SGPT is 51. SGOT 32. [place], [place] REPORT OF CONSULTATION NAME: ALEIDA SUH UNIT #: [id number] ROOM: 422 DOCTOR: CHRISTOPHE SWEET MD BIRTHDATE: [birth year] RADIOLOGY: CT scan of the abdomen and pelvis showed multiple irregular to a slightly low attenuation subcentimeter lesions mostly in the left and right hepatic lobe, which were not evident on CT of the 12/30/2017, metastatic disease considered. ASSESSMENT: 1. Recurrence of extensive small cell lung cancer with metastasis to the liver. 2. Exacerbation of chronic obstructive pulmonary disease. 3. Hyperglycemia. 4. Thrombocytopenia. 5. Hyponatremia. PLAN: Referring her cancer has come back, we are going to get a CT of the chest, bone scan, etc. In the meantime, depending upon that further intervention. I had a detailed discussion with the patient about it, seemed to understand it. Ample time was given to the patient to ask me questions. We will follow. Thanks for consulting and letting me participate in the care of this interesting patient. CHRISTOPHE SWEET MD CM:CONSTR:REPORT OF CONSULTATION 1334 04/05/18 0216 interface
--- NOTE | ~2018-04-01 | PR ---
[place], [place] PROGRESS NOTE NAME: ALEIDA SUH UNIT #: [id number] ROOM: 422 DOCTOR: CHRISTOPHE SWEET MD BIRTHDATE: [birth year] DOS: 04/05/2018 SUBJECTIVE: The patient is still awake and oriented; though, she is short of breath. REVIEW OF SYSTEMS: HEENT: No trouble swallowing. No double vision. No loss of vision. No pain. ENT AND RESPIRATORY: There is bilateral expiratory wheeze and rhonchi. No change in voice. No cough. No shortness of breath. No coughing up blood. No epistaxis. CARDIOLOGIC: No chest pain. No dizziness. No irregular heartbeat. No leg edema. No palpitations. No shortness of breath. HEMATOLOGIC AND LYMPH: No past transfusion. No fatigue. No loss of appetite. No easy bruising. GASTROENTEROLOGIC: No change in bowel habits. No vomiting blood. No abdominal cramping. No nausea. No vomiting. No diarrhea. No constipation. No blood in stool. FEMALE REPRODUCTIVE: No dyspareunia. No pelvic pain. MUSCULOSKELETAL: No back pain. No muscle pain or weakness. No tingling/numbness. UROLOGIC: No pain with urination. No difficulty urinating. No frequent urination. NEUROLOGIC: No burning pain in feet. No trouble with coordination. No loss of consciousness. No headache. No tingling/numbness. No memory loss. PHYSICAL EXAMINATION: GENERAL: A pleasant woman in no apparent distress. VITAL SIGNS: Blood pressure is 156/98, respirations 18, pulse is 107, and temperature is 97.9. HEENT: Normocephalic, atraumatic. NECK AND THYROID: Supple. No JVD, thyromegaly, or lymphadenopathy. HEART: Normal S1, S2. Regular rate and rhythm. LUNGS: Clear to auscultation and percussion. ABDOMEN: Soft. Nontender, nondistended. Bowel sounds present. EXTREMITIES: Normal ROM. No clubbing. No edema. LABORATORY DATA: White count is 8.0, hemoglobin is 13.1, hematocrit is 38.7, and platelet count is 149,000. ASSESSMENT: 1. Extensive small cell lung cancer. 2. Chronic obstructive pulmonary disease exacerbation. 3. Thrombocytopenia, which has improved. 4. Hyponatremia. PLAN: We will wait for overall condition to improve. She was started on demeclocycline for her low sodium. It appears that her sodium has normalized. I am going to stop demeclocycline and follow her counts closely. We had a detailed discussion with the patient about it, she seemed to understand it. [place], [place] PROGRESS NOTE NAME: ALEIDA SUH UNIT #: [id number] ROOM: 422 DOCTOR: CHRISTOPHE SWEET MD BIRTHDATE: [birth year] CHRISTOPHE SWEET MD CM:PNTRANS [id number] CHRISTOPHE SWEET MD 04/06/18 0043 interface
--- NOTE | ~2018-04-01 | PR ---
[place], [place] PROGRESS NOTE NAME: ALEIDA SUH UNIT #: [id number] ROOM: 422 DOCTOR: MO DUMONT MD,SHIRA BIRTHDATE: [birth year] DOS: 04/08/2018 SUBJECTIVE: The patient was not noted with any acute respiratory distress at the present time. The patient at this time is without any acute distress. Coughing has improved significantly. Wheezing was also resolved after bronchoscopy. OBJECTIVE: VITAL SIGNS: Normal temperature, respiratory rate 18, heart rate 98, blood pressure 139/87, pulse oxygen saturation of the patient recorded as 95% saturation on 3 liters cannula. HEENT: Head was atraumatic. Eyes nonicterus. CARDIOVASCULAR: S1, S2 audible. LUNGS: Without wheeze or crackles. ABDOMEN: Soft, nontender. Bowel sounds present. ASSESSMENT: 1. Significant improvement noted in the patient's symptoms of acute exacerbation of chronic obstructive pulmonary disease, acute tracheobronchitis at the present time. 2. History of small cell lung cancer with current recurrence of the cancer of the patient noted in the AP window as a lung mass. PLAN OF MANAGEMENT: No changes in plan of therapy for the patient at this time. The patient's cultures noted with no bacterial growth. The patient could be discharged home on oral antibiotics and bronchodilators. Continue the therapy, plan of management as in progress. SHIRA HASSAN MD CM:PNTRANS [id number] SHIRA DUMONT MD 04/09/18 0118 interface
--- NOTE | ~2018-04-01 | PR ---
[place], [place] PROGRESS NOTE NAME: ALEIDA SUH UNIT #: [id number] ROOM: 422 DOCTOR: CHRISTOPHE SWEET MD BIRTHDATE: [birth year] DOS: 04/04/2018 SUBJECTIVE: The patient is doing better; though, she is short of breath. REVIEW OF SYSTEMS: HEENT: No trouble swallowing. No double vision. No loss of vision. No pain. ENT AND RESPIRATORY: No wheeze. No change in voice. No cough. Increasing shortness of breath. No coughing up blood. No epistaxis. CARDIOLOGIC: No chest pain. No dizziness. No irregular heartbeat. No leg edema. No palpitations. No shortness of breath. HEMATOLOGIC AND LYMPH: No past transfusion. No fatigue. No loss of appetite. No easy bruising. GASTROENTEROLOGIC: No change in bowel habits. No vomiting blood. No abdominal cramping. No nausea. No vomiting. No diarrhea. No constipation. No blood in stool. FEMALE REPRODUCTIVE: No dyspareunia. No pelvic pain. MUSCULOSKELETAL: No back pain. No muscle pain or weakness. No tingling/numbness. UROLOGIC: No pain with urination. No difficulty urinating. No frequent urination. NEUROLOGIC: No burning pain in feet. No trouble with coordination. No loss of consciousness. No headache. No tingling/numbness. No memory loss. PHYSICAL EXAMINATION: GENERAL: A pleasant woman, in no apparent distress. VITAL SIGNS: Stable. She is afebrile. HEENT: Normocephalic, atraumatic. NECK AND THYROID: Supple. No JVD, thyromegaly, or lymphadenopathy. HEART: Normal S1, S2. Regular rate and rhythm. LUNGS: Diffuse breath sounds bilaterally with expiratory wheezing. ABDOMEN: Soft. Nontender, nondistended. Bowel sounds present. EXTREMITIES: Normal ROM. No clubbing. No edema. LABORATORY DATA: White count of 6.4, hemoglobin 12.0, hematocrit 36.2, and platelet count 110,000. RADIOLOGY: Ultrasound of the liver showed a small hyperechoic lesion within the inferior right hepatic lobe, which is likely correlation of the lesion seen on CT scan. CT of the chest showed a 15 mm focus of interstitial disease of the right costophrenic angle., new mediastinal adenopathy, and a 3.2 cm mass is seen in the aortopulmonary window. Bone scan is pending. CT of the neck done in 01/2018 was unremarkable. ASSESSMENT: 1. Extensive small cell lung cancer with metastasis to the liver and new mediastinal adenopathy and a 3.2 cm mass in the aortopulmonary window. 2. Exacerbation of chronic obstructive pulmonary disease. 3. Thrombocytopenia, which is getting better. 4. Hyponatremia. [place], [place] PROGRESS NOTE NAME: ALEIDA SUH UNIT #: [id number] ROOM: 422 DOCTOR: CHRISTOPHE SWEET MD BIRTHDATE: [birth year] PLAN: I had a detailed discussion with the patient. If the patient's cancer come back, we will be restarting her chemotherapy. In addition, she will benefit from demeclocycline because of hyponatremia, which she did very good when she had this episode in the past. Ample time was given to the patient to ask me questions. CHRISTOPHE SWEET MD CM:PNTRANS [id number] CHRISTOPHE SWEET MD 04/28/18 1612 interface
--- NOTE | ~2018-04-01 | PR ---
[place], [place] PROGRESS NOTE NAME: ALEIDA SUH UNIT #: [id number] ROOM: 422 DOCTOR: CHRISTOPHE SWEET MD BIRTHDATE: [birth year] DOS: 04/06/2018 SUBJECTIVE: The patient is doing better now, although she is having difficulty breathing. She is awake, alert, and responsive. REVIEW OF SYSTEMS HEENT: No trouble swallowing. No double vision. No loss of vision. No pain. ENT AND RESPIRATORY: No wheeze. No change in voice. No cough. No shortness of breath. No coughing up blood. No epistaxis. CARDIOLOGIC: No chest pain. No dizziness. No irregular heartbeat. No leg edema. No palpitations. No shortness of breath. HEMATOLOGIC AND LYMPH: No past transfusion. No fatigue. No loss of appetite. No easy bruising. GASTROENEROLOGIC: No change in bowel habits. No vomiting blood. No abdominal cramping. No nausea. No vomiting. No diarrhea. No constipation. No blood in stool. FEMALE REPRODUCTIVE: No dyspareunia. No pelvic pain. MUSCULOSKELETAL: No back pain. No muscle pain or weakness. No tingling/numbness. UROLOGIC: No pain with urination. No difficulty urinating. No frequent urination. NEUROLOGIC: No burning pain in feet. No trouble with coordination. No loss of consciousness. No headache. No tingling/numbness. No memory loss. PHYSICAL EXAMINATION GENERAL: Pleasant woman in no apparent distress. VITAL SIGNS: Blood pressure 145/89, respirations 18, pulse 95, temperature 97.8. HEENT: Normocephalic, atraumatic NECK AND THYROID: Supple. No JVD, thyromegaly, or lymphadenopathy. HEART: Normal S1, S2. Regular rate and rhythm. LUNGS: Show bilateral rhonchi and bilateral expiratory wheeze with diminished breath sounds. ABDOMEN: Soft. Nontender, nondistended. Bowel sounds present. EXTREMITIES: Normal ROM. No clubbing. No edema. ASSESSMENT: 1. Extensive small cell lung cancer. 2. Chronic obstructive pulmonary disease exacerbation. 3. Leukopenia. 4. Thrombocytopenia. PLAN: The patient will be getting a bronchoscopy. We will keep a close watch at this time. Transfuse her on p.r.n. basis. If the counts drop, then intervention. Overall, breathing is stable, discussed. [place], [place] PROGRESS NOTE NAME: ALEIDA SUH UNIT #: [id number] ROOM: 422 DOCTOR: CHRISTOPHE SWEET MD BIRTHDATE: [birth year] CHRISTOPHE SWEET MD CM:PNTRANS [id number] CHRISTOPHE SWEET MD 04/08/18 0019 interface
--- NOTE | ~2018-04-01 | PR ---
[place], [place] PROGRESS NOTE NAME: ALEIDA SUH UNIT #: [id number] ROOM: 422 DOCTOR: SHIRA TOUSSAINT MD BIRTHDATE: [birth year] DOS: 04/07/2018 SUBJECTIVE: She has been n.p.o. past midnight for bronchoscopy, still noted significant coughing, wheezing which has been noted episodic and now resolving with current medical management. Denies symptoms of chest pain or any hemoptysis. The patient denies symptoms of nausea or vomiting. Denies symptoms of abdominal pain. She has been n.p.o. past midnight for bronchoscopy to be done today. Musculoskeletal symptom, the patient remains unchanged with current pain management. The remaining systems were reviewed. They were noted all negative. PHYSICAL EXAMINATION: VITAL SIGNS: Normal temperature, respiratory 20, blood pressure 160/100 to 160/85. The pulse oxygen saturation on 2 liter nasal cannula was 96% saturation. HEAD, EYES, EARS, NOSE, AND THROAT: Head was atraumatic. Eye nonicterus. NECK: Supple. CARDIOVASCULAR SYSTEM: S1, S2 audible. LUNGS: General reduction in breath sounds noted with diffuse expiratory wheezing. No crackles. ABDOMEN: Soft, nontender, bowel sounds present. EXTREMITIES: Without any acute edema. LABORATORY DATA: CBC: WBC count normal, hemoglobin 11.9, platelet count 129,000. CMP this morning, normal BUN and creatinine. Glucose 127. IMPRESSION: The patient has been currently noted with recurrence of the lung cancer noted with ongoing acute exacerbation of chronic obstructive pulmonary disease. The patient has persistent respiratory symptoms, nonresolving with current plan of treatment management. The patient receiving corticosteroids, bronchodilators, and antibiotics. Remains asymptomatic. PLAN OF THERAPY: Proceed with the fibrobronchoscopy as planned. Continue in the meantime other therapy, plan of management and care plan. Usual treatment, all other supportive plan of therapy and care as in progress. Usual care, other supportive treatment and management. Any modification treatment if necessary will be done after the bronchoscopy. [place], [place] PROGRESS NOTE NAME: ALEIDA SUH UNIT #: [id number] ROOM: 422 DOCTOR: SHIRA TOUSSAINT MD BIRTHDATE: [birth year] SHIRA HASSAN MD CM:PNTRANS [id number] [id number] SHIRA DUMONT MD 04/14/18 0818 interface
--- NOTE | ~2018-04-01 | EKG ---
[place], [place] ELECTROCARDIOGRAM REPORT NAME: ALEIDA SUH UNIT #: [id number] ROOM: 422 DOCTOR: MO DUMONT MD,SHIRA BIRTHDATE: [birth year] DOS: 04/06/2018 ELECTROCARDIOGRAM DATE AND TIME OF PROCEDURE: 04/06/2018 at 09:56 a.m. FINDINGS: The electrocardiogram shows mild sinus tachycardia, heart rate 103 beats per minute. Possibility of right atrial enlargement would be considered. SHIRA HASSAN MD CM:EKGRPT:ELECTROCARDIOGRAM REPORT [id number] SHIRA DUMONT MD
--- NOTE | ~2018-04-01 | CON ---
[place], [place] REPORT OF CONSULTATION NAME: ALEIDA SUH UNIT #: [id number] ROOM: 422 DOCTOR: DOYLE VACA MD BIRTHDATE: [birth year] DOS: 04/02/2018 REASON FOR CONSULTATION: Hyponatremia/patient known to you. HISTORY OF PRESENT ILLNESS: The patient is a 63-year-old female. She has a history of lung cancer, tobacco abuse, COPD as well as chronic hyponatremia. The patient has seen my partner, Dr. Milton, in the past. It seems she was fairly stable and was told that she only needs to see him on an as needed basis. She presented to the hospital with shortness of breath. She does take oxygen at home and she was admitted for supportive care. She tells me she does feel a little bit better today. The patient had routine labs, which showed hyponatremia. It seems fluids were started and her sodium was noted to be lower than baseline. Today, sodium was 123. She does report to me that this is a chronic problem. She actually has been on salt tablets daily at home. Currently, she was not on salt tablets and I had seen ordered. She denied nausea, vomiting or diarrhea to me. She denied fevers or chills. She states her appetite is fair. ALLERGIES: No known drug allergies. MEDICATIONS: Reviewed in medical record. PAST MEDICAL HISTORY: 1. Chronic hyponatremia stated above. 2. Aortic aneurysm. 3. PE. 4. Chronic pain. 5. Compression fracture. 6. COPD. 7. Depression. 8. Hypertension. 9. Anxiety disorder. 10. GERD. 11. Lung cancer with details unclear. 12. Port-A-Cath placement for chemotherapy. PAST SURGICAL HISTORY: 1. D and C. 2. EGD. 3. IVC filter placement. 4. Cornea transplant. 5. Colonoscopy and polypectomy. FAMILY HISTORY: Negative for electrolyte disorders, otherwise noncontributory. SOCIAL HISTORY: No alcohol. She does smoke cigarettes as well as marijuana. REVIEW OF SYSTEMS: As per HPI, otherwise, a 10-point review of systems was reviewed and was negative. [place], [place] REPORT OF CONSULTATION NAME: ALEIDA SUH UNIT #: [id number] ROOM: 422 DOCTOR: DOYLE VACA MDDATE: [birth year] PHYSICAL EXAMINATION: VITAL SIGNS: Temperature 98, pulse 95, respiratory rate 20, blood pressure 141/84. GENERAL: She is awake, alert, pleasant, in no acute distress. HEENT: Shows no JVD. Sclerae are anicteric. Mucous members appeared moist. Pharynx is clear. NECK: Supple. Trachea midline. There is no lymphadenopathy or thyromegaly. LUNGS: Diminished breath sounds with no wheezes, not using accessory muscles of respirations. Diminished breath sounds with positive wheeze. There is no tactile fremitus. She is not using accessory muscles of respiration. HEART: S1, S2. No rub, thrill or gallop. ABDOMEN: Soft, nontender. There is no organomegaly or rigidity, rebound or guarding. There is no CVA tenderness. EXTREMITIES: Showed no edema. There is no lower extremity lymphadenopathy. Distal pulses are 2+. SKIN: Showed no overt rash. There was no petechia or purpura. Skin temperature is warm. NEUROLOGIC: She is awake, alert and following commands. Cranial nerves are intact. LABORATORY DATA: BUN 4, creatinine 0.6, sodium 123, potassium 3.9, CO2 of 30, phosphorus 2.9, calcium 8.2, magnesium 1.4. IMPRESSION: 1. Hyponatremia, which is chronic in nature. It seems that she has been worked up in the past, most likely was felt to be related to syndrome of inappropriate antidiuretic hormone in view of her lung cancer. 2. Shortness of breath. 3. History of lung cancer. 4. History of chronic obstructive pulmonary disease. 5. Ongoing tobacco abuse. 6. Thrombocytopenia. 7. Leukopenia. 8. History of hypertension. PLAN: 1. Would recommend stopping IV fluids. Place her on oral fluid restriction. 2. Resume the patient's salt tablets. Can increase this as needed. 3. Continue to monitor labs while in the hospital. 4. Avoid thiazide diuretics. 5. Try to avoid NSAID usage, which can precipitate worsening SIADH. Thank you for this consultation. We will follow with you. [place], [place] REPORT OF CONSULTATION NAME: ALEIDA SUH UNIT #: [id number] ROOM: 422 DOCTOR: DOYLE VACA MD BIRTHDATE: [birth year] DOYLE VACA MD CM:CONSTR:REPORT OF CONSULTATION 1447 04/03/18 0401 interface
--- NOTE | ~2018-04-01 | PROC NOTE ---
[place], [place] PROCEDURE NOTE NAME: ALEIDA SUH UNIT #: [id number] ROOM: 422 DOCTOR: MO DUMONT MD,SHIRA BIRTHDATE: [birth year] DOS: 04/07/2018 BRONCHOSCOPY PREOPERATIVE DIAGNOSIS: Persistent severe coughing, which is not resolving with current medical management. POSTOPERATIVE DIAGNOSIS: Impaction of the mucus noted in almost all of the endobronchial subsegments. There were no endobronchial lesions, specifically in the left upper lobe. PROCEDURE DESCRIPTION: Informed consent was obtained from the patient. The patient was brought to the OR and placed in supine position. Conscious sedation was administered by the Anesthesia Department. After achieving appropriate sedation, airway introduced into the mouth. Bronchoscope was advanced to the airway into laryngeal area. Epiglottis and vocal cords were seen. Bronchoscope was advanced to the vocal cords into tracheal lumen. The tracheal lumen was identified, noted with a moderate amount of thick mucous secretions, suctioned out to leona level. Leona level was noted sharp. Left upper, left lingular and lower lobe bronchi were all examined. Right upper, right middle, right lower lobe bronchial openings were also noted. Thick plugs of mucus were noted in almost all of the endobronchial tree, which were suctioned out. Endobronchial tree was noted patent after removal of the mucus plugs. Procedure was well tolerated by the patient without complication. Postoperative findings will be discussed with the patient when the patient recovers from the effects of acute sedation. SHIRA HASSAN MD CM:PROCNOTE:PROCEDURE NOTE [id number] SHIRA DUMONT MD
--- NOTE | ~2018-04-01 | PR ---
[place], [place] PROGRESS NOTE NAME: ALEIDA SUH UNIT #: [id number] ROOM: 422 DOCTOR: CHENG CROFT MD BIRTHDATE: [birth year] DOS: 04/03/2018 SUBJECTIVE: The patient has been admitted to the hospital due to difficulty in breathing and feeling marked weakness and not able to do much. She is still feeling weak. There is no nausea, no vomiting. She denies any chest pain, normal pain in the belly, no vomiting. Her comprehensive metabolic profile today showed glucose 136, BUN 4, sodium 123, chloride 89, calcium 8.2, magnesium 1.4 and her CBC showed white count 2100, hemoglobin 12.0 and hematocrit 34.6. OBJECTIVE: VITAL SIGNS: Her blood pressure is 141/92, pulse 94, respirations 18 and temperature 98.5. LUNGS: Showing increased expiration with occasional wheeze. No crepitation. ABDOMEN: Soft. Liver and spleen not felt. No area of tenderness, no mass palpable. The patient is improving slowly. Since she had leukopenia and history of chemotherapy before we are going to consult Dr. Knowles for that. CHENG CROFT MD CM:PNCARON [id number] CHENG CROFT MD 04/18/18 0832 interface
--- NOTE | ~2018-04-01 | PR ---
[place], [place] PROGRESS NOTE NAME: ALEIDA SUH UNIT #: [id number] ROOM: 422 DOCTOR: MO DUMONT MD,SHIRA BIRTHDATE: [birth year] DOS: 04/06/2018 PULMONARY PROGRESS NOTE SUBJECTIVE: The patient noted comfortable at this time without any acute distress. She is still noted with coughing, which has remained not severe and nonproductive. Wheezing was also reported intermittently, sometimes at rest, worsened with mild activity. Denies symptoms of chest pain or hemoptysis. The patient denies symptoms of nausea, vomiting, diarrhea, abdominal pain, hematemesis, melena, or hematochezia. Denies any pain of the lower extremity, dizziness, or headache. Remaining systems were reviewed, they were noted all negative. OBJECTIVE: VITAL SIGNS: Which were recorded showed temperature noted as normal, respiratory rate 18, heart rate of 103. HEENT: Examination shows head was atraumatic. Eyes nonicterus. NECK: Supple. CARDIOVASCULAR: S1, S2 audible. LUNGS: Noted with moderate expiratory wheezing in the lungs bilaterally. Decreased breath sounds. There were no crackles. ABDOMEN: Soft, flat, nontender. EXTREMITIES: Without any acute edema. VISIBLE SKIN: No lesions or rashes. CENTRAL NERVOUS SYSTEM: No gross focal neurologic deficit. MUSCULOSKELETAL: Without any acute deformities. LABORATORY DATA: CBC: WBC count 6.5, hemoglobin 11.6, hematocrit 35.6, platelet count of 133,000. BMP that was done on 04/06/2018 shows glucose 165, BUN normal, creatinine normal. IMPRESSION: 1. Persistent ongoing acute severe exacerbation of chronic obstructive pulmonary disease, nonproductive cough, wheezing. Maximum medical therapy. Recurrence of the lung cancer was also noted in the left. Aortopulmonary lymph node enlargement versus mass. 2. Past history of nicotine abuse. 3. Tachycardia, intermittent, acute exacerbation of chronic obstructive pulmonary disease. PLAN OF MANAGEMENT: Therapeutic bronchoscopy was planned to be done tomorrow morning. Risks and benefits were explained to the patient. She was agreeable for the procedure. In the meantime, we will continue other therapy plan of management, care plan and treatment. Usual care, other supportive plan of management. [place], [place] PROGRESS NOTE NAME: ALEIDA SUH UNIT #: [id number] ROOM: 422 DOCTOR: SHIRA TOUSSAINT MD BIRTHDATE: [birth year] SHIRA HASSAN MD CM:PNTRANS [id number] SHIRA DUMONT MD 04/14/18 0819 interface
--- NOTE | ~2018-04-01 | WRIGHTHP ---
[place], [place] PATIENT HISTORY AND PHYSICAL EXAM NAME: ALEIDA SUH UNIT #: [id number] ROOM: 422 DOCTOR: CHENG CROFT MD BIRTHDATE: [birth year] DOS: 04/01/2018 HISTORY OF PRESENT ILLNESS: The patient has been admitted to the hospital last night with acute difficulty in breathing. She was doing fairly good day before yesterday. Yesterday during the daytime, she was feeling a little bit weak and she slept and woke up at 1:30 in the morning with shortness of breath. She took some breathing treatment, felt a little bit better, but still was not feeling good. Her oxygen level was not coming up. She is at home oxygen, so she came to the Emergency Department where she has been admitted to hospital with acute respiratory distress with COPD, hypoxia and emphysema. Chest x-ray showed no acute cardiopulmonary process. CT scan of the abdomen showed multiple irregularly slightly low attenuations, lesions are demonstrated in the left and right hepatic lobe as described findings were not evident. CT chest dated 12/30/2017, abdomen and pelvis dated 05/29/2017. Metastatic disease consideration given the patient's history of malignancy in the past. She has also chronic diverticulitis, radiculitis. PAST MEDICAL HISTORY: Ascending aortic aneurysm, bilateral pulmonary embolism, chronic back pain, compression fracture of thoracic vertebra, COPD, depression, essential hypertension, generalized anxiety disorder, GERD syndrome, gait disorder, history of cervical thoracic cancer. The patient uses marijuana, multiple levels, scoliosis with neuropathic pain, nodule at the right lung. PAST SURGICAL HISTORY: D and C, EGD, history of inferior vena cava filter placement, post-cornea transplant, colonoscopy and polypectomy. SOCIAL HISTORY: Does not drink any alcohol. Uses marijuana and uses tobacco also. FAMILY HISTORY: Father at age 52 with myocardial infarction. Mother is 91. ALLERGIES: She is not allergic to anything. PHYSICAL EXAMINATION: GENERAL: The patient is conscious, alert and oriented, does not seem to be in any distress. VITAL SIGNS: Her blood pressure 138/83, pulse 101, respirations 18, temperature 98. HEENT: Unremarkable. NECK: Movements somewhat painful due to arthritis of the neck. HEART: Regular. LUNGS: Increased expiration with some decreased breath sounds at the bases. ABDOMEN: Having some tenderness in the right upper quadrant. No rebound tenderness. No definite mass palpable. Abdominal examination normal. EXTREMITIES: No edema of leg. The patient has neuropathy of the lower legs. DIAGNOSES: Acute exacerbation of chronic obstructive pulmonary disease with hypoxia with acute respiratory difficulty and with all the multiple diagnoses which I dictated before. [place], [place] PATIENT HISTORY AND PHYSICAL EXAM NAME: ALEIDA SUH UNIT #: [id number] ROOM: [facility] DOCTOR: CHENG CROFT MD BIRTHDATE: [birth year] LABORATORY DATA: Her CBC today is white count 2100, hemoglobin 12, hematocrit 34.6. The patient is having leukopenia and slight hypochromic anemia. Comprehensive metabolic profile showed glucose 136; BUN 4; sodium 123 indicating hyponatremia; chloride 89, is low; calcium 8.2; magnesium 1.4. Other values are normal. Troponin level is normal. CHENG CROFT MD CM:HISPHYS:PATIENT HISTORY AND PHYSICAL EXAMINATION [id number] CHENG CROFT MD 04/18/18 0736 interface
--- NOTE | ~2018-04-01 | PR ---
[place], [place] PROGRESS NOTE NAME: ALEIDA SUH UNIT #: [id number] ROOM: 422 DOCTOR: CHRISTOPHE SWEET MD BIRTHDATE: [birth year] DOS: 04/03/2018 The patient was seen because of extensive small cell lung cancer. Full consult to follow. CHRISTOPHE SWEET MD CM:PNTRANS [id number] CHRISTOPHE SWEET MD 04/04/18 0335 interface
--- NOTE | ~2018-04-01 | PR ---
[place], [place] PROGRESS NOTE NAME: ALEIDA SUH UNIT #: [id number] ROOM: 422 DOCTOR: CHRISTOPHE SWEET MD BIRTHDATE: [birth year] DOS: 04/07/2018 SUBJECTIVE: The patient is doing better. She had a bronchoscopy done, which did not showed evidence of any obstruction. REVIEW OF SYSTEMS: HEENT: No trouble swallowing. No double vision. No loss of vision. No pain. ENT AND RESPIRATORY: No wheeze. No change in voice. No cough. She has shortness of breath. No coughing up blood. No epistaxis. CARDIOLOGIC: No chest pain. No dizziness. No irregular heartbeat. No leg edema. No palpitations. No shortness of breath. HEMATOLOGIC AND LYMPH: No past transfusion. No fatigue. No loss of appetite. No easy bruising. GASTROENTEROLOGIC: No change in bowel habits. No vomiting blood. No abdominal cramping. No nausea. No vomiting. No diarrhea. No constipation. No blood in stool. FEMALE REPRODUCTIVE: No dyspareunia. No pelvic pain. MUSCULOSKELETAL: No back pain. No muscle pain or weakness. No tingling/numbness. UROLOGIC: No pain with urination. No difficulty urinating. No frequent urination. NEUROLOGIC: No burning pain in feet. No trouble with coordination. No loss of consciousness. No headache. No tingling/numbness. No memory loss. PHYSICAL EXAMINATION: GENERAL: A pleasant woman in no apparent distress. VITAL SIGNS: Blood pressure is 122/90, respirations 18, pulse is 105, and temperature is 97.8. HEENT: Normocephalic, atraumatic. NECK AND THYROID: Supple. No JVD, thyromegaly, or lymphadenopathy. HEART: Normal S1, S2. Regular rate and rhythm. LUNGS: Clear to auscultation and percussion. Bilateral expiratory wheeze. ABDOMEN: Soft. Nontender, nondistended. Bowel sounds present. EXTREMITIES: Normal ROM. No clubbing. No edema. LABORATORY DATA: Sodium is 137, potassium is 4.4, chloride is 98, bicarbonate is 32, creatinine of more than 60. White count of 5.8, hemoglobin of 11.9, hematocrit of 36.1, and platelet count of 129. RADIOLOGY: Bone scan showed chronic T9 and T10 vertebral body compression fracture, chronic healed right 6th rib fracture anteriorly. ASSESSMENT: 1. Extensive small cell lung cancer. 2. Hyponatremia, which is getting better. 3. Anemia of neoplastic disorder. 4. Thrombocytopenia, getting better. PLAN: We will wait for the path reports to come back. In the meantime, once her breathing is better, then further treatment. We had detailed discussion [place], [place] PROGRESS NOTE NAME: ALEIDA SUH UNIT #: [id number] ROOM: [facility] DOCTOR: CHRISTOPHE SWEET MD BIRTHDATE: [birth year] with the patient about it, seemed to understand it. Ample time was given to the patient to ask me questions. CHRISTOPHE SWEET MD CM:PNTRANS [id number] CHRISTOPHE SWEET MD 04/14/18 0813 interface
[2018-04-01 18:16] VITALS: BP 134/82
[2018-04-01 18:53] LABS: BASO % 0.8 % (0.0-1.0); EOS # 0.1 10*3/uL (0.0-0.4); EOS % 1.8 % (1.0-4.0); HEMATOCRIT 35.5 % (37.0-47.0); HEMOGLOBIN 12.3 g/dl (12.0-16.0); LYMPH # 1.3 10*3/uL (1.3-4.4); LYMPH % 33.1 % (27.0-41.0); MEAN CELL VOLUME 94.4 fl (81.0-99.0); MEAN CORPUSCULAR HGB 32.7 pg (27.0-31.0); MEAN CORPUSCULAR HGB CONC 34.6 g/dl (33.0-37.0); MEAN PLATELET VOLUME 9.3 fl (9.6-12.3); MONO # 0.5 10*3/uL (0.1-1.0); MONO % 13.1 % (3.0-9.0); NEUT # 1.9 10*3/uL (2.3-7.9); NEUT % 50.7 % (47.0-73.0); PLATELET COUNT AUTOMATED 87 10*3/uL (130-400); RED BLOOD COUNT 3.76 10*6/uL (4.10-5.10); RED CELL DISTRI WIDTH 12.2 % (0-14.5); WHITE BLOOD COUNT 3.8 10*3/uL (4.8-10.8)
[2018-04-01 19:03] LABS: ACT PARTIAL THROMBO TIME 25.2 SECONDS (20.8-31.5); INTERNATIONAL NORM RATIO 0.9 (2.0-3.5)
[2018-04-01 19:08] LABS: ALBUMIN 3.8 gm/dl (3.1-4.5); ALKALINE PHOSPHATASE 71 U/L (45-117); BUN 5 mg/dl (7-24); CHLORIDE 90 mmol/L (98-107); CREATININE 0.66 mg/dL (0.55-1.02); POTASSIUM 3.8 mmol/L (3.5-5.1); SGOT/AST 42 IU/L (3-35); SGPT/ALT 53 U/L (12-78); SODIUM 125 mmol/L (136-145); TOTAL PROTEIN 6.7 gm/dL (6.4-8.2)
[2018-04-01 19:09] LABS: TROPONIN I < 0.015 ng/ml (<0.045)
[2018-04-01 19:22] VITALS: BP 130/79
[2018-04-01 20:57] VITALS: BP 128/81
[2018-04-01 22:10] VITALS: BP 140/90; BP 152/94
[2018-04-01 22:15] VITALS: BP 140/90
[2018-04-02] VITALS: BP 141/86
[2018-04-02 06:45] LABS: HEMATOCRIT 34.6 % (37.0-47.0); LYMPH # 0.5 10*3/uL (1.3-4.4); LYMPH % 21.1 % (27.0-41.0); MEAN CORPUSCULAR HGB 32.6 pg (27.0-31.0); MEAN CORPUSCULAR HGB CONC 34.7 g/dl (33.0-37.0); MEAN PLATELET VOLUME 9.6 fl (9.6-12.3); MONO # 0.1 10*3/uL (0.1-1.0); MONO % 3.8 % (3.0-9.0); NEUT # 1.6 10*3/uL (2.3-7.9); NEUT % 74.2 % (47.0-73.0); PLATELET COUNT AUTOMATED 79 10*3/uL (130-400); RED BLOOD COUNT 3.68 10*6/uL (4.10-5.10); WHITE BLOOD COUNT 2.1 10*3/uL (4.8-10.8)
[2018-04-02 07:11] LABS: ALBUMIN 3.6 gm/dl (3.1-4.5); BUN 4 mg/dl (7-24); CHLORIDE 89 mmol/L (98-107); CREATININE 0.55 mg/dL (0.55-1.02); POTASSIUM 3.9 mmol/L (3.5-5.1); SGOT/AST 32 IU/L (3-35); SGPT/ALT 51 U/L (12-78); SODIUM 123 mmol/L (136-145)
[2018-04-02 07:14] LABS: ALKALINE PHOSPHATASE 65 U/L (45-117); PHOSPHOROUS 2.9 mg/dL (2.5-4.9); TOTAL PROTEIN 6.6 gm/dL (6.4-8.2)
[2018-04-02 08:00] VITALS: BP 138/83
[2018-04-02 12:00] VITALS: BP 141/84
[2018-04-02 16:00] VITALS: BP 124/74
[2018-04-02 20:00] VITALS: BP 139/83
[2018-04-03] VITALS: BP 164/95
[2018-04-03 08:00] VITALS: BP 128/81
[2018-04-03 11:47] VITALS: BP 141/92
[2018-04-03 16:00] VITALS: BP 149/88
[2018-04-03 20:00] VITALS: BP 123/80
[2018-04-04] VITALS: BP 113/82
[2018-04-04 06:44] LABS: EOS % 0.3 % (1.0-4.0); HEMATOCRIT 36.2 % (37.0-47.0); LYMPH # 0.7 10*3/uL (1.3-4.4); LYMPH % 10.2 % (27.0-41.0); MEAN CELL VOLUME 96.8 fl (81.0-99.0); MEAN CORPUSCULAR HGB 32.1 pg (27.0-31.0); MEAN CORPUSCULAR HGB CONC 33.1 g/dl (33.0-37.0); MEAN PLATELET VOLUME 9.6 fl (9.6-12.3); MONO # 0.4 10*3/uL (0.1-1.0); MONO % 6.9 % (3.0-9.0); NEUT # 5.2 10*3/uL (2.3-7.9); NEUT % 81.2 % (47.0-73.0); RED BLOOD COUNT 3.74 10*6/uL (4.10-5.10); RED CELL DISTRI WIDTH 12.4 % (0-14.5); WHITE BLOOD COUNT 6.4 10*3/uL (4.8-10.8)
[2018-04-04 06:49] LABS: PLATELET COUNT AUTOMATED 110 10*3/uL (130-400)
[2018-04-04 08:00] VITALS: BP 139/84
[2018-04-04 16:00] VITALS: BP 143/89
[2018-04-04 20:00] VITALS: BP 155/86
[2018-04-05] VITALS: BP 142/96
[2018-04-05 05:57] LABS: BASO % 0.2 % (0.0-1.0); EOS % 0.2 % (1.0-4.0); HEMATOCRIT 38.7 % (37.0-47.0); HEMOGLOBIN 13.1 g/dl (12.0-16.0); LYMPH # 1.2 10*3/uL (1.3-4.4); LYMPH % 15.4 % (27.0-41.0); MEAN CELL VOLUME 97.7 fl (81.0-99.0); MEAN CORPUSCULAR HGB 33.1 pg (27.0-31.0); MEAN CORPUSCULAR HGB CONC 33.9 g/dl (33.0-37.0); MEAN PLATELET VOLUME 9.5 fl (9.6-12.3); MONO # 0.6 10*3/uL (0.1-1.0); MONO % 7.1 % (3.0-9.0); NEUT # 5.9 10*3/uL (2.3-7.9); NEUT % 74.1 % (47.0-73.0); RED BLOOD COUNT 3.96 10*6/uL (4.10-5.10); RED CELL DISTRI WIDTH 12.3 % (0-14.5)
[2018-04-05 06:14] LABS: PLATELET COUNT AUTOMATED 149 10*3/uL (130-400)
[2018-04-05 06:28] LABS: BUN 10 mg/dl (7-24); CHLORIDE 99 mmol/L (98-107); POTASSIUM 3.9 mmol/L (3.5-5.1); SODIUM 138 mmol/L (136-145)
[2018-04-05 08:00] VITALS: BP 152/88; BP 156/98
[2018-04-05 11:46] LABS: ABG BASE EXCESS 1.4 mmol/L (-2.0-2.0); ABG HCO3 26.6 mmol/l (22-26); ABG O2 SATURATION 95.9 % (95-97); ARTERIAL BLOOD GAS PCO2 45.8 mmHg (35-45); ARTERIAL BLOOD GAS PH 7.38 (7.35-7.45); ARTERIAL BLOOD GAS PO2 75.3 mmHg (80-90)
[2018-04-05 12:00] VITALS: BP 152/86
[2018-04-05 16:00] VITALS: BP 158/86
[2018-04-05 20:00] VITALS: BP 153/88
[2018-04-06] VITALS: BP 139/86
[2018-04-06 07:11] LABS: HEMATOCRIT 35.6 % (37.0-47.0); HEMOGLOBIN 11.6 g/dl (12.0-16.0); MEAN CELL VOLUME 98.6 fl (81.0-99.0); MEAN CORPUSCULAR HGB 32.1 pg (27.0-31.0); MEAN CORPUSCULAR HGB CONC 32.6 g/dl (33.0-37.0); MEAN PLATELET VOLUME 9.3 fl (9.6-12.3); PLATELET COUNT AUTOMATED 133 10*3/uL (130-400); RED BLOOD COUNT 3.61 10*6/uL (4.10-5.10); RED CELL DISTRI WIDTH 12.4 % (0-14.5); WHITE BLOOD COUNT 6.5 10*3/uL (4.8-10.8)
[2018-04-06 07:24] LABS: BUN 13 mg/dl (7-24); CHLORIDE 98 mmol/L (98-107); CREATININE 0.62 mg/dL (0.55-1.02); POTASSIUM 3.8 mmol/L (3.5-5.1); SODIUM 136 mmol/L (136-145)
[2018-04-06 07:36] LABS: TOTAL CELLS COUNTED 100 #CELLS
[2018-04-06 07:37] LABS: PLATELET SUFFICIENCY NORMAL (NORMAL)
[2018-04-06 08:00] VITALS: BP 145/89
[2018-04-06 16:00] VITALS: BP 158/83
[2018-04-06 20:00] VITALS: BP 156/86
[2018-04-07] VITALS (9 sets, daily range): BP systolic 110–177; BP diastolic 50–102
[2018-04-07 06:45] LABS: HEMATOCRIT 36.1 % (37.0-47.0); HEMOGLOBIN 11.9 g/dl (12.0-16.0); MEAN CELL VOLUME 98.6 fl (81.0-99.0); MEAN CORPUSCULAR HGB 32.5 pg (27.0-31.0); MEAN PLATELET VOLUME 9.1 fl (9.6-12.3); PLATELET COUNT AUTOMATED 129 10*3/uL (130-400); RED BLOOD COUNT 3.66 10*6/uL (4.10-5.10); RED CELL DISTRI WIDTH 12.4 % (0-14.5); WHITE BLOOD COUNT 5.8 10*3/uL (4.8-10.8)
[2018-04-07 07:01] LABS: ALBUMIN 3.4 gm/dl (3.1-4.5); ALKALINE PHOSPHATASE 68 U/L (45-117); BUN 13 mg/dl (7-24); CHLORIDE 98 mmol/L (98-107); CREATININE 0.59 mg/dL (0.55-1.02); POTASSIUM 4.4 mmol/L (3.5-5.1); SGOT/AST 11 IU/L (3-35); SGPT/ALT 33 U/L (12-78); SODIUM 137 mmol/L (136-145); TOTAL PROTEIN 6.3 gm/dL (6.4-8.2)
[2018-04-07 07:24] LABS: TOTAL CELLS COUNTED 100 #CELLS
[2018-04-07 07:25] LABS: PLATELET SUFFICIENCY LOW (NORMAL)
[2018-04-08] VITALS: BP 129/86
[2018-04-08 08:00] VITALS: BP 139/87
[2018-04-08 09:06] LABS: HEMATOCRIT 38.1 % (37.0-47.0); HEMOGLOBIN 12.5 g/dl (12.0-16.0); MEAN CELL VOLUME 99.2 fl (81.0-99.0); MEAN CORPUSCULAR HGB 32.6 pg (27.0-31.0); MEAN CORPUSCULAR HGB CONC 32.8 g/dl (33.0-37.0); MEAN PLATELET VOLUME 9.1 fl (9.6-12.3); NUCLEATED RED BLOOD CELL 0.3 % (0.0-0.0); PLATELET COUNT AUTOMATED 157 10*3/uL (130-400); RED BLOOD COUNT 3.84 10*6/uL (4.10-5.10); RED CELL DISTRI WIDTH 12.6 % (0-14.5); WHITE BLOOD COUNT 9.6 10*3/uL (4.8-10.8)
[2018-04-08 09:16] LABS: BUN 11 mg/dl (7-24); CHLORIDE 100 mmol/L (98-107); CREATININE 0.51 mg/dL (0.55-1.02); POTASSIUM 3.9 mmol/L (3.5-5.1); SODIUM 139 mmol/L (136-145)
[2018-04-08 09:26] LABS: TOTAL CELLS COUNTED 100 #CELLS
[2018-04-08 09:27] LABS: PLATELET SUFFICIENCY NORMAL (NORMAL)
[2018-04-08] MEDS ORDERED: PREDNISONE10 MG PO (09:36)
[2018-04-08] MEDS ORDERED: ZITHROMAX500 MG PO (09:36)
[2018-04-08] MEDS ORDERED: LORAZEPAM1 MG PO (09:37)
[2018-04-08] MEDS ORDERED: NICODERM CQ1 EAC2 TD (09:39)
[2018-04-08 15:05] LABS: ACID FAST SPEC PROCESSING Concentration (.)
[2018-04-09] MEDS ORDERED: PERCOCET 5-3251 EACH PO (08:48)
[2018-05-19 12:05] LABS: ACID FAST CULTURE Negative (.)
== END 2018-04-08 10:55 | disposition home or self-care (01) | DRG 871 ==
LOC: ED 18:16 → 4E 21:07 → EDHOLD 21:07 → 4E 21:22
PROVIDERS: Emergency Medicine; Family Medicine; Internal Medicine; Internal Medicine Critical Care Medicine; Internal Medicine Hematology & Oncology
PROC: 0BC98ZZ Extirpation of Matter from Lingula Bronchus, Via Natural or Artificial Opening Endoscopic (ICD-10-PCS; principal; 2018-04-07)
PROC: 0BC48ZZ Extirpation of Matter from Right Upper Lobe Bronchus, Via Natural or Artificial Opening Endoscopic (ICD-10-PCS; 2018-04-07)
PROC: 0BC88ZZ Extirpation of Matter from Left Upper Lobe Bronchus, Via Natural or Artificial Opening Endoscopic (ICD-10-PCS; 2018-04-07)
PROC: 0BC58ZZ Extirpation of Matter from Right Middle Lobe Bronchus, Via Natural or Artificial Opening Endoscopic (ICD-10-PCS; 2018-04-07)
PROC: 0BC38ZZ Extirpation of Matter from Right Main Bronchus, Via Natural or Artificial Opening Endoscopic (ICD-10-PCS; 2018-04-07)
PROC: 0BC78ZZ Extirpation of Matter from Left Main Bronchus, Via Natural or Artificial Opening Endoscopic (ICD-10-PCS; 2018-04-07)
PROC: 0BC68ZZ Extirpation of Matter from Right Lower Lobe Bronchus, Via Natural or Artificial Opening Endoscopic (ICD-10-PCS; 2018-04-07)
PROC: 0BCB8ZZ Extirpation of Matter from Left Lower Lobe Bronchus, Via Natural or Artificial Opening Endoscopic (ICD-10-PCS; 2018-04-07)
PROC: 0BC18ZZ Extirpation of Matter from Trachea, Via Natural or Artificial Opening Endoscopic (ICD-10-PCS; 2018-04-07)
PROC: 0BC28ZZ Extirpation of Matter from Carina, Via Natural or Artificial Opening Endoscopic (ICD-10-PCS; 2018-04-07)
DX: A41.9 Sepsis, unspecified organism (principal); J18.9 Pneumonia, unspecified organism; J96.21 Acute and chronic respiratory failure with hypoxia; C78.7 Secondary malignant neoplasm of liver and intrahepatic bile duct; D69.6 Thrombocytopenia, unspecified; E87.8 Other disorders of electrolyte and fluid balance, not elsewhere classified; M41.9 Scoliosis, unspecified; E87.1 Hypo-osmolality and hyponatremia; C34.90 Malignant neoplasm of unspecified part of unspecified bronchus or lung; J44.1 Chronic obstructive pulmonary disease with (acute) exacerbation; J44.0 Chronic obstructive pulmonary disease with (acute) lower respiratory infection; I71.2 Thoracic aortic aneurysm, without rupture; R00.0 Tachycardia, unspecified; D72.821 Monocytosis (symptomatic); R74.0 Nonspecific elevation of levels of transaminase and lactic acid dehydrogenase [LDH]; R65.20 Severe sepsis without septic shock; R25.9 Unspecified abnormal involuntary movements; G40.909 Epilepsy, unspecified, not intractable, without status epilepticus; R26.9 Unspecified abnormalities of gait and mobility; F41.1 Generalized anxiety disorder; M79.2 Neuralgia and neuritis, unspecified; F41.0 Panic disorder [episodic paroxysmal anxiety]; F12.10 Cannabis abuse, uncomplicated; E55.9 Vitamin D deficiency, unspecified; F32.9 Major depressive disorder, single episode, unspecified; M15.9 Polyosteoarthritis, unspecified; K21.9 Gastro-esophageal reflux disease without esophagitis; R73.9 Hyperglycemia, unspecified; R25.8 Other abnormal involuntary movements; J20.9 Acute bronchitis, unspecified; D63.0 Anemia in neoplastic disease; I10 Essential (primary) hypertension; M54.9 Dorsalgia, unspecified; G89.29 Other chronic pain; M43.17 Spondylolisthesis, lumbosacral region; Z72.0 Tobacco use; Z71.6 Tobacco abuse counseling; Z82.49 Family history of ischemic heart disease and other diseases of the circulatory system; Z83.6 Family history of other diseases of the respiratory system; Z80.9 Family history of malignant neoplasm, unspecified

== ENCOUNTER 2018-04-17 10:45 | Emergency (ER) | payer OTHER ==
[~2018-04-17] VITALS: Ht 170.1 cm; Wt 72.6 kg
[~2018-04-17 10:45] MED LIST changes: +LORAZEPAM1 MG PO; +ZITHROMAX500 MG PO
[2018-04-17] MEDS ORDERED: ATIVAN1 MG PO (11:23)
[2018-04-17] MEDS ORDERED: PERCOCET 7.5-31 EACH PO (11:23)
[2018-04-17] MEDS ORDERED: VENTOLIN 02.5 MG/3 M INH (11:23)
== END 2018-04-17 11:26 | disposition home or self-care (01) ==
LOC: ED 10:45
DX: F41.9 Anxiety disorder, unspecified (principal); Z76.0 Encounter for issue of repeat prescription; F32.9 Major depressive disorder, single episode, unspecified; J44.9 Chronic obstructive pulmonary disease, unspecified; K21.9 Gastro-esophageal reflux disease without esophagitis; I10 Essential (primary) hypertension; M19.90 Unspecified osteoarthritis, unspecified site; G40.909 Epilepsy, unspecified, not intractable, without status epilepticus; Z79.899 Other long term (current) drug therapy

== ENCOUNTER 2018-04-28 09:10 | Inpatient (IN) | payer OTHER ==
[~2018-04-28] VITALS: Ht 170.2 cm; Wt 73.0 kg
--- NOTE | ~2018-04-28 | EKG ---
[place], [place] ELECTROCARDIOGRAM REPORT NAME: ALEIDA SUH UNIT #: [id number] ROOM: [facility] DOCTOR: TD DRAFT REPORT BIRTHDATE: [birth year] [facility] Test Date: 2018-04-28 Test Time: 10:03:27 Pat Name: ALEIDA SUH Department: Room: Gender: F Library Information Technician: YUNIER : 1955 Requested By: AMENA BERNAL Order Number: [id number] Reading MD: Brannon Fountain MD Measurements Intervals [place] Rate: 91 P: 71 ND: 181 QRS: 8 QRSD: 74 T: 44 QT: 361 QTc: 445 Interpretive Statements Sinus rhythm Minimal ST elevation, anterior leads Electronically Signed On 05-02-2018 7:58:35 PDT by Brannon Fountain MD CM:EKGRPT:ELECTROCARDIOGRAM REPORT [id number] AMENA BERNAL EPIPHANY DRAFT REPORT AMENA BERNAL
--- NOTE | ~2018-04-28 | PR ---
[place], [place] PROGRESS NOTE NAME: ALEIDA SUH UNIT #: [id number] ROOM: [facility] DOCTOR: MO DUMONT MD,SHIRA BIRTHDATE: [birth year] DOS: 05/03/2018 SUBJECTIVE: The patient was independently seen and examined on [id number] encounter on 05/03/2018 note. History was taken from the patient. Physical examination performed. All the labs reviewed. The decision of current medical management were made personally. The patient noted comfortable at this time, resting on the bed. Not noted any acute distress. She is self-liberated, self-extubated yesterday from mechanical ventilator. The patient was started on the BiPAP, post-extubation. She has been still noted wheezing, which has been noted intermittent severe at times. She was noted awake and alert. The patient initially stating no intubation, but now she agreed for intubation, if necessary mechanical ventilation. She denies symptoms of hemoptysis. Denies symptoms of fever or chills. Coughing has been noted without any sputum expectoration. Denies symptoms of nausea, vomiting, diarrhea, abdominal pain, hematemesis, melena, or hematochezia. OBJECTIVE: VITAL SIGNS: For the patient, which has been recorded showed normal temperature, respiratory rate of 21-19, heart rate of 98, blood pressure 140/82 to 141/85. Pulse oxygen saturation is 95% saturation noted with 40% oxygen supplementation, BiPAP with 5 liter nasal cannula, 92% pulse ox saturation noted at rest. HEENT: Examination shows head was atraumatic. Eyes nonicterus. NECK: Supple. CARDIOVASCULAR: S1, S2 audible. LUNGS: Moderate decreased breath sounds. There were no crackles. Wheezing was present. ABDOMEN: Soft, mild obesity. Bowel sounds present. EXTREMITIES: Chronic edema. VISIBLE SKIN: No lesions or rashes. CENTRAL NERVOUS SYSTEM: Cranial nerves 2-12 intact. MUSCULOSKELETAL: No deformities. LABORATORY DATA: CBC that was done this morning, WBC count normal, hemoglobin 10.6, hematocrit 31.6, platelet count was 90,000. Culture of the bronchial washing noted as normal che. CMP of 724. BUN is normal, creatinine is normal. Sodium 134, ____ 95. AST 54, mildly elevated alkaline phosphatase 382. Arterial blood gas this morning 5 liters, pH of 7.50, pCO2 of 51, pO2 66.4. IMPRESSION: 1. Ongoing severe acute exacerbation of chronic obstructive pulmonary disease with acute on chronic hypoxic respiratory failure as a result. 2. Past history of nicotine use. 3. History of small cell lung cancer. The patient with a recurrence noted at this time of the left mediastinal mass. 4. The patient with paraneoplastic syndrome with hyponatremia, which has been improving. PLAN OF MANAGEMENT: At this time, the patient will be continued the BiPAP with current satting without any changes, most of the time, except meals. Continue [place], [place] PROGRESS NOTE NAME: ALEIDA SUH UNIT #: [id number] ROOM: [facility] DOCTOR: MO DUMONT MD,SHIRA BIRTHDATE: [birth year] current dose of Solu-Medrol, bronchodilator therapy, plan of management. No additional change in treatment at this time will be necessary. At this time, the patient would not need to be intubated. However, if the respiratory status worsened, the patient certainly intubation would be considered at that time. The patient remains in Intensive Care Unit for the respiratory failure management. The note done by the medical esthetician was approved. SHIRA HASSAN MD CM:REBECA [id number] SHIRA DUMONT MD 05/03/18 1407 interface
--- NOTE | ~2018-04-28 | PR ---
[place], [place] PROGRESS NOTE NAME: ALEIDA SUH UNIT #: [id number] ROOM: 507 DOCTOR: CHRISTIANNE BANKS DO BIRTHDATE: [birth year] DOS: 05/05/2018 SUBJECTIVE: The patient was seen and evaluated today. She is feeling somewhat better. She still admits to shortness of breath at times. She is coughing, but less. Occasional yellow sputum production noted. She was off BiPAP when examined. She denies headache, lightheadedness, nausea, vomiting, diarrhea, abdominal pain. She denies any other symptoms. OBJECTIVE: VITAL SIGNS: Temperature 98.3, heart rate 110, respirations 21, blood pressure 147/87, pulse ox 96% on 4 liters nasal cannula. She has 98% on 35% BiPAP this morning. HEENT: Head is atraumatic. Eyes nonicteric. NECK: Supple. CARDIOVASCULAR: S1, S2 audible. LUNGS: Moderately decreased breath sounds with expiratory wheezing. Wheezing is decreasing. ABDOMEN: Soft, nontender, nondistended. Bowel sounds present. EXTREMITIES: No edema. SKIN: Visible skin no lesions or rashes. CENTRAL NERVOUS SYSTEM: Cranial nerves 2-12 intact. No focal deficit. MUSCULOSKELETAL: No acute deformities. PSYCHIATRIC: Anxious. LABORATORY DATA: White blood cells 8.1, hemoglobin 10.7, hematocrit 33.7, platelets 65,000. This is decreased from 87,000 yesterday. CMP today, sodium 141, potassium 4.0, BUN 13, creatinine 0.47, AST 97, ALT 107, alkaline phosphatase 370. LFTs are increased from yesterday. Albumin today 3.1. Blood cultures negative. BAL specimens showing normal che. IMPRESSION: 1. Resolving acute on chronic hypoxic respiratory failure with hypercapnia. 2. Acute severe exacerbation of chronic obstructive pulmonary disease with gradual improvement. 3. Acute tracheobronchitis. 4. History of small cell lung cancer with recurrence. 5. Thrombocytopenia with mild worsening. No abnormal bleeding. 6. Metabolic alkalosis secondary to hypercarbia. 7. Transaminitis. PLAN OF MANAGEMENT: The patient may be made IMRC. BiPAP to be used at night and p.r.n. during the day. Continue use of bronchodilators, antibiotics and steroids. Continue anxiolytics. Continue therapeutic anticoagulation due to history of thromboembolism and current active malignancy. Christianne Banks DO [place], [place] PROGRESS NOTE NAME: ALEIDA SUH UNIT #: [id number] ROOM: 7 DOCTOR: CHRISTIANNE BANKS DO BIRTHDATE: [birth year] SHIRA HASSAN MD CM:REBECA 1104 [id number] CHRISTIANNE BANKS DO 06/02/18 0843 interface
--- NOTE | ~2018-04-28 | PROC NOTE ---
[place], [place] PROCEDURE NOTE NAME: ALEIDA SUH UNIT #: [id number] ROOM: 507 DOCTOR: MO DUMONT MD,SHIRA BIRTHDATE: [birth year] DOS: 05/01/2018 PREOPERATIVE DIAGNOSES: The patient has severe acute respiratory distress, exacerbation of chronic obstructive pulmonary disease, and hypoxia. POSTOPERATIVE DIAGNOSES: The patient had intubation and mechanical ventilation done with flexible fiber bronchoscope. COMPLICATIONS: None. PROCEDURE DESCRIPTION: Informed consent was obtained for the patient prior to the procedure. The patient's airway was introduced into the mouth. A 5 mL of sedation was given. The endotracheal tube with 7.5-Panamanian was guided over the bronchoscope. The medial fiberoptic bronchoscope was advanced to the airway. The epiglottis was seen. The vocal cords seen clearly. Bronchoscope entered vocal cord and tracheal lumen. After that, the endotracheal tube with 7.5-Panamanian was guided over the bronchoscope successfully without any difficulty. The tip of the endotracheal tube was placed above 3.5 cm above the don level. The patient was started on mechanical ventilation after that. No complications noted during or after procedure. SHIRA HASSAN MD CM:PROCNOTE:PROCEDURE NOTE 1412 0001 SHIRA DUMONT MD
--- NOTE | ~2018-04-28 | PR ---
[place], [place] PROGRESS NOTE NAME: ALEIDA SUH UNIT #: [id number] ROOM: 507 DOCTOR: MO DUMONT MD,SHIRA BIRTHDATE: [birth year] DOS: 05/07/2018 SUBJECTIVE: The patient noted comfortable, was transferred to telemetry floor. Using the BiPAP this morning, BiPAP use has been noted intermittently during the day. She denies symptoms of chest. The oxygen supplementation continued the wheezing and shortness breath, cough has been gradually subsiding. OBJECTIVE: VITAL SIGNS: For the patient which were recorded, patient today shows a normal temperature, respiratory rate 22, heart rate of 124-110, sinus tachycardia, blood pressure 157/88. Pulse oxygen saturation on 4 liters 94% saturation. HEENT: No acute change. CARDIOVASCULAR: S1, S2 audible. LUNGS: The patient was noted mild to moderate expiratory wheezing. ABDOMEN: Soft, nontender. Bowel sounds present. EXTREMITIES: No acute edema. LABORATORY DATA: Platelet count was noted, further decreased to 59,000. IMPRESSION: 1. The patient with resolving acute on chronic hypoxic respiratory failure. 2. Thrombocytopenia noted some worsening at this time, medication induced or other reasons. 3. Resolving acute exacerbation of chronic obstructive pulmonary disease. 4. History of small cell lung cancer with recurrence. PLAN OF MANAGEMENT: Reduce the Solu-Medrol dose to 40 mg q.8 hours. Continue other plan of management of the patient at this time. The patient continued to have wheezing. The patient next couple of days will be recommended for the [facility] facility placement, IV therapy rehabilitation and other reasons. SHIRA HASSAN MD CM:PNTRANS [phone] SHIRA DUMONT MD 05/07/181945 interface
--- NOTE | ~2018-04-28 | PR ---
[place], [place] PROGRESS NOTE NAME: ALEIDA SUH UNIT #: [id number] ROOM: [facility] DOCTOR: CHRISTIANNE BANKS DO BIRTHDATE: [birth year] DOS: 05/04/2018 SUBJECTIVE: The patient states that she is still not feeling well. She is still coughing. She denies any sputum production or blood in the sputum. Additionally, she denies any fevers, chills, abdominal pain, nausea, vomiting, diarrhea, lightheadedness. She is still using the BiPAP as tolerated. She has been tolerating, taking this off for meals. OBJECTIVE: VITAL SIGNS: Temperature 98.2, heart rate 105, respirations 20, blood pressure 147/98, pulse ox is 96% on 3 liters nasal cannula. HEENT: Head is atraumatic. Eyes nonicteric. NECK: Supple. CARDIOVASCULAR: S1, S2 audible. LUNGS: Breath sounds are moderately decreased. No crackles. Diffuse wheezing is present. ABDOMEN: Soft, nontender. Bowel sounds present. EXTREMITIES: Chronic edema. VISIBLE SKIN: No lesions or rashes. CENTRAL NERVOUS SYSTEM: Cranial nerves 2-12 intact. MUSCULOSKELETAL: No deformities noted. LABORATORY DATA: CBC shows white blood cells 9.1, hemoglobin 11.5, hematocrit 35.5, platelet count 87,000. CMP: Sodium 139, potassium 4.0, BUN 11, creatinine 0.41, AST 73, ALT 72, alkaline phosphatase 362, albumin 3.2. IMPRESSION: 1. Ongoing severe acute exacerbation of chronic obstructive pulmonary disease with acute on chronic hypoxic respiratory failure as a result. 2. Past history of nicotine use. 3. History of small cell lung cancer. Recurrence of left mediastinal mass is noted. 4. Paraneoplastic syndrome with hyponatremia, which has now resolved. PLAN OF MANAGEMENT: The patient will continue BiPAP as needed. Solu-Medrol decreased to 40 mg q.8h. All other treatments and bronchodilator therapy remain the same. No other changes in treatment at this time. Christianne Banks DO [place], [place] PROGRESS NOTE NAME: ALEIDA SUH UNIT #: [id number] ROOM: [facility] DOCTOR: CHRISTIANNE BANKS DO BIRTHDATE: [birth year] SHIRA HASSAN MD CM:PNCARON 1105 [id number] CHRISTIANNE BANKS DO 05/04/18 1758 interface
--- NOTE | ~2018-04-28 | PR ---
[place], [place] PROGRESS NOTE NAME: ALEIDA SUH UNIT #: [id number] ROOM: [facility] DOCTOR: CHRISTIANNE BANKS DO BIRTHDATE: [birth year] DOS: 05/03/2018 SUBJECTIVE: The patient is seen in the ICU today. She is currently on 40% BiPAP. The patient remained short of breath. She self-extubated yesterday. She does not like the BiPAP mask and states she would rather have the tube. She is feeling somewhat better today and would like to eat. OBJECTIVE: VITAL SIGNS: Temperature 98.1, heart rate 98, respirations 21, blood pressure 144/83, pulse ox 100% on 40% BiPAP. HEENT: Head is atraumatic. Eyes nonicteric. CARDIOVASCULAR: S1 and S2 audible. No murmurs heard. LUNGS: Scattered wheezing bilaterally. Diminished bilaterally. ABDOMEN: Soft, nontender. EXTREMITIES: Trace edema. MUSCULOSKELETAL: No acute deformities. DERMATOLOGICAL: Visible skin, no lesions or rashes. CENTRAL NERVOUS SYSTEM: Cranial nerves grossly intact. LABORATORY DATA: CBC today, white blood cells 6.1, hemoglobin 10.6, hematocrit 31.6, platelet count 90. BMP today, sodium 134, potassium 4.2, chloride 93, BUN 6, creatinine 0.35, glucose 114, AST 54, ALT 52, alkaline phosphatase 382, albumin 3.0. Bronchial washing showed normal che. Results of the Gram stain from bronchial fluid shows few white blood cells, few gram-negative bacilli. First set of blood cultures is negative. Second set of blood cultures is pending. IMPRESSION: 1. The patient has acute tracheobronchitis noted with acute severe exacerbation of chronic obstructive pulmonary disease, [id number] hypercapnic and hypoxic respiratory failure as well. 2. 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 Currently, noted recurrence of the lung cancer. 3. History of nicotine abuse. 4. Acute exacerbation of chronic obstructive pulmonary disease. PLAN AND MANAGEMENT: Continue bronchodilators, oxygen supplementation, current dose of corticosteroids and antibiotic. Monitor culture results of the bronchial washings. Continue to wean from BiPAP as tolerated. The patient may take off BiPAP mask to eat. Christianne Banks DO [place], [place] PROGRESS NOTE NAME: ALEIDA SUH Kourtney UNIT #: [id number] ROOM: [facility] DOCTOR: CHRISTIANNE BANKS DO BIRTHDATE: [birth year] SHIRA HASSAN MD CM:REBECA [id number] CHRISTIANNE BANKS DO 05/03/182031 interface
--- NOTE | ~2018-04-28 | PR ---
[place], [place] PROGRESS NOTE NAME: ALEIDA SUH UNIT #: [id number] ROOM: 507 DOCTOR: MO DUMONT MD,SHIRA BIRTHDATE: [birth year] DOS: 05/08/2018 SUBJECTIVE: She has been noted more shortness of breath and anxious this morning. The oxygen supplementation currently given Optiflow. She has not been noted any symptoms of abdominal pain. The coughing has been noted intermittently and mild. The wheezing has been reported intermittently. The patient was sitting on the chair this morning. Noted quite anxious. Denies symptoms of headache or diplopia. She has been using the BiPAP intermittently. OBJECTIVE: VITAL SIGNS: Showed normal temperature, respiratory rate 28, heart rate of 145-116, blood pressure 147/90-147/101. Pulse oxygen saturation noted as 91% saturation with the current Optiflow of oxygen and 95%, previous noted the BiPAP. HEENT: Examination shows head was atraumatic. Eyes nonicterus. NECK: Supple. CARDIOVASCULAR: S1, S2 is audible. LUNGS: Noted with expiratory wheezing in the lungs bilaterally, which is moderate. No crackles. ABDOMEN: Soft, nontender. EXTREMITIES: Without any acute edema. SKIN: Visible skin, no lesions or rashes. MUSCULOSKELETAL: Without any deformities. Visible skin noted scattered areas of bruising which was medication-induced. LABORATORY DATA: CMP today was noted with BUN 18, creatinine was normal. AST, ALT and alkaline phosphatase were all noted elevated. Blood culture noted no bacterial growth. CBC: WBC count of 12.8, hemoglobin and hematocrit were normal. Platelet count was noted at 50,000. IMPRESSION: 1. Persistent thrombocytopenia with acute on chronic hypoxic respiratory failure 2. Generalized anxiety disorder. 2. History of advanced lung cancer with recurrence as well. PLAN OF MANAGEMENT: Change the Solu-Medrol dose to 40 mg q.8 hours. Obtain a chest x-ray to rule out any other superimposed acute process. Other supportive therapy, plan of management to be continued previously in progress. Usual care. BiPAP use will be resumed for the patient and discontinue the Opti monitor or oxygen supplementation with ____ flow and high flow. Usual care. Other supportive therapy, plan of management and all other supportive care to be continued. [place], [place] PROGRESS NOTE NAME: ALEIDA SUH UNIT #: [id number] ROOM: 507 DOCTOR: SHIRA TOUSSAINT MD BIRTHDATE: [birth year] SHIRA HASSAN MD CM:REBECA [id number] SHIRA DUMONT MD 05/08/18 1457 interface
--- NOTE | ~2018-04-28 | CON ---
[place], [place] REPORT OF CONSULTATION NAME: ALEIDA SUH UNIT #: [id number] ROOM: 520 DOCTOR: DOYLE VACA MD BIRTHDATE: [birth year] DOS: 04/28/2018 NEPHROLOGY CONSULTATION REASON FOR CONSULTATION: Hyponatremia/patient known to you. HISTORY OF PRESENT ILLNESS: The patient is a 63-year-old female with past medical history of lung cancer that apparently is metastatic. She has a history of chronic hyponatremia as well. She presented to the hospital with right-sided abdominal pain that has been worsening as well as a headache and some shortness of breath. The patient is being admitted to the hospital. She has been receiving chemotherapy. She denied any nausea, vomiting or diarrhea. Routine labs showed sodium level of 117 today. The patient apparently had been on salt tabs at home chronically, but it is not clear how compliant she has been. She has been seen by our service in the past here in the hospital, in fact was just seen a few weeks ago. She does have a history of tobacco abuse and COPD. On her last admission, her sodium levels were in the low 120s range, but stabilized and actually improved. Outpatient labs seem to show normalization of her sodium on my review of the records. ALLERGIES: No known drug allergies. MEDICATIONS: Reviewed in the medical records. PAST MEDICAL HISTORY: 1. Chronic hyponatremia. 2. Aortic aneurysm. 3. PE. 4. Chronic pain. 5. Compression fracture. 6. COPD. 7. Depression. 8. Hypertension. 9. Anxiety disorder. 10. GERD. 11. Lung cancer with metastatic disease, details unclear. 12. Port-A-Cath placement for chemotherapy. 13. D and C. 14. EGD. 15. IVC filter placement. 16. Cornea transplant. 17. Colonoscopy and polypectomy. FAMILY HISTORY: Negative for electrolyte disorders, otherwise noncontributory. SOCIAL HISTORY: No alcohol. She smokes cigarettes as well as marijuana. REVIEW OF SYSTEMS: As per HPI, otherwise, a 10-point review of systems was reviewed and was negative. [place], [place] REPORT OF CONSULTATION NAME: ALEIDA SUH UNIT #: [id number] ROOM: 520 DOCTOR: DOYLE VACA MD BIRTHDATE: [birth year] PHYSICAL EXAMINATION: VITAL SIGNS: Temperature afebrile, pulse 100, respiratory rate 18, blood pressure 110/64. GENERAL: She is awake, alert, comfortable, in no acute distress. HEENT: Shows no JVD. Sclerae are anicteric. Mucous membranes are moist. Pharynx is clear. NECK: Supple. Trachea is midline. There is no neck lymphadenopathy or thyromegaly. LUNGS: Diminished breath sounds with bilateral wheezing. Occasional rhonchi. There is no tactile fremitus. She is not using accessory muscles of respiration. HEART: S1, S2. No rub, thrill or gallop. ABDOMEN: Soft, nontender. There is no organomegaly or rigidity, rebound or guarding. There is no CVA tenderness. EXTREMITIES: No edema. There is no lower extremity lymphadenopathy. Distal pulses are 2+. SKIN: Showed no overt rash. There was no petechia or purpura. Skin temperature is warm. NEUROLOGIC: She was awake, alert and following commands. Cranial nerves intact. LABORATORY DATA: Sodium 117, potassium 3.8, CO2 of 30, calcium 8.1, albumin 3.5, uric acid 2.9. Hemoglobin 11.2, white count 3.8, platelets 115. ASSESSMENT AND PLAN: 1. Hyponatremia, acute on chronic. This may be related to possible element of volume depletion versus worsening syndrome of inappropriate antidiuretic hormone secretion in view of pain and a possible infectious process. Poor solutes/poor nutrition may also be playing a role. 2. Chronic obstructive pulmonary disease. 3. Lung cancer. 4. Pancytopenia. 5. Chronic pain. 6. Depression. PLAN: 1. We will give a little bit of fluids for now, can give normal saline at 50 mL per hour. We will check labs later and monitor her sodium levels carefully. 2. Would resume salt tablets while in the hospital, can consider starting urea tablets as well, especially in the setting of chronic hyponatremia. 3. Increase oral intake/protein. 4. Fluid restrict 1.5-2 liters per day. 5. Continue supportive care. Thank you for this consultation. We will follow with you. [place], [place] REPORT OF CONSULTATION NAME: ALEIDA SUH UNIT #: [id number] [place]OM: [facility] [place] [facility] DOCTOR: DOYLE VACA MD BIRTHDATE: [birth year] DOYLE VACA MD CM:CONSTR:REPORT OF CONSULTATION 1430 04/29/18 0227 interface
--- NOTE | ~2018-04-28 | PR ---
[place], [place] PROGRESS NOTE NAME: ALEIDA SUH UNIT #: [id number] ROOM: 507 DOCTOR: JERRY LOPEZ MD BIRTHDATE: [birth year] DOS: 05/07/2018 Dr. Jerry Lopez covering for Dr. Sixto Fox today. OBJECTIVE: VITAL SIGNS: Blood pressure 157/98, heart rate of 124 beats per minute, breathing 22 times per minute with BiPAP, afebrile. GENERAL: Generalized weakness and decreased breath sounds all over. IMPRESSION: 1. White cell count elevated at 12,200. The patient probable pneumonia, also metastatic small cell cancer of the lung with acute over chronic respiratory failure with acute exacerbation of chronic obstructive pulmonary disease, is requiring BiPAP treatment. 2. Sinus tachycardia related to respiratory failure. 3. Thrombocytopenia, being followed. 4. Benign essential hypertension. Blood pressures are being monitored and treated. 5. Generalized anxiety disorder, being observed and treated. 6. Nicotine smoke dependence. The patient is on nicotine patch. JERRY LOPEZ MD CM:PNTRANS [id number] JERRY LOPEZ MD 05/07/18 9740 interface
--- NOTE | ~2018-04-28 | PR ---
[place], [place] PROGRESS NOTE NAME: ALEIDA SUH UNIT #: [id number] ROOM: [facility] DOCTOR: SHIRA TOUSSAINT MD BIRTHDATE: [birth year] DOS: 05/04/2018 SUBJECTIVE: The patient was seen and examined on 05/04/2018 independently. [id number] encounter. The history was taken. Physical examination performed. All the lab reviewed. The assessment and management personally completed. Note done by the medical insurance verifier, was approved. The patient has been still noted with symptoms of shortness of breath and wheezing. The cough is noted decreased. Shortness of breath and wheezing also noted decreased. She has been using the BiPAP most of the time except meals. This morning were noted on oxygen supplementation nasal cannula was noted with less shortness of breath or respiratory distress. Denies symptoms of headache, nausea, vomiting, diarrhea, abdominal pain. There were no symptoms of hemoptysis noted. The appetite was reported as fair. Denies any headache or diplopia. REVIEW OF SYSTEMS: Remaining systems were reviewed, they were noted all negative. OBJECTIVE: VITAL SIGNS: For the patient which were recorded showed the temperature noted as normal. The respiratory rate 20, heart rate 105, blood pressure 147/98. The pulse oxygen saturation of the patient noted on 3 liters nasal cannula 96% saturation, 40% BiPAP 98% saturation. HEENT: Examination shows head was atraumatic. Eyes nonicterus. NECK: Supple. CARDIOVASCULAR: S1, S2 audible. LUNGS: Moderate decreased breath sounds noted with expiratory wheezing, decreased from previous examinations. ABDOMEN: Soft. Moderate obesity. Bowel sounds present. EXTREMITIES: No edema. VISIBLE SKIN: No lesions or rashes. CENTRAL NERVOUS SYSTEM: Cranial nerves 2-12 intact. No focal deficit. MUSCULOSKELETAL: Without acute deformities. PSYCHIATRIC: The patient was still noted with anxiety. LABORATORY DATA: The blood culture for the patient on 05/02/2018 four sets were noted and no bacterial growth. CBC today normal WBC count, hemoglobin 11.5 and hematocrit 35.5, platelet count 87,000. CMP this morning, normal BUN and creatinine. CO2 of 34. IMPRESSION: 1. The patient with resolving acute on chronic hypoxic respiratory failure with hypercapnia. 2. Acute severe exacerbation of chronic obstructive pulmonary disease with gradual improvement. 3. Acute tracheobronchitis. 4. History of lung cancer with recurrence with past treatment for the small cell lung cancer. 5. Resolution of leukopenia from admission. 6. Thrombocytopenia noted with mild worsening, but no abnormal bleeding noted. 7. Metabolic alkalosis secondary to hypercarbia. [place], [place] PROGRESS NOTE NAME: ALEIDA SUH UNIT #: [id number] ROOM: [facility] DOCTOR: MO DUMONT MD,SHIRA BIRTHDATE: [birth year] PLAN OF MANAGEMENT: Decrease the dose of Solu-Medrol today to 40 mg b.i.d. dosing. The patient will be continued the BiPAP intermittent break during the day. Continuation of the oxygen supplementation, bronchodilators. Other therapy, plan of management as previously in progress. Usual care. Continue anxiolytics. Usual care, other supportive plan of management. The patient continue to receive the therapeutic Lovenox for past history of thromboembolism and current active malignancy. SHIRA HASSAN MD CM:PNTRANS [id number] SHIRA DUMONT MD 05/04/18 1310 interface
--- NOTE | ~2018-04-28 | PR ---
[place], [place] PROGRESS NOTE NAME: ALEIDA SUH UNIT #: [id number] ROOM: 507 DOCTOR: GIGI RASHEEDMAX BIRTHDATE: [birth year] DOS: 04/30/2018 RENAL PROGRESS NOTE SUBJECTIVE: The patient offers no complaints today other than ongoing pain, states she is eating better, though described oral intake still seemed somewhat poor. Denies orthopnea, PND, dyspnea. PHYSICAL EXAMINATION: VITAL SIGNS: Blood pressure is 150/74, pulse 106, respirations 20, temperature 97.9 degrees Fahrenheit. GENERAL: A 63-year-old female, awake, alert, oriented x 3. HEAD AND NECK: Conjunctivae are pink and moist. NECK: There is no JVD appreciated. LUNGS: Exhibit mild expiratory wheezing. HEART: Regular, no S3, gallop or rub. ABDOMEN: Soft, positive bowel sounds x 4. EXTREMITIES: No clubbing, cyanosis, no edema noted. LABORATORY DATA: From today shows WBC 4.2, hemoglobin 10.0 platelets 98,000. Sodium is 121, potassium 3.5, chloride of 85, CO2 of 29, BUN of 2, creatinine 0.38, glucose 168. Magnesium 1.6, calcium 7.0, albumin 3.1, corrected calcium is 7.8, phosphorus is 1.5. ASSESSMENT AND PLAN: 1. Hyponatremia. This has improved with food restrictions and use of sodium chloride tablets. Oral intake is also improving. As an aside, she had a bottle of Sprite sitting on her bed stand as well as a small bottle of water. She states the Sprite was brought by her son, but she only took a sip, approximately 25% of the bottle was empty. She was reminded of the need for food restrictions and to coordinate her oral intake with nursing staff. 2. Hypophosphatemia due to poor oral intake. 3. Hypertension, blood pressure satisfactorily controlled. RECOMMENDATIONS: We will recheck chemistries this evening to reassess her response to the above noted therapy. We will start her on phosphorus supplementation with Neutra-Phos 1 p.o. t.i.d. a.c. Thank you for allowing us to participate in the care of this patient. [place], [place] PROGRESS NOTE NAME: ALEIDA SUH UNIT #: [id number] ROOM: [facility] DOCTOR: MAX YU DO BIRTHDATE: [birth year] MAX YU DO CM:REBECA [id number] MAX YU DO 05/20/18 0712 interface
--- NOTE | ~2018-04-28 | PR ---
[place], [place] PROGRESS NOTE NAME: ALEIDA SUH UNIT #: [id number] ROOM: 507 DOCTOR: MAX YU DO BIRTHDATE: [birth year] DOS: 04/29/2018 RENAL PROGRESS NOTE SUBJECTIVE: The patient appetite remains somewhat poor. She is following fluid restrictions. Denies orthopnea, PND or dyspnea. IV fluids have been stopped. PHYSICAL EXAMINATION: VITAL SIGNS: Blood pressure is 112/76, pulse 100, respirations 19, temperature 97.9 degrees Fahrenheit. GENERAL APPEARANCE: A obese male, awake, alert, oriented x 3, chronically ill. HEENT: Conjunctivae are pink and moist. Oral mucosa is pink and moist. NECK: There is no JVD appreciated. LUNGS: Clear to auscultation and percussion. HEART: Regular. No S4, S3 rub, murmur. ABDOMEN: Soft, positive bowel sounds x 4. EXTREMITIES: No clubbing, cyanosis, no edema noted. LABORATORY DATA: From today this afternoon, sodium of 115, potassium 3.6, chloride 79, CO2 of 28, BUN 3, creatinine 0.7, glucose 150, calcium 7.8. WBCs are 3.4, hematocrit 28.5, platelets 95,000. TSH is 0.40, free T4 is 1.27. ASSESSMENT AND PLAN:1. Hyponatremia, chronic in nature and relatively unchanged since being admitted; however, had been on IV fluids until today when these were stopped. Her sodium chloride tablets have not been resumed as of yet, but fluid restriction of 1000 mL per day were reinitiated today. RECOMMENDATIONS: We will resume sodium chloride tablets 1 p.o. t.i.d. for now. Continue fluid restrictions. Recheck sodium level this evening. Thank you for allowing us to participate in the care of this patient. MAX YU DO CM:PNCARON [id number] MAX YU DO 05/20/18 0740 interface
--- NOTE | ~2018-04-28 | PR ---
[place], [place] PROGRESS NOTE NAME: ALEIDA SUH UNIT #: [id number] ROOM: 507 DOCTOR: CHENG CROFT MD BIRTHDATE: [birth year] DOS: 04/30/2018 SUBJECTIVE: The patient who has been admitted to hospital with a feeling of marked weakness and also pain in her abdomen with some nausea, no vomiting. The patient is feeling somewhat better today. She denies having any vomiting last 24 hours. No diarrhea and the patient is tolerating food fairly satisfactorily. The patient has past history of abdominal pain, COPD with emphysema, tachycardia, leukopenia due to chemotherapy, lymphopenia also related to chemotherapy, normocytic anemia, thrombocytopenia, obesity, tobacco abuse, hypertension, seizure disorder, anxiety syndrome, pancytopenia due to antineoplastic chemotherapy, GERD syndrome, depression, vitamin D deficiency. The patient has a past history of malignancy, is on chemotherapy and had received chemotherapy on Wednesday and had PET scan done also. Her basic metabolic profile today showed glucose 178, BUN 3, sodium 117, which is low. Chloride 78, which is low, calcium 7.4, which is low. Other values are normal. CBC showed hypochromic anemia with WBC 4.2, hemoglobin 10, hematocrit 28.5. Urine culture is growing no bacteria. Blood culture is growing no bacteria. OBJECTIVE: VITAL SIGNS: Blood pressure 138/78, pulse is 106, respirations 20, temperature 97.8. CHEST: Having occasional rhonchi with increased expiration. No crepitation. HEART: Regular. ABDOMEN: Showing some tenderness in right hypochondrium. Rest of the abdominal examination unremarkable. CHENG CROFT MD CM:PNTRANS [id number] CHENG CROFT MD 05/26/18 0846 interface
--- NOTE | ~2018-04-28 | CON ---
[place], [place] REPORT OF CONSULTATION NAME: ALEIDA SUH UNIT #: [id number] ROOM: 507 DOCTOR: JERRY LOPEZ MD BIRTHDATE: [birth year] DOS: 05/07/[address] Jerry Lopez covering for Dr. Sixto Fox who is her primary care physician and attending during this admission. ATTENDING PHYSICIAN: Sixto Fox MD VIDEO PRODUCTION INTERN: Jerry Lopez MD IMPRESSION: The patient is a 63-year-old female with a past medical history of: 1. Metastatic small cell cancer of the lung, which has been treated with chemotherapy, diagnosed in 05/2017. 2. Recurrent mass lesion in the left mediastinal area. 3. Paraneoplastic syndrome and syndrome of inappropriate antidiuretic hormone. 4. Previous history of nicotine smoke dependence. 5. Chronic obstructive pulmonary disease. 6. Acute over chronic respiratory failure. 7. Benign essential hypertension. 8. Generalized anxiety disorder. 9. Osteoarthritis involving multiple large joints. 10. History of pulmonary embolism in 08/2017. 11. History of corneal transplant. 12. MediPort insertion in the right chest. The patient presently maintains a full code status and was recently intubated and started on mechanical ventilation and then she is self extubated. The patient says she does not like to be on mechanical ventilation, but she maintains a full code status. Presently, the patient is on BiPAP and says that it does make her breathe better. 13. Advanced adult failure to thrive with metastatic small cell cancer of the lung treated with chemotherapy. The patient is in a very poor health to be further given any chemotherapy and she is apparently suffering from full code status requiring intubation and mechanical ventilation. The patient does not want to be intubated and put on mechanical ventilation and would prefer a do not resuscitate comfort care code status. This was discussed in detail with the patient and her daughter in good detail and the patient and her daughter, Nathalia, are also willing to consider hospice consult. 14. Advanced chronic obstructive pulmonary disease with acute exacerbation of chronic obstructive pulmonary disease and acute over chronic respiratory failure is being managed by BiPAP and nebulizer treatments with DuoNebs. The patient feels better when she is on BiPAP. 15. Acute over chronic respiratory failure requiring oxygen and DuoNebs, being followed by Dr. Sargent, the primer boxer. 16. Benign essential hypertension. Blood pressure is being treated and controlled. The patient remains tachycardic, apparently secondary to her respiratory failure. Apparently lung cancer is also contributing to her respiratory failure. 17. Generalized anxiety disorder, being followed and treated. PHYSICAL EXAMINATION: GENERAL: Alert and oriented. The patient is wearing BiPAP mask, generalized [place], [place] REPORT OF CONSULTATION NAME: ALEIDA SUH UNIT #: [id number] ROOM: 507 DOCTOR: JERRY LOPEZ MD BIRTHDATE: [birth year] weakness. HEENT AND NECK: Extraocular movements are intact. Sclerae are anicteric. Oral mucosa is moist and clean. No obvious facial weakness. Neck is supple without any lymphadenopathy. No thyromegaly. No JVD. No carotid arterial bruits. LUNGS: Lung auscultation reveals decreased breath sounds all over. No wheezing. No rhonchi. CARDIOVASCULAR SYSTEM: Heart rate is regular in rate and rhythm. S1 and S2 audible. The patient is tachycardic. ABDOMEN: Soft, nontender. No obvious organomegaly. Bowel sounds are present. No obvious herniation. EXTREMITIES: Without significant cyanosis or edema. Warm to touch. CENTRAL NERVOUS SYSTEM: Alert and oriented x 3. Cranial nerves II-XII are intact. Speech is normal. The patient is able to move all extremities. Normal muscle strength. Deep tendon reflexes are equal on both sides. Plantars were downgoing. SOCIAL HISTORY: The patient lives at home with her son who does go to work. Denies smoking cigarettes, alcohol, and drug abuse, but has previous history of nicotine abuse. FAMILY HISTORY: Noncontributory. PRESENT MEDICATIONS: Solu-Medrol, hydroxyzine, amlodipine, nicotine patch, citalopram, vitamin D, trazodone, Protonix, gabapentin, DuoNebs, lorazepam, oxycodone. JERRY LOPEZ MD CM:CONSTR:REPORT OF CONSULTATION 1407 05/07/18 1340 interface
--- NOTE | ~2018-04-28 | PR ---
[place], [place] PROGRESS NOTE NAME: ALEIDA SUH UNIT #: [id number] ROOM: [facility] DOCTOR: MO DUMONT MD,SHIRA BIRTHDATE: [birth year] DOS: 05/02/2018 PULMONARY CRITICAL CARE EVALUATION AND MANAGEMENT SUBJECTIVE: The patient remains on mechanical ventilator from yesterday. She has been still noted significant wheezing. She has not been noted any hemodynamic instability at the present time. She is receiving sedation with the Diprivan, which has been noted effective. Mild tachycardia noted previously, which has been resolved. She has been started feeding as Pulmocare, which has been tolerated with gradual increase in the use of the Pulmocare as well as tolerated. The oxygen supplementation has been gradually decreased to 40% oxygen supplementation in the last 24 hours. OBJECTIVE: VITAL SIGNS: The patient noted the rectal temperature 100.2 degrees Fahrenheit to 99.2 degrees Fahrenheit of oral temperature. The respiratory rate is 17-12. Heart rate 97-134 previously, which has been resolved. Blood pressure 125/80-142/90. Intake for the patient 790 and output 1080 mL. The pulse oxygen saturation on 40% oxygen 98% saturation. HEENT: Head was atraumatic. Eyes nonicterus. The patient remained orally intubated with endotracheal tube 7.5-Faroese. CARDIOVASCULAR SYSTEM: S1, S2 is audible. LUNGS: Noted moderate expiratory wheezing bilaterally. ABDOMEN: Soft, nontender. EXTREMITIES: Without acute edema. MUSCULOSKELETAL: Without acute deformities. VISIBLE SKIN: No lesions or rashes. CENTRAL NERVOUS SYSTEM: Noted at this time the patient is sedated, but noted normal mental status with reduction of sedation. LABORATORY DATA: The arterial blood gas, the first one done for the patient noted with arterial blood gas containing air bubble noted pH of 7.36, pCO2 of 54, pO2 108, which was not compatible with the oxygen currently used as 40%. The arterial blood gas repeated on 40% oxygen, pH of 7.32, pCO2 of 57, pO2 of 165 noted to be more appropriate arterial blood gas for this patient. CMP for the patient this morning, glucose 143, BUN normal, creatinine normal, sodium 130. Prealbumin 14. Albumin 2.9. CBC of this morning, WBC count 5.5, hemoglobin 10.6, hematocrit 31.5, and platelet count 92,000. IMPRESSION: 1. The patient with acute tracheobronchitis noted with acute severe exacerbation of chronic obstructive pulmonary disease, [id number] hypercapnic and hypoxic respiratory failure as well. 2. 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 Currently noted recurrence of the lung cancer. 3. History of past nicotine abuse as well. 4. Acute exacerbation of chronic obstructive pulmonary disease as well. PLAN OF MANAGEMENT: Continuation of the bronchodilators, oxygen [place], [place] PROGRESS NOTE NAME: ALEIDA SUH UNIT #: [id number] ROOM: [facility] DOCTOR: SHIRA TOUSSAINT MD BIRTHDATE: [birth year] supplementation, current dose of corticosteroids and antibiotic. Monitor the culture results of the bronchial washing. The cultures were noted as normal che. The Gram stain of the bronchial washing noted few white blood cells and few gram-negative bacilli. Titrate oxygen supplementation to maintain pulse ox 92% or greater. Reduce the oxygen to 30% today. Continue sedation of the patient and assess the mental status. Continue to monitor sodium level. Continue nutrition support. DVT prophylaxis. The leukopenia, which has been noted previously, was completely resolved. Thrombocytopenia still remains persistent variable, but noted as 92,000 today. Moderate protein-calorie malnutrition as well, which has been treated with the supplementation of the nutrition support for the patient to maximize the management of the protein-calorie malnutrition. Other supportive therapy, plan of management, and care plan to be continued. Usual care. Additional treatment therapy, plan of management, and care. Supportive care and therapy, plan of management, and treatments. Usual care, other plan of therapy. Ventilator bundle management will be continued. Chest x-ray was not done today and will be ordered for tomorrow morning. Other additional treatment changes will be done for the patient based on progression of the illness. The patient's overall assessment, the patient's prognosis, and ongoing illnesses were discussed with the patient's mother in detail at the bedside. Total time in pulmonary critical care evaluation and management of the patient was 35 minutes. SHIRA HASSAN MD CM:SONYATRANS [id number] SHIRA DUMONT MD 05/02/18 1553 interface
--- NOTE | ~2018-04-28 | CON ---
[place], [place] REPORT OF CONSULTATION NAME: ALEIDA SUH UNIT #: [id number] ROOM: 507 DOCTOR: SHIRA TOUSSAINT MD BIRTHDATE: [birth year] DOS: 05/01/2018 PULMONARY CONSULTATION, EVALUATION AND MANAGEMENT FOR OUTPATIENT CRITICAL CARE CONSULTATION REQUESTED BY: The hospitalist service. REASON FOR CONSULTATION: To assess for respiratory distress. HISTORY OF PRESENT ILLNESS: This is a 63-year-old white female known with history of extensive stage small cell lung cancer in the past. The patient has been currently admitted under the care of the hospital because symptoms of increased shortness of breath, wheezing, coughing, and wheezing. She has been admitted to telemetry floor, transferred to the Intensive Care Unit this morning and the patient noted to be in severe progressive respiratory distress. She was also noted with progressive oxygen desaturation, requiring increased oxygen supplementation. She was noted with severe increased work of breathing as well at the time of assessment this morning in the Intensive Care Unit and the patient was noted awake. She was noted with significant tachypnea as well. The patient has been decided to be intubated because of current respiratory distress management. She has been reported with symptoms of cough and not expectorating any sputum. Denies symptoms of chest pain, has not reported symptoms of hemoptysis. REVIEW OF SYSTEMS: CONSTITUTIONAL SYMPTOMS: Fatigue and tiredness reported. Denies symptoms of fever or chills. EYES: Denies any burning, redness, or tenderness. EARS, NOSE, THROAT SYMPTOMS: Denies sore throat, hoarseness, otalgia, postnasal drainage or epistaxis. CARDIOVASCULAR: Denies anginal pain, edema, or pain of the lower extremities. GASTROINTESTINAL: Denies dysphagia, nausea, vomiting, diarrhea, abdominal pain, hematemesis, melena or hematochezia. GENITOURINARY: No dysuria, suprapubic pain, hematuria. MUSCULOSKELETAL: Pains in the joints, which has been noted chronic without any acute recent change. There were no deformities reported. SKIN: Denies abnormal lesions or rashes. CENTRAL NERVOUS SYSTEM: Denies symptoms of dizziness, headache, diplopia, or syncopal episodes. Remaining systems were reviewed with the patient, they were noted all negative. PAST MEDICAL HISTORY: Noted with: 1. History of small cell lung cancer diagnosed in May 2017, treated with chemotherapy, responded. 2. Recurrence of mass lesion, which was noted in the left mediastinal area at this time with the recurrence of a malignant cancer recently also considered. 3. History of paraneoplastic syndrome and SIADH as well. 4. History of past nicotine abuse. 5. Central emphysema and COPD. 6. Chronic hypoxic respiratory failure, need of oxygen 2 liters nasal cannula. [place], [place] REPORT OF CONSULTATION NAME: ALEIDA SUH UNIT #: [id number] ROOM: 507 DOCTOR: SHIRA TOUSSAINT MD BIRTHDATE: [birth year] 7. Essential hypertension. 8. Generalized anxiety disorder. 9. Osteoarthritis. 10. History of pulmonary embolism diagnosed in 08/2017, remains on anticoagulation in the form of therapeutic Lovenox in the home settings as well. PAST SURGICAL HISTORY: 1. D and C. 2. EGD. 3. Cornea transplant. 4. Polypectomy. 5. MediPort insertion on the right chest. 6. Fiberoptic bronchoscopy on 05/17/2018, later on the patient had therapeutic bronchoscopy done as well. SOCIAL HISTORY: The patient is , had 2 children. Denies history of alcohol use or illicit drugs. Tobacco use up to 3 packs of cigarettes a day reported. FAMILY HISTORY: The patient's father with complication of myocardial infarction. Mother from natural causes. MEDICATIONS: The medications administered noted as use of nicotine replacement patches, Norvasc, citalopram, vitamin D, Protonix, trazodone, Lovenox 80 mg b.i.d., gabapentin, Dulera, Mucinex, Rocephin, doxycycline and other p.r.n. medications. DRUG ALLERGIES: NOTED WITH NO KNOWN DRUG ALLERGIES. PHYSICAL EXAMINATION: GENERAL: This is a 63-year-old female who has been currently noted with quite respiratory distress with significant tachypnea 100% oxygen supplementation nonrebreather mask this morning of assessment in the Intensive Care Unit. Height of 5 feet 7 inches, weight of 161 pounds, BMI 25. VITAL SIGNS: Shows respiratory rate of 28-30. The temperature normal. Heart rate ranged between 116-130. The patient has sinus tachycardia, blood pressure 138/90-143/81. Pulse oxygen saturation was noted on 4 liters nasal cannula 77% earlier and 100% nonrebreather mask, only 90% oxygen saturation noted this morning. HEENT: Shows a short neck. Head was atraumatic. Eye nonicterus. NECK: Supple. CARDIOVASCULAR: S1, S2 audible. LUNGS: The patient noted with general reduction in breath sounds, expiratory wheezing. There were no crackles. ABDOMEN: Soft, mild obesity. Bowel sounds present without any tenderness. VISIBLE SKIN: No lesions or rashes. CENTRAL NERVOUS SYSTEM: Cranial nerves II-XII intact. No gross focal deficit. MUSCULOSKELETAL: Without any acute deformities. LABORATORY DATA: CBC of the patient that was done 04/28/2018; WBC count 3.0, [place], [place] REPORT OF CONSULTATION NAME: ALEIDA SUH UNIT #: [id number] ROOM: [facility] DOCTOR: DAVID TOUSSAINT MDM BIRTHDATE: [birth year] hemoglobin 11.2, hematocrit 32.0, platelet count of 115,000. The lactic acid 1.5 on admission. The CMP of the patient on 04/28/2018; BUN normal, creatinine was normal. Sodium 117, chloride of 76. The serum osmolality was noted consistent with hyponatremia. The BMP of the patient that was done on 04/28/2018 was noted as glucose 190, BUN normal, creatinine normal, sodium 115, chloride of 77. The CBC of the patient on 04/29/2018; WBC count 3.4, hemoglobin 10.6, hematocrit 29.5, platelet count was 95,000. PT/PTT on 04/29/2018 noted as normal. CMP of the patient repeated on 04/29/2018; BUN normal, creatinine normal, sodium 116, chloride of 78. CBC for the patient on 04/30/2018; WBC count 4.3, hemoglobin 10, hematocrit 28.5, platelet count of 98,000. Sodium noted 121 yesterday. The blood culture taken on 04/28/2018, 4 sets were noted without any bacterial growth. Renal function panel this morning; normal BUN and creatinine, sodium 126, chloride of 80. Potassium 3.4. CBC of the patient; WBC count was normal, hemoglobin 10, hematocrit 31.9, platelet count 110,000. Arterial blood gas of the patient this morning 100% nonrebreather mask; pH of 7.424, pCO2 of 60, pO2 of 353. Review of the other radiology data was noted with a 2-view chest x-ray on 04/28/2018 without any acute pulmonary abnormalities or infiltration. Chest x-ray that was done this morning was noted without any acute pulmonary infiltration. IMPRESSION: The patient who has been currently admitted to the hospital noted: 1. Developed progressive acute respiratory distress secondary to acute exacerbation of chronic obstructive pulmonary disease and hypoxia. 2. Acute tracheobronchitis. There was no evidence of acute pneumonia noted on the recent chest x-ray of the patient early this morning. 3. 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 4. The patient with a consideration of protein-calorie malnutrition as well. 5. Leukopenia secondary to chemotherapy, resolved from admission. 6. Thrombocytopenia, which has been gradually resolving. 7. Past history of pulmonary embolism, currently treated with a therapeutic Lovenox twice a day without any evidence of pulmonary embolism known later on previous the CT scan, which was done after 08/2017 this year. 8. Paraneoplastic syndrome, hyponatremia, which is improving with fluid restriction. PLAN OF MANAGEMENT: The patient will be continued on current antibiotics and bronchodilators. She has been intubated and started on mechanical ventilation personally with fiberoptic intubation because the anterior airway noted on physical assessment and difficult airway. Bronchoscopy was also done for this patient as well. Bronchodilators. She was started on the sedation with the use of intravenous Diprivan and Versed combination. DVT prophylaxis will be continued in the form of therapeutic Lovenox 80 mg subcutaneous b.i.d. Nutritional support will be started with Pulmocare. Prealbumin level will be done in the morning. Continue to monitor labs for the patient's supplementation and electrolytes accordingly. All the ventilator bundle management has been initiated. All other supportive therapy, plan of management and care plan. Additional treatment changes will be done based on progression of the illness. Total time in pulmonary critical care evaluation excluding any billable [place], [place] REPORT OF CONSULTATION NAME: ALEIDA SUH UNIT #: [id number] ROOM: 7 DOCTOR: SHIRA TOUSSAINT MD BIRTHDATE: [birth year] procedure for today was 40 minutes. SHIRA HASSAN MD CM:CONSTR:REPORT OF CONSULTATION 1406 05/16/18 0754 interface
--- NOTE | ~2018-04-28 | PR ---
[place], [place] PROGRESS NOTE NAME: ALEIDA SUH UNIT #: [id number] ROOM: 507 DOCTOR: MAX YU DO BIRTHDATE: [birth year] DOS: 05/01/2018 SUBJECTIVE: The patient developed respiratory distress today and was transferred to the ICU where she is currently intubated and sedated. History cannot be obtained by the patient as such and is obtained by discussion with the nursing staff. She did undergo a bronchoscopy today reportedly only showed mucus plugging. No evidence of any infectious etiologies. The FiO2 has been able to be decreased to 40%. She is only on pressors. PHYSICAL EXAMINATION: VITAL SIGNS: Blood pressure 118/74, pulse was 102, respiratory rate 14, temperature is 99.2 degrees Fahrenheit. GENERAL APPEARANCE: Intubated and sedated female. HEAD AND NECK: There is no JVD appreciated. HEART: Tachy without an S3 or rub. LUNGS: Exhibit mild wheezing, otherwise clear to auscultation and percussion. ABDOMEN: Soft, positive bowel sounds. LOWER EXTREMITIES: No clubbing, cyanosis. There is no edema noted. LABORATORY DATA: From today, pH is 7.25, pCO2 of 68, pO2 of 353, bicarbonate of 29. WBC 6.5, hemoglobin 10.8, hematocrit 31.9, platelets 110,000. Sodium is 126, potassium 3.4, chloride of 88, CO2 of 31, BUN 4, creatinine 0.34, glucose 72, phosphorus is 1.5, magnesium 1.8, calcium 7.9, albumin of 3.3, corrected calcium is 8.5. ASSESSMENT AND PLAN: 1. Hyponatremia. This has been improving with the use of p.o. fluid restrictions and sodium chloride tablets, now intubated and has to start tube feeds with Pulmocare, which is a decent solution. 2. Hypophosphatemia, unchanged from yesterday. She is on Phos-NaK which was started yesterday evening. Tube feeds are starting as noted above. 3. Ventilatory dependent respiratory failure, presumably is a consequence of chronic obstructive pulmonary disease flare, being followed by Pulmonary Critical Care Medicine. RECOMMENDATIONS: No change in current management. Recheck electrolytes this evening to reassess her sodium balance. Thank you very much for allowing us to participate in the care of the patient. [place], [place] PROGRESS NOTE NAME: ALEIDA SUH UNIT #: [id number] ROOM: 507 DOCTOR: MAX YU DO BIRTHDATE: [birth year] MAX YU DO CM:REBECA [id number] MAX YU DO 05/20/18 0737 interface
--- NOTE | ~2018-04-28 | PR ---
[place], [place] PROGRESS NOTE NAME: ALEIDA SUH UNIT #: [id number] ROOM: [facility] DOCTOR: SHIRA TOUSSAINT MD BIRTHDATE: [birth year] DOS: 05/05/2018 SUBJECTIVE: The patient was independently seen and examined, [id number] encounter, history was confirmed. Physical examination performed. The labs were reviewed. Assessment and management was completed. Note done by the medical reimbursement specialist and approved as well. She has been noted comfortable. The patient with reduction of symptoms of shortness breath, cough with sputum expectoration. Shortness breath was improving. Wheezing was also decreasing. She has been using the BiPAP as ordered in the last 24 hours. OBJECTIVE: VITAL SIGNS: This morning noted normal temperature, respiratory rate 21, heart rate 110 with mild sinus tachycardia, blood pressure 147/87. Pulse oxygen saturation was recorded on 4 liter nasal cannula at rest 96% saturation. HEENT: Head was atraumatic. Eye nonicterus. NECK: Supple. CARDIOVASCULAR: S1, S2 audible. LUNGS: Without any crackles. Moderate decreased breath sounds, [id number] expiratory wheezing. ABDOMEN: Soft, nontender. Bowel sounds present. EXTREMITIES: Without any acute edema. LABORATORY DATA: The patient's CBC; WBC count 8.1, hemoglobin 10.7, hematocrit 32.7, platelet count 65,000. CMP this morning, normal BUN and creatinine. IMPRESSION: The patient with history of recurrent small cell lung cancer. The patient was noted with recurrent cancer, currently treated for acute exacerbation of chronic obstructive pulmonary disease, acute hypoxic respiratory failure as well, anxiety disorder, thrombocytopenia related to chemotherapy and other etiologies. There was no evidence of active bleeding. PLAN OF TREATMENT: Further reduction of Solu-Medrol will be done. Continuation of bronchodilator therapy, plan of management and care plan. Additional treatment changes will be made based on progression of the illness. [place], [place] PROGRESS NOTE NAME: ALEIDA SUH UNIT #: [id number] ROOM: [facility] DOCTOR: SHIRA TOUSSAINT MD BIRTHDATE: [birth year] SHIRA HASSAN MD CM:PNTRANS [id number] SHIRA DUMONT MD 05/05/18 1401 interface
--- NOTE | ~2018-04-28 | PR ---
[place], [place] PROGRESS NOTE NAME: ALEIDA SUH UNIT #: [id number] ROOM: 507 DOCTOR: SHIRA TOUSSAINT MD BIRTHDATE: [birth year] DOS: 05/06/2018 SUBJECTIVE: The patient was noted comfortable at this time, resting on the bed. Shortness of breath, wheezing, and other symptoms have been slowly resolving at the present time. Denies symptoms of chest pain, using the BiPAP at nighttime and oxygen supplementation during the day. Cough has been still noted with some sputum expectoration at times. OBJECTIVE: VITAL SIGNS: For the patient which has been recorded showed the temperature recorded as normal, respiratory rate of 24. Height of 120, sinus tachycardia, blood pressure 154/101 to 162/100. HEENT: Examination shows head was atraumatic. Eyes nonicterus. NECK: Supple. CARDIOVASCULAR: S1, S2 audible. LUNGS: The patient was noted with expiratory wheezing, which has been gradually diminishing. ABDOMEN: Soft, nontender, bowel sounds present. EXTREMITIES: Without any acute edema. IMPRESSION: 1. The patient was slow, but gradual resolution. The patient with acute respiratory failure, history of acute tracheobronchitis exacerbation of chronic obstructive pulmonary disease, still noted. Wheezing and cough, which has been slowly subsiding. 2. Sinus tachycardia related to the current acute exacerbation of chronic obstructive pulmonary disease as well. 3. History of lung cancer with recurrence. PLAN OF TREATMENT: Decrease the Solu-Medrol dose to 40 mg b.i.d. She could be transferred to a telemetry floor at the present time. Continue the BiPAP use as previously ordered with bronchodilators administration of antibiotics and other treatments. [place], [place] PROGRESS NOTE NAME: ALEIDA SUH UNIT #: [id number] ROOM: 507 DOCTOR: SHIRA TOUSSAINT MD BIRTHDATE: [birth year] HSIRA HASSAN MD CM:PNTRANS [phone] SHIRA DUMONT MD 05/06/18 9999 interface
--- NOTE | ~2018-04-28 | PROC NOTE ---
[place], [place] PROCEDURE NOTE NAME: ALEIDA SUH UNIT #: [id number] ROOM: [facility] DOCTOR: MO DUMONT MD,SHIRA BIRTHDATE: [birth year] DOS: 05/01/2018 FIBEROPTIC BRONCHOSCOPY PREOPERATIVE DIAGNOSES: The patient with nonresolving respiratory symptoms with exacerbation of chronic obstructive pulmonary disease and respiratory failure with excessive mucous impaction. POSTOPERATIVE DIAGNOSES: Multiple plugs of mucus in endobronchial tree bilaterally. FINDINGS: Acute tracheobronchitis. PROCEDURE DESCRIPTION: Informed consent obtained for the patient prior to the procedure and starting the patient's intubation, the patient was already intubated, remains on mechanical ventilator. Bronchoscope then introduced into the upper trachea noted copious amount of thick mucus secretions in the lower part of trachea, which was suctioned out. Leona noted sharp. The patient noted large plugs and mucus which were present in endobronchial tree bilaterally including right upper, right middle, right lower, left upper, lingular lower lobes. All secretions suctioned out clear with normal saline wash. Finding of tracheobronchitis was noted. There were no endobronchial obstructive lesion. Procedure was tolerated by the patient without any difficulty. Postoperative findings will be discussed with the patient's family members and the patient later on. The bronchial washing sent for appropriate culture. Procedure well tolerated without any difficulty. SHIRA HASSAN MD CM:PROCNOTE:PROCEDURE NOTE [id number] SHIRA DUMONT MD
--- NOTE | ~2018-04-28 | PR ---
[place], [place] PROGRESS NOTE NAME: ALEIDA SUH UNIT #: [id number] ROOM: [facility] DOCTOR: CHENG CROFT MD BIRTHDATE: [birth year] DOS: SUBJECTIVE: The patient has been admitted to hospital with feeling of marked weakness and also pain in her abdomen with some nausea and she is gradually getting better, but she is still complaining of pain all over her body. The patient had chemotherapy for her malignancy and that may be causing her weakness along with the leukopenia and pancytopenia and hypochromic anemia. She also has COPD with emphysema and she denies any vomiting or diarrhea today. Her urine culture is negative. Basic metabolic profile showed glucose 158, BUN 5, sodium 122, chloride 86, and calcium 7.9. OBJECTIVE: VITAL SIGNS: Her blood pressure is 127/63, pulse 88, respirations 18, temperature 98.2. CHEST: Having increased expiration, no crepitation. ABDOMEN: Not distended. Liver and spleen not enlarged. There is no tenderness. Bowel sounds are present. CHENG CROFT MD CM:PNTRANS [phone] CHENG CROFT MD 05/01/18 2336 interface
[~2018-04-28 09:10] MED LIST changes: +PERCOCET 7.5-31 EACH PO; +VENTOLIN 02.5 MG/3 M INH
[2018-04-28 09:14] VITALS: BP 111/66
[2018-04-28 10:26] LABS: BASO % 0.5 % (0.0-1.0); EOS # 0.1 10*3/uL (0.0-0.4); EOS % 2.6 % (1.0-4.0); HEMOGLOBIN 11.2 g/dl (12.0-16.0); LYMPH # 0.7 10*3/uL (1.3-4.4); MEAN CELL VOLUME 91.2 fl (81.0-99.0); MEAN CORPUSCULAR HGB 31.9 pg (27.0-31.0); MEAN PLATELET VOLUME 9.1 fl (9.6-12.3); MONO # 0.6 10*3/uL (0.1-1.0); MONO % 15.3 % (3.0-9.0); NEUT # 2.3 10*3/uL (2.3-7.9); NEUT % 61.5 % (47.0-73.0); PLATELET COUNT AUTOMATED 115 10*3/uL (130-400); RED BLOOD COUNT 3.51 10*6/uL (4.10-5.10); RED CELL DISTRI WIDTH 12.7 % (0-14.5); WHITE BLOOD COUNT 3.8 10*3/uL (4.8-10.8)
[2018-04-28 10:47] LABS: ALBUMIN 3.5 gm/dl (3.1-4.5); BUN 3 mg/dl (7-24); CHLORIDE 76 mmol/L (98-107); POTASSIUM 3.8 mmol/L (3.5-5.1); SGOT/AST 27 IU/L (3-35); SGPT/ALT 27 U/L (12-78); TOTAL PROTEIN 6.5 gm/dL (6.4-8.2)
[2018-04-28 10:49] LABS: ALKALINE PHOSPHATASE 162 U/L (45-117)
[2018-04-28 10:52] LABS: TROPONIN I < 0.015 ng/ml (<0.045)
[2018-04-28 10:54] LABS: SODIUM 117 mmol/L (136-145)
[2018-04-28 12:16] VITALS: BP 117/80
[2018-04-28 12:19] VITALS: BP 110/64
[2018-04-28 16:00] VITALS: BP 145/71
[2018-04-28 19:39] LABS: BUN 3 mg/dl (7-24); CHLORIDE 77 mmol/L (98-107); CREATININE 0.62 mg/dL (0.55-1.02)
[2018-04-28 19:41] LABS: SODIUM 115 mmol/L (136-145)
[2018-04-28 20:00] VITALS: BP 139/84
[2018-04-28 21:13] LABS: BILIRUBIN NEGATIVE (NEGATIVE); BLOOD NEGATIVE (NEGATIVE); CLARITY CLEAR (CLEAR); COLOR YELLOW (YELLOW); GLUCOSE 2+ (NEGATIVE); KETONE NEGATIVE (NEGATIVE); LEUKO ESTERASE TRACE (NEGATIVE); NITRITE NEGATIVE (NEGATIVE); PH 7.5 (5.0-9.0); SPECIFIC GRAVITY <= 1.005 (1.005-1.030); URINE CHLORIDE, RANDOM 53 mmol/L; UROBILINOGEN 0.2 E.U./dl (0.2-1.0)
[2018-04-28 21:21] LABS: URINE AMPHETAMINES < 1000 (1000ng/ml); URINE BARBITURATES < 200 (200ng/ml); URINE BENZODIAZEPINES < 200 (200ng/ml); URINE CANNABINOIDS (THC) < 50 (50ng/ml); URINE COCAINE < 300 (300ng/ml); URINE METHADONE < 300 (300ng/ml); URINE OPIATES > 300 (300ng/ml); URINE PHENCYCLIDINE < 25 (25ng/ml)
[2018-04-28 21:41] LABS: EPITHELIAL CELLS 0-2; YEAST 1+
[2018-04-29] VITALS: BP 131/78
[2018-04-29 07:15] LABS: HEMATOCRIT 29.5 % (37.0-47.0); HEMOGLOBIN 10.6 g/dl (12.0-16.0); LYMPH # 0.3 10*3/uL (1.3-4.4); LYMPH % 9.1 % (27.0-41.0); MEAN CELL VOLUME 89.7 fl (81.0-99.0); MEAN CORPUSCULAR HGB 32.2 pg (27.0-31.0); MEAN CORPUSCULAR HGB CONC 35.9 g/dl (33.0-37.0); MEAN PLATELET VOLUME 9.7 fl (9.6-12.3); MONO # 0.3 10*3/uL (0.1-1.0); NEUT # 2.7 10*3/uL (2.3-7.9); NEUT % 79.4 % (47.0-73.0); PLATELET COUNT AUTOMATED 95 10*3/uL (130-400); RED BLOOD COUNT 3.29 10*6/uL (4.10-5.10); RED CELL DISTRI WIDTH 12.2 % (0-14.5); WHITE BLOOD COUNT 3.4 10*3/uL (4.8-10.8)
[2018-04-29 07:24] LABS: ACT PARTIAL THROMBO TIME 25.3 SECONDS (20.8-31.5)
[2018-04-29 07:34] LABS: ALBUMIN 3.2 gm/dl (3.1-4.5); ALKALINE PHOSPHATASE 205 U/L (45-117); BUN 3 mg/dl (7-24); CHLORIDE 78 mmol/L (98-107); CHOLESTEROL 173 mg/dL (<200); CREATININE 0.39 mg/dL (0.55-1.02); PHOSPHOROUS 2.1 mg/dL (2.5-4.9); POTASSIUM 4.1 mmol/L (3.5-5.1); SGOT/AST 37 IU/L (3-35); SGPT/ALT 30 U/L (12-78); TOTAL PROTEIN 6.4 gm/dL (6.4-8.2); TRIGLYCERIDES 65 mg/dl (<150); VLDL CHOLESTEROL 13 mg/dL (6-40)
[2018-04-29 07:35] LABS: FREE T4 1.27 ng/dl (0.76-1.46); HDL CHOLESTEROL 67 mg/dl (40-60); LDL CHOLESTEROL 93 mg/dL (9-159)
[2018-04-29 07:40] LABS: THYROID STIM HORMONE (HS) 0.406 uIU/ml (0.358-4.75)
[2018-04-29 07:51] LABS: SODIUM 116 mmol/L (136-145)
[2018-04-29 08:00] VITALS: BP 135/74; BP 154/60
[2018-04-29 08:18] LABS: VITAMIN D, 25-HYDROXY 54.4 ng/mL (30-100)
[2018-04-29 12:00] VITALS: BP 125/76
[2018-04-29 14:29] LABS: BUN 3 mg/dl (7-24); CHLORIDE 79 mmol/L (98-107); CREATININE 0.47 mg/dL (0.55-1.02); POTASSIUM 3.6 mmol/L (3.5-5.1)
[2018-04-29 14:32] LABS: SODIUM 115 mmol/L (136-145)
[2018-04-29 16:00] VITALS: BP 139/78
[2018-04-29 20:00] VITALS: BP 133/75
[2018-04-29 20:25] LABS: BUN 3 mg/dl (7-24); CHLORIDE 78 mmol/L (98-107); CREATININE 0.59 mg/dL (0.55-1.02); POTASSIUM 3.6 mmol/L (3.5-5.1)
[2018-04-29 20:31] LABS: SODIUM 117 mmol/L (136-145)
[2018-04-30] VITALS: BP 138/78; BP 144/92
[2018-04-30 06:49] LABS: BASO % 0.2 % (0.0-1.0); HEMATOCRIT 28.5 % (37.0-47.0); LYMPH # 0.2 10*3/uL (1.3-4.4); LYMPH % 5.7 % (27.0-41.0); MEAN CELL VOLUME 91.9 fl (81.0-99.0); MEAN CORPUSCULAR HGB 32.3 pg (27.0-31.0); MEAN CORPUSCULAR HGB CONC 35.1 g/dl (33.0-37.0); MEAN PLATELET VOLUME 9.9 fl (9.6-12.3); MONO # 0.3 10*3/uL (0.1-1.0); MONO % 7.8 % (3.0-9.0); NEUT # 3.6 10*3/uL (2.3-7.9); NEUT % 85.4 % (47.0-73.0); PLATELET COUNT AUTOMATED 98 10*3/uL (130-400); RED CELL DISTRI WIDTH 12.4 % (0-14.5); WHITE BLOOD COUNT 4.2 10*3/uL (4.8-10.8)
[2018-04-30 07:03] LABS: ALBUMIN 3.1 gm/dl (3.1-4.5); BUN 2 mg/dl (7-24); CHLORIDE 85 mmol/L (98-107); CREATININE 0.38 mg/dL (0.55-1.02); PHOSPHOROUS 1.5 mg/dL (2.5-4.9); POTASSIUM 3.5 mmol/L (3.5-5.1); SODIUM 121 mmol/L (136-145)
[2018-04-30 08:00] VITALS: BP 138/78
[2018-04-30 12:00] VITALS: BP 150/74
[2018-04-30 16:00] VITALS: BP 146/80
[2018-04-30 16:43] LABS: BUN 5 mg/dl (7-24); CHLORIDE 86 mmol/L (98-107); CREATININE 0.59 mg/dL (0.55-1.02); POTASSIUM 3.7 mmol/L (3.5-5.1); SODIUM 122 mmol/L (136-145)
[2018-04-30 20:00] VITALS: BP 143/81
[2018-05-01] VITALS (8 sets, daily range): BP systolic 95–148; BP diastolic 61–90
[2018-05-01 06:55] LABS: BASO % 0.2 % (0.0-1.0); EOS % 0.2 % (1.0-4.0); HEMATOCRIT 31.9 % (37.0-47.0); HEMOGLOBIN 10.8 g/dl (12.0-16.0); LYMPH # 0.7 10*3/uL (1.3-4.4); LYMPH % 11.4 % (27.0-41.0); MEAN CELL VOLUME 93.3 fl (81.0-99.0); MEAN CORPUSCULAR HGB 31.6 pg (27.0-31.0); MEAN CORPUSCULAR HGB CONC 33.9 g/dl (33.0-37.0); MEAN PLATELET VOLUME 9.6 fl (9.6-12.3); MONO # 1.1 10*3/uL (0.1-1.0); MONO % 16.5 % (3.0-9.0); NEUT # 4.5 10*3/uL (2.3-7.9); NEUT % 69.5 % (47.0-73.0); PLATELET COUNT AUTOMATED 110 10*3/uL (130-400); RED BLOOD COUNT 3.42 10*6/uL (4.10-5.10); RED CELL DISTRI WIDTH 12.9 % (0-14.5); WHITE BLOOD COUNT 6.5 10*3/uL (4.8-10.8)
[2018-05-01 07:28] LABS: ALBUMIN 3.3 gm/dl (3.1-4.5); BUN 4 mg/dl (7-24); CHLORIDE 88 mmol/L (98-107); POTASSIUM 3.4 mmol/L (3.5-5.1); SODIUM 126 mmol/L (136-145)
[2018-05-01 07:31] LABS: CREATININE 0.34 mg/dL (0.55-1.02); PHOSPHOROUS 1.5 mg/dL (2.5-4.9)
[2018-05-01 12:45] LABS: ABG BASE EXCESS 0.5 mmol/L (-2.0-2.0); ABG HCO3 28.5 mmol/l (22-26); ABG O2 SATURATION 99.9 % (95-97); ARTERIAL BLOOD GAS PH 7.249 (7.35-7.45)
[2018-05-01 15:54] LABS: ABG BASE EXCESS 3.3 mmol/L (-2.0-2.0); ABG HCO3 29.9 mmol/l (22-26); ABG O2 SATURATION 96.8 % (95-97); ARTERIAL BLOOD GAS PCO2 59.9 mmHg (35-45); ARTERIAL BLOOD GAS PH 7.32 (7.35-7.45)
[2018-05-01 20:12] LABS: BUN 6 mg/dl (7-24); CHLORIDE 90 mmol/L (98-107); CREATININE 0.43 mg/dL (0.55-1.02); POTASSIUM 4.2 mmol/L (3.5-5.1); SODIUM 127 mmol/L (136-145)
[2018-05-02] VITALS (9 sets, daily range): BP systolic 125–153; BP diastolic 80–94
[2018-05-02 05:16] LABS: BASO % 0.2 % (0.0-1.0); EOS % 0.2 % (1.0-4.0); HEMATOCRIT 31.5 % (37.0-47.0); HEMOGLOBIN 10.6 g/dl (12.0-16.0); LYMPH # 0.3 10*3/uL (1.3-4.4); LYMPH % 4.9 % (27.0-41.0); MEAN CORPUSCULAR HGB 31.6 pg (27.0-31.0); MEAN CORPUSCULAR HGB CONC 33.7 g/dl (33.0-37.0); MEAN PLATELET VOLUME 9.8 fl (9.6-12.3); MONO # 0.4 10*3/uL (0.1-1.0); MONO % 7.5 % (3.0-9.0); NEUT # 4.7 10*3/uL (2.3-7.9); NEUT % 85.4 % (47.0-73.0); PLATELET COUNT AUTOMATED 92 10*3/uL (130-400); RED BLOOD COUNT 3.35 10*6/uL (4.10-5.10); RED CELL DISTRI WIDTH 13.1 % (0-14.5); WHITE BLOOD COUNT 5.5 10*3/uL (4.8-10.8)
[2018-05-02 05:30] LABS: ALBUMIN 2.9 gm/dl (3.1-4.5); BUN 5 mg/dl (7-24); CHLORIDE 94 mmol/L (98-107); CREATININE 0.37 mg/dL (0.55-1.02); POTASSIUM 3.9 mmol/L (3.5-5.1); SODIUM 130 mmol/L (136-145)
[2018-05-02 05:34] LABS: PREALBUMIN 14 mg/dl (20-40)
[2018-05-02 07:39] LABS: ABG BASE EXCESS 4.6 mmol/L (-2.0-2.0); ABG HCO3 30.4 mmol/l (22-26); ABG O2 SATURATION 99.9 % (95-97)
[2018-05-02 07:48] LABS: ARTERIAL BLOOD GAS PH 7.367 (7.35-7.45)
[2018-05-02 07:49] LABS: ARTERIAL BLOOD GAS PCO2 54.4 mmHg (35-45)
[2018-05-02 08:28] LABS: ABG BASE EXCESS 2.8 mmol/L (-2.0-2.0); ABG O2 SATURATION 99.4 % (95-97); ARTERIAL BLOOD GAS PCO2 57.6 mmHg (35-45); ARTERIAL BLOOD GAS PH 7.328 (7.35-7.45)
[2018-05-03] VITALS (7 sets, daily range): BP systolic 141–152; BP diastolic 83–100
[2018-05-03 05:24] LABS: ALKALINE PHOSPHATASE 382 U/L (45-117); BUN 6 mg/dl (7-24); CHLORIDE 93 mmol/L (98-107); CREATININE 0.35 mg/dL (0.55-1.02); PHOSPHOROUS 2.7 mg/dL (2.5-4.9); POTASSIUM 4.2 mmol/L (3.5-5.1); SGOT/AST 54 IU/L (3-35); SGPT/ALT 52 U/L (12-78); SODIUM 134 mmol/L (136-145)
[2018-05-03 05:49] LABS: HEMATOCRIT 31.6 % (37.0-47.0); HEMOGLOBIN 10.6 g/dl (12.0-16.0); MEAN CELL VOLUME 95.8 fl (81.0-99.0); MEAN CORPUSCULAR HGB 32.1 pg (27.0-31.0); MEAN CORPUSCULAR HGB CONC 33.5 g/dl (33.0-37.0); MEAN PLATELET VOLUME 10.3 fl (9.6-12.3); NUCLEATED RED BLOOD CELL 0.1 10*3/uL (0.0-0.0); NUCLEATED RED BLOOD CELL 0.8 % (0.0-0.0); PLATELET COUNT AUTOMATED 90 10*3/uL (130-400); RED CELL DISTRI WIDTH 13.6 % (0-14.5); WHITE BLOOD COUNT 6.1 10*3/uL (4.8-10.8)
[2018-05-03 06:29] LABS: TOTAL CELLS COUNTED 100 #CELLS
[2018-05-03 06:30] LABS: PLATELET SUFFICIENCY LOW (NORMAL); POLYCHROMASIA SLIGHT
[2018-05-03 08:04] LABS: ABG BASE EXCESS 6.2 mmol/L (-2.0-2.0); ABG HCO3 31.7 mmol/l (22-26); ABG O2 SATURATION 93.6 % (95-97); ARTERIAL BLOOD GAS PCO2 51.2 mmHg (35-45); ARTERIAL BLOOD GAS PH 7.407 (7.35-7.45); ARTERIAL BLOOD GAS PO2 66.4 mmHg (80-90)
[2018-05-03 15:06] LABS: ACID FAST SPEC PROCESSING Concentration (.)
[2018-05-04] VITALS: BP 158/104
[2018-05-04 04:00] VITALS: BP 157/99
[2018-05-04 06:03] LABS: ALBUMIN 3.2 gm/dl (3.1-4.5); ALKALINE PHOSPHATASE 362 U/L (45-117); BUN 11 mg/dl (7-24); CHLORIDE 97 mmol/L (98-107); CREATININE 0.41 mg/dL (0.55-1.02); HEMATOCRIT 35.5 % (37.0-47.0); HEMOGLOBIN 11.5 g/dl (12.0-16.0); MEAN CELL VOLUME 98.3 fl (81.0-99.0); MEAN CORPUSCULAR HGB 31.9 pg (27.0-31.0); MEAN CORPUSCULAR HGB CONC 32.4 g/dl (33.0-37.0); MEAN PLATELET VOLUME 10.2 fl (9.6-12.3); NUCLEATED RED BLOOD CELL 0.1 10*3/uL (0.0-0.0); NUCLEATED RED BLOOD CELL 1.2 % (0.0-0.0); PLATELET COUNT AUTOMATED 87 10*3/uL (130-400); RED BLOOD COUNT 3.61 10*6/uL (4.10-5.10); RED CELL DISTRI WIDTH 13.7 % (0-14.5); SGOT/AST 73 IU/L (3-35); SGPT/ALT 72 U/L (12-78); SODIUM 139 mmol/L (136-145); TOTAL PROTEIN 6.3 gm/dL (6.4-8.2); WHITE BLOOD COUNT 9.1 10*3/uL (4.8-10.8)
[2018-05-04 06:48] LABS: PLATELET SUFFICIENCY LOW (NORMAL); POLYCHROMASIA SLIGHT; TOTAL CELLS COUNTED 100 #CELLS
[2018-05-04 08:00] VITALS: BP 147/98
[2018-05-04 11:34] LABS: ABG BASE EXCESS 5.5 mmol/L (-2.0-2.0); ABG O2 SATURATION 98.3 % (95-97); ARTERIAL BLOOD GAS PCO2 52.2 mmHg (35-45); ARTERIAL BLOOD GAS PH 7.392 (7.35-7.45)
[2018-05-04 12:00] VITALS: BP 154/90
[2018-05-04 16:00] VITALS: BP 135/87
[2018-05-04 20:00] VITALS: BP 140/90
[2018-05-05] VITALS: BP 153/105
[2018-05-05 04:00] VITALS: BP 159/99
[2018-05-05 05:11] LABS: ALBUMIN 3.1 gm/dl (3.1-4.5); ALKALINE PHOSPHATASE 370 U/L (45-117); BUN 13 mg/dl (7-24); CHLORIDE 99 mmol/L (98-107); CREATININE 0.47 mg/dL (0.55-1.02); PHOSPHOROUS 3.7 mg/dL (2.5-4.9); SGOT/AST 97 IU/L (3-35); SGPT/ALT 107 U/L (12-78); SODIUM 141 mmol/L (136-145); TOTAL PROTEIN 6.1 gm/dL (6.4-8.2)
[2018-05-05 06:03] LABS: HEMATOCRIT 33.7 % (37.0-47.0); HEMOGLOBIN 10.7 g/dl (12.0-16.0); MEAN CELL VOLUME 99.1 fl (81.0-99.0); MEAN CORPUSCULAR HGB 31.5 pg (27.0-31.0); MEAN CORPUSCULAR HGB CONC 31.8 g/dl (33.0-37.0); MEAN PLATELET VOLUME 10.9 fl (9.6-12.3); NUCLEATED RED BLOOD CELL 0.1 10*3/uL (0.0-0.0); PLATELET COUNT AUTOMATED 65 10*3/uL (130-400); RED CELL DISTRI WIDTH 14.3 % (0-14.5); WHITE BLOOD COUNT 8.1 10*3/uL (4.8-10.8)
[2018-05-05 08:00] VITALS: BP 147/87
[2018-05-05 08:11] LABS: PLATELET SUFFICIENCY LOW (NORMAL); TOTAL CELLS COUNTED 100 #CELLS
[2018-05-05 12:00] VITALS: BP 149/93
[2018-05-05 16:00] VITALS: BP 162/115
[2018-05-05 20:00] VITALS: BP 178/99
[2018-05-06] VITALS: BP 178/95
[2018-05-06 04:00] VITALS: BP 154/101
[2018-05-06 08:00] VITALS: BP 158/100
[2018-05-06 09:17] LABS: HEMATOCRIT 37.5 % (37.0-47.0); MEAN CELL VOLUME 100.5 fl (81.0-99.0); MEAN CORPUSCULAR HGB 32.2 pg (27.0-31.0); MEAN PLATELET VOLUME 10.1 fl (9.6-12.3); NUCLEATED RED BLOOD CELL 0.1 10*3/uL (0.0-0.0); NUCLEATED RED BLOOD CELL 0.7 % (0.0-0.0); PLATELET COUNT AUTOMATED 68 10*3/uL (130-400); RED BLOOD COUNT 3.73 10*6/uL (4.10-5.10); RED CELL DISTRI WIDTH 14.5 % (0-14.5); WHITE BLOOD COUNT 12.2 10*3/uL (4.8-10.8)
[2018-05-06 09:33] LABS: ALBUMIN 3.4 gm/dl (3.1-4.5); ALKALINE PHOSPHATASE 370 U/L (45-117); BUN 17 mg/dl (7-24); CHLORIDE 98 mmol/L (98-107); CREATININE 0.51 mg/dL (0.55-1.02); PHOSPHOROUS 4.8 mg/dL (2.5-4.9); POTASSIUM 4.3 mmol/L (3.5-5.1); SGOT/AST 103 IU/L (3-35); SGPT/ALT 139 U/L (12-78); SODIUM 139 mmol/L (136-145); TOTAL PROTEIN 6.5 gm/dL (6.4-8.2)
[2018-05-06 09:34] LABS: TOTAL CELLS COUNTED 100 #CELLS
[2018-05-06 09:35] LABS: PLATELET SUFFICIENCY LOW (NORMAL); POLYCHROMASIA SLIGHT
[2018-05-06 12:00] VITALS: BP 162/100
[2018-05-06 16:00] VITALS: BP 153/97
[2018-05-06 20:00] VITALS: BP 126/95
[2018-05-07] VITALS: BP 150/98
[2018-05-07 05:52] LABS: HEMOGLOBIN 11.7 g/dl (12.0-16.0); MEAN CELL VOLUME 100.5 fl (81.0-99.0); MEAN CORPUSCULAR HGB 31.8 pg (27.0-31.0); MEAN CORPUSCULAR HGB CONC 31.6 g/dl (33.0-37.0); MEAN PLATELET VOLUME 11.2 fl (9.6-12.3); NUCLEATED RED BLOOD CELL 0.2 10*3/uL (0.0-0.0); NUCLEATED RED BLOOD CELL 1.5 % (0.0-0.0); PLATELET COUNT AUTOMATED 59 10*3/uL (130-400); RED BLOOD COUNT 3.68 10*6/uL (4.10-5.10); RED CELL DISTRI WIDTH 14.5 % (0-14.5); WHITE BLOOD COUNT 11.5 10*3/uL (4.8-10.8)
[2018-05-07 06:17] LABS: ALBUMIN 3.2 gm/dl (3.1-4.5); BUN 16 mg/dl (7-24); CHLORIDE 96 mmol/L (98-107); CREATININE 0.46 mg/dL (0.55-1.02); POTASSIUM 4.1 mmol/L (3.5-5.1); SGOT/AST 158 IU/L (3-35); SGPT/ALT 190 U/L (12-78); SODIUM 140 mmol/L (136-145)
[2018-05-07 06:19] LABS: ALKALINE PHOSPHATASE 389 U/L (45-117); TOTAL PROTEIN 6.1 gm/dL (6.4-8.2)
[2018-05-07 06:32] LABS: PLATELET SUFFICIENCY LOW (NORMAL); POLYCHROMASIA SLIGHT; TOTAL CELLS COUNTED 100 #CELLS
[2018-05-07 08:00] VITALS: BP 145/88
[2018-05-07 12:00] VITALS: BP 157/98
[2018-05-07 16:00] VITALS: BP 124/92
[2018-05-07 20:00] VITALS: BP 144/79
[2018-05-08] VITALS: BP 147/101
[2018-05-08 06:41] LABS: HEMATOCRIT 38.9 % (37.0-47.0); HEMOGLOBIN 12.3 g/dl (12.0-16.0); MEAN CELL VOLUME 100.8 fl (81.0-99.0); MEAN CORPUSCULAR HGB 31.9 pg (27.0-31.0); MEAN CORPUSCULAR HGB CONC 31.6 g/dl (33.0-37.0); MEAN PLATELET VOLUME 12.2 fl (9.6-12.3); NUCLEATED RED BLOOD CELL 0.3 10*3/uL (0.0-0.0); PLATELET COUNT AUTOMATED 50 10*3/uL (130-400); RED BLOOD COUNT 3.86 10*6/uL (4.10-5.10); RED CELL DISTRI WIDTH 14.8 % (0-14.5); WHITE BLOOD COUNT 12.8 10*3/uL (4.8-10.8)
[2018-05-08 07:10] LABS: TOTAL CELLS COUNTED 100 #CELLS
[2018-05-08 07:11] LABS: PLATELET SUFFICIENCY LOW (NORMAL); POLYCHROMASIA SLIGHT
[2018-05-08 07:13] LABS: ALBUMIN 3.1 gm/dl (3.1-4.5); ALKALINE PHOSPHATASE 499 U/L (45-117); BUN 18 mg/dl (7-24); CHLORIDE 96 mmol/L (98-107); CREATININE 0.49 mg/dL (0.55-1.02); POTASSIUM 4.6 mmol/L (3.5-5.1); SGOT/AST 298 IU/L (3-35); SGPT/ALT 264 U/L (12-78); SODIUM 138 mmol/L (136-145); TOTAL PROTEIN 6.1 gm/dL (6.4-8.2)
[2018-05-08 08:00] VITALS: BP 127/90
[2018-05-08 12:00] VITALS: BP 134/89
[2018-05-08 16:00] VITALS: BP 141/86
[2018-05-18 12:07] LABS: ORGANISM ID, MOLD Final report (.)
== END 2018-05-08 18:25 | disposition hospice, home (50) | DRG 208 ==
LOC: ED 09:10 → 5E 11:40 → EDHOLD 11:40 → ICCU 11:40 → 5E 11:49 → ICCU 05-01 12:22 → 5E 05-06 14:18
PROVIDERS: Internal Medicine; Internal Medicine Critical Care Medicine; Internal Medicine Nephrology; Nurse Practitioner Family; Student in an Organized Health Care Education/Training Program
PROC: 5A1945Z Respiratory Ventilation, 24-96 Consecutive Hours (ICD-10-PCS; principal; 2018-05-01)
PROC: 0BH18EZ Insertion of Endotracheal Airway into Trachea, Via Natural or Artificial Opening Endoscopic (ICD-10-PCS; 2018-05-01)
PROC: 0BC18ZZ Extirpation of Matter from Trachea, Via Natural or Artificial Opening Endoscopic (ICD-10-PCS; 2018-05-01)
PROC: 0BC98ZZ Extirpation of Matter from Lingula Bronchus, Via Natural or Artificial Opening Endoscopic (ICD-10-PCS; 2018-05-01)
PROC: 0BC48ZZ Extirpation of Matter from Right Upper Lobe Bronchus, Via Natural or Artificial Opening Endoscopic (ICD-10-PCS; 2018-05-01)
PROC: 0BC88ZZ Extirpation of Matter from Left Upper Lobe Bronchus, Via Natural or Artificial Opening Endoscopic (ICD-10-PCS; 2018-05-01)
PROC: 0BC58ZZ Extirpation of Matter from Right Middle Lobe Bronchus, Via Natural or Artificial Opening Endoscopic (ICD-10-PCS; 2018-05-01)
PROC: 0BC68ZZ Extirpation of Matter from Right Lower Lobe Bronchus, Via Natural or Artificial Opening Endoscopic (ICD-10-PCS; 2018-05-01)
PROC: 5A09457 Assistance with Respiratory Ventilation, 24-96 Consecutive Hours, Continuous Positive Airway Pressure (ICD-10-PCS; 2018-05-02)
PROC: 5A09357 Assistance with Respiratory Ventilation, Less than 24 Consecutive Hours, Continuous Positive Airway Pressure (ICD-10-PCS; 2018-05-04)
PROC: 5A09357 Assistance with Respiratory Ventilation, Less than 24 Consecutive Hours, Continuous Positive Airway Pressure (ICD-10-PCS; 2018-05-05)
PROC: 5A09357 Assistance with Respiratory Ventilation, Less than 24 Consecutive Hours, Continuous Positive Airway Pressure (ICD-10-PCS; 2018-05-07)
DX: J96.21 Acute and chronic respiratory failure with hypoxia (principal); D61.810 Antineoplastic chemotherapy induced pancytopenia; E87.3 Alkalosis; E22.2 Syndrome of inappropriate secretion of antidiuretic hormone; E44.0 Moderate protein-calorie malnutrition; C78.7 Secondary malignant neoplasm of liver and intrahepatic bile duct; T17.490A Other foreign object in trachea causing asphyxiation, initial encounter; C34.91 Malignant neoplasm of unspecified part of right bronchus or lung; T17.590A Other foreign object in bronchus causing asphyxiation, initial encounter; E87.8 Other disorders of electrolyte and fluid balance, not elsewhere classified; D75.82 Heparin induced thrombocytopenia (HIT); E83.42 Hypomagnesemia; R10.11 Right upper quadrant pain; R00.0 Tachycardia, unspecified; D72.821 Monocytosis (symptomatic); R74.8 Abnormal levels of other serum enzymes; E66.3 Overweight; R26.9 Unspecified abnormalities of gait and mobility; I10 Essential (primary) hypertension; F41.1 Generalized anxiety disorder; G40.909 Epilepsy, unspecified, not intractable, without status epilepticus; M79.2 Neuralgia and neuritis, unspecified; J20.9 Acute bronchitis, unspecified; F41.0 Panic disorder [episodic paroxysmal anxiety]; J96.22 Acute and chronic respiratory failure with hypercapnia; M54.9 Dorsalgia, unspecified; Z66 Do not resuscitate; Z51.5 Encounter for palliative care; K21.9 Gastro-esophageal reflux disease without esophagitis; F17.210 Nicotine dependence, cigarettes, uncomplicated; R74.0 Nonspecific elevation of levels of transaminase and lactic acid dehydrogenase [LDH]; J43.8 Other emphysema; M15.9 Polyosteoarthritis, unspecified; R62.7 Adult failure to thrive; F32.9 Major depressive disorder, single episode, unspecified; M41.9 Scoliosis, unspecified; M43.16 Spondylolisthesis, lumbar region; G89.4 Chronic pain syndrome; T45.1X5A Adverse effect of antineoplastic and immunosuppressive drugs, initial encounter; D72.9 Disorder of white blood cells, unspecified; T45.515A Adverse effect of anticoagulants, initial encounter; X58.XXXA Exposure to other specified factors, initial encounter; Y93.89 Activity, other specified; Y99.8 Other external cause status; Z71.6 Tobacco abuse counseling; Y92.89 Other specified places as the place of occurrence of the external cause; Z91.19 Patient's noncompliance with other medical treatment and regimen; Z82.49 Family history of ischemic heart disease and other diseases of the circulatory system; Z80.9 Family history of malignant neoplasm, unspecified; Z82.5 Family history of asthma and other chronic lower respiratory diseases; Z86.711 Personal history of pulmonary embolism; Z85.41 Personal history of malignant neoplasm of cervix uteri; Z79.899 Other long term (current) drug therapy; Z68.25 Body mass index [BMI] 25.0-25.9, adult

== ENCOUNTER 2018-05-08 18:33 | Inpatient (IN) | payer OTHER ==
[~2018-05-08] VITALS: Ht 170.2 cm; Wt 73.0 kg
[2018-05-08 20:00] VITALS: BP 139/99
[2018-05-09 01:10] VITALS: BP 132/94
[2018-05-09 08:00] VITALS: BP 118/78
[2018-05-09 16:00] VITALS: BP 117/78
[2018-05-09 20:00] VITALS: BP 150/119
== END 2018-05-09 21:22 | disposition expired | DRG 180 ==
LOC: 5E 18:33
DX: C34.90 Malignant neoplasm of unspecified part of unspecified bronchus or lung (principal); I26.99 Other pulmonary embolism without acute cor pulmonale; E22.2 Syndrome of inappropriate secretion of antidiuretic hormone; C78.7 Secondary malignant neoplasm of liver and intrahepatic bile duct; J44.1 Chronic obstructive pulmonary disease with (acute) exacerbation; M41.9 Scoliosis, unspecified; Z51.5 Encounter for palliative care; R00.0 Tachycardia, unspecified; E66.3 Overweight; R26.9 Unspecified abnormalities of gait and mobility; I10 Essential (primary) hypertension; G40.909 Epilepsy, unspecified, not intractable, without status epilepticus; F41.1 Generalized anxiety disorder; M79.2 Neuralgia and neuritis, unspecified; F41.0 Panic disorder [episodic paroxysmal anxiety]; F17.210 Nicotine dependence, cigarettes, uncomplicated; K21.9 Gastro-esophageal reflux disease without esophagitis; F32.9 Major depressive disorder, single episode, unspecified; E55.9 Vitamin D deficiency, unspecified; M19.90 Unspecified osteoarthritis, unspecified site; G89.4 Chronic pain syndrome; Z87.81 Personal history of (healed) traumatic fracture; Z85.41 Personal history of malignant neoplasm of cervix uteri; Z94.7 Corneal transplant status; Z68.25 Body mass index [BMI] 25.0-25.9, adult